=== PATIENT | female | born 1975 | race African-American/Black ===

== ENCOUNTER 2025-04-14 12:37 | Day surgery (SDC) | payer MEDICARE, MEDICAID, SELFPAY ==
[2025-04-14] VITALS (7 sets, daily range): BP systolic 116–138; BP diastolic 64–85; PULSE 80–86; RESP 16–18; TEMP 36.3–36.4; O2SAT 100; BMI 32.3
[2025-04-14 13:30] LABS: Internal QC Validated? YES +Cl - CLEAR BKGD; Pregnancy, Urine Negative Negative
--- NOTE | 2025-04-14 13:30 | PRE.ANES_ITS ---
ASA Classification* ASA Classification ASA Classification: 2 Assessment & Plan Anesthesia* Anesthesia Assessment Anesthesia Assessment: Discussed sedation and/or anesthesia options, risks, benefits, and alternatives with patient/parents/legal guardian/POA. Questions invited. The patient/parents/legal guardian/POA seems to understand and agrees to proceed with anesthesia plan. Reviewed the physical assessment, medical history, allergy history and patient home medications list prior to surgery/procedure/anesthetic and documented any changes. Performed airway and anesthesia risk assessments. Anesthesia Type Anesthesia Type: MAC Anesthesia Focused Assessment* Temperature: 97.3 F Pulse Rate: 80 Blood Pressure: 138/85 Respiratory Rate: 18 Pulse Ox: 100 Airway Assessment Mouth opens: >3 cm Mallampati Score: II Labs Anesthesia Preop lab: CBC CHEMISTRY COAG Urine Test Negative Negative 04/14/25 12:54 04/14/25 Pre-Assessment Diagnosis/Proposed Procedure Planned Operative Procedure(s): Colonoscopy,EGD Anesthesia History Anesthesia History - sports medicine trainer: Anesthesia History - sports medicine trainer Hx Hospitalization No 04/13/25 08:49 Any Problems With Anesthesia No 04/13/25 08:49 Cholinesterase deficiency No 04/13/25 08:49 You/Your Family Experience No 04/13/25 08:49 fever (hyperthermia) with Relationship Recent Exposure to Contagious No 04/14/25 13:14 Disease Does patient have nerve No 04/13/25 08:49 stimulator Patient instructed to have device shut off --Does patient have Pacemaker or ICD? When Was Last Pacemaker Check QUESTION #4 FULL TEXT: You/Your Family Experience fever (hyperthermia) with Anesthesia Last Oral Intake Last Oral intake: Last Oral Intake NPO since Meds taken in AM with sips of water? Meds patient instructed to take am of surgery PONV PONV - sports medicine trainer: PONV - sports medicine trainer Female Yes 04/13/25 08:49 HX of Motion Sickness No 04/13/25 08:49 HX of N/V After Surgery No 04/13/25 08:49 Non-Smoker Yes 04/13/25 08:49 Duration of Surgery greater No 04/13/25 08:49 than 60 minutes Number of Risk Factors 2 04/13/25 08:49 PONV Score Moderate Risk 04/13/25 08:49 Height & Weight Height & Weight: Anesthesia: Height & Weight Height 5 ft 9 in 04/14/25 13:17 Weight: 99.337 kg 04/14/25 13:17 Body Mass Index (BMI) 32.3 04/14/25 13:17 Respiratory Assessment Respiratory Assessment - sports medicine trainer: Respiratory Tract Infection Hx - sports medicine trainer Hx Respiratory Tract Infection No 04/13/25 08:49 STOP Sleep Apnea STOP Sleep Apnea - sports medicine trainer: STOP Sleep Apnea - sports medicine trainer Hx Hypertension Yes: ON MEDICATION 04/13/25 08:49 Hx Sleep Apnea No 04/13/25 08:49 CPAP BIPAP Do you snore loudly (louder Yes 04/13/25 08:49 than talking or can be heard Do you often feel tired/ Yes 04/13/25 08:49 fatigued/ sleepy during daytime? Has anyone observed you stop No 04/13/25 08:49 breathing during sleep? STOP Results Positive 04/13/25 08:49 QUESTION #5 FULL TEXT : Do you snore loudly (louder than talking or can be heard through closed doors)? Tobacco Use History Tobacco Use History - sports medicine trainer: Tobacco Use History - sports medicine trainer Tobacco Use Smoking Status Former smoker 04/13/25 08:49 Hx Tobacco Use No 04/13/25 08:49 Years Smoking 10 04/13/25 08:49 Packs Smoked per Day 1 04/13/25 08:49 Smoking Cessation Date was No - quit smoking greater 04/13/25 08:49 within the last 15 years than 15 years ago Hx Smoking Cessation Date Hx Smoking Cessation No 04/13/25 08:49 Counseling Hematologic Medial History Hematologic Hx - sports medicine trainer: Hematologic Medical Hx - zinc etcher Hx of Blood Transfusion No 04/13/25 08:49 Hx of Transfusion in last 3 No 04/13/25 08:49 Months Date of Last Transfusion (if within last 3 months) Ever experience any problems No 04/13/25 08:49 with transfusion(s)? Specify any problems Hx of Preganancy in last 3 No 04/13/25 08:49 Months Nurse Filling Out Transfusion ROBERTA 04/13/25 08:49 & Questions: Date: 04/13/25 04/13/25 08:49 Time: 08:53 04/13/25 08:49 Patient unable to answer at this time (ie. confused, unrespo /Reproduction History /Reproductive History - sports medicine trainer: /Reproductive Hx- sports medicine trainer Hx Now No 04/13/25 08:49 Gestational Age (in weeks): EDC: Hx Hx Para Hx Section SAB No 04/13/25 08:49 Active Medications Active Medications: Current Medications Generic Name Dose Route Start Last Admin Trade Name Freq PRN Reason Stop Dose Admin Sodium Chloride 1,000 mls @ 15 mls/hr 04/14/25 12:55 IV .Q48H ANTOINE PFSH Medical History Wears glasses Marijuana use Arthritis History of renal disease Anemia Restless legs Dietary restriction Heartburn Former smoker Home Medications ?Medication ?Instructions ?Recorded ?Last Taken ?Type amlodipine 5 mg tablet 5 mg PO QHS 01/29/25 5 History calcitriol 0.5 mcg capsule 0.5 mcg PO QDAY 01/29/25 History cinacalcet 90 mg tablet 90 mg PO QDAY 01/29/2504/13 History labetalol 100 mg tablet 100 mg PO BID 01/29/2504/14 10:00 History losartan 50 mg tablet 50 mg PO BID 01/29/25 10:00 History medroxyprogesterone 10 mg tablet 10 mg PO QDAY 5 Unknown History multivitamin 1 tab PO QDAY 01/29/2504/10 History omeprazole 20 mg capsule,delayed 20 mg PO QDAY 5 04/13/25 History release ropinirole 0.5 mg tablet 1.5 mg PO BID 01/29/2504/13 History sevelamer HCl 800 mg tablet 800 mg PO TID 01/29/2505/29 History peg 3350-electrolytes 236 240 ml PO Q10M #4,000 mL 12/3004/13/25 Rx gram-22.74 gram-6.74 gram-5.86 gram solution (Golytely) Allergy/AdvReac Type Severity Reaction Status Date / Time No Known Allergies Allergy Verified 04/14/25 13:11 Social History Smoking Status: Former smoker alcohol intake: current alcohol intake frequency: holidays/special occasions only substance use type: marijuana caffeine: Yes Type: coffee Review of Systems (Anesthesia) ROS Narrative System reviewed and no additional complaints, except as documented.
[2025-04-14] MEDS: 0.9% Normal Saline (1000mL) 1,000 ML 15 ML IV (13:53)
--- NOTE | 2025-04-14 14:15 | EGD_PTH ---
PATIENT: JESSICA MACDONALD LOC: EN U#:[id number] AGE/SX: 49/F ROOM: RE04/14/[address]: Dr. Alberto Strickland DO : 1975 BED: DIS: 04/14/2025 SPEC #: [id number] RECD: 04/14/25 18:24 STATUS: FRED REFélix #: [id number] FIDEL: 04/14/25 14:[address]: Alberto Strickland DEPT: SURGICAL PATHOLOGY RECD BY: Constantino Echavarria ENTERED: 04/15/25 08:51 SP TYPE: EGD BIOPSY MEHDI DR: Christine To, CERTIFIED MASTER SAFECRACKER-C Tissues: A - Esophagus, NOS B - Duodenum, NOS C - COLON BIOPSY D - Cecum, NOS Procedures: Surgery Specimen Level IV HEADER OPERATION: Colonoscopy with polypectomy, EGD with biopsy PRE-OP DIAGNOSIS: Screening for colon cancer, chronic GERD TISSUE SUBMITTED: A- Distal esophagus biopsy, B- Duodenum biopsy, C- Hepatic flexure polyp x2, D- Cecal cap biopsy MICROSCOPIC DIAGNOSIS A. Esophagus, distal, biopsies: * Benign squamous epithelium * Oxynto-cardiac mucosa with slight chronic inflammation * No goblet cell metaplasia is identified B. Small intestine, duodenum: * Benign without active inflammation C. Large intestine, hepatic flexure polyp x 2: * Tubular adenoma D. Large intestine, cecal polyp: * Tubular adenoma MICROSCOPIC DESCRIPTION Slides are reviewed. GROSS DESCRIPTION Received in 4 formalin containers labeled the patient's name and date of . Designated as: A. Distal esophagus BX are approximately 5 tim tissue fragments, <0.1 cm to 0.3 cm. Entirely submitted in 1 cassette. Smaller fragments may not survive processing. B. Duodenum BX are approximately 6 tim tissue fragments, <0.1 cm to 0.4 cm. Entirely submitted 1 cassette. Smaller fragments may not survive processing. C. Hepatic flexure polyp x 2 are 3 tim tissue fragments, <0.1 cm to 0.5 cm and 2 tim-red polyps, 0.7 x 0.5 x 0.4 cm and 1.1 x 0.9 x 0.7 cm. The polyps are sectioned, and the specimen is entirely submitted in 3 cassettes as follows: C1: 3 soft tissue fragments, smallest fragment may not survive processing. C2: Smaller polyp, trisected C3: Larger polyp, serially section D. Cecal CAP polyp is a 0.3 cm tim tissue fragment and a 1.4 x 1.3 x 1.1 cm tim-red polyp. Entirely submitted in 3 cassettes as follows: D1: 1 soft tissue fragment D2-D3: Serially section polyp SLC 04/15/2025 CPT:49207a8
--- NOTE | 2025-04-14 15:18 | PCM.HP.STD ---
HPI - General General Date of Admission: 04/14/25 Date of Service: 04/14/25 Chief Complaint: GERD screening colonoscopy HPI Narrative JESSICA MACDONALD, is a 49 F who presents for a screening colonoscopy. Pt has never had a colonoscopy before. She has chronic constipation due to being ESRD on dialysis. She will take stool softener when she needs it. SHe typically has a bm every few days. SHe denies family hx of colon cancer. Pt also has a hx of heartburn and has been on famotidine. Her PCP recently switched her to omeprazole. SHe has been on this for a few weeks and has not had any heartburn. [facility] Medical History Wears glasses Marijuana use Arthritis History of renal disease Anemia Restless legs Dietary restriction Heartburn Former smoker Home Medications ?Medication ?Instructions ?Recorded ?Last Taken ?Type amlodipine 5 mg tablet 5 mg PO QHS 01/29/25 04/13/25 History calcitriol 0.5 mcg capsule 0.5 mcg PO QDAY 01/29/25 04/10/25 History cinacalcet 90 mg tablet 90 mg PO QDAY 01/29/25 04/13/25 History labetalol 100 mg tablet 100 mg PO BID 01/29/25 04/14/25 10:00 History losartan 50 mg tablet 50 mg PO BID 01/29/25 04/14/25 10:00 History medroxyprogesterone 10 mg tablet 10 mg PO QDAY 01/29/25 Unknown History multivitamin 1 tab PO QDAY 01/29/25 04/10/25 History omeprazole 20 mg capsule,delayed 20 mg PO QDAY 01/29/25 04/13/25 History release ropinirole 0.5 mg tablet 1.5 mg PO BID 01/29/25 04/13/25 History sevelamer HCl 800 mg tablet 800 mg PO TID 01/29/25 04/11/25 History peg 3350-electrolytes 236 240 ml PO Q10M #4,000 mL 02/04/25 04/13/25 Rx gram-22.74 gram-6.74 gram-5.86 gram solution (Golytely) Allergy/AdvReac Type Severity Reaction Status Date / Time No Known Allergies Allergy Verified 04/14/25 13:11 Social History Smoking Status: Former smoker alcohol intake: current alcohol intake frequency: holidays/special occasions only substance use type: marijuana caffeine: Yes Type: coffee ROS Constitutional Constitutional: Denies fatigue, fever(s), poor appetite, weight gain or weight loss Gastrointestinal Gastrointestinal: Denies belching, bloating, change in bowel habits, change in stool character, chewing difficulty, coffee ground emesis, constipation, cramping, diarrhea, dyspepsia, dysphagia, early satiety, excessive flatus, fecal incontinence, heartburn, hematemesis, hematochezia, hemorrhoids, loose stools, melena, nausea, odynophagia, rectal bleeding, tenesmus, vomiting or weight changes Vital Signs Vital Signs Vital Signs: 04/14/25 13:14 04/14/25 13:17 04/14/25 13:31 Temperature 97.3 F L 97.3 F L Temperature Source Temporal Pulse Rate 80 80 Respiratory Rate 18 18 Respiratory Pattern Normal Blood Pressure 138/85 H 138/85 H Blood Pressure Mean 102 Blood Pressure Source Monitor Blood Pressure Position Semi-Fowlers Blood Pressure Location Right Arm Pulse Ox 100 100 Oxygen Delivery Method Room Air Weight Weight: 219 lb Body Mass Index (BMI) 32.3 Physical Exam Const alert, oriented x3, no apparent distress and healthy appearing General Appearance: cooperative GI normal to inspection, nondistended, normoactive bowel sounds, soft to palpation, non-tender and non-distended Percussion: normal to percussion Rectal Exam: deferred Results Lab / Micro Data Labs: Laboratory Results - last 24 hr 04/14/25 12:54: Urine Test Negative Assessment & Plan Assessment/Plan (1) Screening for colon cancer: (2) Chronic GERD: PLAN: Assessment and Plan Assessment and Plan (1) Chronic GERD: Status: Chronic Plan: THis is a 49 yo female pt here today for evaluation and to be scheduled for screening colonoscopy. Pt has a hx of GERD previously on H2 elle but recently changed to PPI. She feels it is well controlled at this time. However due to long hx she will undergo EGD. She will also have a colonoscopy as the same time for colon cancer screening. She is agreeable to plan -EGD -Colonoscopy -f/u after procedure (2) Screening for colon cancer: Status: Acute
--- NOTE | 2025-04-14 16:50 | PCM.POST.ANE ---
Anesthesia: Postop Eval I Current Vital Signs Temperature: 97.6 F Pulse Rate: 86 Blood Pressure: 127/73 Respiratory Rate: 16 Pulse Ox: 100 Oxygen Delivery Method: Room Air Assessment Airway patent: Yes Spontaneous unlabored respirations: Yes Mental status: Awake and Calm nausea: No Vomiting: No Anesthesia Complication: No Fluid Hydration Crystalloid volume administer (ml): 1,000 Total IV fluid infused: 1,000 Progress Note Anesthesia document: Postop Eval 1 completed: Yes
--- NOTE | 2025-04-14 16:51 | OP.EGD_ITS ---
Patient Name: Nisha Tovar Procedure Date: 04/14/2025 3:59 PM Date of : 1975 Age: 49 Procedure: Upper GI endoscopy Indications: Epigastric abdominal pain, Functional Dyspepsia, Suspected esophageal reflux Providers: Alberto Strickland DO Referring MD: Alberto Strickland DO Medicines: Monitored Anesthesia Care Patient Profile: This is a 49 year old female. Refer to note in patient chart for documentation of history and physical. Patient has symptoms of acute epigastric abdominal pain, chronic heartburn and chronic nausea. Complications: No immediate complications. Procedure: Pre-Anesthesia Assessment: - Prior to the procedure, a History and Physical was performed, and patient medications and allergies were reviewed. The patient is competent. The risks and benefits of the procedure and the sedation options and risks were discussed with the patient. All questions were answered and informed consent was obtained. Patient identification and proposed procedure were verified by the physician in the pre-procedure area. Mental Status Examination: alert and oriented. Airway Examination: normal oropharyngeal airway and neck mobility. Respiratory Examination: clear to auscultation. CV Examination: normal. Prophylactic Antibiotics: The patient does not require prophylactic antibiotics. Prior Anticoagulants: The patient has taken no anticoagulant or antiplatelet agents except for NSAID medication. ASA Grade Assessment: I - A normal, healthy patient. After reviewing the risks and benefits, the patient was deemed in satisfactory condition to undergo the procedure. The anesthesia plan was to use monitored anesthesia care (MAC). Immediately prior to administration of medications, the patient was re-assessed for adequacy to receive sedatives. The heart rate, respiratory rate, oxygen saturations, blood pressure, adequacy of pulmonary ventilation, and response to care were monitored throughout the procedure. The physical status of the patient was re-assessed after the procedure. After obtaining informed consent, the endoscope was passed under direct vision. Throughout the procedure, the patient's blood pressure, pulse, and oxygen saturations were monitored continuously. The Colonoscope was introduced through the mouth, and advanced to the third part of the duodenum. Small bowel enteroscopy was deemed necessary. The upper GI endoscopy was accomplished without difficulty. The patient tolerated the procedure well. Scope In: 4:08:40 PM Scope Out: 4:12:27 PM Total Procedure Duration Time 0 hours 3 minutes 47 seconds Findings: LA Grade A (one or more mucosal breaks less than 5 mm, not extending between tops of 2 mucosal folds) esophagitis with no bleeding was found 38 to 40 cm from the incisors. Biopsies were taken with a cold forceps for histology. Verification of patient identification for the specimen was done. Estimated blood loss was minimal. No gross lesions were noted in the entire examined stomach. Localized mild inflammation characterized by erosions and erythema was found in the duodenal bulb. Biopsies were taken with a cold forceps for histology. Verification of patient identification for the specimen was done. Estimated blood loss was minimal. Impression: - LA Grade A reflux esophagitis with no bleeding. Biopsied. - No gross lesions in the entire stomach. - Chronic duodenitis. Biopsied. Recommendation: - Discharge patient to home. - Resume previous diet. - Continue present medications. - Await pathology results. Procedure Code(s): --- Professional --- 59849, Small intestinal endoscopy, enteroscopy beyond second portion of duodenum, not including ileum; with biopsy, single or multiple CPT copyright 2021 [employer]. All rights reserved. The codes documented in this report are preliminary and upon rewinder operator helper review may be revised to meet current compliance requirements. Alberto Strickland DO 04/14/2025 4:50:55 PM This report has been signed electronically. Number of Addenda: 0 Note Initiated On: 04/14/2025 3:59 PM
--- NOTE | 2025-04-14 16:51 | OP.CCLET_ITS ---
04/14/2025 Christine To Re : Upper GI endoscopy procedure for Nisha Tovar Dear [place]ule[place] This procedure was performed on Monday, April 14, 2025. My impressions and recommendations are as follows: Impressions : - LA Grade A reflux esophagitis with no bleeding. Biopsied. - No gross lesions in the entire stomach. - Chronic duodenitis. Biopsied. Recommendations : - Discharge patient to home. - Resume previous diet. - Continue present medications. - Await pathology results. My findings are described in the full procedure note, which is enclosed. If I can be of further assistance, please feel free to contact me at . Sincerely, Alberto Strickland DO 04/14/2025 4:50:55 PM This report has been signed electronically.
--- NOTE | 2025-04-14 16:57 | OP.COLON_ITS ---
Patient Name: Nisha Tovar Procedure Date: 04/14/2025 4:12 PM Date of : 1975 Age: 49 Procedure: Colonoscopy Indications: Screening for colorectal malignant neoplasm Providers: Alberto Strickland DO Referring MD: Alberto Strickland DO Medicines: Monitored Anesthesia Care Patient Profile: This is a 49 year old female. Refer to note in patient chart for documentation of history and physical. Patient has symptoms of acute epigastric abdominal pain, chronic heartburn and chronic nausea. Last Colonoscopy: none. The patient's first colonoscopy is today. Complications: No immediate complications. Procedure: Pre-Anesthesia Assessment: - Prior to the procedure, a History and Physical was performed, and patient medications and allergies were reviewed. The patient is competent. The risks and benefits of the procedure and the sedation options and risks were discussed with the patient. All questions were answered and informed consent was obtained. Patient identification and proposed procedure were verified by the physician in the pre-procedure area. Mental Status Examination: alert and oriented. Airway Examination: normal oropharyngeal airway and neck mobility. Respiratory Examination: clear to auscultation. CV Examination: normal. Prophylactic Antibiotics: The patient does not require prophylactic antibiotics. Prior Anticoagulants: The patient has taken no anticoagulant or antiplatelet agents except for NSAID medication. ASA Grade Assessment: I - A normal, healthy patient. After reviewing the risks and benefits, the patient was deemed in satisfactory condition to undergo the procedure. The anesthesia plan was to use monitored anesthesia care (MAC). Immediately prior to administration of medications, the patient was re-assessed for adequacy to receive sedatives. The heart rate, respiratory rate, oxygen saturations, blood pressure, adequacy of pulmonary ventilation, and response to care were monitored throughout the procedure. The physical status of the patient was re-assessed after the procedure. After I obtained informed consent, the scope was passed under direct vision. Throughout the procedure, the patient's blood pressure, pulse, and oxygen saturations were monitored continuously. The Colonoscope was introduced through the anus and advanced to the cecum, identified by appendiceal orifice and ileocecal valve. The colonoscopy was performed without difficulty. The patient tolerated the procedure well. The quality of the bowel preparation was good. The terminal ileum, ileocecal valve, appendiceal orifice, and rectum were photographed. Scope In: 4:14:35 PM Scope Withdrawal Time 0 hours 13 minutes 26 seconds Scope Out: 4:40:37 PM Total Procedure Duration Time 0 hours 26 minutes 2 seconds Findings: The perianal and digital rectal examinations were normal. Three sessile polyps were found in the hepatic flexure and cecum. The polyps were 1 to 2 mm in size. These polyps were removed with a hot snare. Resection and retrieval were complete. Verification of patient identification for the specimen was done. Estimated blood loss was minimal. Multiple small-mouthed diverticula were found in the recto-sigmoid colon and sigmoid colon. Impression: - Three 1 to 2 mm polyps at the hepatic flexure and in the cecum, removed with a hot snare. Resected and retrieved. - Diverticulosis in the recto-sigmoid colon and in the sigmoid colon. Recommendation: - Discharge patient to home. - Resume previous diet. - Continue present medications. - Repeat colonoscopy in 5 years for surveillance. Procedure Code(s): --- Professional --- 78879, Colonoscopy, flexible; with removal of tumor(s), polyp(s), or other lesion(s) by snare technique CPT copyright 2021 [employer]. All rights reserved. The codes documented in this report are preliminary and upon town planner review may be revised to meet current compliance requirements. Alberto Strickland DO 04/14/2025 4:57:08 PM This report has been signed electronically. Number of Addenda: 0 Note Initiated On: 04/14/2025 4:12 PM
--- NOTE | 2025-04-14 16:58 | OP.CCLET_ITS ---
04/14/2025 Christine To Re : Colonoscopy procedure for Nisha Tovar Dear Zuleika This procedure was performed on Monday, April 14, 2025. My impressions and recommendations are as follows: Impressions : - Three 1 to 2 mm polyps at the hepatic flexure and in the cecum, removed with a hot snare. Resected and retrieved. - Diverticulosis in the recto-sigmoid colon and in the sigmoid colon. Recommendations : - Discharge patient to home. - Resume previous diet. - Continue present medications. - Repeat colonoscopy in 5 years for surveillance. My findings are described in the full procedure note, which is enclosed. If I can be of further assistance, please feel free to contact me at . Sincerely, Alberto Strickland, 04/14/2025 4:57:08 PM This report has been signed electronically.
--- NOTE | 2025-04-14 19:27 | POSTOPAN2_ITS ---
Anesthesia Postop Eval I Sum Postop Eval Completion status Anesthesia document: Postop Eval 1 completed: Yes Anesthesia Postop Eval I Summary Anesthesia Postop Eval I Summary: Anesthesia Postop Eval I: Assessment Summary Airway patent Yes 04/14/25 16:50 [email or web address] Spontaneous unlabored Yes 04/14/25 16:50 [email or web address] respirations Mental status Awake,Calm 04/14/25 16:50 [email or web address] nausea No 04/14/25 16:50 [email or web address] Vomiting No 04/14/25 16:50 [email or web address] Anesthesia Postop Eval I: Fluid Summary Crystalloid volume administer 1,000 04/14/25 16:50 [email or web address] (ml) Colloids volume administered ( ml) Blood Product volume administered (ml) Total IV fluid infused 1,000 04/14/25 16:50 [email or web address] Anesthesia Postop Eval I: Summary Notes Anesthesia Complication No 04/14/25 16:50 [email or web address] Anesthesia Complication Comment: Post-operative progress note Anesthesia: Postop Eval II Evaluation Mental status: Awake Pain Level: 0 nausea: No Vomiting: No
--- NOTE | 2025-04-14 19:27 | PCM.POSTANE2 ---
Anesthesia Postop Eval I Sum Postop Eval Completion status Anesthesia document: Postop Eval 1 completed: Yes Anesthesia Postop Eval I Summary Anesthesia Postop Eval I Summary: Anesthesia Postop Eval I: Assessment Summary Airway patent Yes 04/14/25 16:50 [email or web address] Spontaneous unlabored Yes 04/14/25 16:50 [email or web address] [email or web address] respirations Mental status Awake,Calm 04/14/25 16:50 [email or web address] [email or web address] nausea No 04/14/25 16:50 [email or web address] [email or web address] Vomiting No 04/14/25 16:50 [email or web address] Anesthesia Postop Eval I: Fluid Summary Crystalloid volume administer 1,000 04/14/25 16:50 [email or web address] (ml) Colloids volume administered ( ml) Blood Product volume administered (ml) Total IV fluid infused 1,000 04/14/25 16:50 [email or web address] Anesthesia Postop Eval I: Summary Notes Anesthesia Complication No 04/14/25 16:50 [email or web address] Anesthesia Complication Comment: Post-operative progress note Anesthesia: Postop Eval II Evaluation Mental status: Awake Pain Level: 0 nausea: No Vomiting: No
== END 2025-04-14 17:24 | disposition home or self-care (01) ==
LOC: EN 12:37 → AC 12:38
PROVIDERS: Anesthesiology; PCP Nurse Practitioner Family; Referring Provider Nurse Practitioner Family; Visit Provider Internal Medicine Gastroenterology
PROC: 0DJD8ZZ Inspection of Lower Intestinal Tract, Via Natural or Artificial Opening Endoscopic (ICD-10-PCS; CPT 45378; principal; 2025-04-14 14:10)
DX: Z12.11 Encounter for screening for malignant neoplasm of colon (principal); N18.6 End stage renal disease; K21.00 Gastro-esophageal reflux disease with esophagitis, without bleeding; K57.30 Diverticulosis of large intestine without perforation or abscess without bleeding; K29.80 Duodenitis without bleeding; Z87.891 Personal history of nicotine dependence; Z99.2 Dependence on renal dialysis; Z79.899 Other long term (current) drug therapy; D12.3 Benign neoplasm of transverse colon; D12.0 Benign neoplasm of cecum
CPT/HCPCS: 45385; 43239; 81025; 88305

== ENCOUNTER 2025-04-17 05:01 | Inpatient (IN) | payer MEDICARE, MEDICAID, SELFPAY ==
[2025-04-17] VITALS (32 sets, daily range): BP systolic 86–204; BP diastolic 45–90; PULSE 71–104; RESP 13–22; TEMP 36.1–37.1; O2SAT 97–100; BMI 33.3; BMI 32.8
--- NOTE | 2025-04-17 05:11 | PCA ---
NO OLD EKG
[2025-04-17 05:23] LABS: Absolute Lymphocyte Count 1.51 X10^3/uL (0.83-4.51); Absolute Neutrophil Count 6.3 X10^3/uL (2.0-7.7); Basophil# 0.01 X10^3/uL; Basophil% 0.1 % (0-1); Eosinophil# 0.09 X10^3/uL; Hematocrit 22.1 % (37-47); Hemoglobin 7.3 g/dL (12.0-15.0); Lymphocyte # 1.51 X10^3/ul (0.83-4.51); Lymphocyte % 17.6 % (19-41); Mean Corpuscular Hgb 32.7 pg (27.0-32.0); Mean Corpuscular Volume 99.1 fL (81-99); Mean Platelet Vol. 10.8 fl (6.2-12.0); Monocyte# 0.61 X10^3/uL; Monocyte% 7.1 % (0-10); NRBC Flagged by Analyzer 0 % (0-5); Neutrophil # 6.32 X10^3/uL (2.7-7.7); Neutrophil % 73.7 % (47-70); Platelet Count 143 K/mm3 (150-450); RBC Distribution Width CV 16.7 % (11.6-14.6); RBC Distribution Width SD 60.2 fl (35.1-43.9); Red Blood Count 2.23 M/mm3 (4.2-5.4); White Blood Count 8.6 K/mm3 (4.4-11.0)
[2025-04-17 05:48] LABS: Lactic Acid 1.3 mmol/L (0.0-2.0)
--- NOTE | 2025-04-17 05:54 | ED.VIS.GI ---
HPI HPI - GI History of Present Illness Chief Complaint: GI Bleed Detail of Chief Complaint: BRB per rectum status post colonoscopy s/p polypectomy x 3 Informant: patient Abdominal Pain/Flank Pain Onset: Today Context: Sudden Onset Timing: Continuous and - (For bright red bowel movements prior to arrival. She had 1 bowel movement that was bloody here.) Quality: - (No pain) Location: - (Not applicable) Current Severity: Severe Maximum Severity: Severe Worsened by: Nothing Relieved by: Nothing Nausea/Vomiting/Emesis GI Symptom: Negative for Nausea or Vomiting Diarrhea/Melena/Hematochezia GI Symptom: Positive for Hematochezia Onset: Today Severity: Severe Associated Symptoms Associated Symptoms: Negative for Dysuria, Frequency, Hematuria or Urgency Narrative Narrative: Patient is a 49-year-old woman. She underwent EGD and colonoscopy by Dr. Strickland. The colonoscopy and EGD were both performed on April 14. There were 3 sessile polyps found at the hepatic flexure and cecum. The polyps were 1 to 2 mm in size. These polyps were removed with hot snare. Resection and retrieval were completed. Estimated blood loss was minimal. Patient presents because of bright red blood per rectum x 4 prior to arrival once in the Emergency Department. Orthostatics were markedly positive and patient almost fainted per nurse. She had a 40 mm drop in her systolic pressure. Dr. Strickland was made aware of patient. He was told that she had orthostatic symptoms and orthostatic vital signs had not been performed. Patient denies abdominal pain. She denies nausea or vomiting. She denies cardiac respiratory symptoms. Patient does appear pale. Prior similar symptoms: No Recent Illness/Hospitalization: Yes PFSH PFSH Medical History Wears glasses Marijuana use Arthritis History of renal disease Anemia Restless legs Dietary restriction Heartburn Former smoker Home Medications ?Medication ?Instructions ?Recorded ?Last Taken ?Type amlodipine 5 mg tablet 5 mg PO QHS 01/29/25 04/13/25 History calcitriol 0.5 mcg capsule 0.5 mcg PO QDAY 01/29/25 04/10/25 History cinacalcet 90 mg tablet 90 mg PO QDAY 01/29/25 04/13/25 History labetalol 100 mg tablet 100 mg PO BID 01/29/25 04/14/25 10:00 History losartan 50 mg tablet 50 mg PO BID 01/29/25 04/14/25 10:00 History medroxyprogesterone 10 mg tablet 10 mg PO QDAY 01/29/25 Unknown History multivitamin 1 tab PO QDAY 01/29/25 04/10/25 History omeprazole 20 mg capsule,delayed 20 mg PO QDAY 01/29/25 04/13/25 History release ropinirole 0.5 mg tablet 1.5 mg PO BID 01/29/25 04/13/25 History sevelamer HCl 800 mg tablet 800 mg PO TID 01/29/25 04/11/25 History Allergy/AdvReac Type Severity Reaction Status Date / Time No Known Allergies Allergy Verified 04/17/25 05:02 Social History Smoking Status: Former smoker alcohol intake: current alcohol intake frequency: holidays/special occasions only substance use type: marijuana caffeine: Yes Type: coffee ROS ROS ED Constitutional Constitutional ED: Denies chills, fever(s), subjective or sweats ENT ENT ED: Denies rhinorrhea or sore throat Cardiovascular Cardiovascular: Reports other Details: Orthostatic lightheadedness ; Denies chest pain, palpitations or racing heartbeat Respiratory/Chest Respiratory/Chest: Denies cough, dyspnea or dyspnea on exertion Gastrointestinal Gastrointestinal: Reports other Details: Hematochezia status post polypectomy ; Denies abdominal pain, constipation, diarrhea, melena, nausea or vomiting Genitourinary Genitourinary ED: Denies dysuria or hematuria Musculoskeletal Musculoskeletal: Denies arthralgias, back pain or myalgias Integumentary Denies rash Neurologic Neurologic: Reports weakness and other Psychiatric Psychiatric: Reports anxiety; Denies depression Hematologic/Lymphatic Hematologic/Lymphatic: Denies easy bleeding or easy bruising EXAM Physical Exam Const Vital Signs: 04/17/25 05:04 04/17/25 05:23 Temperature 98.2 F Temperature Source Oral Pulse Rate 84 Pulse Rate [Lying] 87 Pulse Rate [Standing (for 1 minute prior to obtaining)] 90 Respiratory Rate 16 Blood Pressure 127/76 H Blood Pressure [Lying] 115/67 Blood Pressure [Sitting (for 1 minute prior to obtaining)] 115/74 Blood Pressure [Standing (for 1 minute prior to obtaining)] 86/45 L Blood Pressure Mean 93 Blood Pressure Mean [Lying] 83 Blood Pressure Mean [Sitting (for 1 minute prior to obtaining)] 87 Blood Pressure Mean [Standing (for 1 minute prior to obtaining)] 58 Pulse Ox 100 Oxygen Delivery Method Room Air Positive well nourished and well developed Constitutional Narrative: Blood pressure noted. Orthostatics were positive. She appears pale. General Appearance ED: well developed and pallor; Negative for NAD HEENT Reports TM's clear, moist mucous membranes and dry mucous membranes HEENT Narrative: Gums appear slightly pale. normocephalic and atraumatic Tympanic Membrane ED: Yes TM's clear Mouth ED: Yes dry mucous membranes Mouth: dry mucous membranes Eyes PERRL and EOMs intact bilaterally General Eye ED: Yes pale conjunctiva; Negative for scleral icterus Neck no lymphadenopathy, supple and no JVD Resp normal respiratory effort and clear to auscultation bilaterally Cardio regular rate, regular rhythm, S1 normal heart sound, S2 normal heart sound and no murmurs GI non-tender, non-distended and no masses GI Narrative: Rectal was not performed since patient took pictures of blood in the commode and she had a bloody episode here Back/Spine no CVA tenderness Extremity full ROM Neuro CN's II-XII intact bilaterally and moves all extremities Sensorium / Orientation: alert Psych mental status grossly normal and thought process normal Skin General Skin Exam: pallor MDM MDM MDM Narrative Medical decision making narrative: Patient is lower GI bleed status post polypectomy. Suspect she is anemic. She was typed and screened appropriate blood work was obtained. Orthostatics were positive. She received 2 L of normal saline. Type and screen has been changed to type and cross. EKG was obtained to evaluate for possible cardiac ischemia. CBC to assess H&H and compare to prior. Basic metabolic panel to assess electrolytes CO2 and BUN to creatinine ratio. Patient is on hemodialysis. She is dialyzed on Sunday. She received heparin prior to dialysis. Dr. Almeida colonoscopy report was reviewed and documented/summarized in the HPI narrative. Lab Data Attestation: I reviewed the patient's lab results. Lab results narrative: H&H is 7.3 and 22.1. MCV is slightly elevated. Lactate is normal at 1.3. BUN and creatinine are elevated 47 and 8.12. This is consistent with patient with end-stage renal disease on hemodialysis. Labs: Laboratory Results - last 24 hr 04/17/25 05:18 WBC 8.6 RBC 2.23 L Hgb 7.3 L Hct 22.1 L MCV 99.1 H MCH 32.7 H MCHC 33.0 RDW Std Deviation 60.2 H RDW Coeff of Dayanna 16.7 H Plt Count 143 L MPV 10.8 Immature Gran % (Auto) 0.500 Neut % (Auto) 73.7 H Lymph % (Auto) 17.6 L [place] % (Auto) 7.1 Eos % (Auto) 1.0 Baso % (Auto) 0.1 Absolute Neuts (auto) 6.3 Absolute Lymphs (auto) 1.51 Nucleated RBC % 0 Sodium 139 Potassium 4.2 Chloride 102 Carbon Dioxide 25.0 Anion Gap 12 BUN 47 H Creatinine 8.12 H* Estim Creat Clear Calc 10.90 L Est GFR (MDRD) Non-Af 6 L BUN/Creatinine Ratio 5.8 L Glucose 103 H Lactic Acid 1.3 Calcium 8.9 Blood Type O POSITIVE Antibody Screen NEGATIVE EKG Initial EKG: Attestation: I personally reviewed and interpreted this EKG as follows: Interpretation: Sinus Rhythm (Sinus rhythm rate 81. LA interval is under 36 ms cures duration 74 ms. QT duration 386 ms. [place] is normal. There is decreased anterior force. Also evidence of low voltage.) Management Discussion w/another healthcare provider: Hospitalist and Artificial Stone Applicator (Dr. Strickland who performed colonoscopy.) Critical Care Time Critical Care Time: Yes Critical care time (excluding procedures): 30-74 minutes (32), Including time spent: (History, physical, documentation, interpretation laboratory results, resuscitation for orthostatic vitals due to acute blood loss with acute anemia), Discussing w/Patient &/or Family/Welfare Administrator, Discussing w/Consultants (Dr. Strickland) and Arranging Admission or Transfer (Hospitalist for admission and chart nurse/garbage collection supervisor to make her aware that patient will need a critical care bed. Patient was discussed with Dr. Daley. Admission to PCU.) Discharge Plan Dx/Rx/DC Orders Clinical Impression: Hematochezia, Chronic GERD, Enlarged thyroid, Acute lower GI bleeding, Status post colon polypectomy, Orthostatic hypotension, Symptomatic anemia, Signs and symptoms of anemia Disposition Disposition: [facility]
[2025-04-17 06:02] LABS: Anion Gap 12 (5-15); BUN 47 mg/dL (4-19); BUN/Creat Ratio 5.8 RATIO (10-20); Calcium,Total 8.9 mg/dL (7.6-11.0); Chloride 102 mmol/L (98-108); Creatinine, Serum 8.12 mg/dL (0.70-1.20); EST Glomerular Filtration Rate 6 (>60); Glucose 103 mg/dL (70-99); Potassium 4.2 mmol/L (3.3-5.1); Sodium Level 139 mmol/L (133-145)
--- OUTSIDE RECORDS SUMMARY | 2025-04-17 06:03 | XMS RPT_ITS | CCD ---
Author Organization [facility] Care Team Providers Care Elevator Adjuster Name Role Phone None, No PCP Unavailable Unavailable HIEU MILES, SALIMA Primary Care Physician ZULEIKA MANAGER FUND-HIRAM, CHRISTINE Primary Care Physician Dr. Hayden Villalba Attending Unavaila MD CANDELARIA Turner Attending Unavailable MD CANDELARIA GU Attending Unavailable Trevon, Dr. Hayden Lopez Attending Kelli Norris, Dr. Hayden Lopez Attending Kelli Norris, Dr. Hayden Lopez Attending Kelli Norris, Dr. Hayden Lopez Attending Kelli Norris, Dr. Hayden Lopez Attending Kelli Norris, Dr. Hayden Lopez Attending MD CANDELARIA Robertson Attending Unavailable Arash Ramirez MD Unavailable TEMO CERVANTES MD Attending Unavailab le ZULEIKA MANAGER FUNDMIQUEL, CHRISTINE Primary Care Unavail able ZULEIKA LAWRENCENCHRISTINE HUNTLEY Attending Unavail able LORSON MANAGER FUND-HIRAM, [place] Primary Care Unavail able TEMO CERVANTES MD Attending Unavailab le LORSON MANAGER FUND-HIRAM, [place] Primary Care Unavail able TEMO CERVANTES MD Attending Unavailab le LORSON MANAGER FUND-ROUNDHOUSE FIRER/FIREMAN, [place] Primary Care Unavail able LORSON MANAGER FUND-ROUNDHOUSE FIRER/FIREMAN, [place] Primary Care Unavail able LORSON MANAGER FUND-ROUNDHOUSE FIRER/FIREMAN, CHRISTINE Attending Unavail able CHRISTINA MORENO MD Attending Unavailable LORSON MANAGER FUND-ROUNDHOUSE FIRER/FIREMAN, [place] Primary Care Unavail able LORSON MANAGER FUND-ROUNDHOUSE FIRER/FIREMAN, [place] Primary Care Unavail able ALON BLANCA MD Attending Unavailable LORSON MANAGER FUND-ROUNDHOUSE FIRER/FIREMAN, [place] Primary Care Unavail able NANNAPANENI MD, TEMO Attending Unavailab nishant CERVANTES MD, TEMO Attending Unavailab le LORSON MANAGER FUND-ROUNDHOUSE FIRER/FIREMAN, [facility] Unavail able EDDI BLOUNT Admitting Unavailable EDDI BLOUNT Attending Unavailable LOREVELYN, [facility] Care Unavailable EDDI BLOUNT Admitting Unavailable EDDI BLOUNT Attending Unavailable LORSON, [facility] Care Unavailable BILLY MILES, TEMO Attending Unavailab le LORSON MANAGER FUND-ROUNDHOUSE FIRER/FIREMAN, [place] Primary Care Unavail able LORSON MANAGER FUND-ROUNDHOUSE FIRER/FIREMAN, [place] Primary Care Unavail able LORSON MANAGER FUND-ROUNDHOUSE FIRER/FIREMAN, CHRISTINE Attending Unavail able BILLY MILES, TEMO Attending Unavailab le LORSON MANAGER FUND-ROUNDHOUSE FIRER/FIREMAN, [facility] Care Unavail able JOSH MILES, CHRISTINA Attending Unavailable LORSON MANAGER FUND-ROUNDHOUSE FIRER/FIREMAN, [place] Primary Care Unavail able LORSON MANAGER FUND-ROUNDHOUSE FIRER/FIREMAN, [place] Primary Care Unavail able LORSON MANAGER FUND-ROUNDHOUSE FIRER/FIREMAN, CHRISTINE Attending Unavail able LORSON MANAGER FUND-ROUNDHOUSE FIRER/FIREMAN, [place] Primary Care Unavail able LORSON MANAGER FUND-ROUNDHOUSE FIRER/FIREMAN, CHRISTINE Attending Unavail able LORSON MANAGER FUND-ROUNDHOUSE FIRER/FIREMAN, [facility] Care Unavail able LORSON MANAGER FUND-ROUNDHOUSE FIRER/FIREMAN, [place] Attending Unavail able Christine Ibrahim Attending Provider [phone] Dr. Alberto Strickland DO Attending Provider Zuleika SENIOR MARKETING SPECIALIST-C, [facility] Provider [phone] Zuleika SENIOR MARKETING SPECIALIST-C, Christine Referring Provider [phone] Alberto Strickland DO Other Provider [phone] Christine Dickey Attending Unavailable Alberto Strickland Attending Unavailable Alberto Strickland Consulting Unavailable Zuleika SENIOR MARKETING SPECIALIST, Christine Referring Unavailable Genason SENIOR MARKETING SPECIALIST, [facility] Unavailable Alberto Strickland Attending Unavailable Genason SENIOR MARKETING SPECIALIST, Christine Referring Unavailable Genason SENIOR MARKETING SPECIALIST, [facility] Unavailable Medications Current Medications Medication Drug Class(es) Dates Sig (Normalized) Sig (Original) acetaminophen 325 mg oral capsule (13 sources) Start: 06-02-2021 Tylenol 325 mg oral capsule Dose : 650 mg = 2 cap(s), Oral, q4h, PRN as needed for pain, # 20 cap(s), 0 Refill(s) Start Date: 06/02/21 Status: Ordered Quantity: 20.0 Unit: cap(s) Repeat number: 1 amLODIPine 5 mg oral tablet (20 sources) Dihydropyridine Calcium Channel Elle Start: 06-23-2019 take 1 tablet by mouth at bedtime Amlodipine 5 mg tablet Active 5 mg PO AT BEDTIME January 29, 2025 12:00am Start: 06-23-2019 amLODIPine Bes ylate 5 MG Oral Tablet Quantity: 30 Refills: 0 Ordered: 23-Jun-2019 DO Start : 23-Jun-2019 Active calcitriol 0.0005 mg oral capsule (6 sources) Vitamin D3 Analog Start: 01-29-2025 take 1 capsule by mouth once daily Calcitriol 0.5 mcg capsule Active 0.5 ug PO daily January 29, 2025 12:00am Start: 01-30-2024 take 1 capsule by [facility] three times weekly calcitriol 0.5 mcg oral capsule See Instructions, 3 times a week at dialysis, 0 Refill(s) Start Date: 01/30/24 Status: Ordered Repeat number: 1 cinacalcet 90 mg oral tablet (20 sources) Calcium-sensing Receptor Agonist Start: 08-09-2022 take 1 tablet by mouth once daily Cinacalcet 90 mg tablet Active 90 mg PO daily January 29, 2025 12:00am Start: 06-26-2019 take 2 tablets by [facility] once daily Cinacalcet HCl - 30 MG Oral Tablet taking two tablets daily Quantity: 0 Refills: 0 Ordered: 26-Jun-2019 DO Start : 26-Jun-2019 Active Start: 06-26-2019 Cinacalcet HCl - 30 MG Oral Tablet Quantity: 30 Refills: 0 Ordered: 26-Jun-2019 DO Start : 26-Jun-2019 Active take 1 tablet by [facility] once daily Cinacalcet HCl (SENSIPAR) 60 mg tablet Take 60 mg by mouth once daily. 0 Active Comment on above: Take 60 mg by mouth once daily. famotidine 20 mg oral tablet (20 sources) Histamine-2 Receptor Antagonist Start: 01-30-2024 Pepcid 20 mg oral tablet Dose : 20 mg = 1 tab(s), Oral, qDay, # 30 tab(s), 11 Refill(s), Pharmacy: [facility]/pharmacy #[id number], 172.5, cm, 01/30/24 13:08:00 EDT, Height, kg, 01/30/24 13:08:00 EDT, Dosing Weight Start Date: 01/30/24 Status: Ordered Start: 06-23-2019 Pepcid 20 mg o ral tablet Dose : 20 mg = 1 tab(s), Oral, qDay, # 30 tab(s), 0 Refill(s) Start Date: 06/02/21 Status: Ordered Start: 06-23-2019 Famotidine 20 MG Oral Tablet Quantity: 30 Refills: 0 Ordered: 23-Jun-2019 DO Start : 23-Jun-2019 Active famotidine (PEPC ID ORAL) Take by mouth. 0 Active Comment on above: Take by mouth. heparin (5 sources) Unfractionated Heparin, Anti-coagulant Start: 01-30-2024 heparin 5000 units/0.5 mL injectable solution at dialysis, 0 Refill(s) Start Date: 01/30/24 Status: Ordered Repeat number: 1 Start: 01-30-2024 heparin 5000 u nits/0.5 mL injectable solution at dialysis, 0 Refill(s) Start Date: 01/30/24 Status: Ordered labetalol hydrochloride 100 mg oral tablet (20 sources) beta-Adrenergic Elle Start: 01-29-2025 take 1 tablet by mouth twice daily Labetalol 100 mg tablet Active 100 mg PO TWICE A DAY January 29, 2025 12:00am Start: 06-20-2019 labetalol 100 mg oral tablet Dose : 100 mg = 1 tab(s), Oral, BID, # 60 tab(s), 0 Refill(s) Start Date: 06/02/21 Status: Ordered Quantity: 60.0 Unit: tab(s) Repeat number: 1 Start: 06-20-2019 Labetalol HCl - 100 MG Oral Tablet Quantity: 60 Refills: 0 Ordered: 20-Jun-2019 DO Start : 20-Jun-2019 Active labetalol HCl (L ABETALOL, BULK, MISC) lidocaine 25 mg/ml / prilocaine 25 mg/ml topical cream (5 sources) Antiarrhythmic, Amide Local Anesthetic Start: 01-30-2024 lidocaine-prilocaine 2.5%-2.5% topical cream Topical, Once, 0 Refill(s), 105 Start Date: 01/30/24 Status: Ordered Repeat number: 1 losartan potassium 50 mg oral tablet (20 sources) Angiotensin 2 Receptor Elle Start: 01-29-2025 take 1 tablet by mouth twice daily Losartan 50 mg tablet Active 50 mg PO TWICE A DAY January 29, 2025 12:00am Start: 07-08-2019 losartan 50 mg oral tablet Dose : 50 mg = 1 tab(s), Oral, BID, 0 Refill(s) Start Date: 06/02/21 Status: Ordered Repeat number: 1 Start: 07-08-2019 Losartan Potas sium 50 MG Oral Tablet Quantity: 60 Refills: 0 Ordered: 08-Jul-2019 DO Start : 08-Jul-2019 Active Comment on above: Take 50 mg by mouth once daily. medroxyPROGESTERone acetate 10 mg oral tablet (4 sources) Progestin Start: 2023 take 1 tablet by mouth once daily Medroxyprogesterone 10 mg tablet Active 10 mg PO daily January 29, 2025 12:00am melatonin 5 mg oral tablet (8 sources) Start: 2020 melatonin 5 mg oral tablet Dose : 5 mg = 1 tab(s), Oral, qHS, PRN as needed for insomnia, # 60 tab(s), 0 Refill(s) Start Date: 06/02/21 Status: Ordered Multivitamin tablet (1 source) Start: 2024 Multivitamin tablet Active 1 {tbl} PO daily January 29, 2025 12:00am Nephro-Aurea oral tablet (13 sources) Start: 2020 take 1 tablet by mouth once daily Nephro-Aurea oral tablet Dose = 1 tab(s), Oral, qDay, # 100 tab(s), 0 Refill(s) Start Date: 06/02/21 Status: Ordered Quantity: 100.0 Unit: tab(s) Repeat number: 1 Start: 06-02-2021 take 1 tablet by maryjo th once daily Nephro-Aurea oral tablet Dose = 1 tab(s), Oral, qDay, # 100 tab(s), 0 Refill(s) Start Date: 06/02/21 Status: Ordered omeprazole 20 mg delayed release oral capsule (2 sources) Proton Pump Inhibitor Start: 01-20-2025 take 1 capsule by mouth once daily Omeprazole 20 mg capsule,delayed release(DR/EC) Active 20 mg PO daily January 29, 2025 12:00am polyethylene glycol 3350 275645 mg / potassium chloride 2970 mg / sodium bicarbonate 6740 mg / sodium chloride 5860 mg / sodium sulfate 77143 mg powder for oral solution (1 source) Osmotic Laxative Start: 02-04-2025 Peg 3350-Electrolytes (Golytely) 236-22.74-6.74 -5.86 gram recon soln Active 240 mL PO Q10M 4000 February 04, 2025 12:00am until fecal effluent is clear rOPINIRole 0.5 mg oral tablet (7 sources) Nonergot Dopamine Agonist Start: 01-29-2025 take 3 tablets by mouth twice daily Ropinirole 0.5 mg tablet Active 1.5 mg PO TWICE A DAY January 29, 2025 12:00am Start: 01-23-2024 rOPINIRole 0.5 mg oral tablet Dose : 0.5 mg = 1 tab(s), Oral, BID Start Date: 01/23/24 Status: Ordered Repeat number: 1 sevelamer hydrochloride 800 mg oral tablet (20 sources) Phosphate Binder Start: 01-29-2025 take 1 tablet by mouth three times daily at mealtime Sevelamer Hcl 800 mg tablet Active 800 mg PO THREE TIMES A DAY January 29, 2025 12:00am must administer with a meal/food Start: 06-02-2021 sevelamer carb baltazar 800 mg oral tablet Dose : 800 mg = 1 tab(s), Oral, TID, # 90 tab(s), 0 Refill(s) Start Date: 06/02/21 Status: Ordered Quantity: 90.0 Unit: tab(s) Repeat number: 1 take 1 tablet by maryjo three times daily at mealtime Sevelamer HCl - 800 MG Oral Tablet TAKE 1 TABLET 3 TIMES DAILY WITH MEALS. Quantity: 0 Refills: 0 Ordered: 19-May-2022 DO Active Completed/Discontinued Medications Medication Drug Class(es) Dates Sig (Normalized) Sig (Original) ascorbic acid 100 mg / biotin 0.15 mg / calcium pantothenate 5 mg / folic acid 1 mg / niacin 20 mg / pyridoxine 10 mg / riboflavin 1.7 mg / thiamine mononitrate 1.5 mg / vitamin b12 0.006 mg oral capsule (7 sources) Nicotinic Acid, Vitamin B12, Vitamin C Start: 06-23-2019 take 1 tablet by mouth once daily Sujey Caps 1 MG Oral Capsule Taking one tablet daily Quantity: 0 Refills: 0 Ordered: 23-Jun-2019 DO Start : 23-Jun-2019 Active Problems Active Problems Problem Classification Problem Date Documented Da te Episodic/Chronic Allergic reactions (1 source) Contact dermatitis 01-20-2025 Episodic Chronic kidney disease (20 sources) End stage renal failure on dialysis; Translations: [Kidney transplant status] Onset: 2 08-09-2022 Chronic Esophageal disorders (10 sources) Gastroesophageal reflux disease; Translations: [Gastro-esophageal reflux disease without esophagitis] Onset: 5 01-30-2024 Chronic Essential hypertension (20 sources) Diastolic hypertension; Translations: [Unspecified essential hypertension] Onset: 2 08-09-2022 Chronic Fracture of lower limb (5 sources) Fracture of distal end of fibula 01-30-2024 Episodic Genitourinary symptoms and ill-defined conditions (14 sources) History of chronic renal impairment; Translations: [Personal history of other specified urinary system disorders] Episodic Immunizations and screening for infectious disease (4 sources) Encounter for screening for infections with a predominantly sexual mode of transmission; Translations: [Encounter for screening for infections with a predominantly sexual mode of transmission] Onset: 4 Episodic Inflammatory diseases of female pelvic organs (2 sources) Vaginitis, vulvitis and vulvovaginitis in diseases classified elsewhere; Translations: [Vaginitis, vulvitis and vulvovaginitis in diseases classified elsewhere] Onset: 5 Episodic Joint disorders and dislocations; trauma-related (5 sources) Tear of meniscus of knee 01-30-2024 Episodic Menstrual disorders (2 sources) Other specified irregular menstruation; Translations: [Other specified irregular menstruation] Onset: 4 Chronic Osteoarthritis (5 sources) Osteoarthritis of right knee joint 01-30-2024 Chronic Other circulatory disease (7 sources) H/O: hypertension; Translations: [Personal history of other diseases of circulatory system] Episodic Other diseases of kidney and ureters (1 source) Other specified disorders of kidney and ureter; Translations: [Other specified disorders of kidney and ureter] Onset: 2 Chronic Other diseases of kidney and ureters (4 sources) Kidney disease; Translations: [Disorder of kidney and ureter, unspecified] 09-19-2019 Episodic Other eye disorders (1 source) Conjunctival hemorrhage; Translations: [Conjunctival hemorrhage, unspecified eye] Onset: 4 Episodic Other female genital disorders (2 sources) Endometrial hyperplasia, unspecified; Translations: [Endometrial hyperplasia, unspecified] Onset: 4 Chronic Other gastrointestinal disorders (7 sources) History of gastroesophageal reflux disease; Translations: [Personal history of other diseases of digestive system] Episodic Other hematologic conditions (7 sources) H/O: anemia - iron deficient; Translations: [Personal history of diseases of blood and blood-forming organs] Episodic Other hereditary and degenerative nervous system conditions (5 sources) Restless legs 01-30-2024 Chronic Other infections; including parasitic (7 sources) History of herpes zoster; Translations: [Personal history of other infectious and parasitic diseases] Episodic Other injuries and conditions due to external causes (5 sources) Injury of face 01-30-2024 Episodic Other non-traumatic joint disorders (13 sources) Knee pain 08-09-2022 Episodic Other nutritional; endocrine; and metabolic disorders (7 sources) H/O: raised blood lipids; Translations: [Personal history of other endocrine, metabolic, and immunity disorders] Episodic Other nutritional; endocrine; and metabolic disorders (7 sources) H/O: endocrine disorder; Translations: [Personal history of other endocrine, metabolic, and immunity disorders] Episodic Other screening for suspected conditions (not mental disorders or infectious disease) (9 sources) Encounter for screening for malignant neoplasm of cervix; Translations: [Patient encounter status] Onset: 4 Episodic Other skin disorders (1 source) Loss of hair 01-20-2025 Episodic Peripheral and visceral atherosclerosis (1 source) Atherosclerosis of aorta; Translations: [Atherosclerosis of aorta] Onset: 2 Chronic Residual codes; unclassified (6 sources) H/O: tissue/organ recipient; Translations: [Unspecified organ or tissue replaced by transplant] Chronic Residual codes; unclassified (1 source) Awaiting organ transplant status; Translations: [Awaiting organ transplant status] Onset: 2 Chronic Residual codes; unclassified (12 sources) Immunization due 10-23-2022 Episodic Superficial injury; contusion (1 source) Contusion of scalp; Translations: [Contusion of scalp, initial encounter] Onset: 4 Episodic Thyroid disorders (2 sources) Goiter; Translations: [Nontoxic goiter, unspecified] 01-20-2025 Chronic Unclassified (16 sources) Patient encounter status 10-23-2022 Past or Other Problems Problem Classification Problem Date Documented Da te Episodic/Chronic Calculus of urinary tract (1 source) Calculus of kidney; Translations: [Calculus of kidney] Onset: 09-15-2022 Episodic Other bone disease and musculoskeletal deformities (1 source) Other specified disorders of bone density and structure, other site; Translations: [Oth disrd of bone density and structure, other site] Onset: 09-15-2022 Episodic Results Test Name Value Interpretation Reference Range Facility Colonoscopy Reporton 025 Colonoscopy Report [facility] Medical Records Department [address] [place] [id number] Colonoscopy Report MR#: [id number] Acct: [id number] Name: JESSICA TOVAR Rep #: [id number] : 1975 49 From: Alberto Strickland DO PCP: DARREN Beltran Status:[facility] Patient Name: Jessica Tovar Procedure Date: 04/14/2025 4:12 PM Date of : 1975 Age: 49 Procedure: Colonoscopy Indications: Screening for colorectal malignant neoplasm Providers: Alberto Strickland DO Referring MD: Alberto Strickland DO Medicines: Monitored Anesthesia Care Patient Profile: This is a 49 year old female. Refer to note in patient chart for documentation of history and physical. Patient has symptoms of acute epigastric abdominal pain, chronic heartburn and chronic nausea. Last Colonoscopy: none. The patient's first colonoscopy is today. Complications: No immediate complications. Procedure: Pre-Anesthesia Assessment: - Prior to the procedure, a History and Physical was performed, and patient medications and allergies were reviewed. The patient is competent. The risks and benefits of the procedure and the sedation options and risks were discussed with the patient. All questions were answered and informed consent was obtained. Patient identification and proposed procedure were verified by the physician in the pre-procedure area. Mental Status Examination: alert and oriented. Airway Examination: normal oropharyngeal airway and neck mobility. Respiratory Examination: clear to auscultation. CV Examination: normal. Prophylactic Antibiotics: The patient does not require prophylactic antibiotics. Prior Anticoagulants: The patient has taken no anticoagulant or antiplatelet agents except for NSAID medication. ASA Grade Assessment: I - A normal, healthy patient. After reviewing the risks and benefits, the patient was deemed in satisfactory condition to undergo the procedure. The anesthesia plan was to use monitored anesthesia care (MAC). Immediately prior to administration of medications, the patient was re-assessed for adequacy to receive sedatives. The heart rate, respiratory rate, oxygen saturations, blood pressure, adequacy of pulmonary ventilation, and response to care were monitored throughout the procedure. The physical status of the patient was re-assessed after the procedure. After I obtained informed consent, the scope was passed under direct vision. Throughout the procedure, the patient's blood pressure, pulse, and oxygen saturations were monitored continuously. The Colonoscope was introduced through the anus and advanced to the cecum, identified by appendiceal orifice and ileocecal valve. The colonoscopy was performed without difficulty. The patient tolerated the procedure well. The quality of the bowel preparation was good. The terminal ileum, ileocecal valve, appendiceal orifice, and rectum were photographed. Scope In: 4:14:35 PM Scope Withdrawal Time 0 hours 13 minutes 26 seconds Scope Out: 4:40:37 PM Total Procedure Duration Time 0 hours 26 minutes 2 seconds Findings: The perianal and digital rectal examinations were normal. Three sessile polyps were found in the hepatic flexure and cecum. The polyps were 1 to 2 mm in size. These polyps were removed with a hot snare. Resection and retrieval were complete. Verification of patient identification for the specimen was done. Estimated blood loss was minimal. Multiple small-mouthed diverticula were found in the recto-sigmoid colon and sigmoid colon. Impression: - Three 1 to 2 mm polyps at the hepatic flexure and in the cecum, removed with a hot snare. Resected and retrieved. - Diverticulosis in the recto-sigmoid colon and in the sigmoid colon. Recommendation: - Discharge patient to home. - Resume previous diet. - Continue present medications. - Repeat colonoscopy in 5 years for surveillance. Procedure Code(s): --- Professional --- 54362, Colonoscopy, flexible; with removal of tumor(s), polyp(s), or other lesion(s) by snare technique CPT copyright 2021 [employer]. All rights reserved. The codes documented in this report are preliminary and upon kitchen aide review may be revised to meet current compliance requirements. Alberto Strickland DO 04/14/2025 4:57:08 PM This report has been signed electronically. Number of Addenda: 0 Note Initiated On: 04/14/2025 4:12 PM 04/14/25 1657 Date Alberto Strickland DO Cosigner Signature: Date (if indicated) CC: SENIOR MARKETING SPECIALISTRenea To; Alberto Strickland DO Date Dictated: 04/14/25 1612 Date Transcribed: E Commerce Architect: RF Signed Normal [facility] EGD Reporton 04-14-2025 EGD Report [facility] Medical Records Department [address] [place] [id number] EGD Report MR#: [id number] Acct: [id number] Name: JESSICA TOVAR Rep #: [id number] : 1975 49 From: Alberto Strickland DO PCP: DARREN Beltran Status:[facility] Patient Name: Jessica Tovar Procedure Date: 04/14/2025 3:59 PM Date of : 1975 Age: 49 Procedure: Upper GI endoscopy Indications: Epigastric abdominal pain, Functional Dyspepsia, Suspected esophageal reflux Providers: Alberto Strickland DO Referring MD: Alberto Strickland DO Medicines: Monitored Anesthesia Care Patient Profile: This is a 49 year old female. Refer to note in patient chart for documentation of history and physical. Patient has symptoms of acute epigastric abdominal pain, chronic heartburn and chronic nausea. Complications: No immediate complications. Procedure: Pre-Anesthesia Assessment: - Prior to the procedure, a History and Physical was performed, and patient medications and allergies were reviewed. The patient is competent. The risks and benefits of the procedure and the sedation options and risks were discussed with the patient. All questions were answered and informed consent was obtained. Patient identification and proposed procedure were verified by the physician in the pre-procedure area. Mental Status Examination: alert and oriented. Airway Examination: normal oropharyngeal airway and neck mobility. Respiratory Examination: clear to auscultation. CV Examination: normal. Prophylactic Antibiotics: The patient does not require prophylactic antibiotics. Prior Anticoagulants: The patient has taken no anticoagulant or antiplatelet agents except for NSAID medication. ASA Grade Assessment: I - A normal, healthy patient. After reviewing the risks and benefits, the patient was deemed in satisfactory condition to undergo the procedure. The anesthesia plan was to use monitored anesthesia care (MAC). Immediately prior to administration of medications, the patient was re-assessed for adequacy to receive sedatives. The heart rate, respiratory rate, oxygen saturations, blood pressure, adequacy of pulmonary ventilation, and response to care were monitored throughout the procedure. The physical status of the patient was re-assessed after the procedure. After obtaining informed consent, the endoscope was passed under direct vision. Throughout the procedure, the patient's blood pressure, pulse, and oxygen saturations were monitored continuously. The Colonoscope was introduced through the mouth, and advanced to the third part of the duodenum. Small bowel enteroscopy was deemed necessary. The upper GI endoscopy was accomplished without difficulty. The patient tolerated the procedure well. Scope In: 4:08:40 PM Scope Out: 4:12:27 PM Total Procedure Duration Time 0 hours 3 minutes 47 seconds Findings: LA Grade A (one or more mucosal breaks less than 5 mm, not extending between tops of 2 mucosal folds) esophagitis with no bleeding was found 38 to 40 cm from the incisors. Biopsies were taken with a cold forceps for histology. Verification of patient identification for the specimen was done. Estimated blood loss was minimal. No gross lesions were noted in the entire examined stomach. Localized mild inflammation characterized by erosions and erythema was found in the duodenal bulb. Biopsies were taken with a cold forceps for histology. Verification of patient identification for the specimen was done. Estimated blood loss was minimal. Impression: - LA Grade A reflux esophagitis with no bleeding. Biopsied. - No gross lesions in the entire stomach. - Chronic duodenitis. Biopsied. Recommendation: - Discharge patient to home. - Resume previous diet. - Continue present medications. - Await pathology results. Procedure Code(s): --- Professional --- 06690, Small intestinal endoscopy, enteroscopy beyond second portion of duodenum, not including ileum; with biopsy, single or multiple CPT copyright 2021 [employer]. All rights reserved. The codes documented in this report are preliminary and upon kitchen aide review may be revised to meet current compliance requirements. Alberto Strickland DO 04/14/2025 4:50:55 PM This report has been signed electronically. Number of Addenda: 0 Note Initiated On: 04/14/2025 3:59 PM 04/14/251649 Date Alberto Strickland DO Cosigner Signature: Date (if indicated) CC: SENIOR MARKETING SPECIALISTMariselaC Christine To; Alberto Strickland DO Date Dictated: 04/14/25 1559 Date Transcribed: E Commerce Architect: EDNA Signed [facility] MR/POSTOP.[facility] [place] 04-14-2025 MR/POSTOP.[place] Medical Records Department [address] [place] [address] Anesthesia Postop Eval I 04/14/251649 MR#: [id number] Acct: [id number] Name: JESSICA TOVAR Rep #: [id number] : 1975 49 From: Andrew Espino CRNA PCP: DARREN Beltran Status:[facility] Y Race: AA Location: [place] [address] Anesthesia: Postop Eval I Current Vital Signs Temperature: 97.6 F Pulse Rate: 86 Blood Pressure: 127/73 Respiratory Rate: 16 Pulse Ox: 100 Oxygen Delivery Method: Room Air Assessment Airway patent: Yes Spontaneous unlabored respirations: Yes Mental status: Awake and Calm nausea: No Vomiting: No Anesthesia Complication: No Fluid Hydration Crystalloid volume administer (ml): 1,000 Total IV fluid infused: 1,000 Progress Note Anesthesia document: Postop Eval 1 completed: Yes 04/14/251649 Date Andrew Espino MANAGER FILE Cosigner Signature: Date CC: Signed Normal [facility] MR/[id number] 04-14-2025 MR/POSTOPAN2 [facility] Medical Records Department [address] [place] [address] Anesthesia Postop Eval II 04/14/251926 MR#: [id number] Acct: [id number] Name: JESSICA TOVAR Rep #: [id number] : 1975 49 From: Valentino Mallory MD PCP: DARREN Beltran Status:[facility] Y Race: AA Location: [place] Anesthesia Postop Eval I Sum Postop Eval Completion status Anesthesia document: Postop Eval 1 completed: Yes Anesthesia Postop Eval I Summary Anesthesia Postop Eval I Summary: Anesthesia Postop Eval I: Assessment Summary Airway patent Yes 04/14/25 16:50 MANAGER FILE.ACAR Spontaneous unlabored Yes 04/14/25 16:50 MANAGER FILE.ACAR respirations Mental status Awake,Calm 04/14/25 16:50 MANAGER FILE.ACAR nausea No 04/14/25 16:50 MANAGER FILE.ACAR Vomiting No 04/14/25 16:50 MANAGER FILE.ACAR Anesthesia Postop Eval I: Fluid Summary Crystalloid volume administer 1,000 04/14/25 16:50 MANAGER FILE.ACAR (ml) Colloids volume administered ( ml) Blood Product volume administered (ml) Total IV fluid infused 1,000 04/14/25 16:50 MANAGER FILE.ACAR Anesthesia Postop Eval I: Summary Notes Anesthesia Complication No 04/14/25 16:50 MANAGER FILE.ACAR Anesthesia Complication Comment: Post-operative progress note Anesthesia: Postop Eval II Evaluation Mental status: Awake Pain Level: 0 nausea: No Vomiting: No 04/14/251926 Valentino Goss Signature: Date CC: Signed Normal [facility] ,Urineon 04-14-2025 Beta HCG ( test) Ql (U) Negative Normal [facility] Comment on above: Result Comment: Very dilute urine specimens, as indicated by a low specific gravity, may not contain safety representative levels of hCG. If is still suspected, a first morning urine specimen should be collected 48 hours later and tested. Performed By: #### L 400.7600 #### [facility] [address] [place], [address] Urine testOrdered By: Valentino Mallory on 04-14-2025 HCG ( test) Ql (U) Negative [facility] Comment on above: Very dilute urine sp ecimens, as indicated by a low specificgravity, may not contain safety representative levels of hCG. If is still suspected, a first morning urinespecimen should be collected 48 hours later and tested. CTPCRon 04-02-[address] See CT Interp N Normal See CT Interp N [facility] Comment on above: Result Comment: Clinical Interpretation: C. trachomatis DNA not detected. Specimen is presumptive negative for C. trachomatis. A negative result does not preclude C. trachomatis infection because results depend on adequate specimen collection, absence of inhibitors, and sufficient DNA to be detected. Performed By: #### N GPCR1, CTPCR #### [address] [address] C.trachomatis PCR Negative Normal Negative [facility] Comment on above: Result Comment: Kirit wahl (PCR) assay performed on the Nino Emir 4800 system. Performed By: #### N GPCR1, CTPCR #### [facility] [address] [place] [address] Chlam Source Cervix Normal [facility] Comment on above: Performed By: #### N GPCR1, CTPCR #### [address] [address] [id number] 04-02-2025 GC PCR Source Cervix Normal [facility] Comment on above: Performed By: #### N GPCR1, CTPCR #### [address] [address] N. gonorrhoeae (PCR) Negative Normal Negative [facility] Comment on above: Result Comment: Mole staciear (PCR) assay performed on the Nino Emir 4800 System. Performed By: #### N GPCR1, CTPCR #### [address] [address] N. gonorrhoeae Interp See NG Interp N Normal See NG Interp N [facility] Comment on above: Result Comment: Clinical Interpretation: N. gonorrhoeae DNA not detected. Specimen is presumptive negative for N. gonorrhoeae. A negative result does not preclude Neisseria gonorrhoeae infection because results depend on adequate specimen collection, absence of inhibitors, and sufficient DNA to be detected. Performed By: #### N GPCR1, CTPCR #### [address] [address] BVPCRon 04-01-2025 Bacterial Vaginosis Positive Abnormal Negative [facility] Comment on above: Result Comment: Kirit quinonesar methodology performed on the Refr[employer]tv System. Performed By: #### B VPCR, CVTV #### [place] [id number] CVTVon 04-01-2025 Candelaria glabrata Negative Normal Negative [facility] Comment on above: Performed By: #### B VPCR, CVTV #### [address] [address] Candelaria Species Negative Normal Negative [facility] Comment on above: Result Comment: Mole cular methodology performed on the [employer] Media Technologiesher System. Performed By: #### B VPCR, CVTV #### [address] [address] Trichomonas vaginalis Negative Normal Negative [facility] Comment on above: Performed By: #### B VPCR, CVTV #### [place] [address] Supplemental Reporton 2024 Supplemental Report . Pathology Reports Accession: Collected Date/Time: Received Date/Time: Pathologist: [id number] 03/02/2025 13:35 EDT 03/03/2025 11:18 EDT JOSE SALDAÑA MD Supplemental Report SUPPLEMENTAL: AFIRMA-Genomic Sequencing [employer] Power Electronics Engineer Results: Nodule: A, Thyroid, Upper Right, 1.3 cm Genomic Sequencing [employer] Power Electronics Engineer: Benign Risk of Malignancy: 4% MTC: Negative Parathyroid: Negative BRAF p. V600E c. 1799T>A: Negative RET/PTC1, RET/PTC3: Not Detected AFIRMA XPression [place]: N/A Nodule Result Summary: The result of this 1.3 cm [place] III nodule A is Afirma GSC Benign, which suggests a low risk of cancer at approximately 4%. Treatment like a cytologically benign nodule may be appropriate, including clinical correlation. Afirma XA is not performed on GSC Benign nodules. TERT promoter region analysis is not performed on GSC Benign nodules. Complete report scanned into chart. Verified by Diagnostic interpretation performed at [facility] JOSE SALDAÑA Sign out Date: 03/25/2025 11:46 Performing Lab: [facility], [address] [place] [address] Pathology Dept Non-Compliance Spec Cytology Report CLINICAL INFORMATION: nodule DIAGNOSTIC CATEGORY: ATYPIA OF UNDETERMINED SIGNIFICANCE A few follicular cells with variation in nuclear size, membrane irregularity and nuclear crowding, along with oncocytic cells and colloid present. Per [place] Cytology protocol, this specimen has been sent for Afirma Genomic Sequencing Automotive Power Electronics Engineer test. Results to follow in about 2 weeks. SPECIMEN: Thyroid FNA, RUL GROSS DESCRIPTION: # of Monolayers: 1 # of spray fixed Smears: 2 # of air dried smears :2 Volume (ml) 30 Color: fixed clear pink needle rinse in cytolyt afirma sample collected for reflex testing SUGGESTION/EDUCATIONAL NOTES: This specimen was evaluated using criteria described in The [place] System for Reporting Thyroid Cytopathology, Second Edition (2018). The following risk of malignancy rates are estimates based on published studies and includes data extrapolation. Individual institutions Pathology Reports Accession: Collected Date/Time: Received Date/Time: Pathologist: [id number] 03/02/2025 13:35 EDT 03/03/2025 11:18 EDT JOSE SALDAÑA MD SUGGESTION/EDUCATIONAL NOTES: may have different rates. Actual management may depend on other factors (e.g., clinical. Sonographic) besides the FNA interpretation. Diagnostic Category Risk of Usual management malignancy (%) Non diagnostic or Unsatisfactory 5-10 Repeat FNA with US guidance Benign 0-3 Clinical and US follow up Atypia of Undetermined 10-30 Repeat FNA, molecular Significance testing or lobectomy Follicular neoplasm or Suspicious 25-40 Molecular testing, for follicular neoplasm lobectomy Suspicious for Malignancy 50-75 Near-total thyroidectomy or lobectomy Malignant 97-99 Near-total thyroidectomy or lobectomy Verified by Pathology Report verified by [facility] Screened by: CHAO REED Electronically signed by JOSE SALDAÑA Sign-Out Date: 03/04/2025 10:20 Performing Lab: [facility], [address] [place] [address] Pathology Dept Disclaimer If ancillary studies were utilized, the following Laboratory Developed Test (LDT) disclaimer will apply: Under CLIA requirements, [facility] is qualified to perform high complexity testing. For all ancillary stains, positive and negative controls stain appropriately. Performance characteristics of immunohistochemical and chromogenic in-situ hybridization tests have been determined by [facility]. These tests are used for clinical purposes, They should not be regarded as investigational or for research. Normal [facility] Basic metabolic 2000 panelon 03-17-2025 Anion gap [Moles/Vol] 7 mmol/L Normal 5-16 [facility] Comment on above: Order Comment: Hannah yeung Type: BLOOD SPECIMENOrdering Facility: [facility] Address: [address] [place] [address] Performed By: #### 2 4321-2 ####[facility] LABORATORYCLIA [id number] [place] [address] [place] Calcium [Mass/Vol] 11.4 mg/dL High 8.5-10.5 [facility] Comment on above: Order Comment: Hannah yeung Type: BLOOD SPECIMENOrdering Facility: [facility] Address: [address] [place] [id number] Performed By: #### 2 4321-2 ####[facility] LABORATORYCLIA [id number] [place] [id number] [place] Chloride [Moles/Vol] 94 mmol/L Low 98-107 [facility] Comment on above: Order Comment: Speci men Type: BLOOD SPECIMENOrdering Facility: [facility] Address: [address] [place] [address] Performed By: #### 2 4321-2 ####[facility] LABORATORYCLIA [id number] [place] [address] [place] CO2 [Moles/Vol] 33 mmol/L High 21-32 [facility] Comment on above: Order Comment: Speci men Type: BLOOD SPECIMENOrdering Facility: [facility] Address: [address] [place] [address] Performed By: #### 2 4321-2 ####[facility] LABORATORYCLIA [id number] [place] [address] [place] Creatinine [Mass/Vol] 7.07 mg/dL High 0.51-0.95 [facility] Comment on above: Order Comment: Speci men Type: BLOOD SPECIMENOrdering Facility: [facility] Address: [address] [place] [address] Result Comment: Maryse ents receiving either N-Acetylcysteine (NAC) or Metamizole prior to venipuncture, may have falsely depressed results. Performed By: #### 2 4321-2 ####[facility] LABORATORYCLIA [id number] [place] [address] [place] Creatinine and Glomerular filtration rate.predicted panel (S/P/Bld) 7 mL/min/1.73m??? Low >=60 [facility] Comment on above: Order Comment: Speci men Type: BLOOD SPECIMENOrdering Facility: [facility] Address: [address] [place] [address] Result Comment: Irene mated Glomerular Filtration Rate (eGFR) is calculated using the 2020 CKD-EPI creatinine equation. This equation utilizes serum creatinine, sex, and age as parameters. The creatinine assay has traceable calibration to isotope dilution-mass spectrometry. Refer to KDIGO guidelines for clinical interpretation. In patients with unstable renal function, e.g. those with acute kidney injury, the eGFR may not accurately reflect actual GFR. Performed By: #### 2 4321-2 ####[facility] LABORATORYCLIA [id number] [place] [id number] [place] Glucose [Mass/Vol] 81 mg/dL Normal 70-100 [facility] Comment on above: Order Comment: Hannah yeung Type: BLOOD SPECIMENOrdering Facility: [facility] Address: [address] [place] [id number] Result Comment: The [place] [employer] (ADA) provides guidance for cutoff values for fasting glucose and random glucose. The ADA defines fasting as no caloric intake for at least 8 hours. Fasting plasma glucose results between 100 to 125 mg/dL indicate increased risk for diabetes (prediabetes). Fasting plasma glucose results greater than or equal to 126 mg/dL meet the criteria for diagnosis of diabetes. In the absence of unequivocal hyperglycemia, results should be confirmed by repeat testing. In a patient with classic symptoms of hyperglycemia or hyperglycemic crisis, random plasma glucose results greater than or equal to 200 mg/dL meet the criteria for diagnosis of diabetes. Reference: Standards of Medical Care in Diabetes 2016, [place] [employer]. Diabetes Care. 2016.39(Suppl 1). Results may be falsely elevated after the administration of Sulfapyridine. Results may be falsely depressed after the administration of Sulfasalazine. Performed By: #### 2 4321-2 ####[facility] LABORATORYCLIA [id number] [place] [address] [place] Potassium [Moles/Vol] 4.3 mmol/L Normal 3.5-5.1 [facility] Comment on above: Order Comment: Hannah yeung Type: BLOOD SPECIMENOrdering Facility: [facility] Address: [address] [place] [address] Performed By: #### 2 4321-2 ####[facility] LABORATORYCLIA [id number] [place] [id number] [place] Sodium [Moles/Vol] 134 mmol/L Low 136-145 [facility] Comment on above: Order Comment: Speci men Type: BLOOD SPECIMENOrdering Facility: [facility] Address: [address] [place] [address] Performed By: #### 2 4321-2 ####[facility] LABORATORYCLIA [id number] [place] [address] [place] Urea nitrogen [Mass/Vol] 35 mg/dL High 7- [facility] Comment on above: Order Comment: Speci men Type: BLOOD SPECIMENOrdering Facility: [facility] Address: [address] [place] [address] Performed By: #### 2 4321-2 ####[facility] LABORATORYCLIA [id number] [place] [address] [place] CBC W Auto Differential pane l (Bld)on 03-17-2025 Basophils (Bld) [#/Vol] 0.03 10*3/uL Normal <0.11 [facility] Comment on above: Order Comment: Speci men Type: BLOOD SPECIMENOrdering Facility: [facility] Address: [address] [place] [address] Performed By: #### 5 7021-8 ####[facility] LABORATORYCLIA [id number] [address] [place] Basophils/100 WBC (Bld) 0.6 % Normal [facility] Comment on above: Order Comment: Speci men Type: BLOOD SPECIMENOrdering Facility: [facility] Address: [address] [place] [address] Performed By: #### 5 7021-8 ####[facility] LABORATORYCLIA [id number] [address] [place] Differential cell count method Nom (Bld) Auto Normal [facility] Comment on above: Order Comment: Speci men Type: BLOOD SPECIMENOrdering Facility: [facility] Address: [address] [place] [address] Performed By: #### 5 7021-8 ####[facility] LABORATORYCLIA [id number] [place] [address] [place] Eosinophils (Bld) [#/Vol] 0.11 10*3/uL Normal <0.46 [facility] Comment on above: Order Comment: Speci men Type: BLOOD SPECIMENOrdering Facility: [facility] Address: [address] [place] [address] Performed By: #### 5 7021-8 ####[facility] LABORATORYCLIA [id number] [place] [address] [place] Eosinophils/100 WBC (Bld) 2.0 % Normal [facility] Comment on above: Order Comment: Speci men Type: BLOOD SPECIMENOrdering Facility: [facility] Address: [address] [place] [address] Performed By: #### 5 7021-8 ####[facility] LABORATORYCLIA [id number] [address] [place] Erythrocyte distribution width (RBC) [Ratio] 14.6 % Normal 11.5-15.0 [facility] Comment on above: Order Comment: Speci men Type: BLOOD SPECIMENOrdering Facility: [facility] Address: [address] [place] [address] Performed By: #### 5 7021-8 ####[facility] LABORATORYCLIA [id number] [place] [address] [place] Hematocrit (Bld) [Volume fraction] 27.8 % Low 36.0-46.0 [facility] Comment on above: Order Comment: Speci men Type: BLOOD SPECIMENOrdering Facility: [facility] Address: [address] [place] [address] Performed By: #### 5 7021-8 ####[facility] LABORATORYCLIA [id number] [place] [address] [place] Hemoglobin (Bld) [Mass/Vol] 9.2 g/dL Low 11.5-15.5 [facility] Comment on above: Order Comment: Speci men Type: BLOOD SPECIMENOrdering Facility: [facility] Address: [address] [place] [address] Performed By: #### 5 7021-8 ####[facility] LABORATORYCLIA [id number] [place] [id number] [place] Immature granulocytes (Bld) [#/Vol] 10*3/uL Normal <0.10 [facility] Comment on above: Order Comment: Speci men Type: BLOOD SPECIMENOrdering Facility: [facility] Address: [address] [place] [address] Performed By: #### 5 7021-8 ####[facility] LABORATORYCLIA [id number] [address] [place] Immature granulocytes/100 WBC (Bld) 0.4 % Normal [facility] Comment on above: Order Comment: Speci men Type: BLOOD SPECIMENOrdering Facility: [facility] Address: [address] [place] [address] Performed By: #### 5 7021-8 ####[facility] LABORATORYCLIA [id number] [place] [address] [place] Lymphocytes (Bld) [#/Vol] 1.68 10*3/uL Normal 1.00-4.00 [facility] Comment on above: Order Comment: Speci men Type: BLOOD SPECIMENOrdering Facility: [facility] Address: [address] [place] [address] Performed By: #### 5 7021-8 ####[facility] LABORATORYCLIA [id number] [place] [address] [place] Lymphocytes/100 WBC (Bld) 31.2 % Normal [facility] Comment on above: Order Comment: Speci men Type: BLOOD SPECIMENOrdering Facility: [facility] Address: [address] [place] [address] Performed By: #### 5 7021-8 ####[facility] LABORATORYCLIA [id number] [place] [address] [place] MCH (RBC) [Entitic mass] 32.2 pg Normal 26.0-34.0 [facility] Comment on above: Order Comment: Speci men Type: BLOOD SPECIMENOrdering Facility: [facility] Address: [address] [place] [address] Performed By: #### 5 7021-8 ####[facility] LABORATORYCLIA [id number] [address] [place] [facility] MCHC (RBC) [Mass/Vol] 33.1 g/dL Normal 30.5-36.0 [facility] Comment on above: Order Comment: Speci men Type: BLOOD SPECIMENOrdering Facility: [facility] Address: [address] [place] [address] Performed By: #### 5 7021-8 ####[facility] LABORATORYCLIA [id number] [address] [place] MCV (RBC) [Entitic vol] 97.2 fL Normal 80.0-100.0 [facility] Comment on above: Order Comment: Speci men Type: BLOOD SPECIMENOrdering Facility: [facility] Address: [address] [place] [address] Performed By: #### 5 7021-8 ####[facility] LABORATORYCLIA [id number] [place] [address] [place] Monocytes (Bld) [#/Vol] 0.40 10*3/uL Normal <0.87 [facility] Comment on above: Order Comment: Speci men Type: BLOOD SPECIMENOrdering Facility: [facility] Address: [address] [place] [address] Performed By: #### 5 7021-8 ####[facility] LABORATORYCLIA [id number] [address] [place] Monocytes/100 WBC (Bld) 7.4 % Normal [facility] Comment on above: Order Comment: Speci men Type: BLOOD SPECIMENOrdering Facility: [facility] Address: [address] [place] [address] Performed By: #### 5 7021-8 ####[facility] LABORATORYCLIA [id number] [place] [address] [facility] [place] Neutrophils (Bld) [#/Vol] 3.14 10*3/uL Normal 1.45-7.50 [facility] Comment on above: Order Comment: Speci men Type: BLOOD SPECIMENOrdering Facility: [facility] Address: [address] [place] [address] Performed By: #### 5 7021-8 ####[facility] LABORATORYCLIA [id number] [place] [id number] [place] Neutrophils/100 WBC (Bld) 58.4 % Normal [facility] Comment on above: Order Comment: Speci men Type: BLOOD SPECIMENOrdering Facility: [facility] Address: [address] [place] [address] Performed By: #### 5 7021-8 ####[facility] LABORATORYCLIA [id number] [place] [address] [place] Nucleated RBC (Bld) [#/Vol] 10*3/uL Normal <0.01 [facility] Comment on above: Order Comment: Speci men Type: BLOOD SPECIMENOrdering Facility: [facility] Address: [address] [place] [address] Performed By: #### 5 7021-8 ####[facility] LABORATORYCLIA [id number] [place] [address] [place] Nucleated RBC/100 WBC (Bld) [Ratio] 0.0 /100 WBC Normal [facility] Comment on above: Order Comment: Speci men Type: BLOOD SPECIMENOrdering Facility: [facility] Address: [address] [place] [address] Performed By: #### 5 7021-8 ####[facility] LABORATORYCLIA [id number] [place] [id number] [place] Platelet mean volume (Bld) [Entitic vol] 10.2 fL Normal 9.0-12.7 [facility] Comment on above: Order Comment: Speci men Type: BLOOD SPECIMENOrdering Facility: [facility] Address: [address] [place] [address] Performed By: #### 5 7021-8 ####[facility] LABORATORYCLIA [id number] [place] [address] [facility] [place] Platelets (Bld) [#/Vol] 182 10*3/uL Normal 150-400 [facility] Comment on above: Order Comment: Speci men Type: BLOOD SPECIMENOrdering Facility: [facility] Address: [address] [place] [address] Performed By: #### 5 7021-8 ####[facility] LABORATORYCLIA [id number] [place] [address] [place] RBC (Bld) [#/Vol] 2.86 10*6/uL Low 3.90-5.20 [facility] Comment on above: Order Comment: Speci men Type: BLOOD SPECIMENOrdering Facility: [facility] Address: [address] [place] [address] Performed By: #### 5 7021-8 ####[facility] LABORATORYCLIA [id number] [address] [place] WBC (Bld) [#/Vol] 5.38 10*3/uL Normal 3.70-11.00 [facility] Comment on above: Order Comment: Speci men Type: BLOOD SPECIMENOrdering Facility: [facility] Address: [address] [place] [address] Performed By: #### 5 7021-8 ####[facility] LABORATORYCLIA [id number] [address] [place] HCG Preg Ur Qlon 03-17-2025 HCG ( test) Ql (U) Negative Normal Negative [facility] Comment on above: Order Comment: Speci men Type: URINE SPECIMENOrdering Facility: [facility] Address: [address] [place] [address] Result Comment: This test is intended to aid in the early detection of . Very dilute urine samples, as indicated by a low specific gravity, may not contain safety representative levels of hCG. This test detects intact hCG only. This test does not reliably detect hCG degradation products, including free-beta subunit and beta-core fragment. Therefore, this test may show reduced reactivity in urine after 8 weeks gestation. A number of conditions other than , including trophoblastic disease and certain non-trophoblastic neoplasms cause elevated levels of hCG. As with any assay employing mouse antibodies, the possibility exists for interference by human anti-mouse antibodies (HAMA) in the specimen. The test provides a presumptive diagnosis for . Performed By: #### 2 106-3 ####[facility] LABORATORYCLIA [id number] [place] [address] [place] HISTORY PHYSICALon HISTORY PHYSICAL HNO ID: [id number] Author: EDDI BLOUNT MD Service: ? Author Type: Physician Type: H&P Filed: 03/17/2025 08:05 Note Text: See HANDP, no change Plan left arm fistulogram Eddi Blount MD [facility] NURSING PROGon 03-17-2025 NURSING PROG HNO ID: [id number] Author: NURYS WILSON, JOHN Service: Nursing Author Type: Registered Nurse Type: Nursing Progress Note Filed: 03/17/2025 14:28 Note Text: Aletha Davis RN called an updated. She recommended removing dressing again now that 45min has past. Done at this time and no bleeding noted. Stitched pulled without issue and sterile dressing applied. Pt tolerated well. [facility] NURSING PROG HNO ID: [id number] Author: NURYS WILSON, JOHN Service: Nursing Author Type: Registered Nurse Type: Nursing Progress Note Filed: 03/17/2025 13:44 Note Text: Dressing removed to pull stitch; site began to ooze blood just with dressing removal. New sterile dressing re-applied and vascular nurse antelmo called. She will update dr blount and call us back. [facility] OPERATIVE NOon 03-17-2025 OPERATIVE NO HNO ID: [id number] Author: EDDI BLOUNT MD Service: Vascular Surgery Author Type: Physician Type: Operative Report Filed: 03/17/2025 12:31 Note Text: OPERATIVE/PROCEDURE REPORT LOG ID: [id number] SURGERY/PROCEDURE DATE: 03/17/2025 INCISION/PROCEDURE START TIME: INCISION CLOSE/PROCEDURE END TIME: SURGEON(S)/PROCEDURALIST (S) AND SOLE ROUGHER(S): Surgeons and Role: * Eddi Blount MD - Primary No Additional Staff SURGERY/PROCEDURE(S): 1. Ultrasound-guided access retrograde left AV fistula. 2. Fistula from the brachial artery. 3. Balloon venoplasty of the AV fistula through the AV graft and then the outflow anastomosis with a 7 x 120 Earling with 2 different inflations. ANESTHESIA: Procedural Sedation SURGERY/PROCEDURE DETAILS: Patient brought to the operating room. Underwent appropriate to my consent. Underwent sedation. Was prepped and draped in a sterile fashion. We did ultrasound access retrograde left AV fistula. Put a Glidewire and then a 6 Nepali sheath. Give 3000 units of heparin. After got Glidewire and catheter down the fistula and retrograde up the brachial artery. Did a fistulogram from the brachial artery. This showed stenosis. This was at the proximal part of the anastomosis from the fistula into the graft, the mid graft and then the outflow anastomosis the graft back to the fistula in the mid to upper arm. We put a 7 x 120 Earling through this inflated for over 3 minutes. Completion was improved in the upper part but did not look like it completely got in the lower part on the lower anastomosis. We replaced the balloon across this and inflated it for over 2 and half minutes and completion was much improved with better flow. We then put a U-stitch. Removed out the sheath. Held pressure with good hemostasis. Brought to recovery stable condition. Sedation: This 49-year-old female underwent moderate sedation given by Dr. Eddi Blount. She is monitored by the IV sedation nurse. She is given fentanyl, Versed and heparin. She was monitored EKG blood pressure and pulse ox for over the 30 minutes of the procedure. See the EMR for the complete record. Fluoroscopy: Fluoroscopy: 3.1 minutes Dose: 5.2 mGy Contrast dye: 15 cc PRE-OP/PRE-PROCEDURE DIAGNOSIS: Malfunction AV fistula POST-OP/POST-PROCEDURE DIAGNOSIS: Same ESTIMATED BLOOD LOSS: Minimal SPECIMENS: None IMPLANTABLE DEVICES: None DRAINS: None COMPLICATIONS: None SIGNATURE: Eddi Blount MD PATIENT NAME: Jessica Tovar DATE: March 17, 2025 TIME: 11:51 AM Normal [facility] XR FLUOROSCOPYon 03-17-2025 XR FLUOROSCOPY * * *Final Report* * * DATE OF EXAM: Mar 17 2025 3:08PM [facility] 5513 - XR FLUOROSCOPY / PROCEDURE REASON: end stage renal failure * * * * Physician Interpretation * * * * INTRAOPERATIVE FLUOROSCOPY CLINICAL DATA: End-stage renal disease. COMPARISON: None. FINDINGS: Intraoperative fluoroscopy was provided to the referring physician to perform dialysis access intervention. Selective spot images were obtained during the procedure. Cumulative dose: 5.2 mGy. Fluoroscopy time: 0:03 minutes. IMPRESSION: 1. Intraoperative fluoroscopy as described above. 2. Please see the surgical report for complete information. E Commerce Architect: PSCB Transcribe Date/Time: Mar 17 2025 8:04P Dictated by : EDILSON PATEL MD This examination was interpreted and the report reviewed and electronically signed by: EDILSON PATEL MD on Mar 18 2025 1:26AM EST [id number] [facility] NURSING PROGon 03-16-2025 NURSING PROG HNO ID: [id number] Author: SHAUN ZARATE RN Service: Nursing Author Type: Registered Nurse Type: Nursing Progress Note Filed: 03/16/2025 14:38 Note Text: PRE-PROCEDURE INSTRUCTIONS TO PREPARE FOR YOUR PROCEDURE: Your arrival time for your procedure is 0815. Do NOT eat any solid foods after MIDNIGHT the night prior to your procedure - this includes gum or mints. You can drink clear liquids* up until npo, which is 2 hours before your arrival time. *Clear liquids = water, carbohydrate drink (sports drink that is clear or yellow in color), Ensure Pre-Surgery (given by PATSY or evi Bethea), fruit juice without pulp (apple/cranberry), clear tea, black coffee (no cream). NO CARBONATED BEVERAGES AND NO ALCOHOL. Shower the morning of the procedure, put on clean clothes, and have clean sheets for your bed to help prevent infection after your procedure. Leave all valuables such as jewelry including rings, piercings, wallets, and purses at home. Wear comfortable, loose-fitting clothing. If you wear glasses or contacts, please bring a case. SPECIAL INSTRUCTIONS: If instructed, bring your first voided urine specimen with you. If you were provided skin preparation to use prior to your procedure, complete this as directed. If you were provided Ensure Pre-Surgery drink, you need to drink this at npo. This should be consumed quickly (in less than 5 minutes, rather than sipped over time) If a bowel preparation has been ordered by your physician, it is very important to follow the bowel prep instructions or your procedure may need to be rescheduled. If you use crutches or a walker, bring them with you. If you have a home CPAP/BIPAP machine, bring it with you. If you were instructed to complete a fleets enema or bowel prep, complete as directed. Bring copy of Living Will/Power of [employer] Sales Representative. Do not smoke or chew. If you use tobacco, quit or at least cut down before surgery. Do not smoke or chew after midnight the day before your surgery. This effects bleeding, infection, healing, and so much more. Do not take any Diet or Herbal Supplements 2 weeks prior to your surgery date. Please notify your physician if there is any change in your physical condition such as a cold, cough, fever, sore throat, or skin irritation near the surgical site. Visitors under the age of 14 are restricted in the Surgery Center. UPON ARRIVAL: Access to [facility] (the [facility]) is located on [address] Domestic Freight Forwarder parking is available for your convenience from 5am-5pm- there is a $5.00 charge for this service. Take the elevators directly inside the entrance to the 1st Floor Surgery Lobby. Sign in at the podium located to the left when you get off the elevators. A payment may be expected at the time of service. One visitor may come back to the preoperative area with you. The preoperative staff will be reviewing your medical history, please let them know if you prefer not to have a visitor with you during this time. Once you are ready for your procedure, two visitors at a time are permitted in your preprocedure room. Normal [facility] Non-Compliance Spec Cytology Reporton Non-Compliance Spec Cytology Report . Pathology Reports Accession: Collected Date/Time: Received Date/Time: Pathologist: [id number] 03/02/2025 13:35 EDT 03/03/2025 11:18 EDT JOSE SALDAÑA MD Non-Compliance Spec Cytology Report CLINICAL INFORMATION: nodule DIAGNOSTIC CATEGORY: ATYPIA OF UNDETERMINED SIGNIFICANCE A few follicular cells with variation in nuclear size, membrane irregularity and nuclear crowding, along with oncocytic cells and colloid present. Per [place] Cytology protocol, this specimen has been [facility] [employer] Power Electronics Engineer test. Results to follow in about 2 weeks. SPECIMEN: Thyroid FNA, RUL GROSS DESCRIPTION: # of Monolayers: 1 # of spray fixed Smears: 2 # of air dried smears :2 Volume (ml) 30 Color: fixed clear pink needle rinse in cytolyt afirma sample collected for reflex testing SUGGESTION/EDUCATIONAL NOTES: This specimen was evaluated using criteria described in The [place] System for Reporting Thyroid Cytopathology, Second Edition (2018). The following risk of malignancy rates are estimates based on published studies and includes data extrapolation. Individual institutions may have different rates. Actual management may depend on other factors (e.g., clinical. Sonographic) besides the FNA interpretation. Diagnostic Category Risk of Usual management malignancy (%) Non diagnostic or Unsatisfactory 5-10 Repeat FNA with US guidance Benign 0-3 Clinical and US follow up Atypia of Undetermined 10-30 Repeat FNA, molecular Significance testing or lobectomy Follicular neoplasm or Suspicious 25-40 Molecular testing, for follicular neoplasm lobectomy Suspicious for Malignancy 50-75 Near-total thyroidectomy or lobectomy Malignant 97-99 Near-total thyroidectomy or lobectomy Verified by Pathology Report verified by [facility] Screened by: CHAO REED Electronically signed by JOSE SALDAÑA Sign-Out Date: 03/04/2025 10:20 Performing Lab: [facility], [address] [place] [address] Pathology Dept Pathology Reports Accession: Collected Date/Time: Received Date/Time: Pathologist: [id number] 03/02/2025 13:35 EDT 03/03/2025 11:18 EDT JOSE SALDAÑA MD Disclaimer If ancillary studies were utilized, the following Laboratory Developed Test (LDT) disclaimer will apply: Under CLIA requirements, [facility] is qualified to perform high complexity testing. For all ancillary stains, positive and negative controls stain appropriately. Performance characteristics of immunohistochemical and chromogenic in-situ hybridization tests have been determined by [facility]. These tests are used for clinical purposes, They should not be regarded as investigational or for research. Normal [facility] IR THYROID BIOPSYon 03-02-20 25 IR THYROID BIOPSY ORIGINAL HISTORY: ORDERING SYSTEM PROVIDED HISTORY: Reason for Exam: thyroid nodule, ultrasound 02/03/2025 PROCEDURE: 1. Fine needle aspiration of thyroid nodule with ultrasound guidance TECHNIQUE: Fine needle aspiration under direct ultrasound guidance. The procedure and potential complications, mainly the risk of bleeding and hematoma formation was discussed with the patient. Informed consent obtained. Biopsy #: 1 Prior US ref #: 1 Max size (cm): 1.7 Location: Right Mid TI-RADS Category: 4 Prior biopsy: No Biopsy reason: Meets TI-RADS criteria Complications: None Needle: 25 gauge Passes: 4 (1 pass for Afirma Genomic Sequencing) Cytology review: No ACR TI-RADS recommends that no more than two nodules with the highest ACR TI-RADS total point should be biopsied and no more than four nodules should be followed. IMPRESSION: 1. Successful image guided thyroid FNA. Interpreted by: Priyanka Puri MD Preliminary Report By: Priyanka Puri MD Electronically signed By Priyanka Puri MD Dictated Date: 03/02/2025 2:21:37 PM Prelim Date: 03/02/2025 2:22:23 PM Sign Date: 03/02/2025 2:22:23 PM Ordering Provider: CHRISTINE TO [facility] US THYROIDon 02-05-2025 US THYROID ORIGINAL EXAMINATION: Ultrasound Thyroid COMPARISON: None HISTORY: ORDERING SYSTEM PROVIDED HISTORY: Reason for Exam: enlarged thyroid, FINDINGS: Size right thyroid lobe: 4.4 x 1.4 x 1.3 cm Size left thyroid lobe: 5.7 x 2.5 x 3.1 cm Size isthmus: 0.2 cm Texture: Heterogeneous Increased thyroid vascularity. Estimated total number of nodules greater than or equal to 1 cm: 5 For TIrads nodule tracking purposes the 4 most suspicious nodules are detailed below. Multiple additional predominantly cystic nodules are also visualized and of low suspicion. Nodule#: # 1: Maximum size: 1.3 cm . All dimensions: 1.3 x 1 x 1.1 cm Location: Right Upper Composition: solid or almost completely solid: 2 points Echogenicity: very hypoechoic: 3 points Shape: wider than tall: 0 points Margins: smooth: 0 points Echogenic foci: macrocalicfications: 1 point ACR Total Points: 6; ACR TI-RADS risk category: TR4 - moderately suspicious nodule. Nodule #: # 2: Maximum size: 1.7 cm . Size: 1.7 x 1 x 1.1 cm Location: Right Mid Composition: mixed cystic and solid: 1 point Echogenicity: isoechoic: 1 point Shape: wider than tall: 0 points Margins: smooth: 0 points Echogenic foci: none: 0 points ACR Total Points: 2; ACR TI-RADS risk category: TR2 - nonsuspicious nodule. Nodule #: # 3: Maximum size: 3.1 cm . Size: 3.1 x 2.1 x 2.8 cm Location: Left Lower Composition: mixed cystic and solid: 1 point Echogenicity: isoechoic: 1 point Shape: wider than tall: 0 points Margins: smooth: 0 points Echogenic foci: none: 0 points ACR Total Points: 2; ACR TI-RADS risk category: TR2 - nonsuspicious nodule. Nodule #: # 4: Maximum size: 0.5 cm . Size: 0.5 x 0.4 x 0.4 cm Location: Right Upper Composition: solid or almost completely solid: 2 points Echogenicity: hyperechoic: 1 point Shape: wider than tall: 0 points Margins: smooth: 0 points Echogenic foci: macrocalicfications: 1 point ACR Total Points: 4; ACR TI-RADS risk category: TR4 - moderately suspicious nodule. In addition inferior to the right thyroid lobe there are 2 lymph nodes which are rounded and hypoechoic with loss of the normal central fatty michelle increased vascularity. Lymph nodes measure 1.2 x 0.8 x 0.8 and 1.5 x 0.6 x 1.2 cm. IMPRESSION: Heterogeneous enlarged thyroid gland with increased thyroid vascularity. Multiple bilateral thyroid nodules, some of which are moderately suspicious. For TIrads nodule tracking purposes the 4 most suspicious nodules are detailed above. 1. Nodule 1: ACR TI-RADS 2017 Category 4. Recommend: Ultrasound-guided fine needle aspiration 2. Nodule 2: ACR TI-RADS 2017 Category 2. Recommend: No further follow-up. 3. Nodule 3: ACR TI-RADS 2017 Category 2. Recommend: No further follow-up. 4. Nodule 4: ACR TI-RADS 2017 Category 4. Recommend: Follow-up ultrasound in 1 year. In addition there are suspicious rounded hypoechoic vascular lymph nodes with loss of the normal reniform shape and fatty michelle measuring up to 1.5 cm inferior to the right thyroid lobe. Short interval follow-up ultrasound in 3 months is recommended. ACR TI-RADS 2017 Recommendations: TR1(0 points) : No FNA or follow up TR2 (2 points) : No FNA or follow up TR3 (3 points) : FNA if >/= 2.5 cm, follow up if 1.5 - 2.4 cm in 1, 3, and 5 years TR4 (4-6 points) : FNA if >/= 1.5 cm, follow up if 1.0 - 1.4 cm in 1, 2, 3, and 5 years TR5 (>/= 7 points) : FNA if >/= 1.0 cm, follow up if 0.5 - 0.9 cm every year for 5 years *ACR TI-RADS recommends that no more than two nodules with the highest ACR TI-RADS total point should be biopsied and no more than four nodules should be followed. Interpreted by: Bing Madera Preliminary Report By: Bing Madera Electronically signed By Bing Madera Dictated Date: 02/05/2025 1:26:58 PM Prelim Date: 02/05/2025 4:12:27 PM Sign Date: 02/05/2025 4:12:27 PM Ordering Provider: CHRISTINE TO [facility] Gastroenterology Visit Repor ton 02-04-2025 Gastroenterology Visit Report [facility]enter[facility] [address] [place] [address] OFFICE VISIT Date of Service: 02/04/25 MR#: [id number] Acct: [id number] Name: JESSICA TOVAR Rep #: [id number] : 1975 Provider: DONNA Castillo Age/Sex: 49/F Location: [facility] Status: Signed Intake Intake Visit Reasons: CHRONIC GERD Chief Complaint: colonoscopy Medications ???Medication ???Instructions ???Recorded ???Confirmed ???Type amlodipine 5 mg tablet 5 mg PO QDAY 01/29/25 01/29/25 His tory calcitriol 0.5 mcg capsule 0.5 mcg PO QDAY 01/29/25 01/29/25 History cinacalcet 90 mg tablet 90 mg PO QDAY 01/29/25 01/29/25 Hi story labetalol 100 mg tablet 100 mg PO BID 01/29/25 01/29/25 Hi story losartan 50 mg tablet 50 mg PO BID 01/29/25 01/29/25 His tory medroxyprogesterone 10 mg tablet 10 mg PO QDAY 01/29/25 01/29/25 Hi story multivitamin 1 tab PO QDAY 01/29/25 01/29/25 Hi story omeprazole 20 mg capsule,delayed 20 mg PO QDAY 01/29/25 01/29/25 Hi story release ropinirole 0.5 mg tablet 0.5 mg PO BID 01/29/25 01/29/25 Hi story sevelamer HCl 800 mg tablet 800 mg PO TID 01/29/25 01/29/25 Hi story peg 3350-electrolytes 236 240 ml PO Q10M #4,000 mL 02/04/25 02/04/25 Rx gram-22.74 gram-6.74 gram-5.86 gram solution (Golytely) Patient : No Have you fallen in the past year?: No Nurse's Note: OV 02.04.25 Pt here to establish care with [facility]. Pt states she is feeling well. Pt has no hx of EGD and colonoscopy. ---- [facility] Social History (Updated 01/29/25 @ 13:41 by Jazmyn Euceda LPN) alcohol intake: current alcohol intake frequency: holidays/special occasions only substance use type: marijuana caffeine: Yes Type: coffee HPI HPI Chief Complaint: colonoscopy Details: JESSICA TOVAR, is a 49 F who presents to the office today for establishment with [facility]. Pt referred from her primary care provider for screening colonoscopy. Pt has never had a colonoscopy before. She has chronic constipation due to being ESRD on dialysis. She will take stool softener when she needs it. SHe typically has a bm every few days. SHe denies family hx of colon cancer. Pt also has a hx of heartburn and has been on famotidine. Her PCP recently switched her to omeprazole. SHe has been on this for a few weeks and has not had any heartburn. ROS Const Constitutional: Positive for fatigue; No fever(s) or weight change ENT ENT: No difficulty swallowing Gastro GI: Positive for constipation, nausea/dyspepsia and vomiting; No abdominal pain, belching, bloating, change in bowel habits, change in stool character, coffee ground emesis, cramping, diarrhea, heartburn, difficulty swallowing, feeling full early, excessive flatus, incontinent of stools, Vomiting blood/hematemesis, Blood in stool, loose stools, Black,tarry stools, pain with swallowing or other Musc Musculoskeletal: Positive for joint pain, joint swelling, muscle cramps, numbness, tingling and restless legs Skin Skin: Positive for dry skin and itchy eyes; No yellowing of the eye Neuro Neurology: Positive for numbness, tingling and restless legs Psych Psychiatric: No anxiety and No depression Endo Endocrine: Positive for fatigue; No weight change Aller/Imm Allergy/Immunologic: Positive for itchy eyes [place]ymp Hematologic/Lymphatic: No easy bleeding or easy bruising Exam Const General: cooperative and comfortable Nutritional Appearance: average body habitus and well nourished [facility] Head: normal to inspection Ears: hearing grossly normal bilaterally Nose: external nose normal Face and sinus: normal facial exam Mouth: oral mucosae normal Eyes General: appearance normal, both eyes and all related structures Neck Neck: normal visual inspection Chest Chest palpation inspection: normal inspection of the chest and normal palpation of entire chest wall Resp Effort Inspection: normal respiratory effort Auscultation: Bilateral: Clear to Auscultation Cardio Palpation: normal PMI Rate: regular rate Rhythm: regular rhythm GI Inspection: normal to inspection Auscultation: normal bowel sounds Percussion: normal to percussion Palpation: no hepatosplenomegaly Skin General: no rashes or lesions noted Neuro General: patient alert Extrem General: normal to inspection Psych Affect: normal affect Assessment and Plan Assessment and Plan (1) Chronic GERD: Status: Chronic Plan: THis is a 49 yo female pt here today for evaluation and to be scheduled for screening colonoscopy. Pt has a hx of GERD previously on H2 elle but recently changed to PPI. She feels it is well controlled at this time. However due to long hx she will undergo EGD. She will also have a colonoscop (more content not included)... Normal [facility] .GFRon 01-24-2025 Estimated Glomerular Filtration Rate 6 ml/min/1.73sqm Normal [facility] Comment on above: Result Comment: Stages of Chronic Kidney Disease (CKD) Stage Description eGFR(ml/min/1.73 sq.m.) CKD 1 Normal kidney function or >=90 normal kindney function with possible kidney damage (ex. Proteinuria) CKD 2 Kidney damage with mild loss 60-89 of kidney function CKD 3a Mild to moderate loss of kidney 45-59 function CKD 3b Moderate to severe loss of 30-44 of kindey function CKD 4 Severe loss of kidney function 15-29 CKD 5 Kidney failure <15 Note: (go live 2024) the eGFR calculation was updated to the 2020 CKD-EPI creatinine equation without a race factor to calculate the eGFR results. Performed By: #### T SH, GFR, CMP, LIPID #### [place] [address] #### FT4 #### [place] [address] CMPon 01-24-2025 Albumin Level 3.4 G/dL Low 3.5-5.0 [facility] Comment on above: Performed By: #### T SH, GFR, CMP, LIPID #### [place] [address] #### FT4 #### [place] [id number] Albumin/Globulin [Mass ratio] 0.9 {ratio} Low 1.1-2.5 [facility] Comment on above: Performed By: #### T SH, GFR, CMP, LIPID #### [place] [address] #### FT4 #### [address] [address] ALP [Catalytic activity/Vol] 122 U/L Normal 40-135 [facility] Comment on above: Performed By: #### T SH, GFR, CMP, LIPID #### [place] [address] #### FT4 #### [address] [address] ALT [Catalytic activity/Vol] 20 U/L Normal 14-59 [facility] Comment on above: Performed By: #### T SH, GFR, CMP, LIPID #### [place] [address] #### FT4 #### [address] [address] AST [Catalytic activity/Vol] 15 U/L Normal 10-40 [facility] Comment on above: Performed By: #### T SH, GFR, CMP, LIPID #### [place] [address] #### FT4 #### [place] [address] Bili Total 0.5 mg/dL Normal 0.2-1.0 [facility] Comment on above: Result Comment: Use of this assay is not recommended for patients undergoing treatment with eltrombopag due to the potential for falsely elevated results. Performed By: #### T SH, GFR, CMP, LIPID #### [place] [address] #### FT4 #### [place] [address] BUN/Creatinine Ratio 6 ratio Low 7-27 [facility] Comment on above: Performed By: #### T SH, GFR, CMP, LIPID #### [place] [address] #### FT4 #### [place] [id number] Calcium [Mass/Vol] 9.7 mg/dL Normal 8.4-10.2 [facility] Comment on above: Performed By: #### T SH, GFR, CMP, LIPID #### [place] [address] #### FT4 #### [address] [address] Chloride [Moles/Vol] 101 mmol/L Normal 98-107 [facility] Comment on above: Performed By: #### T SH, GFR, CMP, LIPID #### [address] [address] #### FT4 #### [address] [address] CO2 [Moles/Vol] 33 mmol/L High 22-29 [facility] Comment on above: Performed By: #### T SH, GFR, CMP, LIPID #### [place] [address] #### FT4 #### [place] [address] Creatinine [Mass/Vol] 7.25 mg/dL High 0.55-1.02 [facility] Comment on above: Result Comment: Test ing performed on Siemens Dimension EXL analyzer using a modified kinetic Dylon technique. Performed By: #### T SH, GFR, CMP, LIPID #### [place] [address] #### FT4 #### [place] [address] Electrolyte Balance 5.0 mEq/L Normal 4.0-15.0 [facility] Comment on above: Performed By: #### T SH, GFR, CMP, LIPID #### [place] [address] #### FT4 #### [place] [address] Globulin 3.9 G/dL High 1.5-3.8 [facility] Comment on above: Performed By: #### T SH, GFR, CMP, LIPID #### [place] [address] #### FT4 #### [place] [id number] Glucose [Mass/Vol] 90 mg/dL Normal 70-105 [facility] Comment on above: Performed By: #### T SH, GFR, CMP, LIPID #### [address] [address] #### FT4 #### [address] [address] Potassium [Moles/Vol] 4.1 mmol/L Normal 3.5-5.1 [facility] Comment on above: Performed By: #### T SH, GFR, CMP, LIPID #### [place] [address] #### FT4 #### [address] [address] Sodium [Moles/Vol] 139 mmol/L Normal 136-145 [facility] Comment on above: Performed By: #### T SH, GFR, CMP, LIPID #### [place] [address] #### FT4 #### [address] [address] Total Protein 7.3 G/dL Normal 6.4-8.2 [facility] Comment on above: Performed By: #### T SH, GFR, CMP, LIPID #### [place] [address] #### FT4 #### [address] [address] Urea nitrogen [Mass/Vol] 41 mg/dL High 7-18 [facility] Comment on above: Performed By: #### T SH, GFR, CMP, LIPID #### [place] [address] #### FT4 #### [address] [address] FT4on 01-24-2025 Free T4 [Mass/Vol] 1.27 ng/dL Normal 0.89-1.76 [facility] Comment on above: Result Comment: No te - New Reference Range in effect 20 Performed By: #### T SH, GFR, CMP, LIPID #### [place] [address] #### FT4 #### [address] [address] LIPIDon 01-24-2025 Cholesterol [Mass/Vol] 174 mg/dL Normal 0-200 [facility] Comment on above: Result Comment: Chol esterol Reference Interval: Less than 200 Desirable 200-239 Borderline high risk 240 and above High risk Performed By: #### T SH, GFR, CMP, LIPID #### [place] [address] #### FT4 #### [address] [address] Cholesterol in HDL [Mass/Vol] 71 mg/dL High 40-60 [facility] Comment on above: Performed By: #### T SH, GFR, CMP, LIPID #### [place] [address] #### FT4 #### [place] [address] Cholesterol in LDL [Mass/Vol] 82 mg/dL Normal 0-130 [facility] Comment on above: Performed By: #### T SH, GFR, CMP, LIPID #### [place] [address] #### FT4 #### [address] [address] Triglyceride [Mass/Vol] 104 mg/dL Normal 0-150 [facility] Comment on above: Result Comment: Trig lyceride Reference Interval: Less than 150 Normal 150-199 Borderline high risk 200-499 High risk 500 or higher Very high risk Performed By: #### T SH, GFR, CMP, LIPID #### [place] [address] #### FT4 #### [place] [address] TSHon 01-24-2025 TSH Qn 3.32 m[IU]/L Normal 0.36-3.74 [facility] Comment on above: Performed By: #### T SH, GFR, CMP, LIPID #### [place] [address] #### FT4 #### [facility] [address] [place] [address] 01-06-2025 [facility] HNO ID: [id number] Author: LI HARPER Chaplain Service: Spiritual Care Author Type: Food Service Substitute Type: Allied Health Filed: 01/06/2025 08:06 Note Text: SPIRITUAL CARE Spiritual Care Visit Record Name: Jessica Tovar Date: January 06, 2025 Type of Visit: Preoperative Prayer/Visit Visit was with patient Ministry Provided During Visit: Prayer / Spiritual Presence / Support Notes: Met with patient while rounding on Same Day surgery. Patient expressed feeling well with no distress. Encouraged patient to maintain her optimistic attitude and prayed for patient per her wish. Patient expressed gratitude for nutrition instructor's visit. Will See: As Needed Only Follow-up Notes: Informed patient of Food Service Substitute availability Food Service Substitute Signature: Chaplain Osiris To contact the Pastoral Care Department: Please call [phone] or Page the Cyl[employer] Dyer Food Service Substitute at pager [phone]. Thank you for the opportunity to be of service. This is an electronically created document. IF PRINTED, PLEASE DO NOT REMOVE FROM THE CHART OR MODIFY PRINTED COPY. 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 Post Anesthesia Patient Status Patient Evaluation: PACU. PACU/ICU Patient Condition: stable. Anticipated Disposition: phase 2 then home. Neurological Status: aware and responsive. Pulmonary Status: breathing comfortably on room air Airway Control: returned to baseline unsupported. Cardiovascular Status: stable. Pain Management: clinically adequate Postoperative Hydration: acceptable. Intraoperative Events: no significant anesthesia events Post Operative Nausea/Vomiting Status: no significant post operative nausea or vomiting Recommendation: continue current plan of care. Anesthesia Observations No Documentation SIGNATURE: Naseem Martinez DO PATIENT NAME: Jessica Tovar DATE: January 06, 2025 TIME: 11:56 AM CSN: [id number] 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 as calculated from the following: Height as of this encounter: 172.7 cm (5' 8). Weight as of this encounter: 101.3 kg (223 lb 5.2 oz). Most recent hematocrit and potassium results: Hematocrit 35.3 01/06/2025 Potassium 3.9 01/06/2025 Relevant Problems -RENAL (+) Renal disease HTN GERD ESRD - dialysis last 01/05/25 I - PHYSICAL EVALUATION AIRWAY Patient intubated: No. Tracheostomy tube not present Mallampati: II. TM distance: >3 FB. Neck ROM: full ROM without neurological symptoms. Mouth opening: adequate. Short neck: no. Thick neck: no DENTAL Dental findings: teeth intact. Additional exam findings: yes. CARDIOVASCULAR Normal cardiovascular observations. PULMONARY Normal pulmonary observations. II - ANESTHESIA PLAN ASA Score: 3 Anesthetic Plan: MAC NPO Status: adequate Beta Elle Monitoring Plan Monitoring plan: standard ASA. Post Procedure Analgesic Plan Postoperative analgesic plan: parenteral or oral opioids and per surgical service. Informed Consent Anesthetic risks, benefits, alternatives, personnel and consent discussed: yes. Patient / Responsible Libertarian agrees to proceed: yes Patient / Surrogate agrees to blood products: Yes Significant changes in the patient condition since the History and Physical, not otherwise documented in primary service progress note: no. Potential Anesthesia issues that may suggest increased risk of complications or contraindication to planned procedure: none. Vitals Value Taken Time BP 125/77 01/06/25 0707 Pulse 82 01/06/25 0712 Resp 18 01/06/25 0707 Temp 36.9 ?C (98.4 ?F) 01/06/25 0707 SpO2 100 % 01/06/25 0712 Vitals shown include unfiled device data. Facility-Administered Medications as of 01/06/2025 Medication Dose Route Frequency - lidocaine (PF) 10 mg/mL (1 %) 2 mg injection (XYLOCAINE) 0.2 mL INTRADERMAL PRN - lactated ringers iv infusion 30 mL/hr INTRAVENOUS CONTINUOUS - NaCl 0.9% iv flush bag 20 mL INTRAVENOUS PRN - NaCl 0.9% iv infusion 5-30 mL/hr INTRAVENOUS CONTINUOUS Outpatient Medications as of 01/06/2025 Medication Sig - cholecalciferol (VITAMIN D) 1,000 unit tab tablet Take 1,000 Units by mouth once daily. - rOPINIRole (REQUIP) 1 mg tablet Take 1.5 mg by mouth two times a day. - folic acid/vit B complex and C (RENAL-AUREA ORAL) Take by mouth once daily. - amLODIPine (NORVASC) 10 mg tablet Take 10 mg by mouth once daily. - Cinacalcet HCl (SENSIPAR) 60 mg tablet Take 90 mg by mouth once daily. - labetalol HCl (LABETALOL, BULK, MISC) Take 100 mg by mouth two times a day. 1 in AM and 2 in PM - losartan (COZAAR) 50 mg tablet Take 50 mg by mouth two times a day. - famotidine (PEPCID ORAL) Take 20 mg by mouth daily at bedtime. I have interviewed and examined the patient. I have reviewed the medical record and/or the pre-anesthesia evaluation, pertinent labs, and test results. This contains updated information obtained within 48 hours of Surgery/Procedure. SIGNATURE: Naseem Martinez DO PATIENT NAME: Jessica Tovar DATE: January 06, 2025 TIME: 9:40 AM CSN: [id number] Normal [facility] Basic metabolic 2000 panelon 01-06-2025 Anion gap [Moles/Vol] 9 mmol/L Normal 5-16 [facility] Comment on above: Order Comment: Speci men Type: BLOOD SPECIMEN Ordering Facility: [facility] Address: [address] [place] [address] Performed By: #### 2 4321-2 #### [facility] CLIA [id number] [address] [place] [address] [place] Calcium [Mass/Vol] 9.4 mg/dL Normal 8.5-10.5 [facility] Comment on above: Order Comment: Speci men Type: BLOOD SPECIMEN Ordering Facility: [facility] Address: [address] [place] [address] Performed By: #### 2 4321-2 #### [facility] CLIA [id number] [address] [place] [address] [place] Chloride [Moles/Vol] 101 mmol/L Normal 98-107 [facility] Comment on above: Order Comment: Speci men Type: BLOOD SPECIMEN Ordering Facility: [facility] Address: [address] [place] [address] Performed By: #### 2 4321-2 #### [facility] CLIA [id number] [address] [place] [address] [place] CO2 [Moles/Vol] 30 mmol/L Normal 21-32 [facility] Comment on above: Order Comment: Speci men Type: BLOOD SPECIMEN Ordering Facility: [facility] Address: [address] [place] [address] Performed By: #### 2 4321-2 #### [facility] CLIA [id number] [address] [place] [address] [place] Creatinine [Mass/Vol] 7.92 mg/dL High 0.51-0.95 [facility] Comment on above: Order Comment: Hannah yeung Type: BLOOD SPECIMEN Ordering Facility: [facility] Address: [address] [place] [address] Result Comment: Maryse ents receiving either N-Acetylcysteine (NAC) or Metamizole prior to venipuncture, may have falsely depressed results. Performed By: #### 2 4321-2 #### [facility] CLIA [id number] [address] [place] [address] [place] Creatinine and Glomerular filtration rate.predicted panel (S/P/Bld) 6 mL/min/1.73m??? Low >=60 [facility] Comment on above: Order Comment: Hannah yeung Type: BLOOD SPECIMEN Ordering Facility: [facility] Address: [address] [place] [address] Result Comment: Irene mated Glomerular Filtration Rate (eGFR) is calculated using the 2020 CKD-EPI creatinine equation. This equation utilizes serum creatinine, sex, and age as parameters. The creatinine assay has traceable calibration to isotope dilution-mass spectrometry. Refer to KDIGO guidelines for clinical interpretation. In patients with unstable renal function, e.g. those with acute kidney injury, the eGFR may not accurately reflect actual GFR. Performed By: #### 2 4321-2 #### [facility] CLIA [id number] [address] [place] [address] [place] Glucose [Mass/Vol] 83 mg/dL Normal 70-100 [facility] Comment on above: Order Comment: Hannah gamal Type: BLOOD SPECIMEN Ordering Facility: [facility] Address: [address] [place] [address] Result Comment: The [place] [employer] Association (ADA) provides guidance for cutoff values for fasting glucose and random glucose. The ADA defines fasting as no caloric intake for at least 8 hours. Fasting plasma glucose results between 100 to 125 mg/dL indicate increased risk for diabetes (prediabetes). Fasting plasma glucose results greater than or equal to 126 mg/dL meet the criteria for diagnosis of diabetes. In the absence of unequivocal hyperglycemia, results should be confirmed by repeat testing. In a patient with classic symptoms of hyperglycemia or hyperglycemic crisis, random plasma glucose results greater than or equal to 200 mg/dL meet the criteria for diagnosis of diabetes. Reference: Standards of Medical Care in Diabetes 2016, [place] [employer]. Diabetes Care. 2016.39(Suppl 1). Results may be falsely elevated after the administration of Sulfapyridine. Results may be falsely depressed after the administration of Sulfasalazine. Performed By: #### 2 4321-2 #### [facility] CLIA [id number] [address] [place] [address] [place] Potassium [Moles/Vol] 3.9 mmol/L Normal 3.5-5.1 [facility] Comment on above: Order Comment: Hannah yeung Type: BLOOD SPECIMEN Ordering Facility: [facility] Address: [address] [place] [address] Performed By: #### 2 4321-2 #### [facility] CLIA [id number] [address] [place] [address] [place] Sodium [Moles/Vol] 140 mmol/L Normal 136-145 [facility] Comment on above: Order Comment: Hannah yeung Type: BLOOD SPECIMEN Ordering Facility: [facility] Address: [address] [place] [address] Performed By: #### 2 4321-2 #### [facility] CLIA [id number] [address] [place] [address] [place] Urea nitrogen [Mass/Vol] 50 mg/dL High 7-26 [facility] Comment on above: Order Comment: Hannah yeung Type: BLOOD SPECIMEN Ordering Facility: [facility] Address: [address] [place] [address] Performed By: #### 2 4321-2 #### [facility] CLIA [id number] [address] [place] [address] [place] CBC W Auto Differential pane l (Bld)on 01-06-2025 Basophils (Bld) [#/Vol] 10*3/uL Normal <0.11 [facility] Comment on above: Order Comment: Speci men Type: BLOOD SPECIMEN Ordering Facility: [facility] Address: [address] [place] [address] Performed By: #### 5 7021-8 #### [facility] CLIA [id number] [address] [place] [address] [place] Basophils/100 WBC (Bld) 0.4 % Normal [facility] Comment on above: Order Comment: Speci men Type: BLOOD SPECIMEN Ordering Facility: [facility] Address: [address] [place] [address] Performed By: #### 5 7021-8 #### [facility] CLIA [id number] [address] [place] [address] Differential cell count method Nom (Bld) Auto Normal [facility] Comment on above: Order Comment: Speci men Type: BLOOD SPECIMEN Ordering Facility: [facility] Address: [address] [place] [address] Performed By: #### 5 7021-8 #### [facility] CLIA [id number] [address] [place] [address] [place] Eosinophils (Bld) [#/Vol] 0.12 10*3/uL Normal <0.46 [facility] Comment on above: Order Comment: Speci men Type: BLOOD SPECIMEN Ordering Facility: [facility] Address: [address] [place] [address] Performed By: #### 5 7021-8 #### [facility] CLIA [id number] [address] [place] [address] [place] Eosinophils/100 WBC (Bld) 2.4 % Normal [facility] Comment on above: Order Comment: Speci men Type: BLOOD SPECIMEN Ordering Facility: [facility] Address: [address] [place] [address] Performed By: #### 5 7021-8 #### [facility] CLIA [id number] [address] [place] [address] [place] Erythrocyte distribution width (RBC) [Ratio] 15.9 % High 11.5-15.0 [facility] Comment on above: Order Comment: Speci men Type: BLOOD SPECIMEN Ordering Facility: [facility] Address: [address] [place] [address] Performed By: #### 5 7021-8 #### [facility] CLIA [id number] [address] [place] [address] [place] Hematocrit (Bld) [Volume fraction] 35.3 % Low 36.0-46.0 [facility] Comment on above: Order Comment: Speci men Type: BLOOD SPECIMEN Ordering Facility: [facility] Address: [address] [place] [address] Performed By: #### 5 7021-8 #### [facility] CLIA [id number] [address] [place] [address] [place] Hemoglobin (Bld) [Mass/Vol] 11.4 g/dL Low 11.5-15.5 [facility] Comment on above: Order Comment: Speci men Type: BLOOD SPECIMEN Ordering Facility: [facility] Address: [address] [place] [address] Performed By: #### 5 7021-8 #### [facility] CLIA [id number] [address] [place] [address] [place] Immature granulocytes (Bld) [#/Vol] 10*3/uL Normal <0.10 [facility] Comment on above: Order Comment: Speci men Type: BLOOD SPECIMEN Ordering Facility: [facility] Address: [address] [place] [address] Performed By: #### 5 7021-8 #### [facility] CLIA [id number] [address] [place] [address] [place] Immature granulocytes/100 WBC (Bld) 0.2 % Normal [facility] Comment on above: Order Comment: Speci men Type: BLOOD SPECIMEN Ordering Facility: [facility] Address: [address] [place] [address] Performed By: #### 5 7021-8 #### [facility] CLIA [id number] [address] [place] [address] [place] Lymphocytes (Bld) [#/Vol] 1.51 10*3/uL Normal 1.00-4.00 [facility] Comment on above: Order Comment: Speci men Type: BLOOD SPECIMEN Ordering Facility: [facility] Address: [address] [place] [address] Performed By: #### 5 7021-8 #### [facility] CLIA [id number] [address] [place] [address] [place] Lymphocytes/100 WBC (Bld) 30.3 % Normal [facility] Comment on above: Order Comment: Speci men Type: BLOOD SPECIMEN Ordering Facility: [facility] Address: [address] [place] [address] Performed By: #### 5 7021-8 #### [facility] CLIA [id number] [address] [place] [address] [place] MCH (RBC) [Entitic mass] 31.8 pg Normal 26.0-34.0 [facility] Comment on above: Order Comment: Speci men Type: BLOOD SPECIMEN Ordering Facility: [facility] Address: [address] [place] [address] Performed By: #### 5 7021-8 #### [facility] CLIA [id number] [address] [place] [address] [place] MCHC (RBC) [Mass/Vol] 32.3 g/dL Normal 30.5-36.0 [facility] Comment on above: Order Comment: Speci men Type: BLOOD SPECIMEN [facility] [facility] Address: [address] [place] [address] Performed By: #### 5 7021-8 #### [facility] CLIA [id number] [address] [place] [address] [place] MCV (RBC) [Entitic vol] 98.3 fL Normal 80.0-100.0 [facility] Comment on above: Order Comment: Speci men Type: BLOOD SPECIMEN Ordering Facility: [facility] Address: [address] [place] [address] Performed By: #### 5 7021-8 #### [facility] CLIA [id number] [address] [place], [place] [address] [place] Monocytes (Bld) [#/Vol] 0.36 10*3/uL Normal <0.87 [facility] Comment on above: Order Comment: Speci men Type: BLOOD SPECIMEN Ordering Facility: [facility] Address: [address] [place] [address] Performed By: #### 5 7021-8 #### [facility] CLIA [id number] [address] [place] [address] [place] Monocytes/100 WBC (Bld) 7.2 % Normal [facility] Comment on above: Order Comment: Speci men Type: BLOOD SPECIMEN Ordering Facility: [facility] Address: [address] [place] [address] Performed By: #### 5 7021-8 #### [facility] CLIA [id number] [address] [place] [address] [place] Neutrophils (Bld) [#/Vol] 2.97 10*3/uL Normal 1.45-7.50 [facility] Comment on above: Order Comment: Speci men Type: BLOOD SPECIMEN Ordering Facility: [facility] Address: [address] [place] [address] Performed By: #### 5 7021-8 #### [facility] CLIA [id number] [address] [place] [address] [place] Neutrophils/100 WBC (Bld) 59.5 % Normal [facility] Comment on above: Order Comment: Speci men Type: BLOOD SPECIMEN Ordering Facility: [facility] Address: [address] [place] [address] Performed By: #### 5 7021-8 #### [facility] CLIA [id number] [address] [place] [address] [place] Nucleated RBC (Bld) [#/Vol] 10*3/uL Normal <0.01 [facility] Comment on above: Order Comment: Speci men Type: BLOOD SPECIMEN Ordering Facility: [facility] Address: [address] [place] [address] Performed By: #### 5 7021-8 #### [facility] CLIA [id number] [address] [place] [address] [place] Nucleated RBC/100 WBC (Bld) [Ratio] 0.0 /100 WBC Normal [facility] Comment on above: Order Comment: Speci men Type: BLOOD SPECIMEN Ordering Facility: [facility] Address: [address] [place] [address] Performed By: #### 5 7021-8 #### [facility] CLIA [id number] [address] [place] [address] [place] Platelet mean volume (Bld) [Entitic vol] 9.6 fL Normal 9.0-12.7 [facility] Comment on above: Order Comment: Speci men Type: BLOOD SPECIMEN Ordering Facility: [facility] Address: [address] [place] [address] Performed By: #### 5 7021-8 #### [facility] CLIA [id number] [address] [place] [address] [place] Platelets (Bld) [#/Vol] 154 10*3/uL Normal 150-400 [facility] Comment on above: Order Comment: Speci men Type: BLOOD SPECIMEN Ordering Facility: [facility] Address: [address] [place] [address] Performed By: #### 5 7021-8 #### [facility] CLIA [id number] [address] [place] [address] [place] RBC (Bld) [#/Vol] 3.59 10*6/uL Low 3.90-5.20 [facility] Comment on above: Order Comment: Speci men Type: BLOOD SPECIMEN Ordering Facility: [facility] Address: [address] [place] [address] Performed By: #### 5 7021-8 #### [facility] CLIA [id number] [address] [place], [place] [address] [facility] WBC (Bld) [#/Vol] 4.99 10*3/uL Normal 3.70-11.00 [facility] Comment on above: Order Comment: Speci men Type: BLOOD SPECIMEN Ordering Facility: [facility] Address: [address] [place] [address] Performed By: #### 5 7021-8 #### [facility] CLIA [id number] [address] [place], [place] [address] [facility] ECG COMPLETEon 01-06-2025 ECG COMPLETE Ventricular Rate : 7 6 BPM Atrial Rate : 76 BPM P-R Interval : 148 ms QRS Duration : 90 ms Q-T Interval : 388 ms QTC Calculation(Bazett) : 436 ms Calculated P [place] : 20 degrees Calculated R [place] : 2 degrees Calculated T [place] : 29 degrees Normal sinus rhythm Normal ECG When compared with ECG of 12-Feb-2019 13:37, QRS voltage has decreased Criteria for Septal infarct are no longer Present Confirmed by ANTONIO PARRY MD ([id number]) on 01/07/2025 1:06:27 PM NAME : JESSICA TOVAR PID : [id number] : 1975 Gender : Female Race : ORD : [id number] Procedure Date : Jan 06 2025 07:19:43 Edit Date : Jan 07 2025 13:06:28 Diagnosis: Normal sinus rhythm Normal ECG When compared with ECG of 12-Feb-2019 13:37, QRS voltage has decreased Criteria for Septal infarct are no longer Present Confirmed by ANTONIO PARRY MD ([id number]) on 01/07/2025 1:06:27 PM Test Reason : STAT Location : 23 : SURG ORPL Overread By : ANTONIO PARRY MD Edited By : ANTONIO PARRY MD Referred By : , Acquired by : LAQUITA JIMENEZ Normal [facility] HCG Preg Ur Qlon 01-06-2025 HCG ( test) Ql (U) Negative Normal Negative [facility] Comment on above: Order Comment: Speci men Type: URINE SPECIMENOrdering Facility: [facility] Address: [address], [place] [address] Result Comment: This test is intended to aid in the early detection of . Very dilute urine samples, as indicated by a low specific gravity, may not contain safety representative levels of hCG. This test detects intact hCG only. This test does not reliably detect hCG degradation products, including free-beta subunit and beta-core fragment. Therefore, this test may show reduced reactivity in urine after 8 weeks gestation. A number of conditions other than , including trophoblastic disease and certain non-trophoblastic neoplasms cause elevated levels of hCG. As with any assay employing mouse antibodies, the possibility exists for interference by human anti-mouse antibodies (HAMA) in the specimen. The test provides a presumptive diagnosis for . Performed By: #### 2 106-3 ####[facility] [id number] [place] [address] [place] HISTORY PHYSICALon HISTORY PHYSICAL HNO ID: [id number] Author: EDDI BLOUNT MD Service: Vascular Surgery Author Type: Physician Type: H&P Filed: 01/06/2025 08:11 Note Text: See HANDP, no change Plan left arm fistulogram and intervention Eddi Blount MD [facility] OPERATIVE NOon 01-06-2025 OPERATIVE NO HNO ID: [id number] Author: EDDI BLOUNT MD Service: Vascular Surgery Author Type: Physician Type: Operative Report Filed: 01/06/2025 10:58 Note Text: OPERATIVE/PROCEDURE REPORT LOG ID: [id number] SURGERY/PROCEDURE DATE: 01/06/2025 INCISION/PROCEDURE START TIME: INCISION CLOSE/PROCEDURE END TIME: SURGEON(S)/PROCEDURALIST (S) AND SOLE ROUGHER(S): Surgeons and Role: * Eddi Blount MD - Primary No Additional Staff SURGERY/PROCEDURE(S): 1. Ultrasound-guided access retrograde left AV fistula. 2. Fistulogram from the brachial artery. 3. Balloon venoplasty AV fistula through to the brachial artery with a 7 mm Earling. ANESTHESIA: Monitored Anesthesia Care SURGERY/PROCEDURE DETAILS: Patient brought to the operating room. Underwent appropriate MAC consent. Underwent MAC. Was prepped and draped in a sterile fashion. We did ultrasound-guided excess retrograde left AV fistula. Put a Glidewire and then a 6 Nepali sheath. Gave 3000 units of heparin. Did a 50 g in the brachial artery. Showed a severe stenosis just past the area of the anastomosis. We then replaced the wire. We ballooned through this with 7 mm Earling from the brachial artery through the entire AV fistula. Completion was markedly improved with great flow. We then put a U-stitch removed the sheath held pressure with good hemostasis. Brought to recovery stable condition. Fluoroscopy: Fluoroscopy: 3.5 minutes Dose: 3.8 mGy Contrast dye: 13 cc PRE-OP/PRE-PROCEDURE DIAGNOSIS: Malfunction AV fistula with end-stage renal disease POST-OP/POST-PROCEDURE DIAGNOSIS: Same ESTIMATED BLOOD LOSS: Minimal SPECIMENS: None IMPLANTABLE DEVICES: None DRAINS: None COMPLICATIONS: None SIGNATURE: Eddi Blount MD PATIENT NAME: Jessica Tovar DATE: January 06, 2025 TIME: 10:[address] [facility] XR FLUOROSCOPYon 01-06-2025 XR FLUOROSCOPY * * *Final Report* * * DATE OF EXAM: Jan 06 2025 11:07AM RHX [id number] - XR FLUOROSCOPY / PROCEDURE REASON: end stage renal disease * * * * Physician Interpretation * * * * INTRAOPERATIVE FLUOROSCOPY CLINICAL DATA: End-stage renal disease. COMPARISON: None. FINDINGS: Intraoperative fluoroscopy was provided to the referring physician to perform dialysis access intervention. Selective spot images were obtained during the procedure. Cumulative dose: 5.5 mGy. Fluoroscopy time: 3:08 minutes. IMPRESSION: 1. Intraoperative fluoroscopy as described above. 2. Please see the surgical report for complete information. E Commerce Architect: PSCB Transcribe Date/Time: Jan 08 2025 12:18A Dictated by : EDILSON PATEL MD This examination was interpreted and the report reviewed and electronically signed by: EDILSON PATEL MD on Jan 08 2025 12:19AM EST [id number] [facility] Compliance Spec Cytology Reporton 2024 Compliance Spec Cytology Report . Pathology Reports Accession: Collected Date/Time: Received Date/Time: Pathologist: [id number] 12/16/2024 10:21 EST 12/16/2024 18:00 EST Compliance Spec Cytology Report SPECIMEN: Specimen Description: Liquid Prep Reflex ASCUS Specimen: Cervical/Endocervical Screening or Diagnostic: Screening RELEVANT HISTORY: LMP: 11/27/24 Other clinical information: HST. OF STD SPECIMEN ADEQUACY: SATISFACTORY FOR EVALUATION Endocervical/Transformat ional zone component present INTERPRETATION/RESULTS: NEGATIVE FOR INTRAEPITHELIAL LESION OR MALIGNANCY ORGANISMS: Shift in katty consistent with bacterial vaginosis COMMENT: This Pap Test was successfully processed and evaluated with the assistance of the KavaliaPrep Test Imaging System. Verified by Pathology report verified by [facility] Screened by: FORTINO Electronically signed by Corine Jones Sign-Out Date: 12/19/2024 13:04 Performing Lab: [facility], [address] [place] [address] Pathology Dept Disclaimer The Pap test is a screening test for cervical cancer. As evidenced by published data, it is subject to both inherent false negative and false positive results. Your patient's results should be interpreted in context with pertinent clinical history including gynecological examination. [facility] MAIN NURSING PROGon 11-18-2024 NURSING PROG HNO ID: [id number] Author: RAJAN SAINZ RN Service: Nursing Author Type: Registered Nurse Type: Nursing Progress Note Filed: 11/18/2024 07:10 Note Text: I spoke to Aletha Corona (OR) who handles the vascular cases regarding this patient cancelling her surgery but we could not get a hold of the office. She stated she would take care of it. [facility] ANES PREOPon 11-17-2024 ANES PREOP HNO ID: [id number] Author: DENICE SAINZ PA-C Service: ? Author Type: Physician Car Worker Helper Type: Anesthesia PreOp Filed: 11/17/2024 09:47 Note Text: 49 yo obese female ex-smoker PMH: HTN, ESRD on dialysis, RLS [facility] NURSING PROGon 11-17-2024 NURSING PROG HNO ID: [id number] Author: RAJAN SAINZ RN Service: Nursing Author Type: Registered Nurse Type: Nursing Progress Note Filed: 11/18/2024 07:08 Note Text: Earlier when I called this patients arrival time, she stated she was cancelling due to transportation issues. I instructed her to call Dr. Blount's office and she agreed. At this time, she remains on the schedule. I reached out to Dr. Blount's office to make sure they were aware and I could not reach anyone. I left a voicemail. I also made surgery scheduling aware that she was not planning to come. This info was also put on the communication sheet for same day surgery and discussed during the hand off. Normal [facility] MRI BRAIN W/O CONTRASTon MRI BRAIN W/O CONTRAST ORIGINAL HISTORY: Optic atrophy COMPARISON: No TECHNIQUE: 1. Axial and sagittal T1-weighted images. 2. Axial T2-weighted images. 3. Axial FLAIR images. 4. Axial diffusion-weighted images with ADC map. 5. Axial T2-weighted images with thin cuts through the orbits. 6. Coronal T2-weighted images of the orbits with fat saturation. 7. Coronal T1-weighted images of the orbits. FINDINGS: The study is mildly degraded by motion. The ventricles and sulci are normal in size and configuration. There are no abnormal intra or extra-axial fluid collections. There are a few scattered punctate T2 hyperintensities in the cerebral white matter. Urban-white matter differentiation is maintained. There is no abnormal restriction of diffusion. The globes are normal in appearance and symmetric. Right optic nerve is mildly thickened at under 2 cm in diameter approximately 1 cm posterior to the globes; left nerve is within normal size limits. The extraocular muscles are normal in course and caliber. The intra and extraconal fat is unremarkable in appearance. 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 Interpreted by: Guido Stevens MD Preliminary Report By: Guido Stevens MD Electronically signed By Guido Stevens MD Dictated Date: 07/31/2024 3:31:24 PM Prelim Date: 07/31/2024 3:40:43 PM Sign Date: 07/31/2024 3:40:43 PM Ordering Provider: CHRISTINA Whyte [facility] [id number] 07-08-2024 Vitamin B1 Whl Bld 189.5 nmol/L Normal 66.5-200.0 [facility] ([place]) Comment on above: Result Comment: This test was developed and its performance characteristics determined by [employer]. It has not been cleared or approved by the Food and Drug Administration. Performed At: [address] [id number] Gatito Macedo MD Ph:[phone] Performed By: #### C BC, CMP, 266062, GFR, ANEU, 602824, ADIFF ####[address] [place] [address]#### B12, FOL, RPR ####[place] [address] CUSon 07-05-2024 Copper Lvl 79 UG/DL Low 80-158 [facility] ([place]) Comment on above: Result Comment: This test was developed and its performance characteristics determined by [facility]. It has not been cleared or approved by the Food and Drug Administration. Detection Limit = 5 Performed At: [address] [id number] Gatito Macedo MD Ph:[phone] Performed By: #### C JOLLY, CMP, 444716, GFR, ANEU, 474677, ADIFF ####[address] [place] [address]#### B12, FOL, RPR ####[place] [address] RPRon 07-04-2024 Reagin Ab RPR Ql (S) Non-Reactive Normal Non-Reactive [facility] ([place]) Comment on above: Result Comment: The RPR test is a non-treponemal assay useful as an aid in the diagnosis of primary and secondary syphilis. It converts to positive generally within 2 weeks after the appearance of a lesion. This test is also useful for monitoring response to antibiotic therapy. A positive RPR screening test will be followed by the FTA ABS test. False positive RPR tests may occur in 1) patients with underlying autoimmune disorders, 2) elderly patients, 3) , and 4) other conditions with abnormal serum globulins. Performed By: #### C BC, CMP, 563978, GFR, ANEU, 303698, ADIFF ####[address] [place] [address]#### B12, FOL, RPR ####[place] [id number] .Auto Diffon 07-03-2024 Basophil, Absolute 0.0 10 3/mcL Normal 0.0-0.2 [facility] ([place]) Comment on above: Performed By: #### C BC, CMP, 749374, GFR, ANEU, 018199, ADIFF #### [address] [address] #### B12, FOL, RPR #### [address] [address] Basophils/100 WBC (Bld) 0.7 % Normal 0.0-2.5 [facility] ([place]) Comment on above: Performed By: #### C BC, CMP, 042055, GFR, ANEU, 126038, ADIFF #### [place] [address] #### B12, FOL, RPR #### [place] [address] Eosinophil, Absolute 0.1 10 3/mcL Normal 0.0-0.4 [facility] ([place]) Comment on above: Performed By: #### C BC, CMP, 696976, GFR, ANEU, 366039, ADIFF #### [place] [address] #### B12, FOL, RPR #### [address] [address] Eosinophils/100 WBC (Bld) 2.2 % Normal 0.0-7.0 [facility] ([place]) Comment on above: Performed By: #### C BC, CMP, 444757, GFR, ANEU, 281427, ADIFF #### [place] [address] #### B12, FOL, RPR #### [address] [address] Lymphocyte, Absolute 1.7 10 3/mcL Normal 0.8-3.9 [facility] ([place]) Comment on above: Performed By: #### C BC, CMP, 981265, GFR, ANEU, 041996, ADIFF #### [place] [address] #### B12, FOL, RPR #### [address] [address] Lymphocytes/100 WBC (Bld) 28.6 % Normal 10.0-50.0 [facility] ([place]) Comment on above: Performed By: #### C BC, CMP, 505796, GFR, ANEU, 845635, ADIFF #### [place] [address] #### B12, FOL, RPR #### [address] [address] Monocyte, Absolute 0.5 10 3/mcL Normal 0.2-1.0 [facility] ([place]) Comment on above: Performed By: #### C BC, CMP, 682365, GFR, ANEU, 744923, ADIFF #### [place] [address] #### B12, FOL, RPR #### [address] [address] Monocytes/100 WBC (Bld) 9.0 % Normal 1.7-13.0 [facility] ([place]) Comment on above: Performed By: #### C BC, CMP, 173734, GFR, ANEU, 436499, ADIFF #### [place] [address] #### B12, FOL, RPR #### [address] [address] Neutrophils/100 WBC (Bld) 59.5 % Normal 37.0-80.0 [facility] ([place]) Comment on above: Performed By: #### C BC, CMP, 090975, GFR, ANEU, 611819, ADIFF #### [place] [address] #### B12, FOL, RPR #### [address] [address] .GFRon 07-03-2024 GFR 6 ml/min/1.73sqm Normal [facility] ([place]) Comment on above: Result Comment: GFR Population mean for , Non- Americans Ages 20-29 = 116 mL/min/1.73 sq.m. Ages 30-39 = 107 mL/min/1.73 sq.m. Ages 40-49 = 99 mL/min/1.73 sq.m. Ages 50-59 = 93 mL/min/1.73 sq.m. Ages 60-69 = 85 mL/min/1.73 sq.m. Ages 70+ = 75 mL/min/1.73 sq.m. Chronic Kidney Disease: Less than 60 mL/min/1.73 square meters End Stage Renal Disease: Less than 15 mL/min/1.73 square meters Performed By: #### C BC, CMP, 086347, GFR, ANEU, 286141, ADIFF ####[address] [place] [address]#### B12, FOL, RPR ####[place] [address] GFR Non- 5 ml/min/1.73sqm Normal [facility] ([place]) Comment on above: Result Comment: GFR Population mean for , Non- Americans Ages 20-29 = 116 mL/min/1.73 sq.m. Ages 30-39 = 107 mL/min/1.73 sq.m. Ages 40-49 = 99 mL/min/1.73 sq.m. Ages 50-59 = 93 mL/min/1.73 sq.m. Ages 60-69 = 85 mL/min/1.73 sq.m. Ages 70+ = 75 mL/min/1.73 sq.m. Chronic Kidney Disease: Less than 60 mL/min/1.73 square meters End Stage Renal Disease: Less than 15 mL/min/1.73 square meters Performed By: #### C BC, CMP, 365816, GFR, ANEU, 217008, ADIFF ####[address] [place] [address]#### B12, FOL, RPR ####[address] [address] .NEUABSon 07-03-2024 Neutrophil, Absolute 3.6 10 3/mcL Normal 2.9-6.2 [facility] ([place]) Comment on above: Performed By: #### C BC, CMP, 558181, GFR, ANEU, 693467, ADIFF #### [place] [address] #### B12, FOL, RPR #### [address] [address] B12on 07-03-2024 Cobalamin (Vitamin B12) [Mass/Vol] 1600 pg/mL High 211-911 [facility] ([place]) Comment on above: Performed By: #### C BC, CMP, 200729, GFR, ANEU, 826602, ADIFF ####[place] [address]#### B12, FOL, RPR ####[place] [address] CBCon 07-03-2024 Erythrocyte distribution width (RBC) [Ratio] 17.9 % High 11.5-14.5 [facility] ([place]) Comment on above: Performed By: #### C BC, CMP, 662792, GFR, ANEU, 429975, ADIFF #### [place] [address] #### B12, FOL, RPR #### [place] [address] Hematocrit (Bld) [Volume fraction] 34.3 % Low 37.0-47.0 [facility] ([place]) Comment on above: Performed By: #### C BC, CMP, 180433, GFR, ANEU, 473627, ADIFF #### [place] [address] #### B12, FOL, RPR #### [place] [address] Hgb 11.1 G/dL Low 12.0-16.0 [facility] ([place]) Comment on above: Performed By: #### C BC, CMP, 684889, GFR, ANEU, 134491, ADIFF #### [address] [place] [address] #### B12, FOL, RPR #### [place] [address] MCH (RBC) [Entitic mass] 32.4 pg High 27.0-31.2 [facility] ([place]) Comment on above: Performed By: #### C BC, CMP, 286714, GFR, ANEU, 955568, ADIFF #### [place] [address] #### B12, FOL, RPR #### [place] [address] MCHC 32.3 G/dL Low 33.0-37.0 [facility] ([place]) Comment on above: Performed By: #### C BC, CMP, 058449, GFR, ANEU, 128197, ADIFF #### [place] [address] #### B12, FOL, RPR #### [place] [address] MCV (RBC) [Entitic vol] 100.3 fL High 80.0-94.0 [facility] ([place]) Comment on above: Performed By: #### C BC, CMP, 593235, GFR, ANEU, 734234, ADIFF #### [place] [address] #### B12, FOL, RPR #### [place] [address] Platelet 173 10 3/mcL Normal 130-400 [facility] ([place]) Comment on above: Performed By: #### C BC, CMP, 306978, GFR, ANEU, 637756, ADIFF #### [place] [address] #### B12, FOL, RPR #### [place] [address] Platelet mean volume (Bld) [Entitic vol] 8.8 fL Normal 7.4-10.4 [facility] ([place]) Comment on above: Performed By: #### C BC, CMP, 835439, GFR, ANEU, 201429, ADIFF #### [place] [address] #### B12, FOL, RPR #### [address] [address] RBC 3.42 10 6/mcL Low 4.20-5.40 [facility] ([place]) Comment on above: Performed By: #### C BC, CMP, 796029, GFR, ANEU, 362891, ADIFF #### [place] [address] #### B12, FOL, RPR #### [place] [address] WBC 6.0 10 3/mcL Normal 4.6-10.8 [facility] ([place]) Comment on above: Performed By: #### C BC, CMP, 535930, GFR, ANEU, 412711, ADIFF #### [place] [address] #### B12, FOL, RPR #### [place] [address] CMPon 07-03-2024 Albumin Level 3.1 G/dL Low 3.5-5.0 [facility] ([place]) Comment on above: Performed By: #### C BC, CMP, 074829, GFR, ANEU, 320600, ADIFF ####[place] [address]#### B12, FOL, RPR ####[place] [address] Albumin/Globulin [Mass ratio] 0.8 {ratio} Low 1.1-2.5 [facility] ([place]) Comment on above: Performed By: #### C BC, CMP, 642890, GFR, ANEU, 382325, ADIFF ####[place] [address]#### B12, FOL, RPR ####[place] [address] ALP [Catalytic activity/Vol] 57 U/L Normal 40-135 [facility] ([place]) Comment on above: Performed By: #### C BC, CMP, 431263, GFR, ANEU, 760306, ADIFF ####[address] [place] [address]#### B12, FOL, RPR ####[address] [address] ALT [Catalytic activity/Vol] 22 U/L Normal 14-59 [facility] ([place]) Comment on above: Performed By: #### C BC, CMP, 727338, GFR, ANEU, 511513, ADIFF ####[place] [address] [place] [address]#### B12, FOL, RPR ####[place] [address] AST [Catalytic activity/Vol] 12 U/L Normal 10-40 [facility] ([place]) Comment on above: Performed By: #### C BC, CMP, 351964, GFR, ANEU, 374809, ADIFF ####[place] [address] [place] [address]#### B12, FOL, RPR ####[place] [address] Bili Total 0.4 mg/dL Normal 0.2-1.0 [facility] ([place]) Comment on above: Result Comment: Use of this assay is not recommended for patients undergoing treatment with eltrombopag due to the potential for falsely elevated results. Performed By: #### C BC, CMP, 218937, GFR, ANEU, 170862, ADIFF ####[address] [place] [address]#### B12, FOL, RPR ####[place] [address] BUN/Creatinine Ratio 6 ratio Low 7-27 [facility] ([place]) Comment on above: Performed By: #### C BC, CMP, 265005, GFR, ANEU, 055753, ADIFF ####[address] [place] [address]#### B12, FOL, RPR ####[address] [address] Calcium [Mass/Vol] 9.1 mg/dL Normal 8.4-10.2 Replaced by [facility] ([place]) Comment on above: Performed By: #### C BC, CMP, [id number], GFR, ANEU, 907985, ADIFF ####[place] [address] [place] [address]#### B12, FOL, RPR ####[address] [address] Chloride [Moles/Vol] 107 mmol/L Normal 98-107 [facility] ([place]) Comment on above: Performed By: #### C BC, CMP, 455809, GFR, ANEU, 545156, ADIFF ####[place] [address]#### B12, FOL, RPR ####[place] [address] CO2 [Moles/Vol] 31 mmol/L High 22-29 [facility] ([place]) Comment on above: Performed By: #### C BC, CMP, 435590, GFR, ANEU, 267081, ADIFF ####[place] [address]#### B12, FOL, RPR ####[address] [address] Creatinine [Mass/Vol] 8.26 mg/dL High 0.55-1.02 [facility] ([place]) Comment on above: Performed By: #### C BC, CMP, 719420, GFR, ANEU, 498801, ADIFF ####[place] [address] [place] [address]#### B12, FOL, RPR ####[address] [address] Electrolyte Balance 7.0 mEq/L Normal 4.0-15.0 [facility] ([place]) Comment on above: Performed By: #### C BC, CMP, 930817, GFR, ANEU, 436080, ADIFF ####[facility] [place] [address]#### B12, FOL, RPR ####[address] [address] Globulin 3.9 G/dL Normal [facility] ([place]) Comment on above: Performed By: #### C BC, CMP, 320408, GFR, ANEU, 420277, ADIFF ####[place] [address] [place] [address]#### B12, FOL, RPR ####[address] [address] Glucose [Mass/Vol] 81 mg/dL Normal 70-105 Replaced by [facility] ([place]) Comment on above: Performed By: #### C BC, CMP, 618746, GFR, ANEU, 789401, ADIFF ####[place] [address] [place] [address]#### B12, FOL, RPR ####[place] [address] Potassium [Moles/Vol] 4.9 mmol/L Normal 3.5-5.1 [facility] ([place]) Comment on above: Performed By: #### C BC, CMP, 087630, GFR, ANEU, 129301, ADIFF ####[place] [address]#### B12, FOL, RPR ####[address] [address] Sodium [Moles/Vol] 145 mmol/L Normal 136-145 Replaced by [facility] ([place]) Comment on above: Performed By: #### C BC, CMP, 884166, GFR, ANEU, 508635, ADIFF ####[place] [address] [place] [address]#### B12, FOL, RPR ####[address] [address] Total Protein 7.0 G/dL Normal 6.4-8.2 [facility] ([place]) Comment on above: Performed By: #### C BC, CMP, 672814, GFR, ANEU, 637836, ADIFF ####[facility] [address] [place] [address]#### B12, FOL, RPR ####[facility] [place] [address] Urea nitrogen [Mass/Vol] 49 mg/dL High 7-18 [facility] ([place]) Comment on above: Performed By: #### C BC, CMP, 867321, GFR, ANEU, 332600, ADIFF ####[facility] [place] [place] [address]#### B12, FOL, RPR ####[place] [address] [place] [address] FOLon 07-03-2024 Folate 23.49 ng/mL Normal 5.38-24.00 [facility] ([place]) Comment on above: Performed By: #### C BC, CMP, 279058, GFR, ANEU, 199078, ADIFF ####[facility] [place] [place] [address]#### B12, FOL, RPR ####[facility] [place] [address] LABORATORYOrdered By: SYSTEM SYSTEM on 07-03-2024 Albumin BCP dye [Mass/Vol] 3.1 G/dL Low 3.5 - 5.0 G/dL AO ADM SS Albumin/Globulin [Mass ratio] 0.8 {ratio} Low 1.1 - 2.5 ratio AO ADM SS ALP [Catalytic activity/Vol] 57 U/L Normal 40 - 135 U/L AO ADM SS ALT With P-5'-P [Catalytic activity/Vol] 22 U/L Normal 14 - 59 U/L AO ADM SS AST With P-5'-P [Catalytic activity/Vol] 12 U/L Normal 10 - 40 U/L AO ADM SS Basophil, Absolute 0.0 103/mcL Normal 0.0 - 0.2 10^3/mcL AO Workflow SS Basophils/100 WBC (Bld) 0.7 % Normal 0.0 - 2.5 % AO Workflow SS Bilirubin [Mass/Vol] 0.4 mg/dL Normal 0.2 - 1.0 mg/dL AO ADM SS Comment on above: Interpretive Data: U se of this assay is not recommended for patients undergoing treatment with eltrombopag due to the potential for falsely elevated results. Calcium [Mass/Vol] 9.1 mg/dL Normal 8.4 - 10. 2 mg/dL AO ADM SS Chloride [Moles/Vol] 107 mmol/L Normal 98 - 107 mmol/L AO ADM SS CO2 [Moles/Vol] 31 mmol/L High 22 - 29 mmol/L AO ADM SS Cobalamin (Vitamin B12) [Mass/Vol] 1600 pg/mL High 211 - 911 pg/mL AH ADM SS Creatinine [Mass/Vol] 8.26 mg/dL High 0.55 - 1.02 mg/dL AO ADM SS Electrolyte Balance 7.0 mEq/L Normal 4.0 - 15 .0 mEq/L AO ADM SS Eosinophil, Absolute 0.1 103/mcL Normal 0.0 - 0.4 10^3/mcL AO Workflow SS Eosinophils/100 WBC (Bld) 2.2 % Normal 0.0 - 7.0 % AO Workflow SS Erythrocyte distribution width (RBC) [Ratio] 17.9 % High 11.5 - 14.5 % AO Workflow SS Folate [Mass/Vol] 23.49 ng/mL Normal 5.38 - 24. 00 ng/mL AH ADM SS GFR/1.73 sq M.predicted among blacks MDRD (S/P/Bld) [Vol rate/Area] 6 ml/min/1.73sqm Invalid Interpretation Code AO Chemistry S Comment on above: Interpretive Data: GFR Population mean for , Non- Americans Ages 20-29 = 116 mL/min/1.73 sq.m. Ages 30-39 = 107 mL/min/1.73 sq.m. Ages 40-49 = 99 mL/min/1.73 sq.m. Ages 50-59 = 93 mL/min/1.73 sq.m. Ages 60-69 = 85 mL/min/1.73 sq.m. Ages 70+ = 75 mL/min/1.73 sq.m. Chronic Kidney Disease: Less than 60 mL/min/1.73 square meters End Stage Renal Disease: Less than 15 mL/min/1.73 square meters GFR/1.73 sq M.predicted among non-blacks MDRD (S/P/Bld) [Vol rate/Area] 5 ml/min/1.73sqm Invalid Interpretation Code AO Chemistry S Comment on above: Interpretive Data: GFR Population mean for , Non- Americans Ages 20-29 = 116 mL/min/1.73 sq.m. Ages 30-39 = 107 mL/min/1.73 sq.m. Ages 40-49 = 99 mL/min/1.73 sq.m. Ages 50-59 = 93 mL/min/1.73 sq.m. Ages 60-69 = 85 mL/min/1.73 sq.m. Ages 70+ = 75 mL/min/1.73 sq.m. Chronic Kidney Disease: Less than 60 mL/min/1.73 square meters End Stage Renal Disease: Less than 15 mL/min/1.73 square meters Globulin 3.9 G/dL Invalid Interpretation Code AO ADM SS Glucose [Mass/Vol] 81 mg/dL Normal 70 - 105 mg/dL AO ADM SS Hematocrit (Bld) [Volume fraction] 34.3 % Low 37.0 - 47.0 % AO Workflow SS Hemoglobin (Bld) [Mass/Vol] 11.1 G/dL Low 12.0 - 16.0 G/dL AO Workflow SS Lymphocyte, Absolute 1.7 103/mcL Normal 0.8 - 3.9 10^3/mcL AO Workflow SS Lymphocytes/100 WBC (Bld) 28.6 % Normal 10.0 - 50.0 % AO Workflow SS MCH (RBC) [Entitic mass] 32.4 pg High 27.0 - 31.2 pg AO Workflow SS MCHC 32.3 G/dL Low 33.0 - 37.0 G/dL AO Workflow SS MCV (RBC) [Entitic vol] 100.3 fL High 80.0 - 94.0 fL AO Workflow SS Monocyte, Absolute 0.5 103/mcL Normal 0.2 - 1.0 10^3/mcL AO Workflow SS Monocytes/100 WBC (Bld) 9.0 % Normal 1.7 - 13.0 % AO Workflow SS Neutrophil, Absolute 3.6 103/mcL Normal 2.9 - 6.2 10^3/mcL AO Workflow SS Neutrophils/100 WBC (Bld) 59.5 % Normal 37.0 - 80.0 % AO Workflow SS Platelet mean volume (Bld) [Entitic vol] 8.8 fL Normal 7.4 - 10.4 fL AO Workflow SS Platelets (Bld) [#/Vol] 173 103/mcL Normal 130 - 400 10^3/mcL AO Workflow SS Potassium [Moles/Vol] 4.9 mmol/L Normal 3.5 - 5.1 mmol/L AO ADM SS Protein [Mass/Vol] 7.0 G/dL Normal 6.4 - 8.2 G/dL AO ADM SS RBC (Bld) [#/Vol] 3.42 106/mcL Low 4.20 - 5.4 0 10^6/mcL AO Workflow SS Sodium [Moles/Vol] 145 mmol/L Normal 136 - 145 mmol/L AO ADM SS Urea nitrogen [Mass/Vol] 49 mg/dL High 7 - 18 mg/dL AO ADM SS Urea nitrogen/Creatinine [Mass ratio] 6 ratio Low 7 - 27 ratio AO ADM SS WBC (Bld) [#/Vol] 6.0 103/mcL Normal 4.6 - 10.8 10^3/mcL AO Workflow SS MA MAMMOGRAM SCREENING BILAT ERAL W/TOMOon 05-14-2024 MA MAMMOGRAM SCREENING BILATERAL W/NOEL ORIGINAL FROM: [facility] [address] [address] PROCEDURE FOR: JESSICA TOVAR [address] [place] [address] Home: PID#: [id number] Exam#: [id number] : 1975 Age: 48 TO: CHRISTINE TO [facility] [address] [place], [place] [address] Fax: NO FAX EXAMINATION: SCREENING DIGITAL BILATERAL MAMMOGRAM WITH TOMOSYNTHESIS, 05/13/2024 2:05 pm TECHNIQUE: Screening mammography of the bilateral breasts was performed with tomosynthesis. 2D standard and 3D tomosynthesis combination imaging performed through both breasts in the MLO and CC projection. Computer aided detection was utilized in the interpretation of this exam. COMPARISON: Mammogram 09/05/2023, 02/08/2023, and 01/31/2023. HISTORY: Breast cancer screening FINDINGS: BREAST DENSITY: Scattered fibroglandular tissue There are no significant masses or calcifications. IMPRESSION: No mammographic evidence of malignancy. Continued screening with annual mammograms is recommended. Laurakayla Rodarte risk calculations, generated with the history provided, report this patient's 10 year risk and lifetime risk for developing breast cancer at 2.5% and 13.1%, respectively. Based on this assessment tool, if the patient's calculated lifetime risk is below 20%, then the patient is considered at average risk for developing breast cancer. If the patient's calculated lifetime risk is at or above 20%, then the patient is considered high risk for developing breast cancer and may be a candidate for supplemental breast MRI screening in addition to annual mammographic screening per the [employer]. I have personally reviewed the images of this examination and agree with the resident's findings and interpretation. BIRADS: MAMMOGRAM BI-RADS: 1: Negative RECALL: 1 year screening RECALL TYPE: mammo LETTER SENT: Normal BI-RADS 1 and 2 Interpreted by: Valdemar Worrell MD Preliminary Report By: Nolvia Chun Electronically signed By Valdemar Worrell MD Dictated Date: 05/13/2024 3:56:26 PM Prelim Date: 05/14/2024 2:50:45 PM Sign Date: 05/14/2024 2:50:45 PM Ordering Provider: CHRISTINE TO Bond Clerk: JASWINDER BORRERO RT(R)(M)(CT) letter sent: Normal BI-RADS 1 and 2 Mammogram BI-RADS: 1 Negative Normal [facility] ([place]) Final Surgical Pathology Rep the medical center 04-04-2024 Final Surgical Pathology Report . Pathology Reports Accession: Collected Date/Time: Received Date/Time: Pathologist: [id number] 04/02/2024 08:45 EDT 04/03/2024 08:46 EDT MD SIMI MEEKS Final Surgical Pathology Report DIAGNOSIS: ENDOMETRIUM: - FRAGMENTS OF PROLIFERATIVE ENDOMETRIUM WITH NO SPECIFIC PATHOLOGIC CHANGES - NEGATIVE FOR HYPERPLASIA OR MALIGNANCY CLINICAL INFORMATION: OTHER SPECIFIED IRREGULAR MENSTRUATION; ENDOMETRIAL HYPERPLASIA, UNSPECIFIED Procedure: ENDOMETRIAL BX SPECIMEN: A ENDOMETRIUM GROSS DESCRIPTION: All parts labelled with patient name and [id number] Received in formalin and consists of multiple pale-tim fragments of tissue measuring 1.5 x 0.8 x 0.2 cm. TS-1 Simi Meeks MD Dictated by SIMI MEEKS MD MICROSCOPIC DESCRIPTION: The microscopic examination is performed, except in the case of Gross Only. Electronically Signed by Pathology Report verified by [facility] SIMI MEEKS MD Sign out Date: 04/04/2024 13:24 Performing Lab: [facility], [facility] [place] [address] Pathology Dept Disclaimer If ancillary studies were utilized, the following Laboratory Developed Test (LDT) disclaimer will apply: Under CLIA requirements, [facility] is qualified to perform high complexity testing. For all ancillary stains, positive and negative controls stain appropriately. Performance characteristics of immunohistochemical and chromogenic in-situ hybridization tests have been determined by [facility]. These tests are used for clinical purposes, They should not be regarded as investigational or for research. Normal [facility] ([place]) US PELVIS NON-OB COMPLETEon 02-16-2024 US PELVIS NON-OB COMPLETE ORIGINAL EXAMINATION: PELVIC ULTRASOUND 02/15/2024 TECHNIQUE: Transabdominal and transvaginal ultrasound the pelvis with grayscale and Doppler imaging. COMPARISON: None HISTORY: ORDERING SYSTEM PROVIDED HISTORY: Reason for Exam: UNSPECIFIED OVARIAN CYST LEFT SIDE, LEIOMYOMA OF UTERUS,UNSPECIFIED FINDINGS: Measurements: Uterus: 6.7 x 4.8 x 3.9 cm Endometrial stripe: 10 mm Right Ovary:2.2 x 3.6 x 2.2 cm. Volume: 8.98 mL Left Ovary: 2.4 x 2.3 x 3.1 cm. Volume: 7.86 mL Ultrasound Findings: Uterus: There is a exophytic subserosal fibroid the right side of the uterine body that measures 1.7 x 1.4 x 1.7 cm. Endometrial stripe: Endometrial stripe is within normal limits. Right Ovary: There is a hemorrhagic cyst of the right ovary that measures 2.0 x 1.6 x 1.5 cm that is new since 12/24/2023. There is normal blood flow in the right ovary. Left Ovary: 1.3 cm left ovarian cyst shows decrease in size since prior exam and has benign appearance. There is normal blood flow in the left ovary. Free Fluid: No evidence of free fluid. IMPRESSION: 1.7 cm exophytic subserosal fibroid of the right side of the uterine body. 2 cm hemorrhagic cyst of the right ovary, requiring no imaging follow-up. 1.3 cm left ovarian cyst shows decrease in size since prior exam and has benign appearance, and requires no imaging follow-up. No free fluid in the pelvis. Interpreted by: Sanjeev Aviles MD Preliminary Report By: Sanjeev Aviles MD Electronically signed By Sanjeev Aviles MD Dictated Date: 02/16/2024 12:49:07 AM Prelim Date: 02/16/2024 12:56:42 AM Sign Date: 02/16/2024 12:56:42 AM Ordering Provider: TEMO CERVANTES [facility] ([place]) CT HEAD OR BRAIN W/O CONTRAS Ton 01-23-2024 CT HEAD OR BRAIN W/O CONTRAST ORIGINAL HISTORY: Injury COMPARISON: No TECHNIQUE: Routine non-contrast head CT with sagittal and coronal reconstructions This exam was performed according to our departmental dose optimization program, and includes the following measures where applicable: automated exposure control, adjustment of the mAs and/or kVp according to patient size and/or exam, and an iterative reconstruction algorithm. FINDINGS: The ventricles and sulci are normal in size and configuration. There are no abnormal intra or extra-axial fluid collections. Urban-white matter differentiation is maintained. The calvaria and the bones of the base of the skull are intact. There is soft tissue swelling over the left frontal and parietal region. IMPRESSION: Superficial injury. Interpreted by: Guido Stevens MD Preliminary Report By: Guido Stevens MD Electronically signed By Guido Stevens MD Dictated Date: 01/23/2024 11:25:10 AM Prelim Date: 01/23/2024 11:26:24 AM Sign Date: 01/23/2024 11:26:24 AM Ordering Provider: ALON BLANCA [facility] ([place]) XR ANKLE MINIMUM 3 VIEWS RIG HTon 01-23-2024 XR ANKLE MINIMUM 3 VIEWS RIGHT ORIGINAL HISTORY: Fall 4 days previously COMPARISON: No FINDINGS: There is a mildly displaced fracture of the distal fibula. Alignment is within normal limits. There is calcaneal spurring. There is mild soft tissue swelling. IMPRESSION: Acute distal fibula fracture. Interpreted by: Guido Stevens MD Preliminary Report By: Guido Stevens MD Electronically signed By Guido Stevens MD Dictated Date: 01/23/2024 11:21:25 AM Prelim Date: 01/23/2024 11:22:15 AM Sign Date: 01/23/2024 11:22:15 AM Ordering Provider: ALON BLANCA [facility]) US PELVIS NON-OB W/TRANSVAGI NALon 12-24-2023 US PELVIS NON-OB W/TRANSVAGINAL ORIGINAL HISTORY: Dysmenorrhea COMPARISON: No FINDINGS: The uterus measures 7.3 cm in length. There is a 14 mm endometrial stripe. There is fluid in the lower endometrial canal. There is a likely 2 cm fibroid. The right ovary measures 2.9 cm in length. There are a few prominent follicles; there is normal blood flow. The left ovary measures 4.7 cm in maximum diameter. There is normal blood flow. There is a cyst occupying the bulk of the ovary. There is no free fluid. IMPRESSION: Complex and thickened endometrial stripe, with fluid in the endometrial canal. Further evaluation is recommended; hysterosonography may be considered. Left ovarian cyst. Follow-up ultrasound in 6-12 weeks is recommended to ensure resolution. Interpreted by: Guido Stevens MD Preliminary Report By: Guido Stevens MD Electronically signed By Guido Stevens MD Dictated Date: 12/24/2023 3:15:19 PM Prelim Date: 12/24/2023 3:22:46 PM Sign Date: 12/24/2023 3:22:46 PM Ordering Provider: TEMO CERVANTES [facility]) Compliance Spec Cytology Reporton 2023 Compliance Spec Cytology Report . Pathology Reports Accession: Collected Date/Time: Received Date/Time: Pathologist: [id number] 12/11/2023 09:34 EST 12/11/2023 18:00 EST DENICE COPPOLA MD Compliance Spec Cytology Report SPECIMEN: Specimen Description: Liquid Prep Reflex ASCUS Specimen: Cervical/Endocervical Screening or Diagnostic: Screening RELEVANT HISTORY: LMP: 10/23/23 SPECIMEN ADEQUACY: SATISFACTORY FOR EVALUATION Endocervical/Transformat ional zone component present INTERPRETATION/RESULTS: NEGATIVE FOR INTRAEPITHELIAL LESION OR MALIGNANCY OTHER NON-NEOPLASTIC FINDINGS: Reactive cellular changes present consistent with inflammation ORGANISMS: Trichomonas vaginalis COMMENT: This Pap Test was successfully processed and evaluated with the assistance of the [employer] ThinPrep Test Imaging System. Electronically Signed by Pathology report verified by [facility] Screened by: FORTINO DW Electronically signed by DENICE COPPOLA Sign-Out Date: 12/14/2023 17:26 Performing Lab: [facility], [address] [place] [id number] [place] [address] Pathology Dept Disclaimer The Pap test is a screening test for cervical cancer. As evidenced by published data, it is subject to both inherent false negative and false positive results. Your patient's results should be interpreted in context with pertinent clinical history including gynecological examination. Normal [facility] ([place]) MA MAMMOGRAM DIAGNOSTIC LEFT W/TOMOon 09-07-2023 MA MAMMOGRAM DIAGNOSTIC LEFT W/NOEL ORIGINAL FROM: [facility] [address] [place], [place] [address] PROCEDURE FOR: JESSICA CantuGomez RENAE [address] [place] [address] Home: PID#: [id number] Exam#: [id number] : 1975 Age: 47 TO: CHRISTINE TO [facility] [address] [place] [address] Fax: NO FAX EXAMINATION: DIAGNOSTIC DIGITAL LEFT BREAST MAMMOGRAM WITH TOMOSYNTHESIS, 09/05/2023 1:01 pm TECHNIQUE: Diagnostic mammography of the left breast was performed with tomosynthesis. 2D standard and 3D tomosynthesis combination imaging performed through the left breast. Computer aided detection was utilized in the interpretation of this exam. Current study was also evaluated with a Computer Aided Detection (CAD) system. COMPARISON: 02/08/2023, 01/31/2023, 01/04/2022, 10/20/2020 HISTORY: ORDERING SYSTEM PROVIDED HISTORY: Reason for Exam: left breast asymmetry Left breast asymmetry lateral portion of the left breast FINDINGS: BREAST DENSITY: Scattered fibroglandular tissue The asymmetry in the lateral aspect of the left breast seen only on the CC view described on the previous mammogram has become less prominent/resolved and is considered benign. No significant masses, calcifications, or other findings. No significant interval change. IMPRESSION: No mammographic evidence of malignancy. The patient may return to annual mammographic screening. Víctor Rodarte risk calculations, generated with the history provided, report this patient's 10 year risk and lifetime risk for developing breast cancer at 2.4% and 13.3%, respectively. Based on this assessment tool, if the patient's calculated lifetime risk is below 20%, then the patient is considered at average risk for developing breast cancer. If the patient's calculated lifetime risk is at or above 20%, then the patient is considered high risk for developing breast cancer and may be a candidate for supplemental breast MRI screening in addition to annual mammographic screening per the [employer]. BIRADS: MAMMOGRAM BI-RADS: 2: Benign finding RECALL: return to screening RECALL TYPE: mammo LETTER SENT: Normal BI-RADS 1 and 2 Interpreted by: John Arauz MD Preliminary Report By: John Arauz MD Electronically signed By John Arauz MD Dictated Date: 09/07/2023 4:34:59 PM Prelim Date: 09/07/2023 4:39:17 PM Sign Date: 09/07/2023 4:39:17 PM Ordering Provider: CHRISTINE TO CLINICAL: 6 MONTHS FOLLOW-UP MAMMOGRAPHIC DENSITY LEFT BREAST. Bond Clerk: JEFFREY CASTILLO RT (R) (M) (CT) letter sent: Normal BI-RADS 1 and 2 Mammogram BI-RADS: 2 Benign Normal [facility] ([place]) CHEST 2 VIEW PA AND LATon CHEST 2 VIEW PA AND LAT Patient Name: JESSICA TOVAR STUDY: TH CHEST 2 VIEW PA AND LAT; 09/15/2022 4:47 pm INDICATION: pre renal transplant recipient evaluation Z01.818: Pre-transplant evaluation for kidney transplant. COMPARISON: 09/26/2019 ACCESSION NUMBER(S): [id number] ORDERING CLINICIAN: HAYDEN NORRIS FINDINGS: CARDIOMEDIASTINAL SILHOUETTE: Cardiomediastinal silhouette is normal in size and configuration. LUNGS: There are no focal areas of consolidation or pleural effusions noted. ABDOMEN: No remarkable upper abdominal findings. BONES: No acute osseous changes. IMPRESSION: 1. No evidence of acute cardiopulmonary process. Electronically signed by: LAURA CARUSO MD Normal [facility] CT ABDOMEN AND PELVIS WO CON TRASTon 09-15-2022 CT ABDOMEN AND PELVIS WO CONTRAST Patient Name: JESSICA TOVAR STUDY: CT ABDOMEN AND PELVIS WO CONTRAST; 09/15/2022 4:41 pm INDICATION: pre renal transplant recipient evaluation . COMPARISON: None ACCESSION NUMBER(S): [id number] ORDERING CLINICIAN: HAYDEN NORRIS TECHNIQUE: CT of the abdomen and pelvis was performed. Contiguous axial images were obtained at 3 mm slice thickness through the abdomen and pelvis. Coronal and sagittal reconstructions at 3 mm slice thickness were performed. No intravenous contrast was administered; positive oral contrast was given. FINDINGS: Please note that the evaluation of vessels, lymph nodes and organs is limited without intravenous contrast. CHEST: Lower chest: There is nonspecific mosaic perfusion of the right middle and right lower lobe. 4 mm subpleural solid nodule along the periphery of the lingula (series 204, image 37), likely benign in nature. 6 mm subpleural solid nodule along the posterior aspect of the right lower lobe (series 204, image 4), likely represents atelectasis.. No pleural effusion or lung consolidation. The heart is normal in size. No pericardial effusion. ABDOMEN: LIVER: The liver is normal in size. 1.0 cm simple fluid attenuating cyst within liver segment 4 a (series 201, image 30). BILE DUCTS: The intrahepatic and extrahepatic ducts are not dilated. GALLBLADDER: The gallbladder is nondistended and without evidence of radiopaque stones. PANCREAS: The pancreas appears unremarkable without evidence of ductal dilatation or masses. SPLEEN: The spleen is normal in size. ADRENAL GLANDS: Bilateral adrenal glands appear normal. KIDNEYS AND URETERS: Bilateral kidneys are atrophic. The right kidney measures 5.9 cm and the left measures 7.5 cm in craniocaudal dimension. There is a 9 mm incompletely characterized hypodense lesion within the left renal inter pole. There is an 8 mm simple fluid attenuating cyst within the right renal lower pole. 3 mm nonobstructive calculi within the left renal inter pole. No hydroureteronephrosis. PELVIS: BLADDER: The bladder is decompressed and limited for evaluation, however no evidence of wall thickening. REPRODUCTIVE ORGANS: The uterus is present. 3.0 cm BOWEL: The stomach is decompressed and limited for evaluation, however grossly unremarkable. The small and large bowel are normal in caliber and demonstrate no wall thickening. Mild colonic stool burden. The appendix appears normal. VESSELS: Atherosclerotic changes to the aorta and pelvic vessels are as follows: - distal aorta minimal calcifications; RIGHT pelvic arteries: common iliac mild to moderate, external iliac mild to moderate, internal iliac [id number]; LEFT pelvic arteries: common iliac mild to moderate, external iliac [id number], internal iliac [id number]. PERITONEUM/RETROPERITONE UM/LYMPH NODES: No ascites or free air, no fluid collection. No abdominopelvic lymphadenopathy is present. BONE AND SOFT TISSUE: There is diffuse increased bony sclerosis throughout the axial and appendicular skeleton, compatible with renal osteodystrophy. No suspicious osseous lesions are identified. Partially visualized lytic lesion with well-defined sclerotic margins along the anterior left 4 rib measuring 1.2 cm (series 201, image 2), likely benign in nature. Degenerative discogenic disease is noted in the lower thoracic and lumbar spine. Flowing anterior osteophytes through multiple contiguous lower thoracic and lumbar vertebral body compatible with DISH. The abdominal wall soft tissues appear normal. IMPRESSION: 1. Mild to moderate scattered atherosclerosis calcification of the aorta and its branching vessels as described above. 2. Incompletely characterize 9 mm hypodense lesion within the left renal inter pole. Recommend further evaluation with nonemergent renal ultrasound. 3. There is a 3 mm nonobstructive calculi within the left renal inter pole. No hydronephrosis. 4. Diffuse increased bone sclerosis throughout the axial and appendicular skeleton compatible with renal osteodystrophy. 5. Benign-appearing 1.2 cm lytic lesion with well-defined sclerotic margins in the anterior left 4th rib. I personally reviewed the images/study and I agree with the findings as stated. This study was interpreted at [facility], [place], [place]. Electronically signed by: ADITI WYMAN MD Normal [facility] Echocardiogramon 09-15-2022 Echocardiography [facility], [address] [place] [address] and TRANSTHORACIC ECHOCARDIOGRAM REPORT [facility] Fede Physician: [id number] Americo TOVAR Study Date: 09/15/2022 Referring HAYDEN NORRIS Physician: MRN/PID: [id number] PCP: Accession/Order#: [id number] [facility] Echo Location: Lab Date of : 1975 Fellow: Gender: F Nurse: Donna Mendoza RN Admit Date: Chief Design Drafter: Kelley Salvadorzoran [facility] Admission Status: Outpatient Additional Staff: Height: 172.72 cm CC Report to: Weight: 108.86 kg Study Type: Echocardiogram BSA: 2.21 m2 Blood Pressure: 179 /111 mmHg Diagnosis/ICD: Z01.818-Encounter for other preprocedural examination Indication: Pre-transplant evaluation for kidney transplant Procedure/CPT: Echo Complete w Full Doppler-[id number] Patient History: Pertinent History: HTN. ESRD of HTN etiology. Study Detail: The following Echo studies were performed: 2D, M-Mode, Doppler and color flow. Technically challenging study due to body habitus, poor acoustic windows and prominent lung artifact. Definity used as a contrast agent for endocardial border definition. Total contrast used for this procedure was 3 mL via IV push. PHYSICIAN INTERPRETATION: Left Ventricle: The left ventricular systolic function is normal, with an estimated ejection fraction of 65-70%. There are no regional wall motion abnormalities. The left ventricular cavity size is normal. Left ventricular diastolic filling was indeterminate. Left Atrium: The left atrium is upper limits of normal in size. Right Ventricle: The right ventricle is normal in size. There is normal right ventricular global systolic function. Right Atrium: The right atrium is normal in size. Aortic Valve: The aortic valve appears structurally normal. There is no evidence of aortic valve regurgitation. The peak instantaneous gradient of the aortic valve is 10.9 mmHg. The mean gradient of the aortic valve is 6.0 mmHg. Mitral Valve: The mitral valve is mildly thickened. There is trace mitral valve regurgitation. Tricuspid Valve: The tricuspid valve was not well visualized. Tricuspid regurgitation was not assessed. The right ventricular systolic pressure is unable to be estimated. Pulmonic Valve: The pulmonic valve is structurally normal. There is no indication of pulmonic valve regurgitation. Pericardium: There is no pericardial effusion noted. Aorta: The aortic root is normal. Systemic Veins: The inferior vena cava appears to be of normal size. There is IVC inspiratory collapse greater than 50%. In comparison to the previous echocardiogram(s): There are no prior studies on this patient for comparison purposes. CONCLUSIONS: 1. Left ventricular systolic function is normal with a 65-70% estimated ejection fraction. 2. Poorly visualized anatomical structures due to suboptimal image quality. QUANTITATIVE DATA SUMMARY: 2D MEASUREMENTS: Normal Ranges: IVSd: 1.17 cm (0.6-1.1cm) LVPWd: 1.03 cm (0.6-1.1cm) LVIDd: 4.66 cm (3.9-5.9cm) LVIDs: 2.91 cm LV Mass Index: 84.1 g/m2 LV % FS 37.6 % LA VOLUME: Normal Ranges: LA Vol A4C: 85.9 ml (22+/-6mL/m2) LA Vol A2C: 54.5 ml LA Vol BP: 70.3 ml LA Vol Index A4C: 38.9 ml/m2 LA Vol Index A2C: 24.7 ml/m2 LA Vol Index BP: 31.8 ml/m2 LA Area A4C: 24.0 cm2 LA Area A2C: 18.6 cm2 LA Major [place] A4C: 5.7 cm LA Major [place] A2C: 5.4 cm LA Vol A4C: 83.9 ml AORTA MEASUREMENTS: Normal Ranges: Asc Ao, d: 2.50 cm (2.1-3.4cm) LV SYSTOLIC FUNCTION BY 2D PLANIMETRY (MOD): Normal Ranges: EF-A4C View: 70.7 % (>=55%) EF-A2C View: 55.8 % EF-Biplane: 64.5 % LV DIASTOLIC FUNCTION: Normal Ranges: MV Peak E: 0.91 m/s (0.7-1.2 m/s) MV Peak A: 1.14 m/s (0.42-0.7 m/s) E/A Ratio: 0.80 (1.0-2.2) MV e' 0.08 m/s (>8.0) MV lateral e' 0.08 m/s MV medial e' 0.07 m/s MV A Dur: 81.83 msec E/e' Ratio: 12.20 (<8.0) PulmV Sys Hu: 49.57 cm/s PulmV Brewer Hu: 48.75 cm/s PulmV S/D Hu: 1.02 PulmV A Revs Dur: 97.05 msec MITRAL VALVE: Normal Ranges: MV DT: 190 msec (150-240msec) AORTIC VALVE: Normal Ranges: AoV Vmax: 1.65 m/s (<=1.7m/s) AoV Peak P.9 mmHg (<20mmHg) AoV Mean P.0 mmHg (1.7-11.5mmHg) LVOT Max Hu: 1.13 m/s (<=1.1m/s) AoV VTI: 35.50 cm (18-25cm) LVOT VTI: 29.15 cm LVOT Diameter: 2.00 cm (1.8-2.4cm) AoV Area, VTI: 2.58 cm2 (2.5-5.5cm2) AoV Area,Vmax: 2.15 cm2 (2.5-4.5cm2) AoV Dimensionless Index: 0.82 RIGHT VENTRICLE: TAPSE: 22.3 mm RV s' 0.15 m/s TRICUSPID VALVE/RVSP: Normal Ranges: IVC Diam: 1.90 cm PULMONIC VALVE: Normal Ranges: PV Accel Time: 157 msec (>120ms) PV Max Hu: 1.1 m/s (0.6-0.9m/s) PV Max P.2 mmHg Pulmonary Veins: PulmV A Revs Dur: 97.05 msec PulmV Brewer Hu: 48.75 cm/s PulmV S/D Hu: 1.02 PulmV Sys Hu: 49.57 cm/s [id number] Americo Webber MD Electronically signed on 09/19/2022 at 9:22:18 AM Final Normal [facility] CARDIAC STRESS/REST INJECTIO Non 09-11-2022 CARDIAC STRESS/REST INJECTION Patient Name: JESSICA TOVAR STUDY: CARDIAC STRESS/REST INJECTION; 09/11/2022 9:15 am INDICATION: pre renal transplant recipient evaluation Z01.818: Pre-transplant evaluation for kidney transplant. 46-year-old female with ordered cardiac stress test to evaluate before renal transplant surgery. COMPARISON: None. ACCESSION NUMBER(S): [id number] ORDERING CLINICIAN: HAYDEN NORRIS TECHNIQUE: DIVISION OF NUCLEAR MEDICINE PHARMACOLOGIC STRESS MYOCARDIAL PERFUSION SCAN, ONE DAY PROTOCOL The patient received an intravenous dose of 12 mCi of Tc-99m Myoview and resting emission tomographic (SPECT) images of the myocardium were acquired. The patient then received an intravenous infusion of 0.4mg regadenoson (Lexiscan) followed by an additional dose of 34.9 mCi of Tc-99m Myoview. Stress phase SPECT images of the myocardium were then acquired. These included ECG-gated images to assess and quantify ventricular function. FINDINGS: Both stress and rest studies demonstrate grossly normal perfusion throughout the left ventricle. The left ventricle is normal in size. Gated images demonstrate normal LV wall motion with a stress LV EF estimated greater than 65%. IMPRESSION: 1. Negative myocardial perfusion study without evidence of inducible myocardial ischemia or prior infarction. 2. The left ventricle is normal in size. 3. Normal LV wall motion with a stress LV EF estimated greater than 65%. I personally reviewed the images/study and I agree with the findings as stated. This study was interpreted at [place], [place]. Electronically signed by: SOHAM KEMP MD [facility] Sy[employer] Nuclear Orderon 2021 Sy[employer] Nuclear Order [facility] [place] [address] and Nuclear Pharmacologic Stress Test Patient Name: Jessica Tovar Ordering Physician: Study Date: 09/11/2022 Reading Physician: Sina Bloom MD MRN/PID: [id number] Supervising Physician: Sina Bloom MD Accession/Order#: [id number] Referring Physician: HAYDEN NORRIS Date of : 1975 PCP: Gender: F Fellow: Admit Date: 09/11/2022 Fellow: Admission Status: Outpatient Pulverizer Tender: Lorraine Corral CVT Height: 172.72 cm Nurse: Mami Landin RN Weight: 108.86 kg Chief Design Drafter: N/A BSA: 2.21 m2 Technologist: BMI: 36.49 kg/m2 Additional Staff: Age: 46 years cc report to: Study Type: Nuclear Stress Test Pharmacological Diagnosis/ICD: Z01.818-Encounter for other preprocedural examination Indication: Pre-Op Evaluation Procedure/CPT: Stress Test Interpretation-08240; Stress Test Supervision-40377 Falls Risk: Low: Patient has a low risk for sustaining a fall; enviromental safety interventions in place. Study Details: Correct procedure and correct patient verified verbally and with ID Band checked. Patient History: Family history of coronary artery disease, renal failure, hypertension and hyperlipidemia. Allergies: None. Smoker: Former. Medications: The patient's prescribed medication is amlodipine, cinacalcet, famotidine, labetolol, losartan, sujey caps, sevelamer. The patient took medications as prescribed. Patient Performance: Patient received a total of 0.4 mg of Regadenoson at 10:09:41 AM. Patient received a total of 34.0 mCi of Myoview at 10:10:04 AM. The patient did not exercise during infusion. The peak heart rate achieved was 107 bpm, which was 61 % of the age predicted target heart rate of 175 bpm. The resting blood pressure was 158/97 mmHg with a heart rate of 78 bpm. The patient developed no symptoms during the stress exam. The blood pressure response was normal. The test was terminated due to: completed lab protocol. Patient has met the discharge criteria and is discharged to nuclear lab. Baseline ECG: Resting ECG showed normal sinus rhythm. Stress ECG: Stress ECG showed sinus tachycardia. No ST changes. Stress Stage Data: +---+------+-------+---- + HR Sys BP Brewer BP Comments +---+------+-------+---- + 78 158 97 +---+------+-------+---- + 100 161 91 Lexiscan 0.4 mg given IVP per protocol +---+------+-------+---- + 107 163 94 No Symptoms +---+------+-------+---- + Recovery ECG: Recovery ECG showed normal sinus rhythm. + +---+------ +-------+ ------+ HR Sys BP Brewer BP Comments + +---+------ +-------+ ------+ Recovery I 108 162 92 1 minute:No Symptoms + +---+------ +-------+ ------+ Recovery II 101 160 80 2 minutes:No Symptoms + +---+------ +-------+ ------+ Recovery III 96 164 91 4 minutes:No Symptoms + +---+------ +-------+ ------+ Recovery IV 96 165 95 6 minutes:No Symptoms + +---+------ +-------+ ------+ Summary: 1. No clinical or electrocardiographic evidence for ischemia at a maximal infusion. 2. No ECG changes from baseline. 3. Nuclear image results are reported separately. 4. The adequate level of stress was achieved. [id number] Brian Bloom MD Electronically signed on 09/11/2022 at 5:18:03 PM Final Normal [facility] AUTOCROSSMATCH, FLOWon 06-02 AUTOCROSSMATCH, FLOW SEE SEPARATE REPORT Normal [facility] Comment on above: Result Comment: Test performed at [facility] [address] [place] [address] Performed By: #### F LAUC #### [facility] [address] [place] [address] HLA CLASS I SP AB ID, HDon 0 06-02-2022 HLA CLASS I SP AB ID,HD SEE COMMENT Normal [facility] Comment on above: Result Comment: HLA- CLASS I SP ANTIBODY IDENTIFICATION, HIGH DEFINITION SEE SEPARATE REPORT. Test performed at [facility] [address] [id number] [place] [address] Performed By: #### H LHD1 #### [facility] [address] [place] [address] HLA CLASS II SP AB ID, HDon 06-02-2022 HLA CLASS II SP AB ID,HD SEE COMMENT Normal [facility] Comment on above: Result Comment: HLA- CLASS II SP ANTIBODY IDENTIFICATION, HIGH DEFINITION SEE SEPARATE REPORT. Test performed at [facility] [address] [place] [address] Performed By: #### H LHD2 #### [facility] [address] [place] [id number] CANNABINOID CONF,BLOODon CANNABINOID,BLOOD 32 ng/mL Normal [facility] Comment on above: Result Comment: 11-N GO-0-[id number]-THC INTERPRETIVE INFORMATION: THC Metabolite, Serum or Plasma, Quantitative Methodology: Quantitative Liquid Chromatography-Tandem Mass Spectrometry. Positive cutoff: 5 ng/mL For medical purposes only; not valid for forensic use. The drug analyte detected in this assay, 9-carboxy THC, is a metabolite of asemv-3-upwrohipxjiywvvqvmjp (THC). Detection of 9-carboxy THC suggests use of, or exposure to, a product containing THC. This test cannot distinguish between prescribed or non-prescribed forms of THC, nor can it distinguish between active or passive use. The plasma half-life for 9-carboxy THC metabolite is estimated to range from 4-12 hours. This test was developed and its performance characteristics determined by [facility]. It has not been cleared or approved by the US Food and Drug Administration. This test was performed in a CLIA certified laboratory and is intended for clinical purposes. Performed By: [facility] [address] [place] [address] Director Park: Jose Juan Carpenter MD, PhD Performed By: #### C ANCB #### [facility] [address] [place] [address] DRUG-PROFILE 9,BLOOD WITH RE FLEX TO CONFIRMATIONon 05-23-2022 AMPHETAMINES SCREEN Negative Normal Cutoff 20 [facility] Comment on above: Performed By: #### D QBHT #### [facility] [address] [place] [address] BARBITURATES SCREEN Negative Normal Cutoff 50 [facility] Comment on above: Performed By: #### D QBHT #### [facility] [address] [place] [id number] BENZODIAZEPINES SCREEN Negative Normal Cutoff 50 [facility] Comment on above: Performed By: #### D QBHT #### [facility] [address] [place] [id number] BUPRENORPHINE SCREEN Negative Normal Cutoff 1 [facility] Comment on above: Performed By: #### D QBHT #### [facility] [address] [place] [id number] CANNABINOID SCREEN Positive Normal Cutoff 20 [facility] [place] Comment on above: Result Comment: If t he screen is positive, then confirmation by mass spectrometry will be added. Additional charges will apply. Unconfirmed positive may be useful for medical purposes, but does not meet forensic standards. Performed By: #### D QBHT #### [facility] [address] [place] [id number] COCAINE SCREEN Negative Normal Cutoff 20 [facility] Comment on above: Performed By: #### D QBHT #### [facility] [address] [place] [id number] DRUG SCREEN COMMENT See Note Normal [facility] Comment on above: Result Comment: INTE RPRETIVE INFORMATION: Drug Screen 9 Panel, Serum or Plasma - Immunoassay Screen with Reflex to Mass Spectrometry Confirmation/Quantitation 1. Methodology: Qualitative Immunoassay Screen 2. Drugs/Drug classes reported as Positive are automatically reflexed to mass spectrometry confirmation/quantitation testing. An immunoassay unconfirmed positive screen result may be useful for medical purposes but does not meet forensic standards. 3. The absence of expected drug(s) and/or drug metabolite(s) may indicate noncompliance, inappropriate timing of specimen collection relative to drug administration, poor drug absorption, or limitations of testing. The concentration at which the screening test can detect a drug or metabolite varies within a drug class. Specimens for which drugs or drug classes are detected by the screen are automatically reflexed to a second, more specific technology (mass spectrometry). The concentration value must be greater than or equal to the cutoff to be reported as positive. Interpretive questions should be directed to the laboratory. 4. For medical purposes only; not valid for forensic use. This test was developed and its performance characteristics determined by [facility]. It has not been cleared or approved by the US Food and Drug Administration. This test was performed in a CLIA certified laboratory and is intended for clinical purposes. Performed By: [facility] [address] [place] [address] Director Park: Jose Juan Carpenter MD, PhD Performed By: #### D QBHT #### [facility] [address] [place] [address] METHADONE SCREEN Negative Normal Cutoff 25 [facility] [place] Comment on above: Performed By: #### D QBHT #### [facility] [address] [place] [address] METHAMPHETAMINES SCREEN Negative Normal Cutoff 20 [facility] Comment on above: Performed By: #### D QBHT #### [facility] [address] [place] [address] OPIATE SCREEN Negative Normal Cutoff 20 [facility] Comment on above: Performed By: #### D QBHT #### [facility] [address] [place] [address] OXYCODONE SCREEN Negative Normal Cutoff 20 [facility] [place] Comment on above: Performed By: #### D QBHT #### [facility] [address] [place] [id number] PCP SCREEN Negative Normal Cutoff 10 [facility] Comment on above: Performed By: #### D QBHT #### [facility] [address] [place], [place] NICOTINE+METABOLITES,Son 1-PT-NADKRJLA <2 Normal [facility] Comment on above: Performed By: #### N I+ME ####[facility] [place] [address] COTININE <2 Normal [facility] Comment on above: Performed By: #### N I+ME ####[facility] [facility] [place] [address] NICOTINE <2 Normal [facility] Comment on above: Result Comment: Cons istent with abstinence from nicotine-containing products for at least 1 week. INTERPRETIVE INFORMATION: Nicotine and Metabolites, Serum or Plasma, Quantitative Methodology: Quantitative Liquid Chromatography-Tandem Mass Spectrometry Positive cutoff: 2 ng/mL For medical purposes only; not valid for forensic use. This test is designed to evaluate recent use of nicotine-containing products. Passive and active exposure cannot be discriminated definitively, although a cutoff of 10 ng/mL cotinine is frequently used for surgery qualification purposes. For smoking cessation programs or compliance testing, the absence of expected drug(s) and/or drug metabolite(s) may indicate non-compliance, inappropriate timing of specimen collection relative to drug administration, poor drug absorption, or limitations of testing. This test cannot distinguish between use of tobacco and purified nicotine products. The concentration value must be greater than or equal to the cutoff to be reported as positive. This test was developed and its performance characteristics determined by [facility]. It has not been cleared or approved by the US Food and Drug Administration. This test was performed in a CLIA certified laboratory and is intended for clinical purposes. Performed By: [facility] [address] [place] [address] Director Park: Jose Juan Carpenter MD, PhD Performed By: #### N I+ME ####[facility] [facility] [place] [address] T-SPOT TBon 05-21-2022 NIL[NEG]CONTROL SPOT COUNT Passed Normal [facility] Comment on above: Performed By: #### D QBHT #### [facility] [address] [place] PANEL A SPOT COUNT 0 Normal [facility] [place] Comment on above: Performed By: #### D QBHT #### [facility] [address] [place] [address] PANEL B SPOT COUNT 0 Normal [facility] [place] Comment on above: Performed By: #### D QBHT #### [facility] [address] [place] [address] POS CONTROL SPOT COUNT Passed Normal [facility] Comment on above: Performed By: #### D QBHT #### [facility] [address] [place] T-SPOT.TB INTERP Negative Normal Normal Valu e: Negative [facility] Comment on above: Result Comment: A ne gative test result does not exclude the possibility of exposure to or infection with Mycobacterium tuberculosis (M. tuberculosis). Patients with recent exposure to TB infected individuals exhibiting a negative T-SPOT.TB result should be considered for retesting within 6 weeks or if other relevant clinical symptoms indicate. Results from T-SPOT.TB testing must be used in conjunction with each individual's epidemiological history, current medical status, and results of other diagnostic evaluations. The T-SPOT.TB test is qualitative and results are reported as positive, borderline or negative, given that the test controls perform as expected. In line with the Centers for Disease Control and Prevention's 2010 recommendation to report quantitative measurements alongside the qualitative result, the laboratory provides spot counts for informational purposes only. The T-SPOT.TB test should not be interpreted as a quantitative test. Performed By: #### Kulwinder QBHT #### [facility] [address] [place] [address] ABO/RH GROUP TESTon 05-19-20 ABO TYPE O Normal [facility] Comment on above: Performed By: #### Darya WOODG ####[id number] [place] [address] RH TYPE Positive Normal [facility] Comment on above: Performed By: #### A JAMES ####[id number], [place] AUTOCROSSMATCH, FLOWon 05-19 AUTOCROSSMATCH, FLOW Canceled Normal [facility] Comment on above: Order Comment: TEST AUTOCROSSMATCH, FLOW WAS CANCELLED, 05/19/2022 14:57 Tests ordered underwrong visit. Lab will reorder under correct visit, please do not redraw.. Result Comment: Test performed at [facility] [address] [place] [address] Performed By: #### F LAUC ####[id number] [place] [address] Blood Typing (ABO + Rho D)on 05-19-2022 ABO group Nom (Bld) O [facility] Work Phone: Rh immune globulin screen (Bld) [Interp] Positive [facility] Work Phone: C PEPTIDEon 05-19-2022 C PEPTIDE 6.6 ng/mL High 0.7 - 3.9 [facility] Comment on above: Performed By: #### D QBHT #### [facility] [address] [place] [address] C Peptide, Serumon C peptide [Mass/Vol] 6.6 ng/mL above high threshold 0.7 - 3.9 [facility] Work Phone: CBCon 05-19-2022 Erythrocyte distribution width (RBC) [Ratio] 14.0 % Normal 11.5 - 14.5 [facility] Comment on above: Performed By: #### C BC ####[id number] [place] [address] Hematocrit (Bld) [Volume fraction] 36.8 % Normal 36.0 - 46.0 [facility] Comment on above: Performed By: #### C BC ####[id number] [place] [address] Hemoglobin (Bld) [Mass/Vol] 11.7 g/dL Low 12.0 - 16.0 [facility] Comment on above: Performed By: #### C BC ####[id number] [place] [address] MCHC (RBC) [Mass/Vol] 31.8 g/dL Low 32.0 - 36.0 [facility] Comment on above: Performed By: #### C BC ####[id number] [place] [address] MCV (RBC) [Entitic vol] 103 fL High 80 - 100 [facility] Comment on above: Performed By: #### C BC ####[id number] [place] [address] NUCLEATED RBC 0.0 /100 WBC Normal 0.0-0.0 [facility] Comment on above: Performed By: #### C BC ####[id number] [place] [address] Platelets (Bld) [#/Vol] 181 10*3/uL Normal 150 - 450 [facility] Comment on above: Performed By: #### C BC ####[id number] [place] [address] RBC 3.57 x10E12/L Low 4.00 - 5.20 [facility] Comment on above: Performed By: #### C BC ####[id number] [place] [address] WBC (Bld) [#/Vol] 7.2 10*3/uL Normal 4.4 - 11.3 [facility], [place] Comment on above: Performed By: #### C BC ####[id number] [place] [address] CMV IGGon 05-19-2022 CMV IGG AB Non-Reactive Normal NONREACTIVE [facility] Comment on above: Performed By: #### C MVG2 ####[id number] [place] [address] CMV IgGon 05-19-2022 CMV IgG Non-Reactive See Below [facility] Work Phone: Comment on above: SOURCE: Reference Ra nge: NONREACTIVE SOURCE: Reference Ra nge: NONREACTIVE Results from patients taking biotin supplements or receiving high-dose biotin therapy should be interpreted with caution due to possible interference with this test. Providers may contact their local laboratory for further information. SOURCE: Reference Ra nge: NONREACTIVE Biotin interference may cause falsely decreased results. Patients taking a Biotin dose of up to 5 mg/day should refrain from taking Biotin for 24 hours before sample collection. Providers may contact their local laboratory for further information. CREATININEon 05-19-2022 Creatinine [Mass/Vol] 6.19 mg/dL High 0.50 - 1.05 [facility] Comment on above: Performed By: #### H LAS1 #### [facility] [address] [place] [address] GFR/1.73 sq M.predicted among non-blacks MDRD (S/P/Bld) [Vol rate/Area] 8 mL/min/{1.73_m2} Abnormal >90 [facility] Comment on above: Result Comment: CALC ULATIONS OF ESTIMATED GFR ARE PERFORMED USING THE 2020 CKD-EPI STUDY REFIT EQUATION WITHOUT THE RACE VARIABLE FOR THE IDMS-TRACEABLE CREATININE METHODS. https://jasn.asnjournals.org/content/early/ASN.40757305 88 Performed By: #### H LAS1 #### [facility] [address] [place] [address] Cannabinoid Confirmation, Bl oodon 05-19-2022 Cannabinoids [Mass/Vol] 32 ng/mL [facility] Work Phone: Comment on above: 55-OHX-4-CARBOXY-THC INTERPRETIVE INFORMATION: THC Metabolite, Serum or Plasma, QuantitativeMethodology: Quantitative Liquid Chromatography-Tandem Mass Spectrometry.Positive cutoff: 5 ng/mLFor medical purposes only; not valid for forensic use.The drug analyte detected in this assay, 9-carboxy THC, is a metabolite of cajbh-6-qucyggdljhlcnfjdcayw (THC). Detection of 9-carboxy THC suggests use of, or exposure to, a product containing THC. This test cannot distinguish between prescribed or non-prescribed forms of THC, nor can it distinguish between active or passive use. The plasma half-life for 9-carboxy THC metabolite is estimated to range from 4-12 hours. This test was developed and its performance characteristics determined by [facility]. It has not been cleared or approved by the US Food and Drug Administration. This test was performed in a CLIA certified laboratory and is intended for clinical purposes.Performed By: [facility] [place] [address] [id number] Director: Jose Juan Carpenter MD, PhD Creatinine, Serumon 05-19-20 Creatinine [Mass/Vol] 6.19 mg/dL above high threshold See Below [facility] Work Phone: Comment on above: SOURCE: Reference Ra nge: 0.50 - 1.05 Creatinine, Serum 8 {mL/min/1.73m2} Abnormal >90 [facility] Work Phone: Comment on above: CALCULATIONS OF IRENE MATED GFR ARE PERFORMED USING THE 2020 CKD-EPI STUDY REFIT EQUATION WITHOUT THE RACE VARIABLE FOR THE IDMS-TRACEABLE CREATININE METHODS.https://jasn.asnjournals.org/content/early//ASN. 9411561855 EBV PANELon 05-19-2022 VCA IGM ANTIBODY Negative Normal NEGATIVE [facility], [place] Comment on above: Performed By: #### E BVP1 #### [facility] [address] [place] [id number] EBV EA-D IGG ANTIBODY Negative Normal NEGATIVE [facility] Comment on above: Performed By: #### E BVP1 #### [facility] [address] [place] [address] EBV INTERPRETATION SEE BELOW Normal [facility], [place] Comment on above: Result Comment: . EB V INTERPRETATION CHART . VCA-IGG VCA-IGM NA-IGG EA-IGG . PRIMARY ACUTE +/- +/- - +/- LATE ACUTE + +/- +/- +/- RECOVERING + - - + PREVIOUS INFECTION + - +/- - Performed By: #### E BVP1 #### [facility] [address] [place] [address] EBV NA-1 IGG ANTIBODY Positive Abnormal NEGATIVE [facility] Comment on above: Performed By: #### E BVP1 #### [facility] [address] [place] [address] VCA IGG ANTIBODY Positive Abnormal NEGATIVE [facility], [place] Comment on above: Performed By: #### E BVP1 #### [facility] [address] [place] Lab Specimen Source Normal [facility] Comment on above: Performed By: #### E BVP1 #### [facility] [address] [place] Performed By: #### H EPFP ####[id number] Performed By: #### P HOS ####[id number] Performed By: #### C MVG2 ####[id number] Performed By: #### H BAB3 ####[id number] Performed By: #### D QBHT #### [facility] [address] [place] Performed By: #### H LAS1 #### [facility] [address] [place] Generalized Anxiety Disorder -7on 05-19-2022 Generalized Anxiety Disorder-7 2 1 [facility] Work Phone: Generalized Anxiety Disorder-7 0-Not at all [facility] Work Phone: Generalized Anxiety Disorder-7 1-Several days [facility] Work Phone: HEMOGLOBIN A1Con 05-19-2022 Glucose [Mass/Vol] 97 mg/dL Normal [facility], [place] Comment on above: Performed By: #### H BA1E #### [facility] [address] [place] HbA1c (Bld) [Mass fraction] 5.0 % Normal [facility] Comment on above: Result Comment: Diag nosis of Diabetes-Adults Non-Diabetic: < or = 5.6% Increased risk for developing diabetes: 5.7-6.4% Diagnostic of diabetes: > or = 6.5% . Monitoring of Diabetes Age (y) Therapeutic Goal (%) Adults: >18 <7.0 Pediatrics: 13-18 <7.5 7-12 <8.0 0- 6 7.5-8.5 [employer]. Diabetes Care 33(S1), Nov 2009. Performed By: #### H BA1E #### [facility] [address] [place] [address] HEPATIC FUNCTION PANELon Albumin [Mass/Vol] 4.3 g/dL Normal 3.4 - 5.0 [facility] [place] Comment on above: Performed By: #### H EPFP ####[id number] [place] [address] ALP [Catalytic activity/Vol] 60 U/L Normal 33 - 110 [facility] Comment on above: Performed By: #### H EPFP ####[id number] [place] [address] ALT [Catalytic activity/Vol] 13 U/L Normal 7 - 45 [facility] Comment on above: Result Comment: Maryse ents treated with Sulfasalazine may generate falsely decreased results for ALT. Performed By: #### H EPFP ####[id number] [place] [address] AST [Catalytic activity/Vol] 15 U/L Normal 9 - 39 [facility] Comment on above: Performed By: #### H EPFP ####[id number] [place] [address] Bilirubin [Mass/Vol] 0.4 mg/dL Normal 0.0 - 1.2 [facility] Comment on above: Performed By: #### H EPFP ####[id number] [place] [address] Bilirubin.indirect [Mass/Vol] 0.1 mg/dL Normal 0.0 - 0.3 [facility] Comment on above: Performed By: #### H EPFP ####[id number] [place] [address] Protein [Mass/Vol] 7.6 g/dL Normal 6.4 - 8.2 [facility] [place] Comment on above: Performed By: #### H EPFP ####[id number] [place] [address] HEPATITIS B CORE AB-TOTALon 05-19-2022 HEP. B CORE AB-TOTAL Non-Reactive Normal NONREACTIVE [facility] Comment on above: Result Comment: Resu lts from patients taking biotin supplements or receiving high-dose biotin therapy should be interpreted with caution due to possible interference with this test. Providers may contact their local laboratory for further information. Performed By: #### D QBHT #### [facility] [address] [place] [address] HEPATITIS B SURF ABon 2021 HEP B SURF AB 26.1 mIU/mL Normal <10 [facility] Comment on above: Result Comment: INTE RPRETIVE CRITERIA: <10 mIU/mL....NONREACTIVE >=10 mIU/mL...REACTIVE . Biotin interference may cause falsely decreased results. Patients taking a Biotin dose of up to 5 mg/day should refrain from taking Biotin for 24 hours before sample collection. Providers may contact their local laboratory for further information. Performed By: #### H BAB3 ####[id number] [place] [address] HEPATITIS B SURFACE AGon HEP.B SURFACE AG Non-Reactive Normal NONREACTIVE [facility] Comment on above: Result Comment: Biot in interference may cause falsely decreased results. Patients taking a Biotin dose of up to 5 mg/day should refrain from taking Biotin for 24 hours before sample collection. Providers may contact their local laboratory for further information. Performed By: #### H LAS1 #### [facility] [address] [place] [address] HEPATITIS C ABon 05-19-2022 HEPATITIS C AB Non-Reactive Normal NONREACTIVE [facility] Comment on above: Result Comment: Resu lts from patients taking biotin supplements or receiving high-dose biotin therapy should be interpreted with caution due to possible interference with this test. Providers may contact their local laboratory for further information. Performed By: #### D QBHT #### [facility] [address] [place] [address] HIV 1/2 ANTIGEN/ANTIBODY SCR EEN WITH REFLEX TO CONFIRMATIONon 05-19-2022 HIV 1/2 AG/AB SCREEN Non-Reactive Normal NONREACTIVE [facility] Comment on above: Result Comment: HIV Ag/Ab screen is performed using the Siemens [employer] HIV Ag/Ab Combo assay which detects the presence of HIV p24 antigen as well as antibodies to HIV-1 (Group M and O) and HIV-2. . No laboratory evidence of HIV infection. If acute HIV infection is suspected, consider testing for HIV RNA by PCR (viral load). Performed By: #### H LAS1 #### [facility] [address] [place] [address] HIV 1+2 Ab Qn (S) Non-Reactive See Below [facility] Work Phone: Comment on above: SOURCE: Reference Ra nge: NONREACTIVE HIV Ag/Ab screen is performed using the Siem[employer] HIV Ag/Ab Combo assay which detects the presence of HIV p24 antigen as well as antibodies to HIV-1 (Group M and O) and HIV-2..No laboratory evidence of HIV infection. If acute HIV infection is suspected, consider testing for HIV RNA by PCR (viral load). HLA CLASS I AB SCREEN,FCon 0 05-19-2022 HLA CLASS I AB SCREEN,FC Canceled Normal [facility] Comment on above: Order Comment: TEST HLA CLASS I AB SCREEN,FC WAS CANCELLED, 05/19/2022 14:57 Tests ordered under wrong visit. Lab will reorder under correct visit, please do not redraw.. Performed By: #### H LAS1 #### [facility] [address] [place] [address] HLA CLASS II AB SCREEN,FCon 05-19-2022 HLA CLASS II AB SCREEN,FC Canceled Normal [facility] Comment on above: Order Comment: TEST HLA-DQB1 HR TYPING WAS CANCELLED, 05/19/2022 14:57 Tests ordered under wrong visit. Lab will reorder under correct visit, please do not redraw.. Performed By: #### D QBHT #### [facility] [address] [place] [address] HLA-A,B,C LRon 05-19-2022 HLA-A LOCUS LR TYPE Canceled Normal [facility] Comment on above: Order Comment: TEST HLA-DQB1 HR TYPING WAS CANCELLED, 05/19/2022 14:57 Tests ordered under wrong visit. Lab will reorder under correct visit, please do not redraw.. Performed By: #### D QBHT #### [facility] [address] [place] [id number] HLA-B LOCUS LR TYPE Canceled Normal [facility] Comment on above: Order Comment: TEST HLA-DQB1 HR TYPING WAS CANCELLED, 05/19/2022 14:57 Tests ordered under wrong visit. Lab will reorder under correct visit, please do not redraw.. Performed By: #### D QBHT #### [facility] [address] [place] [id number] HLA-C LOCUS LR TYPE Canceled Normal [facility] Comment on above: Order Comment: TEST HLA-DQB1 HR TYPING WAS CANCELLED, 05/19/2022 14:57 Tests ordered under wrong visit. Lab will reorder under correct visit, please do not redraw.. Performed By: #### D QBHT #### [facility] [address] [place] [address] HLA-DPB1 HR TYPINGon 022 HLA-DPB1 HR TYPING Canceled Normal [facility] [place] Comment on above: Order Comment: TEST HLA CLASS I AB SCREEN,FC WAS CANCELLED, 05/19/2022 14:57 Tests ordered under wrong visit. Lab will reorder under correct visit, please do not redraw.. Performed By: #### H LAS1 #### [facility] [address] [place] [address] HLA-DQB1 HR TYPINGon 022 HLA-DQB1 HR TYPING Canceled Normal [facility] [place] Comment on above: Order Comment: TEST HLA-DQB1 HR TYPING WAS CANCELLED, 05/19/2022 14:57 Tests ordered under wrong visit. Lab will reorder under correct visit, please do not redraw.. Performed By: #### D QBHT #### [facility] [address] [place] [address] HLA-DRB1/3/4/5 AND DQB1 LR T YPINGon 05-19-2022 HLA-DRB1/3/4/5 & DQB1 LR TYPING Canceled Normal [facility] Comment on above: Order Comment: TEST HLA CLASS I AB SCREEN,FC WAS CANCELLED, 05/19/2022 14:57 Tests ordered under wrong visit. Lab will reorder under correct visit, please do not redraw.. Performed By: #### H LAS1 #### [facility] [address] [place] [address] Hemoglobin A1Con 05-19-2022 Glucose [Mass/Vol] 97 mg/dL [facility] Work Phone: HbA1c (Bld) [Mass fraction] 5.0 % [facility] Work Phone: Comment on above: Diagnosis of Diabete s-Adults Non-Diabetic: < or = 5.6% Increased risk for developing diabetes: 5.7-6.4% Diagnostic of diabetes: > or = 6.5%. Monitoring of Diabetes Age (y) Therapeutic Goal (%) Adults: >18 <7.0 Pediatrics: 13-18 <7.5 7-12 <8.0 0- 6 7.5-8.5 [employer]. Diabetes Care 33(S1), Nov 2009. Hepatic Function Panelon Albumin BCP dye [Mass/Vol] 4.3 g/dL 3.4 - 5.0 [facility] Work Phone: Comment on above: SOURCE: ALP [Catalytic activity/Vol] 60 U/L 33 - 110 [facility] Work Phone: ALT With P-5'-P [Catalytic activity/Vol] 13 U/L 7 - 45 [facility] Work Phone: Comment on above: Patients treated wit h Sulfasalazine may generate falsely decreased results for ALT. AST With P-5'-P [Catalytic activity/Vol] 15 U/L 9 - 39 [facility] Work Phone: Bilirubin [Mass/Vol] 0.4 mg/dL 0.0 - 1.2 [facility] Work Phone: Bilirubin.direct [Mass/Vol] 0.1 mg/dL 0.0 - 0.3 [facility] Work Phone: Protein [Mass/Vol] 7.6 g/dL 6.4 - 8.2 [facility] Work Phone: Hepatitis B Surface Antibody on 05-19-2022 HBV surface Ag IA Ql 26.1 {mIU/mL} <10 [facility] Work Phone: Comment on above: SOURCE: INTERPRETIVE CRITERIA:<10 mIU/mL....NONREACTIVE >=10 mIU/mL...REACTIVE . Biotin interference may cause falsely decreased results. Patients taking a Biotin dose of up to 5 mg/day should refrain from taking Biotin for 24 hours before sample collection. Providers may contact their local laboratory for further information. Laboratory - Drug toxicology on 05-19-2022 Amphetamines Screen Ql Negative Cutoff 20 [facility] Work Phone: Barbiturates Screen Ql Negative Cutoff 50 [facility] Work Phone: Benzodiazepines Screen Ql Negative Cutoff 50 [facility] Work Phone: Cannabinoids Screen Ql Positive Cutoff 20 [facility] Work Phone: Comment on above: If the screen is pos itive, then confirmation by mass spectrometry will be added. Additional charges will apply. Unconfirmed positive may be useful for medical purposes, but does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 Canceled Normal [facility] Comment on above: Order Comment: TEST HLA-DQB1 HR TYPING WAS CANCELLED, 05/19/2022 14:57 Tests ordered under wrong visit. Lab will reorder under correct visit, please do not redraw.. Performed By: #### D QBHT #### [facility] [address] [place] [address] UROBILINOGEN Canceled Normal [facility] Comment on above: Order Comment: TEST HLA-DQB1 HR TYPING WAS CANCELLED, 05/19/2022 14:57 Tests ordered under wrong visit. Lab will reorder under correct visit, please do not redraw.. Performed By: #### D QBHT #### [facility] [address] [place] [id number] VARICELLA ZOSTER IGG ABon VARICELLA ZOSTER IGG AB Positive Normal NEGATIVE [facility] Comment on above: Result Comment: INTE RPRETATIVE COMMENT NEGATIVE: No IgG antibodies specific to VZV detected. It is likely that the patient has not had a previous exposure to VZV through infection or vaccination. Alternatively, the patient may have been exposed to VZV but a failure to respond may indicate immunodeficiency. EQUIVOCAL:Equivocal results; obtain additional sample for retesting. POSITIVE: IgG antibody to VZV detected. This may indicate that the patient was exposed to VZV through infection or vaccination. The interpretation of serological tests should take into account the immunological status of the patient. Test results for patients, including immunocompromised patients, neonates, and pediatric patients, reflect their capacity to respond immunologically to the virus as well as their exposure to the pathogen. Patients treated with IVIG may demonstrate altered results in serological assays. Performed By: #### D QBHT #### [facility] [address] [place] [address] Varicella Zoster IgG Antibod n 05-19-2022 VZV IgG IA Ql (S) Positive NEGATIVE [facility] Work Phone: Comment on above: SOURCE: INTERPRETATI VE COMMENT NEGATIVE: No IgG antibodies specific to VZV detected. It is likely that the patient has not had a previous exposure to VZV through infection or vaccination. Alternatively, the patient may have been exposed to VZV but a failure to respond may indicate immunodeficiency. EQUIVOCAL:Equivocal results; obtain additional sample for retesting. POSITIVE: IgG antibody to VZV detected. This may indicate that the patient was exposed to VZV through infection or vaccination.The interpretation of serological tests should take into accountthe immunological status of the patient. Test results forpatients, including immunocompromised patients, neonates, andpediatric patients, reflect their capacity to respondimmunologically to the virus as well as their exposure to thepathogen. Patients treated with IVIG may demonstrate alteredresults in serological assays. DIGITAL MAMMO SCREENINGon DIGITAL MAMMO SCREENING BILATERAL DIGITAL SCREENING MAMMOGRAM WITH CAD: 01/04/2022 Ordering Physician: Cassandra Snow CNP CLINICAL: Screening. Comparison is made to exam dated: 10/20/2020 mammogram - [facility]. There are scattered fibroglandular elements in both breasts that could obscure a lesion on mammography. Current study was also evaluated with a Computer Aided Detection (CAD) system. There are benign intramammary nodes left breast. No significant masses, calcifications, or other findings are seen in either breast. There has been no significant interval change. IMPRESSION: BENIGN There is no mammographic evidence of malignancy. A 1 year screening mammogram is recommended. The false-negative rate of mammography is approximately 10%. Management of a palpable abnormality must be based upon clinical grounds. Rosanne Lakhani M.D. ear/penrad:01/04/2022 14:48:27 Bond Clerk: Li DIAMOND)(M), [facility] letter sent: Mammography Normal BI-RADS: 2 Benign Reported By: ROSANNE LAKHANI M.D. Signed By: ROSANNE LAKHANI M.D. Normal [facility] [place] URINE CULTUREon 09-15-2021 Bacteria identified Cx Nom (U) URINE RESULT 60-70,000 COL/ML MIXED KATTY-PLEASE REPEAT-POSSIBLE CONTAMIN Normal [facility] Comment on above: Performed By: #### M [id number] #### [facility] [address] [place] [address] UA COMPLETEon 09-13-2021 UA LK ESTERASE 75 Normal NEGATIVE [facility] Comment on above: Performed By: #### L 600.89894 #### [facility] [address] [place] [address] UA WBC 24 WBC/HPF High 0-5 [facility] Comment on above: Performed By: #### L 600.26354 #### [facility] [address] [place] [address] Color (U) Yellow Normal [facility] Comment on above: Performed By: #### L 600.23515 #### [facility] [address] [place] [address] Glucose (U) [Mass/Vol] Negative Normal NORMAL [facility] Comment on above: Performed By: #### L 600.37803 #### [facility] [address] [place] [address] HYALINE CAST 1 /LPF Normal 0-1 [facility] Comment on above: Performed By: #### L 600.33429 #### [facility] [address] [place] [address] Mucus Ql (Urine sed) TRACE Normal NEGATIVE [facility] Comment on above: Performed By: #### L 600.18989 #### [facility] [address] [place] [address] SQUAMOUS EPIS 3 EPI/HPF Normal 0-5 [facility] Comment on above: Performed By: #### L 600.27015 #### [facility] [address] [place], [place] [id number] UA APPEARANCE Clear Normal CLEAR [facility] Comment on above: Performed By: #### L 600.12925 #### [facility] [address] [place] [address] UA BACTERIA NONE Normal NONE [facility] Comment on above: Performed By: #### L 600.82411 #### [facility] [address] [place] [id number] UA BILIRUBIN Negative Normal NEGATIVE [facility] Comment on above: Performed By: #### L 600.86753 #### [facility] [address] [place] [address] UA BLOOD MOD Normal NEGATIVE [facility] Comment on above: Performed By: #### L 600.22168 #### [facility] [address] [place], [place] [id number] UA KETONE Negative Normal NEGATIVE [facility] Comment on above: Performed By: #### L 600.98807 #### [facility] [address] [place], [place] [id number] UA NITRITE Negative Normal NEGATIVE [facility] Comment on above: Performed By: #### L 600.48594 #### [facility] [address] [place] [address] UA PH 9.0 Normal 5-6 [facility] Comment on above: Performed By: #### L 600.29457 #### [facility] [address] [place] [address] UA PROTEIN [address] [facility] Comment on above: Performed By: #### L 600.40141 #### [facility] [address] [place] [address] UA RBC 40 RBC/HPF High 0-3 [facility] Comment on above: Performed By: #### L 600.55361 #### [facility] [address] [place], [place] [id number] UA SPEC GRAV 1.012 Normal 1.005-1.030 [facility] Comment on above: Performed By: #### L 600.56367 #### [facility] [address] [place] [address] UA UROBILINOGEN Negative Normal NORMAL [facility] Comment on above: Performed By: #### L 600.42180 #### [facility] [address] [place] [address] FLUORO GUIDANCE PLACEMENTon 04-27-2021 FLUORO GUIDANCE PLACEMENT NONTUNNEL CENTRAL CATH, US GUIDE VASCULAR ACCESS, FLUORO GUIDANCE PLACEMENT Ordering Physician: Eddi Blount MD 04/27/2021 1:39 PM 1. RIGHT INTERNAL JUGULAR ULTRASOUND VENOGRAM. 2. ULTRASOUND-GUIDED RIGHT INTERNAL JUGULAR PUNCTURE. 3. COMBINED ULTRASOUND AND FLUOROSCOPIC-GUIDED PLACEMENT OF A TEMPORARY RIGHT INTERNAL JUGULAR DIALYSIS CATHETER. Clinical Statement: End-stage renal disease with malfunctioning left arm fistula Radiation Dose: 2.0 mGy Fluoroscopic Time: 0.1 minutes Contrast Dose: None Sedation Time: None Procedure: After informed consent was obtained, the patient was placed supine on the angiography table. Initial ultrasound evaluation of the right internal jugular vein demonstrates it to be widely patent. The area of the right neck was prepped and draped in the usual sterile fashion. After local infiltrative anesthesia with 2% plain lidocaine, the right internal jugular vein was accessed under direct ultrasound visualization. Using guidewire and catheter exchange technique the subcutaneous tissues were dilated and a temporary dialysis catheter advanced over a guidewire until its tip lie at the junction of the superior vena cava and the right atrium. This was performed under fluoroscopic control. The catheter functions appropriately. The catheter was primed with the appropriate volume of heparinized solution. The catheter was secured in position with 3-0 Prolene and sterile dressing applied. The patient was then discharged from the angiography area in unchanged condition. IMPRESSION: 1. Widely patent right internal jugular vein. 2. Successful combined ultrasound and fluoroscopic-guided placement of a temporary right internal jugular dialysis catheter. ---- Electronic Signature on File ---- Signed By: Andrea Muñoz MD [email or web address] Dictated: 04/27/2021 3:14 PM Signed: 04/27/2021 3:15 PM Reported By: ANDREA MUÑOZ M.D. Signed By: ANDREA MUÑOZ M.D. [facility] NONTUNNEL CENTRAL CATHon NONTUNNEL CENTRAL CATH NONTUNNEL CENTRAL CATH, US GUIDE VASCULAR ACCESS, FLUORO GUIDANCE PLACEMENT Ordering Physician: Eddi Blount MD 04/27/2021 1:39 PM 1. RIGHT INTERNAL JUGULAR ULTRASOUND VENOGRAM. 2. ULTRASOUND-GUIDED RIGHT INTERNAL JUGULAR PUNCTURE. 3. COMBINED ULTRASOUND AND FLUOROSCOPIC-GUIDED PLACEMENT OF A TEMPORARY RIGHT INTERNAL JUGULAR DIALYSIS CATHETER. Clinical Statement: End-stage renal disease with malfunctioning left arm fistula Radiation Dose: 2.0 mGy Fluoroscopic Time: 0.1 minutes Contrast Dose: None Sedation Time: None Procedure: After informed consent was obtained, the patient was placed supine on the angiography table. Initial ultrasound evaluation of the right internal jugular vein demonstrates it to be widely patent. The area of the right neck was prepped and draped in the usual sterile fashion. After local infiltrative anesthesia with 2% plain lidocaine, the right internal jugular vein was accessed under direct ultrasound visualization. Using guidewire and catheter exchange technique the subcutaneous tissues were dilated and a temporary dialysis catheter advanced over a guidewire until its tip lie at the junction of the superior vena cava and the right atrium. This was performed under fluoroscopic control. The catheter functions appropriately. The catheter was primed with the appropriate volume of heparinized solution. The catheter was secured in position with 3-0 Prolene and sterile dressing applied. The patient was then discharged from the angiography area in unchanged condition. IMPRESSION: 1. Widely patent right internal jugular vein. 2. Successful combined ultrasound and fluoroscopic-guided placement of a temporary right internal jugular dialysis catheter. ---- Electronic Signature on File ---- Signed By: Andrea Muñoz MD [email or web address] Dictated: 04/27/2021 3:14 PM Signed: 04/27/2021 3:15 PM Reported By: ANDREA MUÑOZ M.D. Signed By: ANDREA MUÑOZ M.D. [facility] US GUIDE VASCULAR ACCESSon 0 04-27-2021 US GUIDE VASCULAR ACCESS NONTUNNEL CENTRAL CATH, US GUIDE VASCULAR ACCESS, FLUORO GUIDANCE PLACEMENT Ordering Physician: Eddi Blount MD 04/27/2021 1:39 PM 1. RIGHT INTERNAL JUGULAR ULTRASOUND VENOGRAM. 2. ULTRASOUND-GUIDED RIGHT INTERNAL JUGULAR PUNCTURE. 3. COMBINED ULTRASOUND AND FLUOROSCOPIC-GUIDED PLACEMENT OF A TEMPORARY RIGHT INTERNAL JUGULAR DIALYSIS CATHETER. Clinical Statement: End-stage renal disease with malfunctioning left arm fistula Radiation Dose: 2.0 mGy Fluoroscopic Time: 0.1 minutes Contrast Dose: None Sedation Time: None Procedure: After informed consent was obtained, the patient was placed supine on the angiography table. Initial ultrasound evaluation of the right internal jugular vein demonstrates it to be widely patent. The area of the right neck was prepped and draped in the usual sterile fashion. After local infiltrative anesthesia with 2% plain lidocaine, the right internal jugular vein was accessed under direct ultrasound visualization. Using guidewire and catheter exchange technique the subcutaneous tissues were dilated and a temporary dialysis catheter advanced over a guidewire until its tip lie at the junction of the superior vena cava and the right atrium. This was performed under fluoroscopic control. The catheter functions appropriately. The catheter was primed with the appropriate volume of heparinized solution. The catheter was secured in position with 3-0 Prolene and sterile dressing applied. The patient was then discharged from the angiography area in unchanged condition. IMPRESSION: 1. Widely patent right internal jugular vein. 2. Successful combined ultrasound and fluoroscopic-guided placement of a temporary right internal jugular dialysis catheter. ---- Electronic Signature on File ---- Signed By: Andrea Muñoz MD [email or web address] Dictated: 04/27/2021 3:14 PM Signed: 04/27/2021 3:15 PM Reported By: ANDREA MUÑOZ M.D. Signed By: ANDREA UMÑOZ M.D. [facility] CBC (INCLUDES DIFF/PLT)on Basophils (Bld) [#/Vol] 0.027 10*3/uL Normal 0-200 [facility] Comment on above: Performed By: #### 1 0231, 7444, 6399, 71793, 7600 #### [facility], [address] [place] [address] Dental Aide: Junior Butcher MD Basophils/100 WBC (Bld) 0.4 % Normal [facility] Comment on above: Performed By: #### 1 0231, 7444, 6399, 23913, 7600 #### [facility] [address] [address] [place] , [address] [place] [address] Dental Aide: Junior Butcher MD Eosinophils (Bld) [#/Vol] 0.211 10*3/uL Normal 15-500 [facility] Comment on above: Performed By: #### 1 0231, 7444, 6399, 00906, 7600 #### [facility] , [address] [place] [address] Dental Aide: Junior Butcher MD Eosinophils/100 WBC (Bld) 3.1 % Normal [facility] Comment on above: Performed By: #### 1 0231, 7444, 6399, 20789, 7600 #### [facility], [address] [place] [address] Dental Aide: Junior Butcher MD Erythrocyte distribution width (RBC) [Ratio] 14.1 % Normal 11.0-15.0 [facility] Comment on above: Performed By: #### 1 0231, 7444, 6399, 05415, 7600 #### [facility] [address] , [address] [place] [address] Dental Aide: Junior Butcher MD Hematocrit (Bld) [Volume fraction] 31.8 % Low 35.0-45.0 [facility] Comment on above: Performed By: #### 1 0231, 7444, 6399, 52293, 7600 #### [facility] [address] , [address] [place] [address] Dental Aide: Junior Butcher MD Hemoglobin (Bld) [Mass/Vol] 10.6 g/dL Low 11.7-15.5 [facility] Comment on above: Performed By: #### 1 0231, 7444, 6399, 77794, 7600 #### [facility], [address] [place] [address] Dental Aide: Junior Butcher MD Lymphocytes (Bld) [#/Vol] 2.298 10*3/uL Normal 850-3900 [facility] Comment on above: Performed By: #### 1 0231, 7444, 6399, 46637, 7600 #### [facility] [address], [address] [place] [address] Dental Aide: Junior Butcher MD Lymphocytes/100 WBC (Bld) 33.8 % Normal [facility] Comment on above: Performed By: #### 1 0231, 7444, 6399, 06948, 7600 #### [facility], [address] [place] [address] Dental Aide: Junior Butcher MD MCH (RBC) [Entitic mass] 32.4 pg Normal 27.0-33.0 [facility] Comment on above: Performed By: #### 1 0231, 7444, 6399, 59211, 7600 #### [facility] [address] Dental Aide: Junior Butcher MD MCHC (RBC) [Mass/Vol] 33.3 g/dL Normal 32.0-36.0 [facility] Comment on above: Performed By: #### 1 0231, 74, 6399, 74243, 7600 #### [facility] [address] , [address] [place] [address] Dental Aide: Junior Butcher MD MCV (RBC) [Entitic vol] 97.2 fL Normal 80.0-100.0 [facility] Comment on above: Performed By: #### 1 0231, 7444, 6399, 12232, 7600 #### [facility] [address] , [address] [place] [address] Dental Aide: Junior Butcher MD Monocytes (Bld) [#/Vol] 0.408 10*3/uL Normal 200-950 [facility] Comment on above: Performed By: #### 1 0231, 7444, 6399, 05167, 7600 #### [facility] [address] , [address] [place] [address] Dental Aide: Junior Butcher MD Monocytes/100 WBC (Bld) 6.0 % Normal [facility] Comment on above: Performed By: #### 1 0231, 7444, 6399, 58359, 7600 #### [facility] [address], [address] [place] [address] Dental Aide: Junior Butcher MD Neutrophils (Bld) [#/Vol] 3.856 10*3/uL Normal 7694-2966 [facility] Comment on above: Performed By: #### 1 0231, 7444, 6399, 58093, 7600 #### [facility] [address] , [address] [place] [address] Dental Aide: Junior Butcher MD Neutrophils/100 WBC (Bld) 56.7 % Normal [facility] Comment on above: Performed By: #### 1 0231, 7444, 6399, 84017, 7600 #### [facility] [address] , [address] [place] [address] Dental Aide: Junior Butcher MD Platelet mean volume (Bld) [Entitic vol] 11.0 fL Normal 7.5-12.5 [facility] Comment on above: Performed By: #### 1 0231, 7444, 6399, 46671, 7600 #### [facility] [address] , [address] [place] [address] Dental Aide: Junior Butcher MD Platelets (Bld) [#/Vol] 170 10*3/uL Normal 140-400 [facility] Comment on above: Performed By: #### 1 0231, 7444, 6399, 63647, 7600 #### [facility] [address], [address] [place] [address] Dental Aide: Junior Butcher MD RBC (Bld) [#/Vol] 3.27 10*6/uL Low 3.80-5.10 [facility] Comment on above: Performed By: #### 1 0231, 7444, 6399, 92533, 7600 #### [facility], [address] [place] [address] Dental Aide: Junior Butcher MD WBC (Bld) [#/Vol] 6.8 10*3/uL Normal 3.8-10.8 [facility] Comment on above: Performed By: #### 1 0231, 7444, 6399, 86987, 7600 #### [facility] , [address] [place] [address] Dental Aide: Junior Butcher MD [facility] 08-11-2020 Albumin [Mass/Vol] 3.9 g/dL Normal 3.6-5.1 [facility] Comment on above: Performed By: #### 1 0231, 7444, 6399, 16457, 7600 #### [facility] [address] , [address] [place] [address] Dental Aide: Junior Butcher MD Albumin/Globulin [Mass ratio] 1.3 (calc) Normal 1.0-2.5 [facility] Comment on above: Performed By: #### 1 0231, 7444, 6399, 09840, 7600 #### [facility] , [address] [place] [address] Dental Aide: Junior Butcher MD ALP [Catalytic activity/Vol] 65 U/L Normal 31-125 [facility] Comment on above: Performed By: #### 1 0231, 7444, 6399, 93657, 7600 #### [facility] [address] , [address] [place] [address] Dental Aide: Junior Butcher MD ALT [Catalytic activity/Vol] 11 U/L Normal 6-29 [facility] Comment on above: Performed By: #### 1 0231, 7444, 6399, 41821, 7600 #### [facility]-[address], [address] [place] [address] Dental Aide: Junior Butcher MD AST [Catalytic activity/Vol] 11 U/L Normal 10-30 [facility] Comment on above: Performed By: #### 1 0231, 7444, 6399, 01007, 7600 #### [facility] [address] Dental Aide: Junior Butcher MD Bilirubin [Mass/Vol] 0.4 mg/dL Normal 0.2-1.2 [facility] Comment on above: Performed By: #### 1 0231, 7444, 6399, 98396, 7600 #### [facility], [address] [place] [address] Dental Aide: Junior Butcher MD Calcium [Mass/Vol] 8.9 mg/dL Normal 8.6-10.2 [facility] Comment on above: Performed By: #### 1 0231, 7444, 6399, 80071, 7600 #### [facility], [address] [place] [address] Dental Aide: Junior Butcher MD Chloride [Moles/Vol] 102 mmol/L Normal 98-110 [facility] Comment on above: Performed By: #### 1 0231, 7444, 6399, 16714, 7600 #### [facility] [address] Dental Aide: Junior Butcher MD CO2 [Moles/Vol] 26 mmol/L Normal 20-32 [facility] Comment on above: Performed By: #### 1 0231, 7444, 6399, 87723, 7600 #### [facility] [address] [place] [address] Dental Aide: Junior Butcher MD Creatinine [Mass/Vol] 7.03 mg/dL High 0.50-1.10 [facility] Comment on above: Performed By: #### 1 0231, 7444, 6399, 47806, 7600 #### [facility]-[address], [address] [place] [address] Dental Aide: Junior Butcher MD eGFR NON-AFR. IRAQI 7 mL/min/1.73m2 Low > OR = 60 [facility] Comment on above: Performed By: #### 1 0231, 7444, 6399, 60943, 7600 #### [facility]-[address], [address] [place] [address] Dental Aide: Junior Butcher MD GFR/1.73 sq M predicted among blacks MDRD (S/P/Bld) [Vol rate/Area] 8 mL/min/{1.73_m2} Low > OR = 60 [facility] Comment on above: Performed By: #### 1 0231, 7444, 6399, 45135, 7600 #### [facility], [address] [place] [address] Dental Aide: Junior Butcher MD Globulin (S) [Mass/Vol] 3.0 g/dL (calc) Normal 1.9-3.7 [facility] Comment on above: Performed By: #### 1 0231, 7444, 6399, 69070, 7600 #### [facility], [address] [place] [address] Dental Aide: Junior Butcher MD Glucose [Mass/Vol] 81 mg/dL Normal 65-139 [facility] Comment on above: Result Comment: Non-fasting reference interval Performed By: #### 1 0231, 7444, 6399, 41351, 7600 #### [facility], [address] [place] [address] Dental Aide: Junior Butcher MD Potassium [Moles/Vol] 4.9 mmol/L Normal 3.5-5.3 [facility] Comment on above: Performed By: #### 1 0231, 7444, 6399, 77226, 7600 #### [facility] [address] Dental Aide: Junior Butcher MD Protein [Mass/Vol] 6.9 g/dL Normal 6.1-8.1 [facility] Comment on above: Performed By: #### 1 0231, 7444, 6399, 46349, 7600 #### [facility], [address] [place] [address] Dental Aide: Junior Butcher MD Sodium [Moles/Vol] 136 mmol/L Normal 135-146 [facility] Comment on above: Performed By: #### 1 0231, 7444, 6399, 94468, 7600 #### [facility], [address] [place] [address] Dental Aide: Junior Butcher MD Urea nitrogen [Mass/Vol] 43 mg/dL High 7-25 [facility] Comment on above: Performed By: #### 1 0231, 7444, 6399, 67574, 7600 #### [facility], [address] [place] [address] Dental Aide: Junior Butcher MD Urea nitrogen/Creatinine [Mass ratio] 6 mg/mg Normal 6-22 [facility] Comment on above: Performed By: #### 1 0231, 7444, 6399, 60378, 7600 #### [facility], [address] [place] [address] Dental Aide: Junior Butcher MD LIPID PANEL, STANDARD 10-0 Cholesterol [Mass/Vol] 206 mg/dL High <200 [facility] Comment on above: Order Comment: FASTI NG:NO COLLECTION KIT GIVEN TO PATIENT. PATIENT ADVISED TO RETURN. FASTING: NO Performed By: #### 1 0231, 7444, 6399, 02719, 7600 #### [facility], [address] [place] [address] Dental Aide: Junior Butcher MD Cholesterol in HDL [Mass/Vol] 51 mg/dL Normal > OR = 50 [facility] Comment on above: Order Comment: FASTI NG:NO COLLECTION KIT GIVEN TO PATIENT. PATIENT ADVISED TO RETURN. FASTING: NO Performed By: #### 1 0231, 7444, 6399, 11850, 7600 #### [facility], [address] [place] [address] Dental Aide: Junior Butcher MD Cholesterol in LDL [Mass/Vol] 130 mg/dL (calc) High [facility] Comment on above: Order Comment: FASTI NG:NO COLLECTION KIT GIVEN TO PATIENT. PATIENT ADVISED TO RETURN. FASTING: NO Result Comment: Refe rence range: <100 Desirable range <100 mg/dL for primary prevention; <70 mg/dL for patients with CHD or diabetic patients with > or = 2 CHD risk factors. LDL-C is now calculated using the Araceli calculation, which is a validated novel method providing better accuracy than the Friedewald equation in the estimation of LDL-C. Teo SS et al. TRESSA. 2013;310(19): 4197-4355 (http://education.Trilibis.Druva/faq/CYQ556) Performed By: #### 1 0231, 7444, 6399, 81384, 7600 #### [facility]-[address], [address] [place] [address] Dental Aide: Junior Butcher MD Cholesterol.total/C holesterol in HDL [Mass ratio] 4.0 (calc) Normal <5.0 [facility] Comment on above: Order Comment: FASTI NG:NO COLLECTION KIT GIVEN TO PATIENT. PATIENT ADVISED TO RETURN. FASTING: NO Performed By: #### 1 0231, 1599, 6399, 54720, 7600 #### [facility]-[address], [address] [place], [place] [address] Dental Aide: Junior Butcher MD NON HDL CHOLESTEROL 155 mg/dL (calc) High <130 [facility] Comment on above: Order Comment: FASTI NG:NO COLLECTION KIT GIVEN TO PATIENT. PATIENT ADVISED TO RETURN. FASTING: NO Result Comment: For patients with diabetes plus 1 major ASCVD risk factor, treating to a non-HDL-C goal of <100 mg/dL (LDL-C of <70 mg/dL) is considered a therapeutic option. Performed By: #### 1 0231, 0811, 6399, 94949, 7600 #### [facility]-[address], [address] [place] [address] Dental Aide: Junior Butcher MD Triglyceride [Mass/Vol] 139 mg/dL Normal <150 [facility] Comment on above: Order Comment: FASTI NG:NO COLLECTION KIT GIVEN TO PATIENT. PATIENT ADVISED TO RETURN. FASTING: NO Performed By: #### 1 0231, 7444, 6399, 05290, 7600 #### [facility], [address] [place] [address] Dental Aide: Junior Butcher MD THYROID PANEL WITH TSHon FREE T4 INDEX (T7) 2.3 Normal 1.4-3.8 [facility] Comment on above: Performed By: #### 1 0231, 7444, 6399, 05135, 7600 #### [facility], [address] [place] [address] Dental Aide: Junior Butcher MD T3 UPTAKE 32 % Normal 22-35 [facility] Comment on above: Performed By: #### 1 0231, 7444, 6399, 76088, 7600 #### [facility], [address] [place] [address] Dental Aide: Junior Butcher MD T4 [Mass/Vol] 7.2 ug/dL Normal 5.1-11.9 [facility] Comment on above: Performed By: #### 1 0231, 7444, 6399, 77199, 7600 #### [facility], [address] [place] [address] Dental Aide: Junior Butcher MD TSH Qn 2.46 m[IU]/L Normal [facility] Comment on above: Result Comment: Refe rence Range > or = 20 Years 0.40-4.50 Ranges First trimester 0.26-2.66 Second trimester 0.55-2.73 Third trimester 0.43-2.91 Performed By: #### 1 0231, 7444, 6399, 06203, 7600 #### [facility], [address] [place] [address] Dental Aide: Junior Butcher MD VITAMIN D,25-OH,TOTAL,IAon 1 VITAMIN D,25-OH,TOTAL,IA 48 ng/mL Normal 30-100 [facility] Comment on above: Result Comment: Elizabeth min D Status 25-OH Vitamin D: Deficiency: <20 ng/mL Insufficiency: 20 - 29 ng/mL Optimal: > or = 30 ng/mL For 25-OH Vitamin D testing on patients on D2-supplementation and patients for whom quantitation of D2 and D3 fractions is required, the [facility]ure[facility](TM) 25-OH VIT D, (D2,D3), LC/MS/MS is recommended: order code 21423 (patients >2yrs). See Note 1 Note 1 For additional information, please refer to http://education.Trilibis.Druva/faq/XBF531 (This link is being provided for informational/ educational purposes only.) Performed By: #### 1 0231, 7444, 6399, 79743, 7600 #### [facility] [address] [facility], [address] [place] [id number] Dental Aide: Junior Butcher MD Vital Signs Date Time Vital Sign Value Performing Clinician Facility 04-14-2025 17:00-0400 Body temperature 97.6 [degF] Christine To SENIOR MARKETING SPECIALIST-C Work Phone: [facility] 04-14-2025 17:00-0400 Diastolic blood pressure 68 mm[Hg] Christine To SENIOR MARKETING SPECIALIST-C Work Phone: [facility] 04-14-2025 17:00-0400 Heart rate 83 /min Christine To SENIOR MARKETING SPECIALIST-C Work Phone: [facility] 04-14-2025 17:00-0400 Respiratory rate 16 /min Christine To SENIOR MARKETING SPECIALIST-C Work Phone: [facility] 04-14-2025 17:00-0400 SaO2% (BldA) [Mass fraction] 100 % Christine To SENIOR MARKETING SPECIALIST-C Work Phone: [facility] 04-14-2025 17:00-0400 Systolic blood pressure 126 mm[Hg] Christine To SENIOR MARKETING SPECIALIST-C Work Phone: [facility] 04-14-2025 13:17-0400 Body height 175.26 cm Christine To SENIOR MARKETING SPECIALIST-C Work Phone: [facility] 04-14-2025 13:17-0400 Body mass index (BMI) [Ratio] 32.3 kg/m2 Christine To SENIOR MARKETING SPECIALIST-C Work Phone: [facility] 04-14-2025 13:17-0400 Body weight 99.33 kg Christine Zuleika SENIOR MARKETING SPECIALIST-C Work Phone: [facility] 03-02-2025 11:53-0400 Blood Pressure Cuff Size CHRISTINE ZULEIKA MANAGER FUND-ROUNDHOUSE FIRER/FIREMAN [facility] 03-02-2025 11:53-0400 Blood Pressure Location CHRISTINE CHOIEVELYN MANAGER FUND-ROUNDHOUSE FIRER/FIREMAN [facility] 03-02-2025 11:53-0400 Blood Pressure Method CHRISTINE ZULEIKA MANAGER FUND-ROUNDHOUSE FIRER/FIREMAN [facility] 03-02-2025 11:53-0400 Body height 171.5 cm CHRISTINE ZULEIKA MANAGER FUND-ROUNDHOUSE FIRER/FIREMAN [facility] 03-02-2025 11:53-0400 Body temperature 98.96 [degF] CHRISTINE TO MANAGER FUND-ROUNDHOUSE FIRER/FIREMAN [facility] 03-02-2025 11:53-0400 Body weight 99.5 kg CHRISTINE ZULEIKA MANAGER FUND-ROUNDHOUSE FIRER/FIREMAN [facility] 03-02-2025 11:53-0400 Body weight 33.83 kg/m2 CHRISTINE ZULEIKA MANAGER FUND-ROUNDHOUSE FIRER/FIREMAN [facility] 03-02-2025 11:53-0400 Diastolic Blood Pressure Non-Invasive 78 mm[Hg] CHRISTINE TO MANAGER FUND-ROUNDHOUSE FIRER/FIREMAN [facility] 03-02-2025 11:53-0400 Heart rate 90 /min CHRISTINE TO MANAGER FUND-ROUNDHOUSE FIRER/FIREMAN [facility] 03-02-2025 11:53-0400 Respiratory rate 18 /min CHRISTINE TO MANAGER FUND-ROUNDHOUSE FIRER/FIREMAN [facility] 03-02-2025 11:53-0400 Systolic Blood Pressure Non-Invasive 121 mm[Hg] CHRISTINE TO MANAGER FUND-ROUNDHOUSE FIRER/FIREMAN [facility] 01-23-2024 13:07-0400 Diastolic blood pressure 88 mm[Hg] ALON BLANCA MD [facility] 01-23-2024 13:07-0400 Heart rate 88 /min ALON BLANCA MD [facility] 01-23-2024 13:07-0400 Respiratory rate 18 /min ALON BLANCA MD [facility] 01-23-2024 13:07-0400 Systolic blood pressure 142 mm[Hg] ALON BLANCA MD [facility] 01-23-2024 09:50-0400 Body height 172.7 cm ALON BLANCA MD [facility] 01-23-2024 09:50-0400 Body temperature 97.88 [degF] ALON BLANAC MD [facility] 01-23-2024 09:50-0400 Body weight 105 kg ALON BLANCA MD [facility] 01-23-2024 09:50-0400 Diastolic Blood Pressure Non-Invasive 94 mm[Hg] ALON BLANCA MD [facility] 01-23-2024 09:50-0400 Heart rate 104 /min ALON BLANCA MD [facility] 01-23-2024 09:50-0400 Respiratory rate 18 /min ALON BLANCA MD [facility] 01-23-2024 09:50-0400 Systolic Blood Pressure Non-Invasive 147 mm[Hg] ALON BLANCA MD [facility] 05-19-2022 15:57-0400 3 1 No PCP [facility] Work Phone: Comment on above: PHQ-9 TS 05-19-2022 13:31-0400 Body height 170.18 cm No PCP [facility] Work Phone: 05-19-2022 13:31-0400 Body mass index (BMI) [Ratio] 39.05 kg/m2 No PCP [facility] Work Phone: 05-19-2022 13:31-0400 Body surface area Derived from formula 2.22 m2 No PCP [facility] Work Phone: 05-19-2022 13:31-0400 Body temperature 97.1 [degF] No PCP [facility] Work Phone: 05-19-2022 13:31-0400 Body weight 113.08 kg No PCP [facility] Work Phone: 05-19-2022 13:31-0400 Diastolic blood pressure 111 mm[Hg] No PCP [facility] Work Phone: 05-19-2022 13:31-0400 Heart rate 90 /min No PCP [facility] Work Phone: 05-19-2022 13:31-0400 SaO2% (BldA) [Mass fraction] 100 % No PCP [facility] Work Phone: 05-19-2022 13:31-0400 Systolic blood pressure 179 mm[Hg] No PCP [facility] Work Phone: 05-19-2022 13:31-0400 0 1 No PCP [facility] Work Phone: Comment on above: [employer] Encounters Encounter Date Encounter Type Care Provider Facility Start: 04-14-2025 Encounter for other preprocedural examination Alberto Strickland [facility] Start: 04-14-2025 ambulatory Alberto Strickland Facility :[facility] Start: 04-14-2025 Non-patient / Non-visit Alberto Hathaway nd DO -[facility] Start: 04-14-2025 End: 04-14-2025 Admission to same day surgery center Alberto Strickland DO -Endoscopy Work Phone: Start: 04-14-2025 End: 04-14-2025 ambulatory Christine To SENIOR MARKETING SPECIALIST-C Work Phone: [facility] Work Phone: Start: 04-13-2025 ambulatory CHRISTINE TO MANAGER FUND-ROUNDHOUSE FIRER/FIREMAN Facility:[facility] Start: 03-31-2025 End: 04-04-2025 ambulatory TEMO CERVANTES MD Facility:A Start: 03-17-2025 End: 03-17-2025 ambulatory EDDI BLOUNT Facility:[id number] Start: 03-02-2025 End: 03-02-2025 ambulatory CHRISTINE TO MANAGER FUND-ROUNDHOUSE FIRER/FIREMAN Facility:A Start: 03-02-2025 End: 03-02-2025 Patient encounter procedure CHRISTINE TO MANAGER FUND-ROUNDHOUSE FIRER/FIREMAN [facility] Start: 02-04-2025 End: 02-04-2025 Patient encounter procedure Christine Dickey [facility] Work Phone: Start: 02-04-2025 End: 02-04-2025 ambulatory Christine Dickey Facility:[facility] Start: 02-03-2025 End: 02-03-2025 ambulatory CHRISTINE TO MANAGER FUND-ROUNDHOUSE FIRER/FIREMAN Facility:[facility] Start: 01-24-2025 End: 01-24-2025 ambulatory CHRISTINE TO MANAGER FUND-ROUNDHOUSE FIRER/FIREMAN Facility[facility] Start: 01-06-2025 End: 01-06-2025 ambulatory EDDI BLOUNT Facility:[id number] Start: 12-16-2024 End: 12-20-2024 ambulatory TEMO CERVANTES MD Facility:A Start: 07-31-2024 End: 07-31-2024 ambulatory CHRISTINA MORENO MD Facility:[place] Start: 07-31-2024 End: 07-31-2024 Patient encounter procedure CHRISTINA MORENO MD [facility] Start: 07-03-2024 End: 07-03-2024 ambulatory CHRISTINA MORENO MD Facility:B Start: 07-03-2024 End: 07-03-2024 Patient encounter procedure CHRISTINA MORENO MD [facility] Start: 05-13-2024 End: 05-13-2024 ambulatory CHRISTINE TO MANAGER FUND-ROUNDHOUSE FIRER/FIREMAN Facility:B Start: 05-13-2024 End: 05-13-2024 Patient encounter procedure CHRISTINE TO MANAGER FUND-ROUNDHOUSE FIRER/FIREMAN [facility] Start: 04-02-2024 End: 04-06-2024 ambulatory CHRISTINE TO MANAGER FUND-ROUNDHOUSE FIRER/FIREMAN Facility:A Start: 02-15-2024 End: 02-15-2024 ambulatory TEMO CERVANTES MD Facility:B Start: 02-15-2024 End: 02-15-2024 Patient encounter procedure TEMO CERVANTES MD [facility] Start: 01-23-2024 End: 01-23-2024 Emergency department patient visit ALON BLANCA MD [facility] Start: 01-15-2024 End: 01-19-2024 ambulatory TEMO CERVANTES MD Facility:A Start: 12-24-2023 End: 12-24-2023 ambulatory TEMO CERVANTES MD Facility:[facility] Start: 12-24-2023 End: 12-24-2023 Patient encounter procedure TEMO CERVANTES MD [facility] Start: 12-11-2023 End: 12-15-2023 ambulatory TEMO CERVANTES MD Facility:A Start: 12-11-2023 End: 12-15-2023 Encounter for gynecological examination (general) (routine) without abnormal findings TEMO CERVANTES MD Facility:A Start: 09-05-2023 End: 09-05-2023 ambulatory CHRISTINE TO MANAGER FUND-ROUNDHOUSE FIRER/FIREMAN Facility:B Start: 09-05-2023 End: 09-05-2023 Patient encounter procedure CHRISTINE TO MANAGER FUND-ROUNDHOUSE FIRER/FIREMAN [facility] Start: 04-25-2023 Chart abstracting [facility] Comment on above: Pre-transplant evalu ation for kidney transplant (Primary Dx) Start: 04-25-2023 Patient encounter status Ronna Quiñones MD Work Phone: [facility]plant Center Start: 04-25-2023 Telephone encounter Alexus Sweeney RN [facility] Comment on above: Referral - Kidney Tx p (New MyChart code sent) Start: 03-12-2023 Patient encounter status Caterina [facility] Start: 03-12-2023 Telephone encounter [facility] Comment on above: Referral - Kidney Tx p Start: 02-08-2023 End: 02-08-2023 Patient encounter procedure CHRISTINE TO MANAGER FUND-ROUNDHOUSE FIRER/FIREMAN [facility] Start: 01-31-2023 End: 01-31-2023 Patient encounter procedure CHRISTINE TO MANAGER FUND-ROUNDHOUSE FIRER/FIREMAN [facility] Start: 01-08-[address] Hayden Cuevas Facility:[id number] Start: 01-08-2023 Encounter for other preprocedural examination Dr. Hayden Norris Facility:[id number] Start: 12-19-2022 AUDIT No PCP None -Surgery [facility] Work Phone: Start: 12-06-2022 End: 12-06-2022 Patient encounter procedure CHRISTINE TO MANAGER FUND-ROUNDHOUSE FIRER/FIREMAN [facility] Start: 11-17-2022 End: 11-17-2022 Patient encounter procedure CHRISTINE TO MANAGER FUND-ROUNDHOUSE FIRER/FIREMAN [facility] Start: 09-22-2022 AUDIT No PCP None [facility] Work Phone: Start: 09-15-[address] Hayden Cuevas Facility:[id number] Start: 09-15-[address] Hayden Cuevas Facility:[id number] Start: 09-15-2022 Encounter for other preprocedural examination Dr. Hayden Norris [facility] Start: 09-11-2022 Encounter for preprocedural cardiovascular examination Dr. Hayden Norris [facility] Start: 09-11-[address] Hayden Cuevas Facility:[id number] Start: 08-15-2022 End: 08-15-2022 Patient encounter procedure CHRISTINE TO MANAGER FUND-ROUNDHOUSE FIRER/FIREMAN [facility] Start: 07-12-[address] Hayden Cuevas Facility:[id number] Start: 06-05-2022 ambulatory MD CANDELARIA GU Fac ility:[facility] Start: 06-02-2022 Chart Update No PCP None [facility] Work Phone: Start: 05-26-2022 Chart Update No PCP None [facility] Work Phone: Start: 05-19-2022 AUDIT No PCP None [facility] Work Phone: Start: 05-19-2022 ambulatory MD CANDELARIA GU Fac ility:[facility] Start: 05-19-2022 Patient encounter procedure No PCP None [facility]-Utjdju[facility]Sbmgt[facility] Work Phone: Start: 05-19-[address] Hayden Villalba Facility:[facility] Start: 04-15-2021 STEVE, Provider: Ronak Trent, Status: Pen, Time: 2:00 PM No PCP None [facility]-Tqjhaay-Iklws[facility] 2100 Work Phone: Start: 04-15-2021 PATRICIA, Provider: Magnolia Manzano, Status: Reyes, Time: 12:30 PM No PCP None SZ-Bgihpyl-Clfdvym 2100 Work Phone: Start: 04-14-2021 AUDIT No PCP None [facility] Work Phone: Patient encounter status No PCP None LH-Smapddw-Nolljtq 2100 Work Phone: Procedures Date Procedure Procedure Detail Performing Clinician Start: 04-14-2025 Colonoscopy Christine calvert SENIOR MARKETING SPECIALIST-C Work Phone: Start: 01-04-2022 Mammography Caterina Na lepka Arteriovenous anastomosis No PCP None Arteriovenous fistul a (morphologic abnormality) CHRISTINE TO MANAGER FUND-ROUNDHOUSE FIRER/FIREMAN Comment on above: left arm Plan of Treatment Date Care Activity Detail Author Start: 04-14-2025 Patient discharge [facility] Start: 07-06-2023 Influenza vaccination [facility] Start: 01-04-2023 Mammography MAMMOGRAM [facility] Start: 11-05-2022 DEPRESSION ASSESSMENT DEPRESSION ASSESSMENT [facility] Start: 2022 COLOGUARD (FIT-DNA) COLOGUARD (FIT-DNA) [facility] Start: 2022 Colonoscopy COLONOSCOPY [facility] Start: 2022 COLORECTAL CANCER SCREENING COLORECTAL CANCER SCREENING [facility] Start: [address] COLONOGRAPHY [facility] Start: 2022 DIABETES SCREEN DIABETES SCREEN [facility] Start: 2022 FECAL OCCULT BLOOD FECAL OCCULT BLOOD [facility] Start: 2022 LIPID SCREEN LIPID SCREEN [facility] Start: 2022 SIGMOIDOSCOPY SIGMOIDOSCOPY [facility] Start: 07-12-2022 JADE, Provider: Melonie Gates, Status: Reyes, Time: 11:00 AM JADE, Provider: Melonie Gates, Status: Reyes, Time: 11:00 AM EM-Awwkokz-Grrvqkz 2100 Work Phone: Start: 06-05-2022 ESCOBAR, Provider: ASSOCIATE PROFESSOR OF BIOSTATISTICS,[id number], Status: Pen, Time: 11:30 AM ESCOBAR, Provider: ASSOCIATE PROFESSOR OF BIOSTATISTICS,[id number], Status: Pen, Time: 11:30 AM UL-Fmtgthuzgw-[facility] Work Phone: Start: 01-04-2022 COVID-19 VACCINE (4 - Booster for Moderna series) COVID-19 VACCINE (4 - Booster for Moderna series) [facility] Start: 2007 HPV TESTING HPV TESTING [facility] Start: 1998 PAP TESTING PAP TESTING [facility] Start: 1996 Urine microalbumin profile DTAP,TDAP,TD (1 - Tdap) [facility] Start: 1995 HEPATITIS C SCREENING HEPATITIS C SCREENING [facility] Start: 1995 HIV SCREENING HIV SCREENING [facility] Start: 04-29-1978 COVID-19 VACCINE (#1) COVID-19 VACCINE (#1) [facility] Start: 1977 HEPATITIS B (1 of 3 - 3-dose series) HEPATITIS B (1 of 3 - 3-dose series) [facility] Patient referral [facility] Work Phone: [facility] Immunizations Immunization Date Immunization Notes Care Provider [facility] 10-23-2022 tetanus toxoid, reduced diphtheria toxoid, and acellular pertussis vaccine, adsorbed; Translations: [Boostrix (Tdap)] CHRISTINE BUTTS [facility] 08-30-2022 influenza virus vaccine, unspecified formulation TEMO CERVANTES MD [facility] 08-30-2022 influenza, injectabl e, quadrivalent, preservative free No PCP None XR-Ckkvsxkhvt-QYT [place] [facility] Work Phone: 08-30-2022 Moderna COVID-19 Biv al Booster 50 MCG/0.5ML Intramuscular Suspension No PCP None UJ-Mfwmlwlhjb-GAO [place] [facility] Work Phone: 08-30-2022 SARS-CoV-2 (CV19)mRNA-0523 bivalent vac TEMO CERVANTES MD [facility] 11-09-2021 Moderna COVID-19 Vaccine 100 MCG/0.5ML Intramuscular Suspension No PCP None [facility] 02-10-2021 Moderna COVID-19 Vaccine 100 MCG/0.5ML Intramuscular Suspension No PCP None [facility] 01-13-2021 Moderna COVID-19 Vaccine 100 MCG/0.5ML Intramuscular Suspension No PCP None [facility] Payers Date Payer Category Payer Unknown 2025 Self-pay 2025 Unknown [id number] 2021 Medicaid [employer] [id number] 2021-Present [phone] [address] [place] [address] Medicaid [id number] 2021 Medicare [employer] [facility] [place] [place] [facility] [id number] 2021-Present [phone] [address] [place] [address] Medicare [id number] 2021 Unknown [id number] 1977 Unknown [id number] 1977 Unknown [id number] 1977 Unknown [id number] 12.21.830.1.441386.3.579.2.356 1977 Unknown [id number] 12.21.830.1.570229.3.579.2.356 1977 Unknown [id number] 1977 Unknown [id number] 2.16.840.1.681883.3.579.2.356 1977 Unknown [id number] 2.16.840.1.928666.3.579.2.356 1977 Unknown [id number] 2.16.840.1.910418.3.579.2.356 1977 Unknown [id number] 2.16.840.1.489978.3.579.2.356 1977 Unknown [id number] 2.16.840.1.272053.3.579.2.356 1977 Unknown [id number] 2.16840.1.989881.3.579.2 1977 Unknown [id number] 2.16.840.1.568601.3.579.2 1977 Unknown [id number] 2.840.1.929242.3.579.262 1977 Unknown [id number] 2.16840.1.345243.3.579.2 1977 Unknown [id number] 2.16840.1.303127.3.579.262 1977 Unknown [id number] 2.16.840.1.408420.3.579.262 1977 Unknown [id number] 2.16.840.1.085979.3.579.262 1977 Unknown [id number] 2.16.840.1.070935.3.579.262 1977 Unknown [id number] 2.16.840.1.370286.3.579.2 1977 Unknown [id number] 2.16.840.1.133435.3.579.262 1977 Unknown [id number] 2.16.840.1.223866.3.579.262 1977 Unknown [id number] 2.16.840.1.080565.3.579.2.627 1977 Unknown [id number] 2.16.840.1.952105.3.579.2.627 1977 Unknown [id number] 2.16.840.1.191218.3.579.2.627 1977 Unknown [id number] 2.16.840.1.940403.3.579.2.627 1977 Unknown [id number] 2.16.840.1.667930.3.579.2.627 Medicare MEDICARE PART A B [id number] Unknown [id number] Unknown [id number] Unknown [id number] 2.16.840.1.712358.3.579.2.462 Unknown [id number] 2.16.840.1.154732.3.579.2.462 Unknown [id number] 2.16.840.1.558222.3.579.2.462 Social History Date Type Detail Facility Former smoker Former smoker [facility] [facility] Work Phone: Start: 08-09-2022 End: 04-13-2025 Tobacco smoking status [facility]oker (finding[facility] Start: 1975 Sex Assigned At Female A [facility] History of tobacco use Current smoker [facility] Start: 09-19-2019 Tobacco use and exposure Smokeless tobacco non-user [facility] Start: 09-19-2019 Alcohol intake Ex-drinker (finding) [facility] Start: 1975 Sex Assigned At Not on file [facility] Sexual Orientation [facility] Start: 05-18-2021 Sex Female (finding) [facility] NEGATED: Highlighted row Not [facility] Goals Date Patient Goal Desired Activity /State Functional Status Date Assessment Result Facility 03-02-2025 Functional Status ID band on, Safety level maintained [facility] 01-23-2024 Functional Status Up ad rc [place] [facility] 01-23-2024 Functional Status Standard Safet y ID band on, Call device within reach, Bed in low position, Wheels locked, Visitor at bedside [facility] 05-19-2022 PHQ-9 [id number] In Re mission (0-4) [facility] Work Phone: Mental Status Date Assessment Result Facility 04-14-2025 Cognitive function Voice/Name;Touch/Shaki ng [facility] Work Phone: 03-02-2025 Mental Status Orientation Orie nted x 4, Follows simple commands [facility] 01-23-2024 Mental Status Orientation Oriented x 4 [facility] 01-23-2024 Mental Status [facility] Clinical Notes 06-27-2021 to 04-14-2025 Note Date & Type Note Facility 04-14-2025 History and physi vicky note Note Date/Time April 14, 2025 3:20pm [facility] Medical Records Department [address] [place] [address] History & Physical Exam 04/14/25 1518 MR#: [id number] Acct: [id number] Name: JESSICA TOVAR Rep #:[id number] : 1975 49 From: Alberto Friend DO PCP: DARREN Beltran Status:REG S DC Location: [place] [address] HPI - General General Date of Admission: 04/14/25 Date of Service: 04/14/25 Chief Complaint: GERD screening colonoscopy HPI Narrative JESSICA TOVAR, is a 49 F who presents for a screening colonoscopy. Pt has never had a colonoscopy before. She has chronic constipation due to being ESRD on dialysis. She will take stool softener when she needs it. SHe typically has abm every few days. SHe denies family hx of colon cancer. Pt also has a hx of heartburn and has been on famotidine. Her PCP recently switched her to omeprazole. SHe has been on this for a few weeks and has not had any heartburn. PFSH Medical History Wears glasses Marijuana use Arthritis History of renal disease Anemia Restless legs Dietary restriction Heartburn Former smoker Home Medications ?Medication ?Instructions ?Recorded ?Last Taken ?Type amlodipine 5 mg tablet 5 mg PO QHS 01/29/25 5 History calcitriol 0.5 mcg capsule 0.5 mcg PO QDAY 01/29/25 History cinacalcet 90 mg tablet 90 mg PO QDAY 01/29/2504/13 History labetalol 100 mg tablet 100 mg PO BID 01/29/2504/14 10:00 History losartan 50 mg tablet 50 mg PO BID 01/29/25 10:00 History medroxyprogesterone 10 mg tablet 10 mg PO QDAY 5 Unknown History multivitamin 1 tab PO QDAY 01/29/2504/10 History omeprazole 20 mg capsule,delayed 20 mg PO QDAY 5 04/13/25 History release ropinirole 0.5 mg tablet 1.5 mg PO BID 01/29/2504/13 History sevelamer HCl 800 mg tablet 800 mg PO TID 01/29/2505/29 History peg 3350-electrolytes 236 240 ml PO Q10M #4,000 mL 12/3004/13/25 Rx gram-22.74 gram-6.74 gram-5.86 gram solution (Golytely) Allergy/AdvReac Type Severity Reaction Status Date / Time No Known Allergies Allergy Verified 04/14/25 13:11 Social History Smoking Status: Former smoker alcohol intake: current alcohol intake frequency: holidays/special occasions only substance use type: marijuana caffeine: Yes Type: coffee ROS Constitutional Constitutional: Denies fatigue, fever(s), poor appetite, weight gain or weight loss Gastrointestinal Gastrointestinal: Denies belching, bloating, change in bowel habits, change in stool character, chewing difficulty, coffee ground emesis, constipation, cramping, diarrhea, dyspepsia, dysphagia, early satiety, excessive flatus, fecalincontinence, heartburn, hematemesis, hematochezia, hemorrhoids, loose stools, melena, nausea, odynophagia, rectal bleeding, tenesmus, vomiting or weight changes Vital Signs Vital Signs Vital Signs: 04/14/25 13:14 04/14/25 13:17 04/14/25 13:31 Temperature 97.3 F L 97.3 F L Temperature Source Temporal Pulse Rate 80 80 Respiratory Rate 18 18 Respiratory Pattern Normal Blood Pressure 138/85 H 138/85 H Blood Pressure Mean 102 Blood Pressure Source Monitor Blood Pressure Position Semi-Fowlers Blood Pressure Location Right Arm Pulse Ox 100 100 Oxygen Delivery Method Room Air Weight Weight: 219 lb Body Mass Index (BMI) 32.3 Physical Exam Const alert, oriented x3, no apparent distress and healthy appearing General Appearance: cooperative GI normal to inspection, nondistended, normoactive bowel sounds, soft to palpation,non-tender and non-distended Percussion: normal to percussion Rectal Exam: deferred Results Lab / Micro Data Labs: Laboratory Results - last 24 hr 04/14/25 12:54: Urine Test Negative Assessment & Plan Assessment/Plan (1) Screening for colon cancer: (2) Chronic GERD: PLAN: Assessment and Plan Assessment and Plan (1) Chronic GERD: Status: Chronic Plan: THis is a 49 yo female pt here today for evaluation and to be scheduled for screening colonoscopy. Pt has a hx of GERD previously on H2 elle but recentlychanged to PPI. She feels it is well controlled at this time. However due to long hx she will undergo EGD. She will also have a colonoscopy as the same time for colon cancer screening. She is agreeable to plan -EGD -Colonoscopy -f/u after procedure (2) Screening for colon cancer: Status: Acute 04/14/25 1520 <Electronically signed by Alberto Strickland DO> Cosigner Signature (if applicable): CC: DARREN To; Alberto Strickland DO~ Signed [facility] Work Phone: [phone]) 736-803406-10-2025 Procedure note [facility] Medical Records Department [address] [place] [address] Operative Report - CC Letter MR#: [id number] Acct: [id number] Name: JESSICA TOVAR Rep #:[id number] : 1975 49 From: Alberto Strickland DO PCP: DARREN Beltran Status:REG S DC 04/14/2025 Christine To Re : Colonoscopy procedure for Jessica Tovar Dear Zuleika This procedure was performed on Monday, April 14, 2025. My impressions and recommendations are as follows: Impressions : - Three 1 to 2 mm polyps at the hepatic flexure and in the cecum, removed with a hot snare. Resected and retrieved. - Diverticulosis in the recto-sigmoid colon and in the sigmoid colon. Recommendations : - Discharge patient to home. - Resume previous diet. - Continue present medications. - Repeat colonoscopy in 5 years for surveillance. My findings are described in the full procedure note, which is enclosed. If I can be of further assistance, please feel free to contact me at . Sincerely, Alberto Strickland DO 04/14/2025 4:57:08 PM This report has been signed electronically. 04/14/251656 Date _ Alberto Strickland DO Cosigner Signature: Date (if indicated) CC: SENIOR MARKETING SPECIALIST-C Christine To; Alberto Strickland DO ~ Date Dictated: 04/14/25 1612 Date Transcribed: E Commerce Architect: RF Signed [facility]06-10-2025 Procedure note [facility] Medical Records Department [address] [place] [address] Colonoscopy Report MR#: [id number] Acct: [id number] Name: JESSICA TOVAR Rep #:[id number] : 1975 49 From: Alberto Strickland DO PCP: DARREN Beltran Status:REG S DC Patient Name: Jessica Tovar Procedure Date: 04/14/2025 4:12 PM Date of : 1975 Age: 49 Procedure: Colonoscopy Indications: Screening for colorectal malignant neoplasm Providers: Alberto Strickland DO Referring MD: Alberto Strickland DO Medicines: Monitored Anesthesia Care Patient Profile: This is a 49 year old female. Refer to note in patient chart for documentation of history and physical. Patient has symptoms of acute epigastric abdominal pain, chronic heartburn and chronic nausea. Last Colonoscopy: none. The patient's first colonoscopy is today. Complications: No immediate complications. Procedure: Pre-Anesthesia Assessment: - Prior to the procedure, a History and Physical was performed, and patient medications and allergies were reviewed. The patient is competent. The risks and benefits of the procedure and the sedation options and risks were discussed with the patient. All questions were answered and informed consent was obtained. Patient identification and proposed procedure were verified by the physician in the pre-procedure area. Mental Status Examination: alert and oriented. Airway Examination: normal oropharyngeal airway and neck mobility. Respiratory Examination: clear to auscultation. CV Examination: normal. Prophylactic Antibiotics: The patient does not require prophylactic antibiotics. Prior Anticoagulants: The patient has taken no anticoagulant or antiplatelet agents except for NSAID medication. ASA Grade Assessment: I - A normal, healthy patient. After reviewing the risks and benefits, the patient was deemed in satisfactory condition to undergo the procedure. The anesthesia plan was to use monitored anesthesia care (MAC). Immediately prior to administration of medications, the patient was re-assessed for adequacy to receive sedatives. The heart rate, respiratory rate, oxygen saturations, blood pressure, adequacy of pulmonary ventilation, and response to care were monitored throughout the procedure. The physical status of the patient was re-assessed after the procedure. After I obtained informed consent, the scope was passed under direct vision. Throughout the procedure, the patient's blood pressure, pulse, and oxygen saturations were monitored continuously. The Colonoscope was introduced through the anus and advanced to the cecum, identified by appendiceal orifice and ileocecal valve. The colonoscopy was performed without difficulty. The patient tolerated the procedure well. The quality of the bowel preparation was good. The terminal ileum, ileocecal valve, appendiceal orifice, and rectum were photographed. Scope In: 4:14:35 PM Scope Withdrawal Time 0 hours 13 minutes 26 seconds Scope Out: 4:40:37 PM Total Procedure Duration Time 0 hours 26 minutes 2 seconds Findings: The perianal and digital rectal examinations were normal. Three sessile polyps were found in the hepatic flexure and cecum. The polyps were 1 to 2 mm in size. These polyps were removed with a hot snare. Resection and retrieval were complete. Verification of patient identification for the specimen was done. Estimated blood loss was minimal. Multiple small-mouthed diverticula were found in the recto-sigmoid colon and sigmoid colon. Impression: - Three 1 to 2 mm polyps at the hepatic flexure and in the cecum, removed with a hot snare. Resected and retrieved. - Diverticulosis in the recto-sigmoid colon and in the sigmoid colon. Recommendation: - Discharge patient to home. - Resume previous diet. - Continue present medications. - Repeat colonoscopy in 5 years for surveillance. Procedure Code(s): --- Professional --- 87174, Colonoscopy, flexible; with removal of tumor(s), polyp(s), or other lesion(s) by snare technique CPT copyright 2021 [employer]. All rights reserved. The codes documented in this report are preliminary and upon kitchen aide review may be revised to meet current compliance requirements. Alberto Strickland DO 04/14/2025 4:57:08 PM This report has been signed electronically. Number of Addenda: 0 Note Initiated On: 04/14/2025 4:12 PM 04/14/25 1657 Date _ Alberto Strickland DO Cosigner Signature: Date (if indicated) CC: SENIOR MARKETING SPECIALIST-C Christine To; Alberto Strickland DO ~ Date Dictated: 04/14/25 1612 Date Transcribed: E Commerce Architect: RF Signed [facility]06-10-2025 Procedure note [facility] Medical Records Department [address] [facility] [place] [address] EGD Report MR#: [id number] Acct: [id number] Name: JESSICA TOVAR Rep #:[id number] : 1975 49 From: Alberto Strickland DO PCP: DARREN Beltran Status:REG S DC Patient Name: Jessica Tovar Procedure Date: 04/14/2025 3:59 PM Date of : 1975 Age: 49 Procedure: Upper GI endoscopy Indications: Epigastric abdominal pain, Functional Dyspepsia, Suspected esophageal reflux Providers: Alberto Strickland DO Referring MD: Alberto Strickland DO Medicines: Monitored Anesthesia Care Patient Profile: This is a 49 year old female. Refer to note in patient chart for documentation of history and physical. Patient has symptoms of acute epigastric abdominal pain, chronic heartburn and chronic nausea. Complications: No immediate complications. Procedure: Pre-Anesthesia Assessment: - Prior to the procedure, a History and Physical was performed, and patient medications and allergies were reviewed. The patient is competent. The risks and benefits of the procedure and the sedation options and risks were discussed with the patient. All questions were answered and informed consent was obtained. Patient identification and proposed procedure were verified by the physician in the pre-procedure area. Mental Status Examination: alert and oriented. Airway Examination: normal oropharyngeal airway and neck mobility. Respiratory Examination: clear to auscultation. CV Examination: normal. Prophylactic Antibiotics: The patient does not require prophylactic antibiotics. Prior Anticoagulants: The patient has taken no anticoagulant or antiplatelet agents except for NSAID medication. ASA Grade Assessment: I - A normal, healthy patient. After reviewing the risks and benefits, the patient was deemed in satisfactory condition to undergo the procedure. The anesthesia plan was to use monitored anesthesia care (MAC). Immediately prior to administration of medications, the patient was re-assessed for adequacy to receive sedatives. The heart rate, respiratory rate, oxygen saturations, blood pressure, adequacy of pulmonary ventilation, and response to care were monitored throughout the procedure. The physical status of the patient was re-assessed after the procedure. After obtaining informed consent, the endoscope was passed under direct vision. Throughout the procedure, the patient's blood pressure, pulse, and oxygen saturations were monitored continuously. The Colonoscope was introduced through the mouth, and advanced to the third part of the duodenum. Small bowel enteroscopy was deemed necessary. The upper GI endoscopy was accomplished without difficulty. The patient tolerated the procedure well. Scope In: 4:08:40 PM Scope Out: 4:12:27 PM Total Procedure Duration Time 0 hours 3 minutes 47 seconds Findings: LA Grade A (one or more mucosal breaks less than 5 mm, not extending between tops of 2 mucosal folds) esophagitis with no bleeding was found 38 to 40 cm from the incisors. Biopsies were taken with a cold forceps for histology. Verification of patient identification for the specimen was done. Estimated blood loss was minimal. No gross lesions were noted in the entire examined stomach. Localized mild inflammation characterized by erosions and erythema was found in the duodenal bulb. Biopsies were taken with a cold forceps for histology. Verification of patient identification for the specimen was done. Estimated blood loss was minimal. Impression: - LA Grade A reflux esophagitis with no bleeding. Biopsied. - No gross lesions in the entire stomach. - Chronic duodenitis. Biopsied. Recommendation: - Discharge patient to home. - Resume previous diet. - Continue present medications. - Await pathology results. Procedure Code(s): --- Professional --- 24605, Small intestinal endoscopy, enteroscopy beyond second portion of duodenum, not including ileum; with biopsy, single or multiple CPT copyright 2021 [employer]. All rights reserved. The codes documented in this report are preliminary and upon kitchen aide review may be revised to meet current compliance requirements. Alberto Strickland DO 04/14/2025 4:50:55 PM This report has been signed electronically. Number of Addenda: 0 Note Initiated On: 04/14/2025 3:59 PM 04/14/25 1650 Date _ Alberto Strickland DO Cosigner Signature: Date (if indicated) CC: DARREN To; Alberto Strickland DO ~ Date Dictated: 04/14/25 1559 Date Transcribed: E Commerce Architect: RF Signed [facility]06-10-2025 Procedure note [facility] Medical Records Department [address] [place] [address] Operative Report - CC Letter MR#: [id number] Acct: [id number] Name: JESSICA TOVAR Rep #:[id number] : 1975 49 From: Alberto Strickland DO PCP: DRAREN Beltran Status:REG S DC 04/14/2025 Christine To Re : Upper GI endoscopy procedure for Jessica Tovar Dear Zuleika This procedure was performed on Monday, April 14, 2025. My impressions and recommendations are as follows: Impressions : - LA Grade A reflux esophagitis with no bleeding. Biopsied. - No gross lesions in the entire stomach. - Chronic duodenitis. Biopsied. Recommendations : - Discharge patient to home. - Resume previous diet. - Continue present medications. - Await pathology results. My findings are described in the full procedure note, which is enclosed. If I can be of further assistance, please feel free to contact me at . Sincerely, Alberto Strickland DO 04/14/2025 4:50:55 PM This report has been signed electronically. 04/14/251649 Date _ Alberto Strickland DO Cosigner Signature: Date (if indicated) CC: SENIOR MARKETING SPECIALIST-C Christine To; Alberto Strickland DO ~ Date Dictated: 04/14/25 1559 Date Transcribed: E Commerce Architect: RF Signed [facility]06-10-2025 Consult note [facility] Medical Records Department [address] [facility] [place] [address] Anesthesia Postop Eval I 04/14/251649 MR#: [id number] Acct: [id number] Name: JESSICA TOVAR Rep #:[id number] : 1975 49 From: Andrew gonzalez CRNA PCP: DARREN Beltran Status:REG S DC Y Race: AA Location: AC AC12-1 Anesthesia: Postop Eval I Current Vital Signs Temperature: 97.6 F Pulse Rate: 86 Blood Pressure: 127/73 Respiratory Rate: 16 Pulse Ox: 100 Oxygen Delivery Method: Room Air Assessment Airway patent: Yes Spontaneous unlabored respirations: Yes Mental status: Awake and Calm nausea: No Vomiting: No Anesthesia Complication: No Fluid Hydration Crystalloid volume administer (ml): 1,000 Total IV fluid infused: 1,000 Progress Note Anesthesia document: Postop Eval 1 completed: Yes 04/14/25 1650 ero MANAGER FILE> Date _ Andrew Carriero MANAGER FILE Cosigner Signature: Date CC: ~ Signed [facility]06-10-2025 Consult note Author Valentino Mallory [facility] Note Date/Time April 14, 2025 1:31 pm [facility] Medical Records Department [address] [place] [address] Pre-Anesthesia Evaluation 04/14/25 1330 MR#: [id number] Acct: [id number] Name: JESSICA TOVAR Rep #:[id number] : 1975 49 From: Valentino Mallory MD PCP: DARREN Beltran Status:REG S DC Y Race: AA Location: [address] ASA Classification* ASA Classification ASA Classification: 2 Assessment & Plan Anesthesia* Anesthesia Assessment Anesthesia Assessment: Discussed sedation and/or anesthesia options, risks, benefits, and alternatives with patient/parents/legal guardian/POA. Questions invited. The patient/parents/legal guardian/POA seems to understand and agrees to proceedwith anesthesia plan. Reviewed the physical assessment, medical history, allergy history and patient home medications list prior to surgery/procedure/anesthetic and documented any changes. Performed airway and anesthesia risk assessments. Anesthesia Type Anesthesia Type: MAC Anesthesia Focused Assessment* Temperature: 97.3 F Pulse Rate: 80 Blood Pressure: 138/85 Respiratory Rate: 18 Pulse Ox: 100 Airway Assessment Mouth opens: >3 cm Mallampati Score: II Labs Anesthesia Preop lab: CBC CHEMISTRY COAG Urine Test Negative Negative 04/14/25 12:54 04/14/25 Pre-Assessment Diagnosis/Proposed Procedure Planned Operative Procedure(s): Colonoscopy,EGD Anesthesia History Anesthesia History - patent counsel: Anesthesia History - patent counsel Hx Hospitalization No 04/13/25 08:49 Any Problems With Anesthesia No 04/13/25 08:49 Cholinesterase deficiency No 04/13/25 08:49 You/Your Family Experience No 04/13/25 08:49 fever (hyperthermia) with Relationship Recent Exposure to Contagious No 04/14/25 13:14 Disease Does patient have nerve No 04/13/25 08:49 stimulator Patient instructed to have device shut off --Does patient have Pacemaker or ICD? When Was Last Pacemaker Check QUESTION #4 FULL TEXT: You/Your Family Experience fever (hyperthermia) with Anesthesia Last Oral Intake Last Oral intake: Last Oral Intake NPO since Meds taken in AM with sips of water? Meds patient instructed to take am of surgery PONV PONV - patent counsel: PONV - patent counsel Female Yes 04/13/25 08:49 HX of Motion Sickness No 04/13/25 08:49 HX of N/V After Surgery No 04/13/25 08:49 Non-Smoker Yes 04/13/25 08:49 Duration of Surgery greater No 04/13/25 08:49 than 60 minutes Number of Risk Factors 2 04/13/25 08:49 PONV Score Moderate Risk 04/13/25 08:49 Height & Weight Height & Weight: Anesthesia: Height & Weight Height 5 ft 9 in 04/14/25 13:17 Weight: 99.337 kg 04/14/25 13:17 Body Mass Index (BMI) 32.3 04/14/25 13:17 Respiratory Assessment Respiratory Assessment - patent counsel: Respiratory Tract Infection Hx - patent counsel Hx Respiratory Tract Infection No 04/13/25 08:49 STOP Sleep Apnea STOP Sleep Apnea - patent counsel: STOP Sleep Apnea - patent counsel Hx Hypertension Yes: ON MEDICATION 04/13/25 08:49 Hx Sleep Apnea No 04/13/25 08:49 CPAP BIPAP Do you snore loudly (louder Yes 04/13/25 08:49 than talking or can be heard Do you often feel tired/ Yes 04/13/25 08:49 fatigued/ sleepy during daytime? Has anyone observed you stop No 04/13/25 08:49 breathing during sleep? STOP Results Positive 04/13/25 08:49 QUESTION #5 FULL TEXT : Do you snore loudly (louder than talking or can be heard through closed doors)? Tobacco Use History Tobacco Use History - patent counsel: Tobacco Use History - patent counsel Tobacco Use Smoking Status Former smoker 04/13/25 08:49 Hx Tobacco Use No 04/13/25 08:49 Years Smoking 10 04/13/25 08:49 Packs Smoked per Day 1 04/13/25 08:49 Smoking Cessation Date was No - quit smoking greater 04/13/25 08:49 within the last 15 years than 15 years ago Hx Smoking Cessation Date Hx Smoking Cessation No 04/13/25 08:49 Counseling Hematologic Medial History Hematologic Hx - patent counsel: Hematologic Medical Hx - incident response manager Hx of Blood Transfusion No 04/13/25 08:49 Hx of Transfusion in last 3 No 04/13/25 08:49 Months Date of Last Transfusion (if within last 3 months) Ever experience any problems No 04/13/25 08:49 with transfusion(s)? Specify any problems Hx of Preganancy in last 3 No 04/13/25 08:49 Months Nurse Filling Out Transfusion ROBERTA 04/13/25 08:49 & Questions: Date: 04/13/25 04/13/25 08:49 Time: 08:53 04/13/25 08:49 Patient unable to answer at this time (ie. confused, unrespo /Reproduction History /Reproductive History - patent counsel: /Reproductive Hx- patent counsel Hx Now No 04/13/25 08:49 Gestational Age (in weeks): EDC: Hx Hx Para Hx Section SAB No 04/13/25 08:49 Active Medications Active Medications: Current Medications Generic Name Dose Route Start Last Admin Trade Name Freq PRN Reason Stop Dose Admin Sodium Chloride 1,000 mls @ 15 mls/hr 04/14/25 12:55 IV .Q48H ANTOINE PFSH Medical History Wears glasses Marijuana use Arthritis History of renal disease Anemia Restless legs Dietary restriction Heartburn Former smoker Home Medications ?Medication ?Instructions ?Recorded ?Last Taken ?Type amlodipine 5 mg tablet 5 mg PO QHS 01/29/25 5 History calcitriol 0.5 mcg capsule 0.5 mcg PO QDAY 01/29/25 History cinacalcet 90 mg tablet 90 mg PO QDAY 01/29/2504/13 History labetalol 100 mg tablet 100 mg PO BID 01/29/2504/14 10:00 History losartan 50 mg tablet 50 mg PO BID 01/29/25 10:00 History medroxyprogesterone 10 mg tablet 10 mg PO QDAY 5 Unknown History multivitamin 1 tab PO QDAY 01/29/2504/10 History omeprazole 20 mg capsule,delayed 20 mg PO QDAY 5 04/13/25 History release ropinirole 0.5 mg tablet 1.5 mg PO BID 01/29/2504/13 History sevelamer HCl 800 mg tablet 800 mg PO TID 01/29/2505/29 History peg 3350-electrolytes 236 240 ml PO Q10M #4,000 mL 12/3004/13/25 Rx gram-22.74 gram-6.74 gram-5.86 gram solution (Golytely) Allergy/AdvReac Type Severity Reaction Status Date / Time No Known Allergies Allergy Verified 04/14/25 13:11 Social History Smoking Status: Former smoker alcohol intake: current alcohol intake frequency: holidays/special occasions only substance use type: marijuana caffeine: Yes Type: coffee Review of Systems (Anesthesia) ROS Narrative System reviewed and no additional complaints, except as documented. 04/14/25 1331 <Electronically signed by Valentino Mallory MD > Date _ Valentino Mallory MD Cosigner Signature: Date CC: ~ Signed [facility] Work Phone: [phone] 858-811506-10-2025 History and physical note [facility] Medical Records Department [address] [place] [address] History & Physical Exam 04/14/25 1518 MR#: [id number] Acct: [id number] Name: JESSICA TOVAR Rep #:[id number] : 1975 49 From: Alberto Friend DO PCP: DARREN Beltran Status:REG S DC Location: [place] [address] HPI - General General Date of Admission: 04/14/25 Date of Service: 04/14/25 Chief Complaint: GERD screening colonoscopy HPI Narrative JESSICA TOVAR, is a 49 F who presents for a screening colonoscopy. Pt has never had a colonoscopy before. She has chronic constipation due to being ESRD on dialysis. She will take stool softener when she needs it. SHe typically has abm every few days. SHe denies family hx of colon cancer. Pt also has a hx of heartburn and has been on famotidine. Her PCP recently switched her to omeprazole. SHehas been on this for a few weeks and has not had any heartburn. [facility] Medical History Wears glasses Marijuana use Arthritis History of renal disease Anemia Restless legs Dietary restriction Heartburn Former smoker Home Medications ?Medication ?Instructions ?Recorded ?Last Taken ?Type amlodipine 5 mg tablet 5 mg PO QHS 01/29/25 5 History calcitriol 0.5 mcg capsule 0.5 mcg PO QDAY 01/29/25 History cinacalcet 90 mg tablet 90 mg PO QDAY 01/29/2504/13 History labetalol 100 mg tablet 100 mg PO BID 01/29/2504/14 10:00 History losartan 50 mg tablet 50 mg PO BID 01/29/25 10:00 History medroxyprogesterone 10 mg tablet 10 mg PO QDAY 5 Unknown History multivitamin 1 tab PO QDAY 01/29/2504/10 History omeprazole 20 mg capsule,delayed 20 mg PO QDAY 5 04/13/25 History release ropinirole 0.5 mg tablet 1.5 mg PO BID 01/29/2504/13 History sevelamer HCl 800 mg tablet 800 mg PO TID 01/29/2505/29 History peg 3350-electrolytes 236 240 ml PO Q10M #4,000 mL 12/3004/13/25 Rx gram-22.74 gram-6.74 gram-5.86 gram solution (Golytely) Allergy/AdvReac Type Severity Reaction Status Date / Time No Known Allergies Allergy Verified 04/14/25 13:11 Social History Smoking Status: Former smoker alcohol intake: current alcohol intake frequency: holidays/special occasions only substance use type: marijuana caffeine: Yes Type: coffee ROS Constitutional Constitutional: Denies fatigue, fever(s), poor appetite, weight gain or weight loss Gastrointestinal Gastrointestinal: Denies belching, bloating, change in bowel habits, change in stool character, chewing difficulty, coffee ground emesis, constipation, cramping, diarrhea, dyspepsia, dysphagia, earlysatiety, excessive flatus, fecalincontinence, heartburn, hematemesis, hematochezia, hemorrhoids, loose stools, melena, nausea, odynophagia, rectal bleeding, tenesmus, vomiting or weight changes Vital Signs Vital Signs Vital Signs: 04/14/25 13:14 04/14/25 13:17 04/14/25 13:31 Temperature 97.3 F L 97.3 F L Temperature Source Temporal Pulse Rate 80 80 Respiratory Rate 18 18 Respiratory Pattern Normal Blood Pressure 138/85 H 138/85 H Blood Pressure Mean 102 Blood Pressure Source Monitor Blood Pressure Position Semi-Fowlers Blood Pressure Location Right Arm Pulse Ox 100 100 Oxygen Delivery Method Room Air Weight Weight: 219 lb Body Mass Index (BMI) 32.3 Physical Exam Const alert, oriented x3, no apparent distress and healthy appearing General Appearance: cooperative GI normal to inspection, nondistended, normoactive bowel sounds, soft to palpation,non-tender and non-distended Percussion: normal to percussion Rectal Exam: deferred Results Lab / Micro Data Labs: Laboratory Results - last 24 hr 04/14/25 12:54: Urine Test Negative Assessment & Plan Assessment/Plan (1) Screening for colon cancer: (2) Chronic GERD: PLAN: Assessment and Plan Assessment and Plan (1) Chronic GERD: Status: Chronic Plan: THis is a 49 yo female pt here today for evaluation and to be scheduled for screening colonoscopy. Pt has a hx of GERD previously on H2 elle but recentlychanged to PPI. She feels it is well controlled at this time. However due to long hx she will undergo EGD. She will also have a colonoscopy as the same time for colon cancer screening. She is agreeable to plan -EGD -Colonoscopy -f/u after procedure (2) Screening for colon cancer: Status: Acute 04/14/25 1520 Cosigner Signature (if applicable): CC: DARREN To; Alberto Strickland, ~ Signed [facility]06-10-2025 [facility] Medical Records Department [address] [place] [address] History Physical Exam 04/14/25 1518 MR#: [id number] Acct: [id number] Name: JESSICA TOVAR Rep #: [id number] : 1975 49 From: Alberto Strickland DO PCP: DARREN Beltran Status:REG [facility] [place] Location: [place] [address] HPI - General General Date of Admission: 04/14/25 Date of Service: 04/14/25 Chief Complaint: GERD screening colonoscopy HPI Narrative JESSICA TOVAR, is a 49 F who presents for a screening colonoscopy. Pt has never had a colonoscopy before. She has chronic constipation due to being ESRD on dialysis. She will take stool softener when she needs it. SHe typically has a bm every few days. SHe denies family hx of colon cancer. Pt also has a hx of heartburn and has been on famotidine. Her PCP recently switched her to omeprazole. SHe has been on this for a few weeks and has not had any heartburn. [facility] Medical History Wears glasses Marijuana use Arthritis History of renal disease Anemia Restless legs Dietary restriction Heartburn Former smoker Home Medications ???Medication ???Instructions ???Recorded ???Last Taken ???Type amlodipine 5 mg tablet 5 mg PO QHS 01/29/25 04/13/25 Hist ory calcitriol 0.5 mcg capsule 0.5 mcg PO QDAY 01/29/25 04/10/25 History cinacalcet 90 mg tablet 90 mg PO QDAY 01/29/25 04/13/25 Hi story labetalol 100 mg tablet 100 mg PO BID 01/29/25 04/14/25 10 :00 History losartan 50 mg tablet 50 mg PO BID 01/29/25 04/14/25 10: 00 History medroxyprogesterone 10 mg tablet 10 mg PO QDAY 01/29/25 Unknown His tory multivitamin 1 tab PO QDAY 01/29/25 04/10/25 Hi story omeprazole 20 mg capsule,delayed 20 mg PO QDAY 01/29/25 04/13/25 Hi story release ropinirole 0.5 mg tablet 1.5 mg PO BID 01/29/25 04/13/25 Hi story sevelamer HCl 800 mg tablet 800 mg PO TID 01/29/25 04/11/25 Hi story peg 3350-electrolytes 236 240 ml PO Q10M #4,000 mL 02/04/25 04/13/25 Rx gram-22.74 gram-6.74 gram-5.86 gram solution (Golytely) Allergy/AdvReac Type Severity Reaction Status Date / Time No Known Allergies Allergy Verified 04/14/25 13:11 Social History Smoking Status: Former smoker alcohol intake: current alcohol intake frequency: holidays/special occasions only substance use type: marijuana caffeine: Yes Type: coffee ROS Constitutional Constitutional: Denies fatigue, fever(s), poor appetite, weight gain or weight loss Gastrointestinal Gastrointestinal: Denies belching, bloating, change in bowel habits, change in stool character, chewing difficulty, coffee ground emesis, constipation, cramping, diarrhea, dyspepsia, dysphagia, e tamia satiety, excessive flatus, fecal incontinence, heartburn, hematemesis, hematochezia, hemorrhoids, loose stools, melena, nausea, odynophagia, rectal bleeding, tenesmus, vomiting or weight changes Vital Signs Vital Signs Vital Signs: 04/14/25 13:14 04/14/25 13:17 04/14/25 13:31 Temperature 97.3 F L 97.3 F L Temperature Source Temporal Pulse Rate 80 80 Respiratory Rate 18 18 Respiratory Pattern Normal Blood Pressure 138/85 H 138/85 H Blood Pressure Mean 102 Blood Pressure Source Monitor Blood Pressure Position Semi-Fowlers Blood Pressure Location Right Arm Pulse Ox 100 100 Oxygen Delivery Method Room Air Weight Weight: 219 lb Body Mass Index (BMI) 32.3 Physical Exam Const alert, oriented x3, no apparent distress and healthy appearing General Appearance: cooperative GI normal to inspection, nondistended, normoactive bowel sounds, soft to palpation, non-tender and non- distended Percussion: normal to percussion Rectal Exam: deferred Results Lab / Micro Data Labs: Laboratory Results - last 24 hr 04/14/25 12:54: Urine Test Negative Assessment Plan Assessment/Plan (1) Screening for colon cancer: (2) Chronic GERD: PLAN: Assessment and Plan Assessment and Plan (1) Chronic GERD: Status: Chronic Plan: THis is a 49 yo female pt here today for evaluation and to be scheduled for screening colonoscopy. Pt has a hx of GERD previously on H2 elle but recently changed to PPI. She feels it is well controlled at this time. However due to long hx she will undergo EGD. She will also have a colonoscopy as the same time for colon cancer screening. She is agreeable to plan -EGD -Colonoscopy -f/u after procedure (2) Screening for colon cancer: Status: Acute 04/14/25 1520 Cosigner Signature (if applicable): CC: SENIOR MARKETING SPECIALIST-C Christine To; Alberto Strickland, [facility]06-10-2025 Consult note [facility] Medical Records Department [address] [place] [id number] Pre-Anesthesia Evaluation 04/14/25 1330 MR#: [id number] Acct: [id number] Name: JESSICA TOVAR Rep #:[id number] : 1975 49 From: Valentino Mallory MD PCP: DARREN Beltran Status:REG S DC Y Race: AA Location: AC12-1 ASA Classification* ASA Classification ASA Classification: 2 Assessment & Plan Anesthesia* Anesthesia Assessment Anesthesia Assessment: Discussed sedation and/or anesthesia options, risks, benefits, and alternatives with patient/parents/legal guardian/POA. Questions invited. The patient/parents/legal guardian/POA seems to understand and agrees to proceedwith anesthesia plan. Reviewed the physical assessment, medical history, allergy history and patient home medications list prior to surgery/procedure/anesthetic and documented any changes. Performed airway and anesthesia risk assessments. Anesthesia Type Anesthesia Type: MAC Anesthesia Focused Assessment* Temperature: 97.3 F Pulse Rate: 80 Blood Pressure: 138/85 Respiratory Rate: 18 Pulse Ox: 100 Airway Assessment Mouth opens: >3 cm Mallampati Score: II Labs Anesthesia Preop lab: CBC CHEMISTRY COAG Urine Test Negative Negative 04/14/25 12:54 04/14/25 Pre-Assessment Diagnosis/Proposed Procedure Planned Operative Procedure(s): Colonoscopy,EGD Anesthesia History Anesthesia History - patent counsel: Anesthesia History - patent counsel Hx Hospitalization No 04/13/25 08:49 Any Problems With Anesthesia No 04/13/25 08:49 Cholinesterase deficiency No 04/13/25 08:49 You/Your Family Experience No 04/13/25 08:49 fever (hyperthermia) with Relationship Recent Exposure to Contagious No 04/14/25 13:14 Disease Does patient have nerve No 04/13/25 08:49 stimulator Patient instructed to have device shut off --Does patient have Pacemaker or ICD? When Was Last Pacemaker Check QUESTION #4 FULL TEXT: You/Your Family Experience fever (hyperthermia) with Anesthesia Last Oral Intake Last Oral intake: Last Oral Intake NPO since Meds taken in AM with sips of water? Meds patient instructed to take am of surgery PONV PONV - patent counsel: PONV - patent counsel Female Yes 04/13/25 08:49 HX of Motion Sickness No 04/13/25 08:49 HX of N/V After Surgery No 04/13/25 08:49 Non-Smoker Yes 04/13/25 08:49 Duration of Surgery greater No 04/13/25 08:49 than 60 minutes Number of Risk Factors 2 04/13/25 08:49 PONV Score Moderate Risk 04/13/25 08:49 Height & Weight Height & Weight: Anesthesia: Height & Weight Height 5 ft 9 in 04/14/25 13:17 Weight: 99.337 kg 04/14/25 13:17 Body Mass Index (BMI) 32.3 04/14/25 13:17 Respiratory Assessment Respiratory Assessment - patent counsel: Respiratory Tract Infection Hx - patent counsel Hx Respiratory Tract Infection No 04/13/25 08:49 STOP Sleep Apnea STOP Sleep Apnea - patent counsel: STOP Sleep Apnea - patent counsel Hx Hypertension Yes: ON MEDICATION 04/13/25 08:49 Hx Sleep Apnea No 04/13/25 08:49 CPAP BIPAP Do you snore loudly (louder Yes 04/13/25 08:49 than talking or can be heard Do you often feel tired/ Yes 04/13/25 08:49 fatigued/ sleepy during daytime? Has anyone observed you stop No 04/13/25 08:49 breathing during sleep? STOP Results Positive 04/13/25 08:49 QUESTION #5 FULL TEXT : Do you snore loudly (louder than talking or can be heard through closeddoors)? Tobacco Use History Tobacco Use History - patent counsel: Tobacco Use History - patent counsel Tobacco Use Smoking Status Former smoker 04/13/25 08:49 Hx Tobacco Use No 04/13/25 08:49 Years Smoking 10 04/13/25 08:49 Packs Smoked per Day 1 04/13/25 08:49 Smoking Cessation Date was No - quit smoking greater 04/13/25 08:49 within the last 15 years than 15 years ago Hx Smoking Cessation Date Hx Smoking Cessation No 04/13/25 08:49 Counseling Hematologic Medial History Hematologic Hx - patent counsel: Hematologic Medical Hx - incident response manager Hx of Blood Transfusion No 04/13/25 08:49 Hx of Transfusion in last 3 No 04/13/25 08:49 Months Date of Last Transfusion (if within last 3 months) Ever experience any problems No 04/13/25 08:49 with transfusion(s)? Specify any problems Hx of Preganancy in last 3 No 04/13/25 08:49 Months Nurse Filling Out Transfusion JZOLLINGE 04/13/25 08:49 & Questions: Date: 04/13/25 04/13/25 08:49 Time: 08:53 04/13/25 08:49 Patient unable to answer at this time (ie. confused, unrespo /Reproduction History /Reproductive History - patent counsel: /Reproductive Hx- patent counsel Hx Now No 04/13/25 08:49 Gestational Age (in weeks): EDC: Hx Hx Para Hx Section SAB No 04/13/25 08:49 Active Medications Active Medications: Current Medications Generic Name Dose Route Start Last Admin Trade Name Freq PRN Reason Stop Dose Admin Sodium Chloride 1,000 mls @ 15 mls/hr 04/14/25 12:55 IV .Q48H ANTOINE PFSH Medical History Wears glasses Marijuana use Arthritis History of renal disease Anemia Restless legs Dietary restriction Heartburn Former smoker Home Medications ?Medication ?Instructions ?Recorded ?Last Taken ?Type amlodipine 5 mg tablet 5 mg PO QHS 01/29/25 5 History calcitriol 0.5 mcg capsule 0.5 mcg PO QDAY 01/29/25 History cinacalcet 90 mg tablet 90 mg PO QDAY 01/29/2504/13 History labetalol 100 mg tablet 100 mg PO BID 01/29/2504/14 10:00 History losartan 50 mg tablet 50 mg PO BID 01/29/25 10:00 History medroxyprogesterone 10 mg tablet 10 mg PO QDAY 5 Unknown History multivitamin 1 tab PO QDAY 01/29/2504/10 History omeprazole 20 mg capsule,delayed 20 mg PO QDAY 5 04/13/25 History release ropinirole 0.5 mg tablet 1.5 mg PO BID 01/29/2504/13 History sevelamer HCl 800 mg tablet 800 mg PO TID 01/29/2505/29 History peg 3350-electrolytes 236 240 ml PO Q10M #4,000 mL 12/3004/13/25 Rx gram-22.74 gram-6.74 gram-5.86 gram solution (Golytely) Allergy/AdvReac Type Severity Reaction Status Date / Time No Known Allergies Allergy Verified 04/14/25 13:11 Social History Smoking Status: Former smoker alcohol intake: current alcohol intake frequency: holidays/special occasions only substance use type: marijuana caffeine: Yes Type: coffee Review of Systems (Anesthesia) ROS Narrative System reviewed and no additional complaints, except as documented. 04/14/25 1331 > Date _ Valentino Goss Signature: Date CC: ~ Signed [facility]04-28-2025 Note* [place]: SIGN, AUTHOR, PERFORM Event Display: IR Procedure Record Authored Date: [id number] IR Procedure Record Summary Primary Physician: PRIYANKA PURI MD Finalized Date/Time: 03/02/25 14:06:46 Pt. Name: JESSICA TOVAR Pepe /Sex: 1975 Female Med Rec #: [id number] Physician: Financial #: [id number] Pt. Type: O Room/Bed: / Admit/Disch: 03/02/25 11:47:00 - Institution: Allergies identified in patient's electronic medical record at time of printing on 03/02/25 Entry 1 Substance No Known Medication Allergies Reaction Type Allergy Last Modified By: JOHN Rubio 06/02/21 21:57:56 Case Attendance- IR Entry 1 Entry 2 Case Attendee PRIYANKA PURI MD, Lillian Y Role Performed Primary Surgeon Lens Polisher Details Time In 03/02/25 13:25:00 03/02/25 13:15:00 Time Out 03/02/25 13:45:00 03/02/25 14:06:00 Procedure/Preference IR Thyroid Biopsy SN IR Thyroid Biopsy SN Card Last Modified By: [place] Lillian Y 03/02/25 13:44:10 03/02/25 14:06:44 Radiology Procedures- IR Entry 1 Procedure/Preference IR Thyroid Biopsy SN Actual Procedure ir thyroid bisopy Card Primary Procedure Yes Primary Surgeon PRIYANKA PURI MD Anesthesia/Sedation None Type Additional Procedure Times Start 03/02/25 13:30:00 Stop 03/02/25 13:44:00 Specialty Service SN Radiology Procedure EBL 0 mL Last Modified By: [place] 03/02/25 13:44:13 Radiology Procedure Details - IR Entry 1 Radiology Sedation Case Times Sedation Total Time 0 Radiology - Fluid/Drainage Radiology Contrast Contrast Used? No Radiology Flouroscopy Fluoroscopy Used? No Fluoro Time 0 Radiology Local Radiology Procedure Site Site Condition No complications Dressing Type Bandaids Last Modified By: [place] 03/02/25 13:23:24 Cultures and Specimens- IR Entry 1 Kind Specimen Type Nodule Last Modified By: [place] 03/02/25 13:22:38 General Case Data - IR Entry 1 Case Information Room AH IR US Case Level IR Level 2 Wound Class None Specialty SN Radiology Procedure ASA Class None Diagnosis Preop Diagnosis nodule Postop Same As Preop Yes Postop Diagnosis nodule Last Modified By: [place] 03/02/25 13:23:03 Medication Administration- IR Entry 1 Medication 2% Lidocaine Time Administered 03/02/25 13:32:00 Route of Admin Local Volume 6 VORB Administered by Yes Administered by: PRIYANKA PURI MD Physician? Last Modified By: [place] 03/02/25 13:32:44 Procedure Case Times- IR Entry 1 Patient In Procedure Patient In OR 03/02/25 13:15:00 Patient Out of OR 03/02/25 13:45:00 Procedure Start/Stop Procedure Start Time 03/02/25 13:30:00 Procedure Stop Time 03/02/25 13:44:00 Last Modified By: [place] 03/02/25 13:44:06 Immediate Post OP Note - IR Entry 1 Immediate Post Yes Findings 4x25G FNA right nodule Procedure Note displayed for Physician to review Closure Technique Closure Technique Primary Last Modified By: [place] 03/02/25 13:44:02 Immediate Post OP Note - IR Signed By: PRIYANKA PURI MD 03/02/25 13:43 No Complications Allergy Information- IR Entry 1 Allergies Reviewed? Yes Allergies Reviewed Medical Record With Last Modified By: [place] 03/02/25 13:21:20 Radiology Protocols/Time Out- IR Entry 1 Preprocedure Clinician Verifies Correct patient ID When Clinically Confirmation of correct using name & date Indicated side(s) and site(s), or MRN, Accurate Correct diagnostic and procedure, complete radiology tests Informed Consent, H & P available update immediately prior to procedure, if applicable, Sync button on OR/Procedure Room/Bedside Time 03/02/25 13:28:00 Clinician Verifies Correct patient identity including EMR & records using name and date or medical record number, Accurate procedure consent form, Correct patient position, Necessary equipment is available When Applicable Confirmation correct Team Members [place], side and site marked, Present for Time Out PRIYANKA PURI MD Relevant images and results are properly labeled and appropriately displayed, Alcohol based prep dry, Double verification of sterility indicators complete Instrument Sterility Team Members PRIYANKA PURI MD, Verifying Sterility [place] Procedure IR Thyroid Biopsy SN Last Modified By: [place] 03/02/25 13:29:23 Skin Prep- IR Entry 1 Procedure IR Thyroid Biopsy SN Skin Prep Prep Area Neck Side Right By PRIYANKA PURI MD Prep Agents Chloraprep Hair Removal Method N/A Last Modified By: [place] 03/02/25 13:22:30 Patient Positioning- IR Entry 1 Procedure IR Thyroid Biopsy SN Body Position OP Supine Feet Uncrossed? Yes Pressure Points Yes Checked Last Modified By: [place] 03/02/25 13:23:12 Radiology Procedure Plan - IR Entry 1 Radiology - Nursing Care Plan Radiology - Action Plan Action Plan - Patient demonstrates Outcome Statement knowledge of the expected reseponses to the invasive procedure, Patient's value system, lifestyle, ethnicity, and culture are considered, respected, and incorporated in the perioperative plan of care., Patient is free from signs and symptoms of infection., Patient is free from signs and symptoms of injury related to positioning., Patient receives appropriate medication(s), safely administered during the perioperative period., Patient is free from signs and symptoms of injury caused by extraneous objects (equipment, instrumentation, sponges, or sharps). Outcomes Met? Yes Elevator Adjuster PRIYANKA PURI MD, Completing [place] Procedure Plan Last Modified By: [place] 03/02/25 13:22:53 Transfer Post Procedure- IR Entry 1 RAD - Transport to Recovery Via Ambulatory Post-op Destination Home Post Procedure Time Out Double Verification Yes Date/Time Verified 03/02/25 13:50:00 of ID band on patient Completed Verfied ID Band on [place] by Last Modified By: [place] 03/02/25 13:49:10 Case Comments <None> Finalized By: [place]ia [place] Document Signatures Signed By: [place]ia [place] 03/02/25 14:06 [facility] 04-28-2025 Hospital Discharge instructions Patient Education 03/02/2025 13:44:39 Thyroid Needle Biopsy, Care After Thyroid Needle Biopsy, Care After This sheet gives you information about how to care for yourself after your procedure. Your health care provider may also give you more specific instructions. If you have problems or questions, contact your health care provider. What can I expect after the procedure? After the procedure, it is common to have: Soreness and tenderness that lasts for a few days. Bruising where the needle was inserted (puncture site). Follow these instructions at home: Take [id number] and prescription medicines only as told by your health care provider. To help ease discomfort, keep your head raised (elevated) when you are lying down. When you move from lying down to sitting up, use both hands to support the back of your head and neck. Check your puncture site every day for signs of infection. Check for: ?Redness, swelling, or pain. ?Fluid or blood. ?Warmth. ?Pus or a bad smell. Return to your normal activities as told by your health care provider. Ask your health care provider what activities are safe for you. Keep all follow-up visits as told by your health care provider. This is important. Contact a health care provider if: You have redness, swelling, or pain around your puncture site. You have fluid or blood coming from your puncture site. Your puncture site feels warm to the touch. You have pus or a bad smell coming from your puncture site. You have a fever. Get help right away if: You have severe bleeding from the puncture site. You have difficulty swallowing. You have swollen glands (lymph nodes) in your neck. Summary It is common to have some bruising and soreness where the needle was inserted in your lower front neck area (puncture site). Check your puncture site every day for signs of infection, such as redness, swelling, or pain. Get help right away if you have severe bleeding from your puncture site. This information is not intended to replace advice given to you by your health care provider. Make sure you discuss any questions you have with your health care provider. Document Released: 05/19/2015 Document Revised: 10/04/2018 Document Reviewed: 08/05/2018 [employer] Patient Education 2020 [employer]. Follow Up Care 02/11/2025 14:08:40 With:Follow up with primary care provider Address:Unknown When: Unknown [facility] 04-28-2025 Note IR Procedure Record Summary Primary Physician: PRIYANKA PURI MD Finalized Date/Time: 03/02/25 14:06:46 Pt. Name: JESSICA TOVAR Pepe Carmona/Sex: 1975 Female Med Rec #: [id number] Physician: Financial #: [id number] Pt. Type: O Room/Bed: / Admit/Disch: 03/02/25 11:47:00 - Institution: Allergies identified in patient's electronic medical record at time of printing on 03/02/25 Entry 1 Substance No Known Medication Allergies Reaction Type Allergy Last Modified By: JOHN Rubio 06/02/21 21:57:56 Case Attendance- IR Entry 1 Entry 2 Case Attendee PRIYANKA PURI MD, Lillian Y Role Performed Primary Surgeon Lens Polisher Details Time In 03/02/25 13:25:00 03/02/25 13:15:00 Time Out 03/02/25 13:45:00 03/02/25 14:06:00 Procedure/Preference IR Thyroid Biopsy SN IR Thyroid Biopsy SN Card Last Modified By: [place] Lillian Y 03/02/25 13:44:10 03/02/25 14:06:44 Radiology Procedures- IR Entry 1 Procedure/Preference IR Thyroid Biopsy SN Actual Procedure ir thyroid bisopy Card Primary Procedure Yes Primary Surgeon PRIYANKA PURI MD Anesthesia/Sedation None Type Additional Procedure Times Start 03/02/25 13:30:00 Stop 03/02/25 13:44:00 Specialty Service SN Radiology Procedure EBL 0 mL Last Modified By: [place] 03/02/25 13:44:13 Radiology Procedure Details - IR Entry 1 Radiology Sedation Case Times Sedation Total Time 0 Radiology - Fluid/Drainage Radiology Contrast Contrast Used? No Radiology Flouroscopy Fluoroscopy Used? No Fluoro Time 0 Radiology Local Radiology Procedure Site Site Condition No complications Dressing Type Bandaids Last Modified By: [place] 03/02/25 13:23:24 Cultures and Specimens- IR Entry 1 Kind Specimen Type Nodule Last Modified By: [place] 03/02/25 13:22:38 General Case Data - IR Entry 1 Case Information Room AH IR US Case Level IR Level 2 Wound Class None Specialty SN Radiology Procedure ASA Class None Diagnosis Preop Diagnosis nodule Postop Same As Preop Yes Postop Diagnosis nodule Last Modified By: [place] 03/02/25 13:23:03 Medication Administration- IR Entry 1 Medication 2% Lidocaine Time Administered 03/02/25 13:32:00 Route of Admin Local Volume 6 VORB Administered by Yes Administered by: PRIYANKA PURI MD Physician? Last Modified By: [place] 03/02/25 13:32:44 Procedure Case Times- IR Entry 1 Patient In Procedure Patient In OR 03/02/25 13:15:00 Patient Out of OR 03/02/25 13:45:00 Procedure Start/Stop Procedure Start Time 03/02/25 13:30:00 Procedure Stop Time 03/02/25 13:44:00 Last Modified By: [place] 03/02/25 13:44:06 Immediate Post OP Note - IR Entry 1 Immediate Post Yes Findings 4x25G FNA right nodule Procedure Note displayed for Physician to review Closure Technique Closure Technique Primary Last Modified By: [place] 03/02/25 13:44:02 Immediate Post OP Note - IR Signed By: PRIYANKA PURI MD 03/02/25 13:43 No Complications Allergy Information- IR Entry 1 Allergies Reviewed? Yes Allergies Reviewed Medical Record With Last Modified By: [place] 03/02/25 13:21:20 Radiology Protocols/Time Out- IR Entry 1 Preprocedure Clinician Verifies Correct patient ID When Clinically Confirmation of correct using name & date Indicated side(s) and site(s), or MRN, Accurate Correct diagnostic and procedure, complete radiology tests Informed Consent, H & P available update immediately prior to procedure, if applicable, Sync button on OR/Procedure Room/Bedside Time 03/02/25 13:28:00 Clinician Verifies Correct patient identity including EMR & records using name and date or medical record number, Accurate procedure consent form, Correct patient position, Necessary equipment is available When Applicable Confirmation correct Team Members [place], side and site marked, Present for Time Out PRIYANKA PURI MD Relevant images and results are properly labeled and appropriately displayed, Alcohol based prep dry, Double verification of sterility indicators complete Instrument Sterility Team Members PRIYANKA PURI MD, Verifying Sterility [place] Procedure IR Thyroid Biopsy SN Last Modified By: [place] 03/02/25 13:29:23 Skin Prep- IR Entry 1 Procedure IR Thyroid Biopsy SN Skin Prep Prep Area Neck Side Right By PRIYANKA PURI MD Prep Agents Chloraprep Hair Removal Method N/A Last Modified By: [place] 03/02/25 13:22:30 Patient Positioning- IR Entry 1 Procedure IR Thyroid Biopsy SN Body Position OP Supine Feet Uncrossed? Yes Pressure Points Yes Checked Last Modified By: [place] 03/02/25 13:23:12 Radiology Procedure Plan - IR Entry 1 Radiology - Nursing Care Plan Radiology - Action Plan Action Plan - Patient demonstrates Outcome Statement knowledge of the expected reseponses to the invasive procedure, Patient's value system, lifestyle, ethnicity, and culture are considered, respected, and incorporated in the perioperative plan of care., Patient is free from signs and symptoms of infection., Patient is free from signs and symptoms of injury related to positioning., Patient receives appropriate medication(s), safely administered during the perioperative period., Patient is free from signs and symptoms of injury caused by extraneous objects (equipment, instrumentation, sponges, or sharps). Outcomes Met? Yes Elevator Adjuster PRIYANKA PURI MD, Completing [place] Procedure Plan Last Modified By: [place] 03/02/25 13:22:53 Transfer Post Procedure- IR Entry 1 RAD - Transport to Recovery Via Ambulatory Post-op Destination Home Post Procedure Time Out Double Verification Yes Date/Time Verified 03/02/25 13:50:00 of ID band on patient Completed Verfied ID Band on [place] by Last Modified By: [place] 03/02/25 13:49:10 Case Comments Finalized By: [place] Document Signatures Signed By: [place] 03/02/25 14:06 [id number] Exam Date Time Procedure Performing Provider Status 03/02/25 2:06 PM IR Thyroid Biopsy PRIYANKA PURI MD; Aut h (Verified) [id number] ORIGINAL HISTORY: ORDERING SYSTEM PROVIDED HISTORY: Reason for Exam: thyroid nodule, ultrasound 02/03/2025 PROCEDURE: 1. Fine needle aspiration of thyroid nodule with ultrasound guidance TECHNIQUE: Fine needle aspiration under direct ultrasound guidance. The procedure and potential complications, mainly the risk of bleeding and hematoma formation was discussed with the patient. Informed consent obtained. Biopsy #: 1 Prior US ref #: 1 Max size (cm): 1.7 Location: Right Mid TI-RADS Category: 4 Prior biopsy: No Biopsy reason: Meets TI-RADS criteria Complications: None Needle: 25 gauge Passes: 4 (1 pass for [employer] Genomic Sequencing) Cytology review: No ACR TI-RADS recommends that no more than two nodules with the highest ACR TI-RADS total point should be biopsied and no more than four nodules should be followed. IMPRESSION: 1. Successful image guided thyroid FNA. Interpreted by: Priyanka Puri MD Preliminary Report By: Priyanka Puri MD Electronically signed By Priyanka Puri MD Dictated Date: 03/02/2025 2:21:37 PM Prelim Date: 03/02/2025 2:22:23 PM Sign Date: 03/02/2025 2:22:23 PM Ordering Provider[id number] Evaluation + Plan noteExtracted from: Title:IR Pre-procedure H&P Author:MARLEN HEREDIA PA-C Date:03/02/25 Interventional Radiology Focused Preprocedure History/Physical Reason for Visit thyroid nodule History of Presenting Illness/Planned IR Procedure Patient presenting with several thyroid nodules on recent US, here for RIGHT thyroid nodule biopsy. Allergies (1) ActiveSeverityReaction No Known Medication AllergiesNone Documented Home Medications (13) Active amLODIPine 5 mg oral tablet calcitriol 0.5 mcg oral capsule See Instructions cinacalcet 90 mg oral tablet 90 mg = 1 tab(s), Oral, qDay heparin 5000 units/0.5 mL injectable solution labetalol 100 mg oral tablet 100 mg = 1 tab(s), Oral, BID lidocaine-prilocaine 2.5%-2.5% topical cream , Topical, Once losartan 50 mg oral tablet 50 mg = 1 tab(s), Oral, BID medroxyPROGESTERone 10 mg oral tablet Nephro-Aurea oral tablet 1 tab(s), Oral, qDay omeprazole 20 mg oral delayed release capsule 20 mg = 1 cap(s), Oral, qDay rOPINIRole 0.5 mg oral tablet 0.5 mg = 1 tab(s), Oral, BID sevelamer carbonate 800 mg oral tablet 800 mg = 1 tab(s), Oral, TID Tylenol 325 mg oral capsule 650 mg = 2 cap(s), PRN, Oral, q4h Problem List/Past Medical History Breast cancer screening CKD (chronic kidney disease) Chronic GERD Contact dermatitis ESRD on dialysis Enlarged thyroid Facial injury Fracture of distal fibula HTN (hypertension) Hair loss Hypertension Immunization due Osteoarthritis of right knee Restless leg syndrome Right knee pain Screen for colon cancer Screening for diabetes mellitus Screening for ischemic heart disease Tear meniscus knee Well adult exam Surgical History AV - Arteriovenous fistula Family History Mother: Arthritis; Leukemia Social History Alcohol Details: Use: Current. Frequency: 1-2 times per year. Nutrition/Health Details: Caffeine intake amount: 1-2 servings coffee/carbonated beverages. Substance Abuse Details: Use: Current. Type: Marijuana. Tobacco Details: Nicotine Use: Former smoker, quit more than 30 days ago. Exposure to Tobacco Smoke Lives with someone who smokes. Physical Exam Vitals: Wbrdhutgsnx64.2 (11:53) Systolic Blood Vmgtvpqd404 (11:53) Diastolic Blood Yvfahcnk40 (11:53) Pulse90 (11:53) ErQ274 (11:53) Respiratory RateNo result General: Alert, cooperative. The remainder of the physical exam is noncontributory. Labs Anticoagulation Labs No qualifying data available. No qualifying data available. Assessment/Treatment Plan Image guided RIGHT thyroid nodule biopsy Post Procedure Discharge Plan Patient to be discharged home. Marlen Heredia PA-C Interventional Radiology Pager: [phone] dept: [phone] Available on [employer] Scheduled Tests Radiology* MA Mammo Screening Bilateral w/ Noel 01/20/25 [facility] 04-28-2025 Summary of episode note Discharge Instructions Thank you for allowing [place] to assist you with your healthcare needs. The following is importantdischarge information regarding your hospital visit. Your Care Team CHRISTINE TO What to do next Follow Up Appointments Follow Up with Follow up with primary care provider The Following Activity and Diet Have Been Ordered for You No qualifying data available. No qualifying data available. The Following Equipment Has Been Ordered for You No qualifying data available. The Following Treatments Have Been Ordered for You Discharge Labs No qualifying data available. Discharge Radiology No qualifying data available. Other Therapies No qualifying data available. Post Acute Orders No qualifying data available. Someone Will Contact You Regarding These Home Health Referrals No home referrals have been ordered for you. No one will call you. Allergies No Known Medication Allergies Medications Please ask your primary doctor or pharmacist before taking any other medication not listed, including over the counter drugs, herbal medications, vitamins and or supplements as they may interact withyour home medications. What How Much When Instructions Last Dose Unchanged acetaminophen (Tylenol 325 mg oral capsule) 2 cap by mouth Every 4 hours as needed for as needed for pain Unchanged amLODIPine (amLODIPine 5 mg oral tablet) TAKE 1 TABLET BY MOUTH EVERY DAY Unchanged calcitriol (calcitriol 0.5 mcg oral capsule) See instructions 3 times a week at dialysis Unchanged cinacalcet (cinacalcet 90 mg oral tablet) 1 tab(s) by mouth Once a day Unchanged heparin (heparin 5000 units/ 0.5 mL injectable solution) at dialysis Unchanged labetalol (labetalol 100 mg oral tablet) 1 tab(s) by mouth Two (2) times a day Unchanged lidocaine-prilocaine topical (lidocaine-prilocaine 2.5%-2.5% topical cream) Topical Once Unchanged losartan (losartan 50 mg oral tablet) 1 tab(s) by mouth Two (2) times a day Unchanged medroxyPROGESTERone (medroxyPROGESTERone 10 mg oral tablet) Unchanged multivitamin (Nephro-Aurea oral tablet) 1 tab(s) by mouth Once a day Unchanged omeprazole (omeprazole 20 mg oral delayed release capsule) 1 cap by mouth Once a day Unchanged rOPINIRole (rOPINIRole 0.5 mg oral tablet) 1 tab(s) by mouth Two (2) times a day Unchanged sevelamer (sevelamer carbonate 800 mg oral tablet) 1 tab(s) by mouth Three (3) times a day Please take this list to your next doctor s visit. Bring all medications you take, including over the counter medications, herbals and other supplements with you to your doctor s visit. Patients and families are reminded to discard old lists and to update any records with all medication providers or retail pharmacies. Education Materials Thyroid Needle Biopsy, Care After This sheet gives you information about how to care for yourself after your procedure. Your health care provider may also give you more specific instructions. If you have problems or questions, contact your health care provider. What can I expect after the procedure? After the procedure, it is common to have: Soreness and tenderness that lasts for a few days. Bruising where the needle was inserted (puncture site). Follow these instructions at home: Take daac-pyg-jztixed and prescription medicines only as told by your health care provider. To help ease discomfort, keep your head raised (elevated) when you are lying down. When you move from lying down to sitting up, use both hands to support the back of your head and neck. Check your puncture site every day for signs of infection. Check for: ? Redness, swelling, or pain. ? Fluid or blood. ? Warmth. ? Pus or a bad smell. Return to your normal activities as told by your health care provider. Ask your health care provider what activities are safe for you. Keep all follow-up visits as told by your health care provider. This is important. Contact a health care provider if: You have redness, swelling, or pain around your puncture site. You have fluid or blood coming from your puncture site. Your puncture site feels warm to the touch. You have pus or a bad smell coming from your puncture site. You have a fever. Get help right away if: You have severe bleeding from the puncture site. You have difficulty swallowing. You have swollen glands (lymph nodes) in your neck. Summary It is common to have some bruising and soreness where the needle was inserted in your lower front neck area (puncture site). Check your puncture site every day for signs of infection, such as redness, swelling, or pain. Get help right away if you have severe bleeding from your puncture site. This information is not intended to replace advice given to you by your health care provider. Make sure you discuss any questions you have with your health care provider. Document Released: 05/19/2015 Document Revised: 10/04/2018 Document Reviewed: 08/05/2018 [employer] Patient Education 2020 [employer] Additional Information VACCINATE! IT SAVES LIVES! Members of the community who have not yet received the COVID-19 vaccine and would like to receive it can visit one of [facility] vaccine clinics. There are many vaccine clinic locations within the [facility]. For locations and available times, please visit [email or web address].[place].gov/. It is important to note that some COVID mobile vaccine clinics are held outdoors and may be canceled in rainy or stormy conditions. To learn more about pediatric vaccinations (ages 5-11), we invite you to visit the [facility] webpage. https://www.[facility].org/pages/9753-Djsoq-Gpezmkqnvfw-Rsmwiowlfk-Npwas-Xub stions.htmlTo learn more about the COVID-19 vaccine, we invite you to visit the CDC website for a list of frequently asked questions.https://www.cdc.gov/coronavirus/2019-ncov/vaccines/faq.html [facility] Patient Portal Access Instructions: Stay connected with your healthcare team and access your personal medical information anytime with the [facility] Patient Portal. Please follow the directions below to create your [employer] account: 1.Access the email account you provided upon registration to the hospital/physician office.2.Look for an invitation email from [facility].3.Open the email and access the invitation link: AcceptInvitation to [facility].4.Fill in the required smith to create your account. To access your account, visit [email or web address]. Click the blue button labeled Access Patient Portal and then log in with the username and password that you created in the steps above. You will be able to view your test results, lab results, a summary of your visits, upcoming appointments and more. There is also a convenient messaging option where you can send secure messages to your p rovider. In addition, you will have the ability to download any documents or summaries to your computer and/or send the information securely to a physician. Remember that your healthcare information is confidential, so carefully consider who you will allowto register on the [facility] Patient Portal for access to your information. You can also access the [facility] Patient Portal on the [place] U[facility]racewhere edgar. Simply click on Patient Portal and then log into your account. If you would like to receive a full copy of your medical records, please contact the [facility] Medical Records Department by calling [phone], Sunday through Sunday between 8 a.m. and 4:30 p.m. HOW TO SAFELY DISPOSE OF PRESCRIPTION MEDICATIONS Please use one of the following methods to safely dispose of your unused medications. 1.Use a drug disposal kit: the drug disposal pouch allows you to safely discard your old and unuseddrugs. Ask your nurse to give you one when you are discharged.2.Visit a local take-back location: Many local pharmacies and police departments have programs that collect old and unwanted prescriptiondrugs. Call your local pharmacy or go to http://bit.ly/6I9Jg1l to find one close to you.3.Make use of household items: Use cat litter or old coffee grounds to dispose medications if other options arenot available. Mix your drugs with these household products, seal them in an airtight container andthrow it into the garbage. Call [facility]: [phone] to be sure your drugs can be disposed of in this way. Some medicines may require a different approach.4.Never flush your medications down the toilet. IF YOU HAVE BEEN PRESCRIBED AN OPIOID FOR PAIN If you have been prescribed an opioid (such as hydrocodone, oxycodone or morphine), it is critical to understand the possible side effects and risks of opioid pain medications. Even when taken as directed, opioids can have several side effects including: Tolerance, meaning you might need to take more of a medication for the same pain relief. Nausea, vomiting and/or constipation. Sleepiness, dizziness, dry mouth, confusion, depression or itching. Physical dependence, meaning you have withdrawal symptoms when a medication is stopped, can develop within a few days. KNOW YOUR RESPONSIBILITIES It is important to know exactly how much and how often to take the opioid pain medications you are prescribed. Never take opioids in higher amounts or more often than prescribed. Do not combine opioids with alcohol or other drugs that cause drowsiness, such as benzodiazepines, also known as benzos, including diazepam and alprazolam, muscle relaxants or sleep aids. Never sell or share prescription opioids. This is illegal. Store opioids in a secure place and out of reach of others (including children, family, friends and visitors). The last page of this document has been signed and retained as a CHART COPY. Signatures Patient Education Materials Thyroid Needle Biopsy, Care After Medication Leaflets My discharge plan and instructions have been reviewed and explained to me and I,JESSICA TOVARd my current condition and have read and understand these discharge instructions. I have received a written copy of the plan/instructions. If I have questions, I am aware that I should contact my doctor. Patient/Handbell Choir Director Signature: Date/Time: Relationship to Patient: Witness Name/Signature: Date/Time: [facility]-6308 History and physical note Interventional Radiology Focused Preprocedure History/Physical Reason for Visit thyroid nodule History of Presenting Illness/Planned IR Procedure Patient presenting with several thyroid nodules on recent US, here for RIGHT thyroid nodule biopsy. Allergies (1) ActiveSeverityReaction No Known Medication AllergiesNone Documented Home Medications (13) Active amLODIPine 5 mg oral tablet calcitriol 0.5 mcg oral capsule See Instructions cinacalcet 90 mg oral tablet 90 mg = 1 tab(s), Oral, qDay heparin 5000 units/0.5 mL injectable solution labetalol 100 mg oral tablet 100 mg = 1 tab(s), Oral, BID lidocaine-prilocaine 2.5%-2.5% topical cream , Topical, Once losartan 50 mg oral tablet 50 mg = 1 tab(s), Oral, BID medroxyPROGESTERone 10 mg oral tablet Nephro-Aurea oral tablet 1 tab(s), Oral, qDay omeprazole 20 mg oral delayed release capsule 20 mg = 1 cap(s), Oral, qDay rOPINIRole 0.5 mg oral tablet 0.5 mg = 1 tab(s), Oral, BID sevelamer carbonate 800 mg oral tablet 800 mg = 1 tab(s), Oral, TID Tylenol 325 mg oral capsule 650 mg = 2 cap(s), PRN, Oral, q4h Problem List/Past Medical History Breast cancer screening CKD (chronic kidney disease) Chronic GERD Contact dermatitis ESRD on dialysis Enlarged thyroid Facial injury Fracture of distal fibula HTN (hypertension) Hair loss Hypertension Immunization due Osteoarthritis of right knee Restless leg syndrome Right knee pain Screen for colon cancer Screening for diabetes mellitus Screening for ischemic heart disease Tear meniscus knee Well adult exam Surgical History AV - Arteriovenous fistula Family History Mother: Arthritis; Leukemia Social History Alcohol Details: Use: Current. Frequency: 1-2 times per year. Nutrition/Health Details: Caffeine intake amount: 1-2 servings coffee/carbonated beverages. Substance Abuse Details: Use: Current. Type: Marijuana. Tobacco Details: Nicotine Use: Former smoker, quit more than 30 days ago. Exposure to Tobacco Smoke Lives with someone who smokes. Physical Exam Vitals: Oxqlcmsockt61.2 (11:53) Systolic Blood Jiepzcbi355 (11:53) Diastolic Blood Durthbum90 (11:53) Pulse90 (11:53) KkZ149 (11:53) Respiratory RateNo result General: Alert, cooperative. The remainder of the physical exam is noncontributory. Labs Anticoagulation Labs No qualifying data available. No qualifying data available. Assessment/Treatment Plan Image guided RIGHT thyroid nodule biopsy Post Procedure Discharge Plan Patient to be discharged home. Marlen Heredia PA-C Interventional Radiology Pager: [phone] dept: [phone] Available on [employer] Digitally Signed by MARLEN HEREDIA PA-C on 03/02/2025 12:17 PM Digitally Signed by PRIYANKA PURI MD on 03/02/2025 04:27 PM [id number] Evaluation note* Diagnosis Onset Date Resolution Status Admit Date Screening for colon cancer acute February 04, 2025 12:15pm Chronic GERD chronic February 04, 025 12:15pm Screening for colon cancer acute April 14, 2025 12:37pm Chronic GERD chronic April 14 025 12:37pm [facility] Work Phone: [phone]) 900-316103-04-2025 NoteHNO ID: [id number] Author: NURYS YOUNG RN Service: Nursing Author Type: Registered Nurse Type: Nursing Progress Note Filed: 01/06/2025 11:44 Note Text: Stitch to L upper arm fistula removed and no bleeding noted; postive thrill and bruit [facility]03-04-2025 NoteHNO ID: [id number] Author: IGOR MEADE APRN.MANAGER FILE Service: Anesthesiology Author Type: Nurse Limousine Rental Clerk Type: Anesthesia Procedure Notes Filed: 01/06/2025 10:22 Note Text: ANESTHESIOLOGY PROCEDURE NOTE PIV General Information Procedure Start Time/Medication Administration: 01/06/2025 10:09 AM Procedure End Time: 01/06/2025 10:11 AM Patient Location: OR Staffing MANAGER FILE: Igor Meade APRN.MANAGER FILE Performed by: MANAGER FILE Preparation Sterility Preparation: hand hygiene performed prior to procedure, surgical cap used, mask used, skin prep agent completely dried prior to procedure Site Prep: alcohol Procedure Details Indication: need for IV access Needle Size/Type: 22 gauge angiocath Orientation: Right Location: Forearm Imaging Guidance Used: No SIGNATURE: Igor Meade APRN.CRNA PATIENT NAME: Jessica Tovar DATE: January 06, 2025 TIME: 10:20 AM CSN: [id number] NoteHNO ID: [id number] Author: RAJAN SAINZ RN Service: Nursing Author Type: Registered Nurse Type: Progress Notes Filed: 01/05/2025 14:44 Note Text: PRE-PROCEDURE INSTRUCTIONS TO PREPARE FOR YOUR PROCEDURE: Your arrival time for your procedure is 0630. Do NOT eat any solid foods after MIDNIGHT the night prior to your procedure - this includes gum or mints. You can drink clear liquids* up until 0430, which is 2 hours before your arrival time. *Clear liquids = water, carbohydrate drink (sports drink that is clear or yellow in color), Ensure Pre-Surgery (given by PATSY or your DrGomez), fruit juice without pulp (apple/cranberry), clear tea, black coffee (no cream). NO CARBONATED BEVERAGES AND NO ALCOHOL. Shower the morning of the procedure, put on clean clothes, and have clean sheets for your bed to help prevent infection after your procedure. Leave all valuables such as jewelry including rings, piercings, wallets, and purses at home. Wear comfortable, loose-fitting clothing. If you wear glasses or contacts, please bring a case. SPECIAL INSTRUCTIONS: If instructed, bring your first voided urine specimen with you. If you were provided skin preparation to use prior to your procedure, complete this as directed. If you were provided Ensure Pre-Surgery drink, you need to drink this at N/A. This should be consumed quickly (in less than 5 minutes, rather than sipped over time) If a bowel preparation has been ordered by your physician, it is very important to follow the bowel prep instructions or your procedure may need to be rescheduled. If you use crutches or a walker, bring them with you. If you have a home CPAP/BIPAP machine, bring it with you. If you were instructed to complete a fleets enema or bowel prep, complete as directed. Bring copy of Living Will/Power of [employer] Sales Representative. Do not smoke or chew. If you use tobacco, quit or at least cut down before surgery. Do not smoke or chew after midnight the day before your surgery. This effects bleeding, infection, healing, and so much more. Do not take any Diet or Herbal Supplements 2 weeks prior to your surgery date. Please notify your physician if there is any change in your physical condition such as a cold, cough, fever, sore throat, or skin irritation near the surgical site. Visitors under the age of 14 are restricted in the Surgery Center. UPON ARRIVAL: Access to [facility] is located on [address] [place] parking is available for your convenience from 5am-5pm- there is a $5.00 charge for this service. Take the elevators directly inside the entrance to the 1st Floor Surgery Lobby. Sign in at the podium located to the left when you get off the elevators. A payment may be expected at the time of service. One visitor may come back to the preoperative area with you. The preoperative staff will be reviewing your medical history, please let them know if you prefer not to have a visitor with you during this time. Once you are ready for your procedure, two visitors at a time are permitted in your preprocedure room. MEDICATION INSTRUCTIONS PRIOR TO SURGERY Please read below carefully for your personalized instructions. Medications: If you are on blood thinner or anticoagulants including aspirin, please confirm with your surgical team on when to stop these medications. Unless instructed differently by your surgical team, stay on all of your medications until your surgery. Pre-Surgery Med Instructions Medication Instructions cholecalciferol (VITAMIN D) 1,000 unit tab tablet DO NOT TAKE MORNING OF SURGERY rOPINIRole (REQUIP) 1 mg tablet Take morning of surgery with a sip of water, no other fluids folic acid/vit B complex and C (RENAL-AUREA ORAL) DO NOT TAKE MORNING OF SURGERY amLODIPine (NORVASC) 10 mg tablet Take morning of surgery with a sip of water, no other fluids Cinacalcet HCl (SENSIPAR) 60 mg tablet Take morning of surgery with a sip of water, no other fluids labetalol HCl (LABETALOL, BULK, MISC) Take morning of surgery with a sip of water, no other fluids losartan (COZAAR) 50 mg tablet DO NOT TAKE MORNING OF SURGERY famotidine (PEPCID ORAL) Take morning of surgery with a sip of water, no other fluids If you have any medication changes between receiving these instructions and your surgery date, please provide this updated information with the nurse who calls you the week day prior to your surgical procedure so we can update your list and provide you with updated instructions for the morning of your procedure.[facility]03-03-2025 NoteHNO ID: [id number] Author: DENICE SAINZ PA-C Service: ? Author Type: Physician Car Worker Helper Type: Progress Notes Filed: 01/05/2025 07:35 Note Text: 49 yo obese female ex-smoker, +MJ PMH: HTN, GERD, ESRD on dialysis MWF ([facility]), hyperparathyroidism 2/2 renal disease, [facility] 01-05-2025 NoteHNO ID: [id number] Author: DENICE SAINZ PA-C Service: ? Author Type: Physician Car Worker Helper Type: Progress Notes Filed: 01/05/2025 07:31 Note Text: Summary: DOS meds MEDICATION INSTRUCTIONS PRIOR TO SURGERY Please read below carefully for your personalized instructions. Medications: If you are on blood thinner or anticoagulants including aspirin, please confirm with your surgical team on when to stop these medications. Unless instructed differently by your surgical team, stay on all of your medications until your surgery. Pre-Surgery Med Instructions Medication Instructions cholecalciferol (VITAMIN D) 1,000 unit tab tablet DO NOT TAKE MORNING OF SURGERY rOPINIRole (REQUIP) 1 mg tablet Take morning of surgery with a sip of water, no other fluids folic acid/vit B complex and C (RENAL-AUREA ORAL) DO NOT TAKE MORNING OF SURGERY amLODIPine (NORVASC) 10 mg tablet Take morning of surgery with a sip of water, no other fluids Cinacalcet HCl (SENSIPAR) 60 mg tablet Take morning of surgery with a sip of water, no other fluids labetalol HCl (LABETALOL, BULK, MISC) Take morning of surgery with a sip of water, no other fluids losartan (COZAAR) 50 mg tablet DO NOT TAKE MORNING OF SURGERY famotidine (PEPCID ORAL) Take morning of surgery with a sip of water, no other fluids If you have any medication changes between receiving these instructions and your surgery date, please provide this updated information with the nurse who calls you the week day prior to your surgical procedure so we can update your list and provide you with updated instructions for the morning of your procedure.[facility]02-12-2025 Note. MICRO - Microbiology PROCEDURE: Affirm Pathogens DNA Direct Probe [*1] SOURCE: Vaginal Fluid BODY SITE: Vagina COLLECTED DATE/TIME: 12/16/2024 12:00 EST RECEIVED DATE/TIME: 12/16/2024 22:24 EST START DATE/TIME: 12/16/2024 22:24 EST FREE TEXT SOURCE: FINAL REPORTS Final Report [] Verified Date/Time/Personnel: 12/17/2024 14:47 EST Gardnerella vaginalis DNA Probe Positive Candelaria species DNA Probe Negative Trichomonas vaginalis DNA Probe Negative Performing Locations *1: This test was performed at: [address], [facility] , [facility] [id number] NoteHNO ID: [id number] Author: DENICE SAINZ PA-C Service: ? Author Type: Physician Car Worker Helper Type: Progress Notes Filed: 11/17/2024 08:46 Note Text: Summary: DOS meds MEDICATION INSTRUCTIONS PRIOR TO SURGERY Please read below carefully for your personalized instructions. Medications: If you are on blood thinner or anticoagulants including aspirin, please confirm with your surgical team on when to stop these medications. Unless instructed differently by your surgical team, stay on all of your medications until your surgery. Pre-Surgery Med Instructions Medication Instructions rOPINIRole (REQUIP) 1 mg tablet Take morning of surgery with a sip of water, no other fluids folic acid/vit B complex and C (RENAL-AUREA ORAL) DO NOT TAKE MORNING OF SURGERY amLODIPine (NORVASC) 10 mg tablet Take morning of surgery with a sip of water, no other fluids calcium phosphate dibas/vit D3 (VITAMIN D, WITH CALCIUM, ORAL) DO NOT TAKE MORNING OF SURGERY Cinacalcet HCl (SENSIPAR) 60 mg tablet DO NOT TAKE MORNING OF SURGERY labetalol HCl (LABETALOL, BULK, MISC) Take morning of surgery with a sip of water, no other fluids losartan (COZAAR) 50 mg tablet Take morning of surgery with a sip of water, no other fluids famotidine (PEPCID ORAL) If you have any medication changes between receiving these instructions and your surgery date, please provide this updated information with the nurse who calls you the week day prior to your surgical procedure so we can update your list and provide you with updated instructions for the morning of your procedure.[facility]09-26-2024 Note ORIGINAL HISTORY: Optic atrophy COMPARISON: No TECHNIQUE: 1. Axial and sagittal T1-weighted images. 2. Axial T2-weighted images. 3. Axial FLAIR images. 4. Axial diffusion-weighted images with ADC map. 5. Axial T2-weighted images with thin cuts through the orbits. 6. Coronal T2-weighted images of the orbits with fat saturation. 7. Coronal T1-weighted images of the orbits. FINDINGS: The study is mildly degraded by motion. The ventricles and sulci are normal in size and configuration. There are no abnormal intra or extra-axial fluid collections. There are a few scattered punctate T2 hyperintensities in the cerebral white matter. Urban-white matter differentiation is maintained. There is no abnormal restriction of diffusion. The globes are normal in appearance and symmetric. Right optic nerve is mildly thickened at under 2 cm in diameter approximately 1 cm posterior to the globes; left nerve is within normal size limits. The extraocular muscles are normal in course and caliber. The intra and extraconal fat is unremarkable in appearance. 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 Interpreted by: Guido Stevens MD Preliminary Report By: Guido Stevens MD Electronically signed By Guido Stevens MD Dictated Date: 07/31/2024 3:31:24 PM Prelim Date: 07/31/2024 3:40:43 PM Sign Date: 07/31/2024 3:40:43 PM Ordering Provider: [facility]05-30-2024 Note. MICRO - Microbiology PROCEDURE: Affirm Pathogens DNA Direct Probe [*1] SOURCE: Vaginal Fluid BODY SITE: Vagina COLLECTED DATE/TIME: 04/02/2024 12:00 EDT RECEIVED DATE/TIME: 04/02/2024 22:37 EDT START DATE/TIME: 04/02/2024 22:37 EDT FREE TEXT SOURCE: FINAL REPORTS Final Report [] Verified Date/Time/Personnel: 04/03/2024 13:41 EDT Candelaria species DNA Probe Negative Gardnerella vaginalis DNA Probe Positive Trichomonas vaginalis DNA Probe Negative Performing Locations *1: This test was performed at: [facility], [address] [place] [address], [facility] , [facility] ([place])02-15-2024 Note ORIGINAL EXAMINATION: PELVIC ULTRASOUND 02/15/2024 TECHNIQUE: Transabdominal and transvaginal ultrasound the pelvis with grayscale and Doppler imaging. COMPARISON: None HISTORY: ORDERING SYSTEM PROVIDED HISTORY: Reason for Exam: UNSPECIFIED OVARIAN CYST LEFT SIDE, LEIOMYOMA OF UTERUS,UNSPECIFIED FINDINGS: Measurements: Uterus: 6.7 x 4.8 x 3.9 cm Endometrial stripe: 10 mm Right Ovary:2.2 x 3.6 x 2.2 cm. Volume: 8.98 mL Left Ovary: 2.4 x 2.3 x 3.1 cm. Volume: 7.86 mL Ultrasound Findings: Uterus: There is a exophytic subserosal fibroid the right side of the uterine body that measures 1.7 x 1.4 x 1.7 cm. Endometrial stripe: Endometrial stripe is within normal limits. Right Ovary: There is a hemorrhagic cyst of the right ovary that measures 2.0 x 1.6 x 1.5 cm that is new since 12/24/2023. There is normal blood flow in the right ovary. Left Ovary: 1.3 cm left ovarian cyst shows decrease in size since prior exam and has benign appearance. There is normal blood flow in the left ovary. Free Fluid: No evidence of free fluid. IMPRESSION: 1.7 cm exophytic subserosal fibroid of the right side of the uterine body. 2 cm hemorrhagic cyst of the right ovary, requiring no imaging follow-up. 1.3 cm left ovarian cyst shows decrease in size since prior exam and has benign appearance, and requires no imaging follow-up. No free fluid in the pelvis. Interpreted by: Sanjeev Aviles MD Preliminary Report By: Sanjeev Aviles MD Electronically signed By Sanjeev Aviles MD Dictated Date: 02/16/2024 12:49:07 AM Prelim Date: 02/16/2024 12:56:42 AM Sign Date: 02/16/2024 12:56:42 AM Ordering Provider: [facility]03-20-2024 Hospital Discharge instructions Patient Education 01/23/2024 12:16:54 Subconjunctival Hemorrhage Subconjunctival Hemorrhage A subconjunctival hemorrhage is a result of a broken blood vessel in the white part of the eye. It is usually painless and may be caused by coughing, sneezing, or vomiting. An injury to the eye can cause this. It can also be a sign of high blood pressure (hypertension) or a bleeding disorder. This can look frightening. But the presence of the blood is not serious. The blood will be reabsorbed without treatment within 2 to 3 weeks. Home care You may continue your usual activities. Follow-up care Follow up with your healthcare provider, or as advised. When to seek medical advice Contact your healthcare provider right away if any of these occur: Pain in the eye Change in vision The blood does not go away within 3 weeks Increasing redness or swelling of the eye Severe headache or dizziness Signs of bruising or bleeding from other parts of your body [id number] [employer]. [address] [place] [address], [place] [address]. All rights reserved. This information is not intended as a substitute for professional medical care. Always follow [facility] professional's instructions. 01/23/2024 12:16:52 Hypertension, Established Established High Blood Pressure High blood pressure (hypertension) is a chronic disease. Often, healthcare providers don t know what causes it. But it can be caused by certain health conditions and medicines. If you have high blood pressure, you may not have any symptoms. If you do have symptoms, they may include headache, dizziness, changes in your vision, chest pain, and shortness of breath. But even without symptoms, high blood pressure that s not treated raises your risk for heart attack, heart failure, and stroke. High blood pressure is a serious health risk and shouldn t be ignored. Blood pressure measurements are given as 2 numbers. Systolic blood pressure is the upper number. This is the pressure when the heart contracts. Diastolic blood pressure is the lower number. This is the pressure when the heart relaxes between beats. You will see your blood pressure readings written together. For example, a person with a systolic pressure of 118 and a diastolic pressure of 78 will have 118/78 written in the medical record. Blood pressure is categorized as normal, elevated, or stage 1 or stage 2 high blood pressure: Normal blood pressure is systolic of less than 120 and diastolic of less than 80 (120/80) Elevated blood pressure is systolic of 120 to 129 and diastolic less than 80 Stage 1 high blood pressure is systolic is 130 to 139 or diastolic between 80 to 89 Stage 2 high blood pressure is when systolic is 140 or higher or the diastolic is 90 or higher Home care If you have high blood pressure, follow these home care guidelines to help lower your blood pressure. If you are taking medicines for high blood pressure, these methods may reduce or end your need for medicines in the future. Start a weight-loss program if you are overweight. Cut back on how much salt you get in your diet. Here s how to do this: oDon t eat foods that have a lot of salt. These include olives, pickles, smoked meats, and salted potato chips. oDon t add salt to your food at the table. oUse only small amounts of salt when cooking. Start an exercise program. Talk with your healthcare provider about the type of exercise program that would be best for you. It doesn't have to be hard. Even brisk walking for 20 minutes 3 times a week is a good form of exercise. Don t take medicines that stimulate the heart. This includes many lbsj-gda-rngcqde cold and sinus decongestant pills and sprays, as well as diet pills. Check the warnings about high blood pressure onthe label. Before buying any thpo-ptx-gruexkw medicines or supplements, always ask the pharmacist about the product's potential interaction with your high blood pressure and your high blood pressure medicines. Stimulants such as amphetamine or cocaine could be deadly for someone with high blood pressure. Never take these. Limit how much caffeine you get in your diet. Switch to caffeine-free products. Stop smoking. If you are a long-time smoker, this can be hard. Talk to your healthcare provider about medicines and nicotine replacement options to help you. Also, enroll in a stop-smoking program tomake it more likely that you will quit for good. Learn how to handle stress. This is an important part of any program to lower blood pressure. Learnabout relaxation methods like meditation, yoga, or biofeedback. If your provider prescribed medicines, take them exactly as directed. Missing doses may cause your blood pressure get out of control. If you miss a dose or doses, check with your healthcare provider or pharmacist about what to do. Consider buying an automatic blood pressure machine to check your blood pressure at home. Ask your provider for a recommendation. You can get one of these at most pharmacies. The [place] [employer] recommends the following guidelines for home blood pressure monitoring: Don't smoke or drink coffee for 30 minutes before taking your blood pressure. Go to the bathroom before the test. Relax for 5 minutes before taking the measurement. Sit with your back supported (don't sit on a couch or soft chair); keep your feet on the floor uncrossed. Place your arm on a solid flat surface (like a table) with the upper part of the arm at heartlevel. Place the middle of the cuff directly above the bend of the elbow. Check the monitor's instruction manual for an illustration. Take multiple readings. When you measure, take 2 to 3 readings one minute apart and record all of the results. Take your blood pressure at the same time every day, or as your healthcare provider recommends. Record the date, time, and blood pressure reading. Take the record with you to your next medical appointment. If your blood pressure monitor has a built-in memory, simply take the monitor with you to your next appointment. Call your provider if you have several high readings. Don't be frightened by a single high blood pressure reading, but if you get several high readings, check in with your healthcare provider. Note: When blood pressure reaches a systolic (top number) of 180 or higher OR diastolic (bottom number) of 110 or higher, seek emergency medical treatment. Follow-up care You will need to see your healthcare provider regularly. This is to check your blood pressure and to make changes to your medicines. Make a follow-up appointment as directed. Bring the record of yourhome blood pressure readings to the appointment. When to seek medical advice Call your healthcare provider right away if any of these occur: Blood pressure reaches a systolic (upper number) of 180 or higher OR a diastolic (bottom number) of110 or higher Chest pain or shortness of breath Severe headache Throbbing or rushing sound in the ears Nosebleed Sudden severe pain in your belly (abdomen) Extreme drowsiness, confusion, or fainting Dizziness or spinning sensation (vertigo) Weakness of an arm or leg or one side of the face You have problems speaking or seeing [id number] [employer]. [address] [place] [address]. All rights reserved. This information is not intended as a substitute for professional medical care. Always follow yourhealthcare professional's instructions. 01/23/2024 12:16:49 Scalp Contusion Scalp Contusion A contusion is another word for bruise. It develops when small blood vessels break open and leak blood into the nearby area. A scalp contusion can result from a bump, hit, or fall. Symptoms can include changes in skin color (bruising). For instance, the skin may turn blue or black. Swelling and pain may also occur. The swelling from the contusion should go down in a few days. Bruising and pain may take longer to go away. Home care General care You may use acetaminophen to control pain, unless another pain medicine was prescribed. Don t take aspirin or NSAIDs (nonsteroidal anti-inflammatory drugs) or anticoagulants such as warfarin without talking to your provider first. These medicines increase the risk of bleeding. To help reduce swelling and pain, apply a cold source to the injured area for up to 20 minutes at atime. Do this as often as directed. Use a cold pack or bag of ice wrapped in a thin towel. Never put a cold source directly on your skin. If you have cuts or scrapes around the site of the contusion, be sure to care for them as directed. Note about concussion Because the injury was to your head, it is possible that you could have a concussion (mild brain injury). Symptoms of a concussion can show up later. For this reason, be alert for symptoms of concussion once you re home. Seek emergency medical care if you have any of the symptoms below over the next hours to days: Headache Nausea or vomiting Dizziness Sensitivity to light or noise Unusual sleepiness or grogginess Trouble falling asleep Personality changes Vision changes Memory loss Confusion Trouble walking or clumsiness Loss of consciousness (even for a short time) Inability to be awakened During the time period that you re watching for concussion symptoms: Don t drink alcohol or use sedatives or medicines that make you sleepy. Don t drive or operate machinery. Don t do anything strenuous, such as heavy lifting or straining. Limit tasks that require concentration. This includes reading, watching TV, using a smartphone or computer, and playing video games. Don t return to sports, exercise, or other activity that could result in another injury. Ask your healthcare provider when you can safely resume these activities. Follow-up care Follow up with your healthcare provider, or as directed. If imaging tests were done, they will be reviewed by a doctor. You will be told the results and any new findings that may affect your care. When to seek medical advice Call your healthcare provider right away if any of these occur: Pain that worsens or that can t be relieved with medicines New or increased swelling or bruising Fever of 100.4 F (38 C) or higher, or as directed by your healthcare provider Redness, warmth, or drainage from the injured area Any depression or bony abnormality in the injured area Fluid drainage or bleeding from the nose or ears Call 911 Call 911 right away if any of these occur: Stiff neck Weakness or numbness in any part of the body Seizures [id number] [employer] [address] [place] [address], [place] [address]. All rights reserved. This information is not intended as a substitute for professional medical care. Always follow [facility]care professional's instructions. 01/23/2024 12:16:48 Head Injury (Adult) Head Injury (Adult) You have a head injury. It does not appear serious at this time. But symptoms of a more serious problem, such as a mild brain injury (concussion) or bruising or bleeding in the brain, may appear later. For this reason, you or someone caring for you will need to watch for the symptoms listed below. Once you re home, also be sure to follow any care instructions you re given. Home care Watch for the following symptoms Seek emergency medical care if you have any of these symptoms over the next hours to days: Headache Nausea or vomiting Dizziness Sensitivity to light or noise Unusual sleepiness or grogginess Trouble falling asleep Personality changes Vision changes Memory loss Confusion Trouble walking or clumsiness Loss of consciousness (even for a short time) Inability to be awakened Stiff neck Weakness or numbness in any part of the body Seizures General care If you were prescribed medicines for pain, use them as directed. Note: Don t take other medicines for pain without talking to your provider first. To help reduce swelling and pain, apply a cold source to the injured area for up to 20 minutes at atime. Do this as often as directed. Use a cold pack or bag of ice wrapped in a thin towel. Never apply a cold source directly to the skin. If you have cuts or scrapes as a result of your head injury, care for them as directed. For the next 24 hours (or longer, if instructed): oDon t drink alcohol or use sedatives or other medicines that make you sleepy. oDon t drive or operate machinery. oDon t do anything strenuous, such as heavy lifting or straining. oLimit tasks that require concentration. This includes reading, using a smartphone or computer, watching TV, and playing video games. oDon t return to sports or other activities that could result in another head injury. Follow-up care Follow up with your healthcare provider, or as directed. If imaging tests were done, they will be reviewed by a doctor. You will be told the results and any new findings that may affect your care. When to seek medical advice Call your healthcare provider right away if any of these occur: Pain doesn t get better or worsens New or increased swelling or bruising Fever of 100.4 F (38 C) or higher, or as directed by your provider Increased redness, warmth, drainage, or bleeding from the injured area Fluid drainage or bleeding from the nose or ears Any depression or bony abnormality in the injured area Persistent confusion or lethargy Bruising behind the ears or bruising around the eyes [id number] [employer] [address] [place] [address]. All rights reserved. This information is not intended as a substitute for professional medical care. Always follow yourhealthcare professional's instructions. 01/23/2024 12:16:41 Facial Contusion Facial Contusion A contusion is another word for a bruise. It happens when small blood vessels break open and leak blood into the nearby area. A facial contusion can result from a bump, hit, or fall. This may happen during sports or an accident. Symptoms of a contusion often include changes in skin color (bruising), swelling, and pain. The swelling from the contusion should decrease in a few days. Bruising and pain may take several weeks to go away. Home care If you have been prescribed medicines for pain, take them as directed. To help reduce swelling and pain, wrap a cold pack or bag of frozen peas in a thin towel. Put it onthe injured area for up to 20 minutes. Do this a few times a day until the swelling goes down. If you have scrapes or cuts on your face requiring stiches or other closures, care for them as directed. For the next 24 hours (or longer if instructed): oDon t drink alcohol, or use sedatives or medicines that make you sleepy. oDon t drive or operate machinery. oDon't do anything strenuous. Don t lift or strain. oDon't return to sports or other activity that could result in another head injury. Note about concussions Because the injury was to your head, it is possible that a concussion (mild brain injury) could result. Symptoms of a concussion can show up later. Be alert for signs and symptoms of a concussion. Seek emergency medical care if any of these develop over the next hours to days: Headache Nausea or vomiting Dizziness Sensitivity to light or noise Unusual sleepiness or grogginess Trouble falling asleep Personality changes Vision changes Memory loss Confusion Trouble walking or clumsiness Loss of consciousness (even for a short time) Inability to be awakened Feeling off or slow as if in a daze Follow-up care Follow up with your healthcare provider, or as directed. When to seek medical advice Call your healthcare provider right away if any of these occur: Swelling or pain that gets worse, not better New swelling or pain Warmth or drainage from the swollen area or from cuts or scrapes Fluid drainage or bleeding from the nose or ears Fever of 100.4 F (38 C) or higher, or as directed by your healthcare provider Call 911 Call 911 if any of the following occur: Repeated vomiting Unusual drowsiness or trouble awakening Fainting or loss of consciousness Seizure Worsening confusion, memory loss, dizziness, headache, behavior, speech, or vision [phone] [employer] [place] [address]. All rights reserved. This information is not intended as a substitute for professional medical care. Always follow yourhealthcare professional's instructions. 01/23/2024 12:16:34 Head Injury (Adult) Head Injury (Adult) You have a head injury. It does not appear serious at this time. But symptoms of a more serious problem, such as a mild brain injury (concussion) or bruising or bleeding in the brain, may appear later. For this reason, you or someone caring for you will need to watch for the symptoms listed below. Once you re home, also be sure to follow any care instructions you re given. Home care Watch for the following symptoms Seek emergency medical care if you have any of these symptoms over the next hours to days: Headache Nausea or vomiting Dizziness Sensitivity to light or noise Unusual sleepiness or grogginess Trouble falling asleep Personality changes Vision changes Memory loss Confusion Trouble walking or clumsiness Loss of consciousness (even for a short time) Inability to be awakened Stiff neck Weakness or numbness in any part of the body Seizures General care If you were prescribed medicines for pain, use them as directed. Note: Don t take other medicines for pain without talking to your provider first. To help reduce swelling and pain, apply a cold source to the injured area for up to 20 minutes at atime. Do this as often as directed. Use a cold pack or bag of ice wrapped in a thin towel. Never apply a cold source directly to the skin. If you have cuts or scrapes as a result of your head injury, care for them as directed. For the next 24 hours (or longer, if instructed): oDon t drink alcohol or use sedatives or other medicines that make you sleepy. oDon t drive or operate machinery. oDon t do anything strenuous, such as heavy lifting or straining. oLimit tasks that require concentration. This includes reading, using a smartphone or computer, watching TV, and playing video games. oDon t return to sports or other activities that could result in another head injury. Follow-up care Follow up with your healthcare provider, or as directed. If imaging tests were done, they will be reviewed by a doctor. You will be told the results and any new findings that may affect your care. When to seek medical advice Call your healthcare provider right away if any of these occur: Pain doesn t get better or worsens New or increased swelling or bruising Fever of 100.4 F (38 C) or higher, or as directed by your provider Increased redness, warmth, drainage, or bleeding from the injured area Fluid drainage or bleeding from the nose or ears Any depression or bony abnormality in the injured area Persistent confusion or lethargy Bruising behind the ears or bruising around the eyes [id number] [employer]. [address] [place] [address]. All rights reserved. This information is not intended as a substitute for professional medical care. Always follow yourhealthcare professional's instructions. 01/23/2024 12:16:25 Fall, Mechanical Mechanical Fall You have had a fall today. It appears that the cause is what is called mechanical. That means that you slipped, tripped, or lost your balance. If your fall had been because of fainting or a seizure, you might need other tests. It is normal to feel sore and tight in your muscles and back the next day, and not just the musclesyou injured at first. Remember, all the parts of your body are connected, so while initially one area hurts, the next day another may hurt. Also, when you injure yourself, it causes inflammation, which then causes the muscles to tighten up and hurt more. After the initial worsening, it should gradually improve over the next few days. Do report more severe pain. Even without a definite head injury, you can still get a concussion from your head suddenly jerkingforward, backward, or sideways when falling. Concussions and even bleeding can still happen, especially if you have had a recent injury or take blood thinner medicine. It is not unusual to have a mild headache and feel tired and even nauseous or dizzy. Home care Rest today and go back to your normal activities when you are feeling back to normal. If you were injured during the fall, follow the advice from your healthcare provider regarding careof your injury. At first, do not try to stretch out the sore spots. If there is a strain, stretching may make it worse. Massage may help relax the muscles without stretching them. You can use an ice pack or cold compress on and off to the sore spots 10 to 20 minutes at a time, as often as you feel comfortable. This may help reduce the inflammation, swelling and pain. If you have any scrapes or abrasions, they usually heal within 10 days. It is important to keep theabrasions clean while they initially start to heal. However, an infection may happen even with proper care, so watch for early signs of infection (such as warmth, redness, or swelling). Medicines Talk to your healthcare provider before taking new medicines, especially if you have other medical problems or are taking other medicines. If you need anything for pain, you can take acetaminophen or ibuprofen, unless you were given a different pain medicine to use. Talk with your healthcare provider before using these medicines if you have chronic liver or kidney disease, or ever had a stomach ulcer or gastrointestinal bleeding, or are taking blood thinner medicines. Be careful if you are given prescription pain medicines, narcotics, or medicine for muscle spasm. They can make you sleepy and dizzy, and can affect your coordination, reflexes, and judgment. Do not drive or do work where you can injure yourself when taking them. Fall prevention Fix, remove, or replace anything that caused your fall. Make your home safe by keeping walkways clear of objects you may trip over. Use nonslip pads under rugs. Don't use small area rugs or throw rugs. Don't walk in poorly lit areas. Don't stand on chairs or wobbly ladders. Use caution when reaching overhead or looking upward. This position can cause a loss of balance. Be sure your shoes fit properly, have nonslip bottoms and are in good condition. Be cautious when going up and down curbs, and walking on uneven sidewalks. If your balance is poor, consider using a cane or walker. Stay as active as you can. Balance, flexibility, strength, and endurance all come from exercise. They all play a role in preventing falls. If you have pets, know where they are before you stand up or walk so you don't trip over them. Limit alcohol intake. Alcohol can cause balance problems and increase the risk of falls. Use night lights. Have your eyes tested to be sure you are seeing well, even if you already wear glasses. Follow-up Follow up with your healthcare provider, or as advised. If X-rays or CT scans were done, you will be notified if there is a change in the reading, especially if it affects treatment. Call 911 Call 911 if any of these happen: Trouble breathing Confused or difficulty arousing Fainting or loss of consciousness Rapid or very slow heart rate Seizure Difficulty with speech or vision, weakness of an arm or leg Difficulty walking or talking, loss of balance, numbness or weakness in one side of your body, or facial droop When to seek medical advice Call your healthcare provider right away if any of these happen: Repeated mechanical falls, or unexplained falls Dizziness Severe headache Blood in vomit, stools (black or red color) [id number] [email or web address]. [address] [place] [address]. All rights reserved. This information is not intended as a substitute for professional medical care. Always follow yourhealthcare professional's instructions. Follow Up Care 01/23/2024 09:50:10 With:CHRISTINA CONTE Address: [address] [facility], [place] [address] [facility] [place], [place] [phone]- Business (1) When:2-4 days Comments:Schedule appointment as soon as possibleReturn to ED if symptoms worsenFollow-up for recheck and possible walking cast placementElevate foot at rest and overnightUse crutches for nonweightbearing or partial weight support With:CHRISTINE TO Address: [address] [facility] [place] [address] [phone] Business (1) When:2-4 days Comments:Schedule appointment as soon as possibleReturn to ED if symptoms worsenFollow-[facility] Discharge Instructions Thank you for allowing [facility] to assist you with your healthcare needs. The following is importantdischarge information regarding your hospital visit. Diagnosis from Today's Visit Ankle injury - Minor Contusion, scalp Facial injury Fall Hypertension Red eye Subconjunctival hemorrhage What to Do Next Instructions from Your Care Team Discharge Home Equipment - Ordered -- Crutches, 99 month(s), 01/23/24 11:58:00 EDT Discharge Home Equipment - Ordered -- Walking Boot, 99 month(s), 01/23/24 11:58:00 EDT Post Acute Orders No qualifying data available. You Need to Schedule the Following Appointments Follow Up with CHRISTINA CONTE When Within 2-4 days Why: Schedule appointment as soon as possible Return to ED if symptoms worsen Follow-up for recheck and possible walking cast placement Elevate foot at rest and overnight Use crutches for nonweightbearing or partial weight support Where: [address] [facility] [facility] [place] [place] [address]- Business (1) Follow Up with CHRISTINE TO When Within 2-4 days Why: Schedule appointment as soon as possible Return to ED if symptoms worsen Follow-up for blood pressure recheck Where: [address] [facility] [place] [address] [phone] Business (1) Allergies No Known Medication Allergies Medications Please ask your primary doctor or pharmacist before taking any other medication not listed, including over the counter drugs, herbal medications, vitamins and or supplements as they may interact withyour home medications. What How Much When Instructions Last Dose Unchanged acetaminophen (Tylenol 325 mg oral capsule) 2 cap by mouth Every 4 hours as needed for as needed for pain Unchanged amLODIPine (amLODIPine 5 mg oral tablet) TAKE 1 TABLET BY MOUTH EVERY DAY Unchanged cinacalcet (cinacalcet 90 mg oral tablet) 1 tab(s) by mouth Once a day Unchanged famotidine (Pepcid 20 mg oral tablet) 1 tab(s) by mouth Once a day Unchanged labetalol (labetalol 100 mg oral tablet) 1 tab(s) by mouth Two (2) times a day Unchanged losartan (losartan 50 mg oral tablet) 1 tab(s) by mouth Two (2) times a day Unchanged melatonin (melatonin 5 mg oral tablet) 1 tab(s) by mouth Daily at bedtime as needed for as needed for insomnia Unchanged multivitamin (Nephro-Aurea oral tablet) 1 tab(s) by mouth Once a day Unchanged rOPINIRole (rOPINIRole 0.5 mg oral tablet) 1 tab(s) by mouth Two (2) times a day Unchanged sevelamer (sevelamer carbonate 800 mg oral tablet) 1 tab(s) by mouth Three (3) times a day Please take this list to your next doctor s visit. Bring all medications you take, including over the counter medications, herbals and other supplements with you to your doctor s visit. Patients and families are reminded to discard old lists and to update any records with all medication providers or retail pharmacies. Education [employer] Subconjunctival Hemorrhage A subconjunctival hemorrhage is a result of a broken blood vessel in the white part of the eye. It is usually painless and may be caused by coughing, sneezing, or vomiting. An injury to the eye can cause this. It can also be a sign of high blood pressure (hypertension) or a bleeding disorder. This can look frightening. But the presence of the blood is not serious. The blood will be reabsorbed without treatment within 2 to 3 weeks. Home care You may continue your usual activities. Follow-up care Follow up with your healthcare provider, or as advised. When to seek medical advice Contact your healthcare provider right away if any of these occur: Pain in the eye Change in vision The blood does not go away within 3 weeks Increasing redness or swelling of the eye Severe headache or dizziness Signs of bruising or bleeding from other parts of your body [id number] [employer]. [address] [place] [address]. All rights reserved. This information is not intended as a substitute for professional medical care. Always follow yourhealthcare professional's instructions. Established High Blood Pressure High blood pressure (hypertension) is a chronic disease. Often, healthcare providers don t know what causes it. But it can be caused by certain health conditions and medicines. If you have high blood pressure, you may not have any symptoms. If you do have symptoms, they may include headache, dizziness, changes in your vision, chest pain, and shortness of breath. But even without symptoms, high blood pressure that s not treated raises your risk for heart attack, heart failure, and stroke. High blood pressure is a serious health risk and shouldn t be ignored. Blood pressure measurements are given as 2 numbers. Systolic blood pressure is the upper number. This is the pressure when the heart contracts. Diastolic blood pressure is the lower number. This is the pressure when the heart relaxes between beats. You will see your blood pressure readings written together. For example, a person with a systolic pressure of 118 and a diastolic pressure of 78 will have 118/78 written in the medical record. Blood pressure is categorized as normal, elevated, or stage 1 or stage 2 high blood pressure: Normal blood pressure is systolic of less than 120 and diastolic of less than 80 (120/80) Elevated blood pressure is systolic of 120 to 129 and diastolic less than 80 Stage 1 high blood pressure is systolic is 130 to 139 or diastolic between 80 to 89 Stage 2 high blood pressure is when systolic is 140 or higher or the diastolic is 90 or higher Home care If you have high blood pressure, follow these home care guidelines to help lower your blood pressure. If you are taking medicines for high blood pressure, these methods may reduce or end your need for medicines in the future. Start a weight-loss program if you are overweight. Cut back on how much salt you get in your diet. Here s how to do this: oDon t eat foods that have a lot of salt. These include olives, pickles, smoked meats, and salted potato chips. oDon t add salt to your food at the table. oUse only small amounts of salt when cooking. Start an exercise program. Talk with your healthcare provider about the type of exercise program that would be best for you. It doesn't have to be hard. Even brisk walking for 20 minutes 3 times a week is a good form of exercise. Don t take medicines that stimulate the heart. This includes many tdue-atg-vjumfrj cold and sinus decongestant pills and sprays, as well as diet pills. Check the warnings about high blood pressure onthe label. Before buying any hbgz-lmi-nlqmedh medicines or supplements, always ask the pharmacist about the product's potential interaction with your high blood pressure and your high blood pressure medicines. Stimulants such as amphetamine or cocaine could be deadly for someone with high blood pressure. Never take these. Limit how much caffeine you get in your diet. Switch to caffeine-free products. Stop smoking. If you are a long-time smoker, this can be hard. Talk to your healthcare provider about medicines and nicotine replacement options to help you. Also, enroll in a stop-smoking program tomake it more likely that you will quit for good. Learn how to handle stress. This is an important part of any program to lower blood pressure. Learnabout relaxation methods like meditation, yoga, or biofeedback. If your provider prescribed medicines, take them exactly as directed. Missing doses may cause your blood pressure get out of control. If you miss a dose or doses, check with your healthcare provider or pharmacist about what to do. Consider buying an automatic blood pressure machine to check your blood pressure at home. Ask your provider for a recommendation. You can get one of these at most pharmacies. The [employer] recommends the following guidelines for home blood pressure monitoring: Don't smoke or drink coffee for 30 minutes before taking your blood pressure. Go to the bathroom before the test. Relax for 5 minutes before taking the measurement. Sit with your back supported (don't sit on a couch or soft chair); keep your feet on the floor uncrossed. Place your arm on a solid flat surface (like a table) with the upper part of the arm at heartlevel. Place the middle of the cuff directly above the bend of the elbow. Check the monitor's instruction manual for an illustration. Take multiple readings. When you measure, take 2 to 3 readings one minute apart and record all of the results. Take your blood pressure at the same time every day, or as your healthcare provider recommends. Record the date, time, and blood pressure reading. Take the record with you to your next medical appointment. If your blood pressure monitor has a built-in memory, simply take the monitor with you to your next appointment. Call your provider if you have several high readings. Don't be frightened by a single high blood pressure reading, but if you get several high readings, check in with your healthcare provider. Note: When blood pressure reaches a systolic (top number) of 180 or higher OR diastolic (bottom number) of 110 or higher, seek emergency medical treatment. Follow-up care You will need to see your healthcare provider regularly. This is to check your blood pressure and to make changes to your medicines. Make a follow-up appointment as directed. Bring the record of yourhome blood pressure readings to the appointment. When to seek medical advice Call your healthcare provider right away if any of these occur: Blood pressure reaches a systolic (upper number) of 180 or higher OR a diastolic (bottom number) of110 or higher Chest pain or shortness of breath Severe headache Throbbing or rushing sound in the ears Nosebleed Sudden severe pain in your belly (abdomen) Extreme drowsiness, confusion, or fainting Dizziness or spinning sensation (vertigo) Weakness of an arm or leg or one side of the face You have problems speaking or seeing [id number] [email or web address] [place] [address]. All rights reserved. This information is not intended as a substitute for professional medical care. Always follow yourhealthcare professional's instructions. Scalp Contusion A contusion is another word for bruise. It develops when small blood vessels break open and leak blood into the nearby area. A scalp contusion can result from a bump, hit, or fall. Symptoms can include changes in skin color (bruising). For instance, the skin may turn blue or black. Swelling and pain may also occur. The swelling from the contusion should go down in a few days. Bruising and pain may take longer to go away. Home care General care You may use acetaminophen to control pain, unless another pain medicine was prescribed. Don t take aspirin or NSAIDs (nonsteroidal anti-inflammatory drugs) or anticoagulants such as warfarin without talking to your provider first. These medicines increase the risk of bleeding. To help reduce swelling and pain, apply a cold source to the injured area for up to 20 minutes at atime. Do this as often as directed. Use a cold pack or bag of ice wrapped in a thin towel. Never put a cold source directly on your skin. If you have cuts or scrapes around the site of the contusion, be sure to care for them as directed. Note about concussion Because the injury was to your head, it is possible that you could have a concussion (mild brain injury). Symptoms of a concussion can show up later. For this reason, be alert for symptoms of concussion once you re home. Seek emergency medical care if you have any of the symptoms below over the next hours to days: Headache Nausea or vomiting Dizziness Sensitivity to light or noise Unusual sleepiness or grogginess Trouble falling asleep Personality changes Vision changes Memory loss Confusion Trouble walking or clumsiness Loss of consciousness (even for a short time) Inability to be awakened During the time period that you re watching for concussion symptoms: Don t drink alcohol or use sedatives or medicines that make you sleepy. Don t drive or operate machinery. Don t do anything strenuous, such as heavy lifting or straining. Limit tasks that require concentration. This includes reading, watching TV, using a smartphone or computer, and playing video games. Don t return to sports, exercise, or other activity that could result in another injury. Ask your healthcare provider when you can safely resume these activities. Follow-up care Follow up with your healthcare provider, or as directed. If imaging tests were done, they will be reviewed by a doctor. You will be told the results and any new findings that may affect your care. When to seek medical advice Call your healthcare provider right away if any of these occur: Pain that worsens or that can t be relieved with medicines New or increased swelling or bruising Fever of 100.4 F (38 C) or higher, or as directed by your healthcare provider Redness, warmth, or drainage from the injured area Any depression or bony abnormality in the injured area Fluid drainage or bleeding from the nose or ears Call 911 Call 911 right away if any of these occur: Stiff neck Weakness or numbness in any part of the body Seizures [id number] [employer]. [address] [place] [address]. All rights reserved. This information is not intended as a substitute for professional medical care. Always follow yourhealthcare professional's instructions. Head Injury (Adult) You have a head injury. It does not appear serious at this time. But symptoms of a more serious problem, such as a mild brain injury (concussion) or bruising or bleeding in the brain, may appear later. For this reason, you or someone caring for you will need to watch for the symptoms listed below. Once you re home, also be sure to follow any care instructions you re given. Home care Watch for the following symptoms Seek emergency medical care if you have any of these symptoms over the next hours to days: Headache Nausea or vomiting Dizziness Sensitivity to light or noise Unusual sleepiness or grogginess Trouble falling asleep Personality changes Vision changes Memory loss Confusion Trouble walking or clumsiness Loss of consciousness (even for a short time) Inability to be awakened Stiff neck Weakness or numbness in any part of the body Seizures General care If you were prescribed medicines for pain, use them as directed. Note: Don t take other medicines for pain without talking to your provider first. To help reduce swelling and pain, apply a cold source to the injured area for up to 20 minutes at atime. Do this as often as directed. Use a cold pack or bag of ice wrapped in a thin towel. Never apply a cold source directly to the skin. If you have cuts or scrapes as a result of your head injury, care for them as directed. For the next 24 hours (or longer, if instructed): oDon t drink alcohol or use sedatives or other medicines that make you sleepy. oDon t drive or operate machinery. oDon t do anything strenuous, such as heavy lifting or straining. oLimit tasks that require concentration. This includes reading, using a smartphone or computer, watching TV, and playing video games. oDon t return to sports or other activities that could result in another head injury. Follow-up care Follow up with your healthcare provider, or as directed. If imaging tests were done, they will be reviewed by a doctor. You will be told the results and any new findings that may affect your care. When to seek medical advice Call your healthcare provider right away if any of these occur: Pain doesn t get better or worsens New or increased swelling or bruising Fever of 100.4 F (38 C) or higher, or as directed by your provider Increased redness, warmth, drainage, or bleeding from the injured area Fluid drainage or bleeding from the nose or ears Any depression or bony abnormality in the injured area Persistent confusion or lethargy Bruising behind the ears or bruising around the eyes [id number] [employer]. [address] [place] [address]. All rights reserved. This information is not intended as a substitute for professional medical care. Always follow yourhealthcare professional's instructions. Facial Contusion A contusion is another word for a bruise. It happens when small blood vessels break open and leak blood into the nearby area. A facial contusion can result from a bump, hit, or fall. This may happen during sports or an accident. Symptoms of a contusion often include changes in skin color (bruising), swelling, and pain. The swelling from the contusion should decrease in a few days. Bruising and pain may take several weeks to go away. Home care If you have been prescribed medicines for pain, take them as directed. To help reduce swelling and pain, wrap a cold pack or bag of frozen peas in a thin towel. Put it onthe injured area for up to 20 minutes. Do this a few times a day until the swelling goes down. If you have scrapes or cuts on your face requiring stiches or other closures, care for them as directed. For the next 24 hours (or longer if instructed): oDon t drink alcohol, or use sedatives or medicines that make you sleepy. oDon t drive or operate machinery. oDon't do anything strenuous. Don t lift or strain. oDon't return to sports or other activity that could result in another head injury. Note about concussions Because the injury was to your head, it is possible that a concussion (mild brain injury) could result. Symptoms of a concussion can show up later. Be alert for signs and symptoms of a concussion. Seek emergency medical care if any of these develop over the next hours to days: Headache Nausea or vomiting Dizziness Sensitivity to light or noise Unusual sleepiness or grogginess Trouble falling asleep Personality changes Vision changes Memory loss Confusion Trouble walking or clumsiness Loss of consciousness (even for a short time) Inability to be awakened Feeling off or slow as if in a daze Follow-up care Follow up with your healthcare provider, or as directed. When to seek medical advice Call your healthcare provider right away if any of these occur: Swelling or pain that gets worse, not better New swelling or pain Warmth or drainage from the swollen area or from cuts or scrapes Fluid drainage or bleeding from the nose or ears Fever of 100.4 F (38 C) or higher, or as directed by your healthcare provider Call 911 Call 911 if any of the following occur: Repeated vomiting Unusual drowsiness or trouble awakening Fainting or loss of consciousness Seizure Worsening confusion, memory loss, dizziness, headache, behavior, speech, or vision [id number] [employer]. [address] [place] [address]. All rights reserved. This information is not intended as a substitute for professional medical care. Always follow yourhealthcare professional's instructions. Head Injury (Adult) You have a head injury. It does not appear serious at this time. But symptoms of a more serious problem, such as a mild brain injury (concussion) or bruising or bleeding in the brain, may appear later. For this reason, you or someone caring for you will need to watch for the symptoms listed below. Once you re home, also be sure to follow any care instructions you re given. Home care Watch for the following symptoms Seek emergency medical care if you have any of these symptoms over the next hours to days: Headache Nausea or vomiting Dizziness Sensitivity to light or noise Unusual sleepiness or grogginess Trouble falling asleep Personality changes Vision changes Memory loss Confusion Trouble walking or clumsiness Loss of consciousness (even for a short time) Inability to be awakened Stiff neck Weakness or numbness in any part of the body Seizures General care If you were prescribed medicines for pain, use them as directed. Note: Don t take other medicines for pain without talking to your provider first. To help reduce swelling and pain, apply a cold source to the injured area for up to 20 minutes at atime. Do this as often as directed. Use a cold pack or bag of ice wrapped in a thin towel. Never apply a cold source directly to the skin. If you have cuts or scrapes as a result of your head injury, care for them as directed. For the next 24 hours (or longer, if instructed): oDon t drink alcohol or use sedatives or other medicines that make you sleepy. oDon t drive or operate machinery. oDon t do anything strenuous, such as heavy lifting or straining. oLimit tasks that require concentration. This includes reading, using a smartphone or computer, watching TV, and playing video games. oDon t return to sports or other activities that could result in another head injury. Follow-up care Follow up with your healthcare provider, or as directed. If imaging tests were done, they will be reviewed by a doctor. You will be told the results and any new findings that may affect your care. When to seek medical advice Call your healthcare provider right away if any of these occur: Pain doesn t get better or worsens New or increased swelling or bruising Fever of 100.4 F (38 C) or higher, or as directed by your provider Increased redness, warmth, drainage, or bleeding from the injured area Fluid drainage or bleeding from the nose or ears Any depression or bony abnormality in the injured area Persistent confusion or lethargy Bruising behind the ears or bruising around the eyes [id number] [employer]. [address] [place] [address], [place] [address]. All rights reserved. This information is not intended as a substitute for professional medical care. Always follow yourhealthcare professional's instructions. Mechanical Fall You have had a fall today. It appears that the cause is what is called mechanical. That means that you slipped, tripped, or lost your balance. If your fall had been because of fainting or a seizure, you might need other tests. It is normal to feel sore and tight in your muscles and back the next day, and not just the musclesyou injured at first. Remember, all the parts of your body are connected, so while initially one area hurts, the next day another may hurt. Also, when you injure yourself, it causes inflammation, which then causes the muscles to tighten up and hurt more. After the initial worsening, it should gradually improve over the next few days. Do report more severe pain. Even without a definite head injury, you can still get a concussion from your head suddenly jerkingforward, backward, or sideways when falling. Concussions and even bleeding can still happen, especially if you have had a recent injury or take blood thinner medicine. It is not unusual to have a mild headache and feel tired and even nauseous or dizzy. Home care Rest today and go back to your normal activities when you are feeling back to normal. If you were injured during the fall, follow the advice from your healthcare provider regarding careof your injury. At first, do not try to stretch out the sore spots. If there is a strain, stretching may make it worse. Massage may help relax the muscles without stretching them. You can use an ice pack or cold compress on and off to the sore spots 10 to 20 minutes at a time, as often as you feel comfortable. This may help reduce the inflammation, swelling and pain. If you have any scrapes or abrasions, they usually heal within 10 days. It is important to keep theabrasions clean while they initially start to heal. However, an infection may happen even with proper care, so watch for early signs of infection (such as warmth, redness, or swelling). Medicines Talk to your healthcare provider before taking new medicines, especially if you have other medical problems or are taking other medicines. If you need anything for pain, you can take acetaminophen or ibuprofen, unless you were given a different pain medicine to use. Talk with your healthcare provider before using these medicines if you have chronic liver or kidney disease, or ever had a stomach ulcer or gastrointestinal bleeding, or are taking blood thinner medicines. Be careful if you are given prescription pain medicines, narcotics, or medicine for muscle spasm. They can make you sleepy and dizzy, and can affect your coordination, reflexes, and judgment. Do not drive or do work where you can injure yourself when taking them. Fall prevention Fix, remove, or replace anything that caused your fall. Make your home safe by keeping walkways clear of objects you may trip over. Use nonslip pads under rugs. Don't use small area rugs or throw rugs. Don't walk in poorly lit areas. Don't stand on chairs or wobbly ladders. Use caution when reaching overhead or looking upward. This position can cause a loss of balance. Be sure your shoes fit properly, have nonslip bottoms and are in good condition. Be cautious when going up and down curbs, and walking on uneven sidewalks. If your balance is poor, consider using a cane or walker. Stay as active as you can. Balance, flexibility, strength, and endurance all come from exercise. They all play a role in preventing falls. If you have pets, know where they are before you stand up or walk so you don't trip over them. Limit alcohol intake. Alcohol can cause balance problems and increase the risk of falls. Use night lights. Have your eyes tested to be sure you are seeing well, even if you already wear glasses. Follow-up Follow up with your healthcare provider, or as advised. If X-rays or CT scans were done, you will be notified if there is a change in the reading, especially if it affects treatment. Call 911 Call 911 if any of these happen: Trouble breathing Confused or difficulty arousing Fainting or loss of consciousness Rapid or very slow heart rate Seizure Difficulty with speech or vision, weakness of an arm or leg Difficulty walking or talking, loss of balance, numbness or weakness in one side of your body, or facial droop When to seek medical advice Call your healthcare provider right away if any of these happen: Repeated mechanical falls, or unexplained falls Dizziness Severe headache Blood in vomit, stools (black or red color) [id number] [employer]. [address] [place] [address], [place] [address]. All rights reserved. This information is not intended as a substitute for professional medical care. Always follow yourhealthcare professional's instructions. Additional Information VACCINATE! IT SAVES LIVES! Members of the community who have not yet received the COVID-19 vaccine and would like to receive it can visit one of [facility] vaccine clinics. There are many vaccine clinic locations within the [facility]. For locations and available times, please visit www.gettheshot.coronavirus.[place].gov/. It is important to note that some COVID mobile vaccine clinics are held outdoors and may be canceled in rainy or stormy conditions. To learn more about pediatric vaccinations (ages 5-11), we invite you to visit the [facility] webpage. [email or web address].[employer].org/pages/3991-Czccx-Pxqgpimersj-Jlpxtpsouw-Oznbk-Iaw [email or web address] learn more about the COVID-19 vaccine, we invite you to visit the CDC website for a list of frequently asked questions. https://www.cdc.gov/coronavirus/2019-ncov/vaccines/faq.html [facility] Patient Portal Access Instructions: Stay connected with your healthcare team and access your personal medical information anytime with the [facility] Patient Portal. If you would like a full copy of your medical records please contact the [facility] Medical Records Department Sunday through Sunday between 8a.m. and 4:30p.m. Please follow the directions below to access the portal: 1.Access the email account you provided upon registration to the hospital.2.Look for an invitation email from [facility].3.Open the email and access the invitation link: Accept Invitation to [facility]4.Fill in the required smith to create your account. Sign into [email or web address] with your username and password that you created in the above steps to stay up to date. You can then view a summary of results, a summary of your visits, and the ability to download your summaries to your computer or send the information securely to a physician. Remember that your healthcare information is confidential, so carefully consider who you will allow to register on the [facility] Patient Portal for access to your information. You can also access the [facility] Patient Portal on the [employer] edgar. Simply click on Health Records under [employer] and then click on the [employer] logo. HOW TO SAFELY DISPOSE OF PRESCRIPTION MEDICATIONS Please use one of the following methods to safely dispose of your unused medications. 1.Use a drug disposal kit: the drug disposal pouch allows you to safely discard your old and unuseddrugs. Ask your nurse to give you one when you are discharged.2.Visit a local take-back location: Many local pharmacies and police departments have programs that collect old and unwanted prescriptiondrugs. Call your local pharmacy or go to http://C4M.[employer]/5Z9Ww3v to find one close to you.3.Make use of household items: Use cat litter or old coffee grounds to dispose medications if other options arenot available. Mix your drugs with these household products, seal them in an airtight container andthrow it into the garbage. Call [facility]: [phone] to be sure your drugs can be disposed of in this way. Some medicines may require a different approach.4.Never flush your medications down the toilet. IF YOU HAVE BEEN PRESCRIBED AN OPIOIDS FOR PAIN If you have been prescribed an opioid (such as hydrocodone, oxycodone or morphine), it is critical to understand the possible side effects and risks of opioid pain medications. Even when taken as directed, opioids can have several side effects including: Tolerance, meaning you might need to take more of a medication for the same pain relief. Nausea, vomiting and/or constipation. Sleepiness, dizziness, dry mouth, confusion, depression or itching. Physical dependence, meaning you have withdrawal symptoms when a medication is stopped ? this can develop within a few days. KNOW YOUR RESPONSIBILITIES It is important to know exactly how much and how often to take the opioid pain medications you are prescribed. Never take opioids in higher amounts or more often than prescribed. Do not combine opioids with alcohol or other drugs that cause drowsiness, such as benzodiazepines, also known as benzos,including diazepam and alprazolam, muscle relaxants or sleep aids. Never sell or share prescriptionopioids. This is illegal. Store opioids in a secure place and out of reach of others (including children, family, friends and visitors). The last page(s) of this document has been signed and retained as a CHART COPY Signatures Patient Education Materials Subconjunctival Hemorrhage Hypertension, Established Scalp Contusion Head Injury (Adult) Facial Contusion Head Injury (Adult) Fall, Mechanical Medication Leaflets My discharge plan and instructions have been reviewed and explained to me and I,RENAE, JESSICA Andrewsd my current condition and have read and understand these discharge instructions. I have received a written copy of the plan/instructions. If I have questions, I am aware that I should contact my doctor. Patient/[employer] Ch[employer] Director Signature: Date/Time: Relationship to Patient: Witness Name/Signature: Date/Time: [facility]03-20-2024 Note ORIGINAL HISTORY: Fall 4 days previously COMPARISON: No FINDINGS: There is a mildly displaced fracture of the distal fibula. Alignment is within normal limits. There is calcaneal spurring. There is mild soft tissue swelling. IMPRESSION: Acute distal fibula fracture. Interpreted by: Guido tSevens MD Preliminary Report By: Guido Stevens MD Electronically signed By Guido Stevens MD Dictated Date: 01/23/2024 11:21:25 AM Prelim Date: 01/23/2024 11:22:15 AM Sign Date: 01/23/2024 11:22:15 AM Ordering Provider: [facility]03-20-2024 Note ORIGINAL HISTORY: Injury COMPARISON: No TECHNIQUE: Routine non-contrast head CT with sagittal and coronal reconstructions This exam was performed according to our departmental dose optimization program, and includes the following measures where applicable: automated exposure control, adjustment of the mAs and/or kVp according to patient size and/or exam, and an iterative reconstruction algorithm. FINDINGS: The ventricles and sulci are normal in size and configuration. There are no abnormal intra or extra-axial fluid collections. Urban-white matter differentiation is maintained. The calvaria and the bones of the base of the skull are intact. There is soft tissue swelling over the left frontal and parietal region. IMPRESSION: Superficial injury. Interpreted by: Guido Stevens MD Preliminary Report By: Guido Stevens MD Electronically signed By Guido Stevens MD Dictated Date: 01/23/2024 11:25:10 AM Prelim Date: 01/23/2024 11:26:24 AM Sign Date: 01/23/2024 11:26:24 AM Ordering Provider: [facility]03-13-2024 Note. MICRO - Microbiology PROCEDURE: Affirm Pathogens DNA Direct Probe [*1] SOURCE: Vaginal Fluid BODY SITE: Vagina COLLECTED DATE/TIME: 01/15/2024 12:00 EDT RECEIVED DATE/TIME: 01/15/2024 22:08 EDT START DATE/TIME: 01/15/2024 22:08 EDT FREE TEXT SOURCE: FINAL REPORTS Final Report [] Verified Date/Time/Personnel: 01/16/2024 10:45 EDT Trichomonas vaginalis DNA Probe Positive Gardnerella vaginalis DNA Probe Positive Candelaria species DNA Probe Negative Performing Locations *1: This test was performed at: [address], [facility] , [facility] ([place])12-24-2023 Note ORIGINAL HISTORY: Dysmenorrhea COMPARISON: No FINDINGS: The uterus measures 7.3 cm in length. There is a 14 mm endometrial stripe. There is fluid in the lower endometrial canal. There is a likely 2 cm fibroid. The right ovary measures 2.9 cm in length. There are a few prominent follicles; there is normal blood flow. The left ovary measures 4.7 cm in maximum diameter. There is normal blood flow. There is a cyst occupying the bulk of the ovary. There is no free fluid. IMPRESSION: Complex and thickened endometrial stripe, with fluid in the endometrial canal. Further evaluation is recommended; hysterosonography may be considered. Left ovarian cyst. Follow-up ultrasound in 6-12 weeks is recommended to ensure resolution. Interpreted by: Guido Stevens MD Preliminary Report By: Guido Stevens MD Electronically signed By Guido Stevens MD Dictated Date: 12/24/2023 3:15:19 PM Prelim Date: 12/24/2023 3:22:46 PM Sign Date: 12/24/2023 3:22:46 PM Ordering Provider: [facility]02-07-2024 Note. MICRO - Microbiology PROCEDURE: Affirm Pathogens DNA Direct Probe [*1] SOURCE: Vaginal Fluid BODY SITE: Vagina COLLECTED DATE/TIME: 12/11/2023 08:05 EST RECEIVED DATE/TIME: 12/12/2023 08:05 EST START DATE/TIME: 12/12/2023 08:05 EST FREE TEXT SOURCE: FINAL REPORTS Final Report [] Verified Date/Time/Personnel: 12/12/2023 10:29 EST Gardnerella vaginalis DNA Probe Negative Trichomonas vaginalis DNA Probe Negative Candelaria species DNA Probe Negative Performing Locations *1: This test was performed at: [facility], [address] [place] [address], [facility]- , [facility] ([place])04-25-2023 Miscellaneous Notes* Telephone Encounter - Alexus Sweeney RN - 04/25/2023 1:18 PM EDT Spoke to pt to verify she did not have transportation issues at this time and is able to be scheduled for an evaluation. She stated all is good now. I also mentioned she will need to name 2 support people to our . A new [employer] code was sent to her. She is aware if she doesn't activate by tomorrow am, Office education will be scheduled documented in this encounterUniversity Hospitals Health System06-21-2023 History of Present illness Narrative* Alexus Sweeney RN - 04/25/2023 1:07 PM EDT Hx: MJ use occasionally; 09-19-22 TTE/EF 65-70%; New Referral Referring Physician Arash Ramirez Organ Type kidney ESRD Yes. Cause: HTN Dialysis Dependant? Yes Name of Dialysis Facility: [facility] started 02-13-19 T,,[place] Diabetes no Smoking Quit 15 yrs ago 0.5ppd x 10 yrs 5 pack yrs Current BMI 35.6 Previous Transplant no Date of Last Transplant N/a Currently Listed? No Per pt: Did not follow thru with evaluation due to transportation issues ( Pt denies having any issues at this time) Willing to receive blood yes Potential Living Donor? No Full Transplant Evaluation? Yes Malnutrition Screening Tool (MST) 1. Have you lost weight without trying? No- 0 Weight loss score: 0 2. Have you been eating poorly in the last week because of a decreased appetite? No- 0 Appetite score: 0 Total MST score (weight loss + appetite scores): 0 Score of 2 or more = referral to registered dietitian for an individual appointment Alexus Sweeney RN Pre-Kidney & Pancreas [facility] documented in this encounterUniversity Hospitals Health System05-08-2023 Miscellaneous Notes* Telephone Encounter - Caterina Wood - 03/12/2023 11:51 AM EDT Called and spoke with patient regarding kidney transplant, intake completed, and to nurse coordinator for review. Caterina Israel Pre- transplant intake form Date: 03/12/2023 Spoke with: Patient EMAIL: [employer] M/F: F Work Status: Not Working Race: B Marital Status: Ht/Wt: BMI: 5'8 234 Lbs; BMI = 35.6 Weight loss without trying? No Decreased Appetite? No Nutrition = 0 Assistive devices? No Activity Level? Moderate Smoking? Yes Quit date? 15 yrs ago Years? 10 Packs? 1/2 pack per day O2? COPD/Emphysema? No to all Transfusions, Willing to accept? Yes Dialysis? [facility]? -- Start date? 2018 Referring doctor? ARASH RAMIREZ A Mammo? Pap? Yes- 2022 at [place], [place] Yes - 2 yrs ago - Patient to schedule Previous Transplant? No Nephrectomy? No Evaluation elsewhere? Listed? Yes - in [place], [place] No - Was having transportation problems anddid not follow through - evaluation closed Kidney Biopsy? Liver Biopsy? No No Cirrhosis? Hepatitis? HIV? Cancer? No No No No Diabetes 1 or 2? No Hypertension? CAD? MA? CABG/STENTS? Yes No No No Stress? Echo? Cath? Yes - 09/11/2022 at ([facility]) [facility] [place] Yes-09/15/[address]-Abd/Pelv = ([facility]) [place] DVT/PE? No CVA/TIA?No Lupus? No Sickle/Trait? No Blood thinner? No ETOH? Drug use? Psych disorder? No Yes-Marijuana occasionally No Prior Surgeries? Fistula Arm; Cath - Chest insert and removed-2x Living Donors? No documented in this encounterUniversity Hospitals Health System12-19-2022 Evaluation + Plan note Future Scheduled Tests Laboratory* Lipid Profile 10/23/22 Radiology* XR Knee 3 Views Right 08/09/22 [facility] 12-19-2022 Evaluation + Plan note Future Scheduled Tests Laboratory* Lipid Profile 10/23/22 [facility] 10-05-2022 Evaluation + Plan note Future Scheduled Tests Radiology* XR Knee 3 Views Right 08/09/22 [facility] 07-15-2022 NoteDiagnoses/Problems Pre-transplant evaluation for kidney transplant (V72.83) (Z01.818) Provider Impressions Impression: 1. ESRD. Patient appears to be a suitable candidate for kidney transplantation. We talked about general benefits of kidney transplant compared to dialysis. We also talked about superior outcomes of living kidney transplants compared to kidney transplants in general. She consented for DCD, hepatitis B core positive and HCV positive donors. I also discussed with her the need for antirejection medications post kidney transplant and the side effects of those medications with her, which include but are not limited to increase risk of infections, risk of post-transplant diabetes, increasedrisk of cancers including but not limited to skin cancers and posttransplant lymphoproliferative dis orders. The patient voiced understanding and wanted to proceed with further evaluation. Plan: 1. Complete work up and see social work, surgeon, and financial counsellor 2. After she finishes her work up, her candidacy will be discussed at our upcoming selection committee and a decision will be made at that time about his candidacy to receive a kidney transplant. Thepatient and referring physician will be informed of the outcome under separate cover. Thank you for the referral and if you have any questions, don't hesitate to contact us. History of Present Illness Today, I had the pleasure of seeing JESSICA TOVAR in the transplant institute at on May 19 2022 as a consultation to assess suitability to undergo a kidney transplant. She is a very pleasant 46year old woman with history of ESRD of HTN etiology. She was evaluated in 2019 for a kidney transplant here at [facility] and she defered completion of testing at the time. She started dialysis 2019. Today,she felt well overall without any major complaints. PM/PSHx: 1. 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 2. HTN Shx: Marital Status: single, has a boy friend, Tobacco status: past smoker, ETOH: occasional, once a month. Employment: Unemployed. 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 Uses Marijuana. Fhx: No kidney disease in family. Review of Systems Constitutional: feeling tired. Eyes: eyesight problems. Gastrointestinal: constipation. Musculoskeletal: back pain. Active Problems Diastolic hypertension (401.9) (I10) Pre-transplant evaluation for kidney transplant (V72.83) (Z01.818) Past Medical History History of chronic kidney disease (V13.09) (Z87.448) History of end stage renal disease (V13.09) (Z87.448) History of gastroesophageal reflux (GERD) (V12.79) (Z87.19) History of herpes zoster (V12.09) (Z86.19) History of hyperlipidemia (V12.29) (Z86.39) History of hypertension (V12.59) (Z86.79) History of iron deficiency anemia (V12.3) (Z86.2) History of secondary hyperparathyroidism (V12.29) (Z86.39) Surgical History History of Arteriovenous fistula creation procedure Family History Family history of chronic kidney disease (V18.69) (Z84.1) Family history of malignant neoplasm (V16.9) (Z80.9) Family history of cerebrovascular accident (CVA) (V17.1) (Z82.3) Social History Former smoker (V15.82) (Z87.891) History of crack cocaine use (305.63) (Z87.898) History of marijuana use (305.23) (Z87.898) Allergies No Known Allergies Recorded By: Sridhar Stubbs; 09/26/2019 12:21:54 PM Current Meds Medication NameInstruction amLODIPine Besylate 5 MG Oral Tablet Cinacalcet HCl - 30 MG Oral Tablet Famotidine 20 MG Oral Tablet Labetalol HCl - 100 MG Oral Tablet Losartan Potassium 50 MG Oral Tablet Yell Caps 1 MG Oral Capsule Vitals Vital Signs Recorded: [id number] 01:31PM Lpgtrrnxfpt20.1 F, Temporal Heart Rate90 Vfdzupmk892 Phuesjusq662 Height5 ft 7 in Mxgogo414 lb 4.8 oz BMI Rdtbxdnarh51.05 kg/m2 BSA Calculated2.22 Tobacco Useb) No Falls Screening (Age 18+)a) No falls within the last year O2 Flhsqfbvsp431, RA Pain Scale0 Physical Exam Constitutional: no acute distress, well appearing and well nourished. Psychiatric: orientation to person, place, and time. Appropriate mood and affect. Neurologic: normal examination of cranial nerves, normal examination of motor strength, normal examination of sensation and asterixis is not present. HEENT: examination of the head and face normal, EOMI, sclerae were anicteric and normal examinationof fundi, tympanic membranes were normal bilaterally and oral mucosa was moist. Neck: no thyromegaly, jugular venous distension or audible carotid bruits. Cardiovascular: auscultation of heart normal rate and rhythm, normal S1 and S2, no murmurs. There was no pericardial friction rub. Pulmonary: lungs are clear to auscultation. Abdomen: soft, non tender to palpation, normoactive bowel sounds. No organomegaly, masses or audible bruits and abdominal aorta normal. Kidneys: bilateral lower poles not palpable and non tender with percussion. Extremities: examination of extremities normal, no clubbing of the fingernails (more content not included)... [id number] NoteCONSULTATION NOTE Ordering Physician: Arash Ramirez MD 06/27/2021 1:55 PM The patient's indwelling temporary right internal jugular dialysis catheter was explanted by special procedures staff without difficulty. Hemostasis was achieved with manual compression. Dressing was applied. The patient was then discharged in good condition. ---- Electronic Signature on File ---- Signed By: Andrea Muñoz MD [email or web address] Dictated: 06/27/2021 4:55 PM Signed: 06/27/2021 4:55 PM Reported By: ANDREA MUÑOZ M.D. Signed By: ANDREA MUÑOZ M.D.[facility] note Author Andrew Espino [facility] Note Date/Time April 14, 2025 4:50 pm [facility] Medical Records Department [address] [place] [address] Anesthesia Postop Eval I 04/14/251649 MR#: [id number] Acct: [id number] Name: JESSICA TOVAR Rep #:[id number] : 1975 49 From: Andrew gonzalez CRNA PCP: DARREN Beltran Status:REG S DC Y Race: AA Location: [place] [address] Anesthesia: Postop Eval I Current Vital Signs Temperature: 97.6 F Pulse Rate: 86 Blood Pressure: 127/73 Respiratory Rate: 16 Pulse Ox: 100 Oxygen Delivery Method: Room Air Assessment Airway patent: Yes Spontaneous unlabored respirations: Yes Mental status: Awake and Calm nausea: No Vomiting: No Anesthesia Complication: No Fluid Hydration Crystalloid volume administer (ml): 1,000 Total IV fluid infused: 1,000 Progress Note Anesthesia document: Postop Eval 1 completed: Yes 04/14/251649 <Electronically signed by Andrew mack CRNA> Date _ Andrew Smithignkayla Signature: Date CC: ~ Signed [facility] Work Phone: Evaluation + Plan note Future Appointments Appointment Date:02/01/2024 02:00:00 PM Scheduled Provider: Location:RAD Appointment Type:US Pelvis Complete Future Scheduled Tests Radiology* US Pelvis Non-OB Complete 02/01/24 [facility] Evaluation + Plan note Future Appointments Appointment Date:07/21/2024 01:45:00 PM Scheduled Provider:ROXANNE BRAND DO Location:[place] Appointment Type:OSM OV Follow Up Diagnostic Tests Pending * Rapid Plasma Reagin Test 07/03/24 * Copper, Serum 07/03/24 * Vitamin B1 (Thiamine), Blood 07/03/24 [facility] Evaluation note* Diagnosis ESRD on dialysis (HCC)- Primary End stage renal disease Pre-transplant evaluation for ESRD (end stage renal disease) Other specified pre-operative examination Hypertension, unspecified type documented in this encounter [facility] note* Diagnosis Pre-transplant evaluation for kidney transplant- Primary Other specified pre-operative examination [facility] N[facility]ative No data available for this section [facility] Discharge instructions No data available for this section [facility] Progress note No data available for this section [facility] Reason for referral (narrative)No reason for referral information availableWCleveland Clinic [facility] Work Phone: Summary Purpose Family History No Family History Records FoundUnknown Family Member Name Dates Details Family history of malignant neoplasm: Mother(V16.9, Z80.9) Status:Active Family history of chronic ki dney disease: Mother(V18.69, Z84.1) Status:Active Family history of cerebrovas cular accident (CVA): Other(V17.1, Z82.3) Status:Active Unknown Family Member Name Dates Details Family history of malignant neoplasm: Mother(V16.9, Z80.9) Status:Active Family history of chronic ki dney disease: Mother(V18.69, Z84.1) Status:Active Family history of cerebrovas cular accident (CVA): Other(V17.1, Z82.3) Status:Active Unknown Family Member Name Dates Details Family history of malignant neoplasm: Mother(V16.9, Z80.9) Status:Active Family history of chronic ki dney disease: Mother(V18.69, Z84.1) Status:Active Family history of cerebrovas cular accident (CVA): Other(V17.1, Z82.3) Status:Active Unknown Family Member Name Dates Details Family history of malignant neoplasm: Mother(V16.9, Z80.9) Status:Active Family history of chronic ki dney disease: Mother(V18.69, Z84.1) Status:Active Family history of cerebrovas cular accident (CVA): Other(V17.1, Z82.3) Status:Active Unknown Family Member Name Dates Details Family history of malignant neoplasm: Mother(V16.9, Z80.9) Status:Active Family history of chronic ki dney disease: Mother(V18.69, Z84.1) Status:Active Family history of cerebrovas cular accident (CVA): Other(V17.1, Z82.3) Status:Active Unknown Family Member Name Dates Details Family history of malignant neoplasm: Mother(V16.9, Z80.9) Status:Active Family history of chronic ki dney disease: Mother(V18.69, Z84.1) Status:Active Family history of cerebrovas cular accident (CVA): Other(V17.1, Z82.3) Status:Active Unknown Family Member Name Dates Details Family history of chronic ki dney disease: Mother(V18.69, Z84.1) Status:Active Family history of malignant neoplasm: Mother(V16.9, Z80.9) Status:Active Family history of cerebrovas cular accident (CVA): Other(V17.1, Z82.3) Status:Active Advance Directives No Advanced Directives Records Found Advance Directive Response Recorded Date/ Time Do you have a Healthcare Power of [employer] Sales Representative? No April 13, 2025 8:49am Reason for Referral Specialty Diagnoses / Procedures Referred By Contac t Referred To Contact TRANSPLANT Diagnoses ESRD on dialysis (HCC) Pre-transplant evaluation for ESRD (end stage renal disease) Hypertension, unspecified type Procedures CONSULT TO TRANSPLANT CENTER OFFICE/OUTPATIENT NEW HIGH MDM 60-74 MINUTES CHEST X-RAY, FRONT&LAT ECG ROUTINE ECG W/LEAST 12 LDS TRCG ONLY W/O I&R CT ANGIOGRAPHY CHEST W/CONTRAST/NONCONTRAST CT ABDOMEN W & W/O CONTRAST Arash Ramirez MD [address] [place] [address] [place] [id number] Referral ID Status Reason Start Date Expiration Date Visits Requested Visits Authorized [id number] Outside PCP Financial Clearance Required - OON Payor 03/12/2023 03/11/2024 99 99 Chief Complaint and Reason for Visit Chief Complaint Admit Date CHRONIC GERD February 04, 2025 12:1 5pm Reason for Visit Admit Date Screening for colon cancer February 04 12:15pm Chronic GERD February 04, 2025 12:1 5pm Screening for colon cancer April 14 12:37pm Chronic GERD April 14, 2025 12:3 7pm Additional Source Comments INFORMATION SOURCE (unrecogn ized section and content) DATE CREATED AUTHOR 11/25/2020 [facility] DATE CREATED AUTHOR AUTHOR'S ORGANIZ ATION 01/14/2022 [employer] [facility] [place] DATE CREATED AUTHOR AUTHOR'S ORGANIZ ATION 05/25/2022 [employer] DATE CREATED AUTHOR AUTHOR'S ORGANIZ ATION 01/10/2023 [facility] DATE CREATED AUTHOR AUTHOR'S ORGANIZ ATION 07/09/2024 [facility] [place] [facility] DATE CREATED AUTHOR AUTHOR'S ORGANIZ ATION 03/18/2025 [facility] DATE CREATED AUTHOR AUTHOR'S ORGANIZ ATION 03/18/2025 [employer] DATE CREATED AUTHOR AUTHOR'S ORGANIZ ATION 04/11/2025 [facility] DATE CREATED AUTHOR AUTHOR'S ORGANIZ ATION 04/14/2025 [facility] DATE CREATED AUTHOR AUTHOR'S ORGANIZ ATION 04/15/2025 [facility] Care Team (unrecognized sect ion and content) Care Team Personnel Name: ARASH RAMIREZ MD Position: P3 Physician - Nephrology Med Service: Active Provider Member Role: Pharmacy Associate Address: Address: [address] [place] [address] [address] [facility] [place] [place] [address]- [place] Name: SALIMA HAGEN MD Position: Physician Med Service: Active Provider Member Role: Primary Care Physician Address: Address: [address] [place] [address] [place] Care Team Related Persons Name: GAVIN MOTT Name: ESSIE FRYE Care Team Personnel Name: ARASH RAMIREZ MD Position: P3 Physician - Nephrology Member Role: Pharmacy Associate Address: Address: [address] [place] [address] [address] [facility] [place] [place] [address]- [place] Name: CHRISTINE TO APRN-ROUNDHOUSE FIRER/FIREMAN Position: P4 Advanced Practice Nurse Member Role: Primary Care Physician Address: Address: [address] [place] [address]- Care Team Related Persons Name: GAVIN MOTT Name: ESSIE FRYE Care Team Personnel Name: ARASH RAMIREZ MD Position: P3 Physician - Nephrology Member Role: Pharmacy Associate Address: Address: [address] [place] [address] [address] [facility] [place] [phone]- [place] Name: CHRISTINE TO MANAGER FUND-ROUNDHOUSE FIRER/FIREMAN Position: P4 Advanced Practice Nurse Member Role: Primary Care Physician Address: Address: [address] [place] [address]- Care Team Related Persons Name: GAVIN MOTT Name: ESSIE FRYE Patient Care team informatio n (unrecognized section and content) Elevator Adjuster Relationship Specialty Start Date End Date Arash Ramirez MD [address] [address] Referring Nephrology 03/06/23 Elevator Adjuster Relationship Specialty Start Date End Date Arash Ramirez MD [address] [address] Referring Nephrology 03/06/23 Elevator Adjuster Relationship Specialty Start Date End Date Arash Ramirez MD [address] [place] [address] Referring Nephrology 03/06/23 Team Status: Active Member Role Status Dates DARREN Beltran NP Primary Care Provider Active Team Status: Inactive Member Role Status Dates DONNA Castillo Attending Provider Active Start: February 04, 2025 End: February 04, 2025 Team Status: Inactive Member Role Status Dates Dr. Alberto Strickland DO Attending Provider Active Start: April 14, 2025 End: April 14, 2025 DARREN Beltran NP Primary Care Provider Active Start: April 14, 2025 End: April 14, 2025 Christine To NP, NP-C Referring Provider Active Start: April 14, 2025 End: April 14, 2025 Team Status: Active Member Role Status Dates Dr. Alberto Strickland DO Attending Provider Active Start: April 14, 2025 Dr. Alberto Strickland DO Other Provider Active St art: April 14, 2025 Christine To NP, NP-Azam Primary Care Provider Active Start: April 14, 2025 Christine To NP, NP-Azam Referring Provider Active Start: April 14, 2025 Source Comments (unrecognize d section and content) In the event this informatio n is protected by the Federal Confidentiality of Alcohol and Drug Abuse Patient Records regulations: The Federal rules restrict any use of the information to criminally investigate or prosecute any alcohol or drug abuse patient.[facility] System[facility] the event this information is protected by the Federal Confidentiality of Alcohol and Drug Abuse Patient Records regulations: The Federal rules restrict any use of the information to criminally investigate or prosecute any alcohol or drug abuse patient.[facility] SystemIn the event this information is protected by the Federal Confidentiality of Alcohol and Drug Abuse Patient Records regulations: The Federal rules restrict any use of the information to criminally investigate or prosecute any alcohol or drug abuse patient.[facility] SystemIn the event this information is protected by the Federal Confidentiality of Alcohol and Drug Abuse Patient Records regulations: The Federal rules restrict any use of the information to criminally investigate or prosecute any alcohol or drug abuse patient.[facility] Reason for Visit (unrecogniz ed section and content) Reason Comments Referral - Kidney Txp Reason Comments Referral - Kidney Txp New MyChart code s ent FOR RECORDS PERTAINING TO PATIENTS WHO ARE OR HAVE BEEN ENROLLED IN A CHEMICAL DEPENDENCY/SUBSTANCEABUSE PROGRAM, SOME INFORMATION MAY BE OMITTED. This clinical summary was aggregated from multiple sources. Caution should be exercised in using it in the provision of clinical care. This summary normalizes information from multiple sources, and as a consequence, information in this document may materially change the coding, format and clinical context of patient data. In addition, data may be omitted in some cases. CLINICAL DECISIONS SHOULD BE BASED ON THE PRIMARY CLINICAL RECORDS. [employer] [facility]. provides no warranty or guarantee of the accuracy or completeness of information in this document.
[2025-04-17] MEDS: 0.9% Normal Saline (1000mL) 1,000 ML 1000 ML IV (06:04)
--- NOTE | 2025-04-17 06:55 | PCM.HP.STD ---
HPI - General General Date of Admission: 04/17/25 Date of Service: 04/17/25 Chief Complaint: Bright red blood per rectum HPI Narrative JESSICA MACDONALD, is a 49 F who presented to the emergency department at [facility] on 04/17/2025 with a chief complaint of bright red blood per rectum. Patient had a colonoscopy with Dr. Strickland on 04/15/2025. At which time she had polypectomy of three 1 to 2 mm polyps at the hepatic flexure in the cecum that were removed with hot snare. She stated she did fine for about 24 hours and then last evening developed bright red blood per rectum of several episodes. She states she is anemic at baseline but is unclear what her baseline hemoglobin runs. Vital signs on presentation showed temperature of 98.2, heart rate 84, blood pressure is 127/76 however orthostatics were markedly positive and her standing blood pressure was 86/45, pulse ox was 100% on room air. CBC showed anemia with a hemoglobin of 7.3 and thrombocytopenia with a platelet count of 143,000 again baseline is unknown for both. Chemistry panel showed normal electrolytes however she had an elevated BUN of 47 and serum creatinine of 8.12. She is on dialysis at baseline. She states she end up on dialysis related to uncontrolled hypertension. Lactic acid was 1.3. test was negative on 04/14/2025. She was ordered 2 units of packed red blood cells by the emergency department and request for admission was made. Given her significant orthostatics and the amount of bright red blood per rectum she has been having this even in the emergency department she will be admitted to the ICU. Dr. Strickland was made aware by the emergency department. [facility] Medical History Wears glasses Marijuana use Arthritis History of renal disease Anemia Restless legs Dietary restriction Heartburn Former smoker Home Medications ?Medication ?Instructions ?Recorded ?Last Taken ?Type amlodipine 5 mg tablet 5 mg PO QHS 01/29/25 04/13/25 History calcitriol 0.5 mcg capsule 0.5 mcg PO QDAY 01/29/25 04/10/25 History cinacalcet 90 mg tablet 90 mg PO QDAY 01/29/25 04/13/25 History labetalol 100 mg tablet 100 mg PO BID 01/29/25 04/14/25 10:00 History losartan 50 mg tablet 50 mg PO BID 01/29/25 04/14/25 10:00 History medroxyprogesterone 10 mg tablet 10 mg PO QDAY 01/29/25 Unknown History multivitamin 1 tab PO QDAY 01/29/25 04/10/25 History omeprazole 20 mg capsule,delayed 20 mg PO QDAY 01/29/25 04/13/25 History release ropinirole 0.5 mg tablet 1.5 mg PO BID 01/29/25 04/13/25 History sevelamer HCl 800 mg tablet 800 mg PO TID 01/29/25 04/11/25 History Allergy/AdvReac Type Severity Reaction Status Date / Time No Known Allergies Allergy Verified 04/17/25 05:02 Social History Smoking Status: Former smoker alcohol intake: current alcohol intake frequency: holidays/special occasions only substance use type: marijuana caffeine: Yes Type: coffee ROS Constitutional Constitutional: Denies anorexia, change in weight, chills, fatigue, fever(s), malaise, night sweats, weakness or other Eyes Eyes: Denies blurry vision, change in eye color, change in vision, discharge from eye(s), double vision, erythema, eye pain, loss of vision or other ENT HEENT: Denies abnormal hearing, dysphagia, ear pain, epistaxis, headache(s), hearing loss, nasal congestion, nasal discharge, post nasal drip, sinus pressure, sore throat or other Cardiovascular Cardiovascular: Denies chest pain, claudication, dyspnea on exertion, edema, lightheadedness, orthopnea, palpitations, paroxysmal nocturnal dyspnea, rapid heart rate, syncope or other Respiratory/Chest Respiratory/Chest: Denies cough, dyspnea, excessive phlegm production, hemoptysis, productive cough, shortness of breath at rest, shortness of breath with exertion, wheezing or other Gastrointestinal Gastrointestinal: Reports hematochezia and nausea; Denies abdominal pain, coffee ground emesis, constipation, diarrhea, dyspepsia, hematemesis, loose stools, melena, vomiting or other Genitourinary Genitourinary: Denies burning urination, difficulty urinating, dysuria, hematuria, nocturia, urinary frequency, urinary hesitancy, urinary incontinence, urinary urgency or other Musculoskeletal Musculoskeletal: Reports back pain; Denies arthralgias, joint pain, joint stiffness, joint swelling, myalgias, neck pain or other Neurologic Neurologic: Denies abnormal gait, abnormal speech, confusion, disequilibrium, dizziness, focal weakness, headache(s), numbness, paresthesias, seizure-like activity, seizures, syncope, tingling, tremor(s) or other Psychiatric Psychiatric: Denies anxiety, depression, homicidal ideation, suicidal ideation or other Endocrine Endocrinology: Denies change in body appearance, cold intolerance, excessive sweating, heat intolerance, polydipsia, polyuria or other Hematologic/Lymphatic Hematologic/Lymphatic: Denies anemia, easy bleeding, easy bruising, lymphadenopathy or other Allergic/Immunologic Allergic/Immunologic: Denies rhinitis, hives, eczemia, asthma or other Vital Signs Vital Signs Vital Signs: 04/17/25 05:04 04/17/25 05:23 Temperature 98.2 F Temperature Source Oral Pulse Rate 84 Pulse Rate [Lying] 87 Pulse Rate [Standing (for 1 minute prior to obtaining)] 90 Respiratory Rate 16 Blood Pressure 127/76 H Blood Pressure [Lying] 115/67 Blood Pressure [Sitting (for 1 minute prior to obtaining)] 115/74 Blood Pressure [Standing (for 1 minute prior to obtaining)] 86/45 L Blood Pressure Mean 93 Blood Pressure Mean [Lying] 83 Blood Pressure Mean [Sitting (for 1 minute prior to obtaining)] 87 Blood Pressure Mean [Standing (for 1 minute prior to obtaining)] 58 Pulse Ox 100 Oxygen Delivery Method Room Air Weight Weight: 102.2 kg Body Mass Index (BMI) 33.3 Physical Exam Const alert, oriented x3, no apparent distress and well nourished; Negative for average body habitus Constitutional Narrative: Obese, very pleasant -[place] female, sitting up in bed, appears comfortable, nontoxic General Appearance: cooperative HEENT normocephalic, head/scalp atraumatic, hearing grossly normal bilaterally and moist oral mucous membranes HEENT Narrative: Mallampati 3, no thrush Eyes EOMs intact bilaterally Eyes Narrative: Conjunctiva pallor bilaterally, no scleral icterus Resp normal respiratory effort, no retractions, no use of accessory muscles and clear to auscultation bilaterally Auscultation: Negative for rales, rhonchi or wheezes Cardio regular rate, regular rhythm, S1 normal heart sound, S2 normal heart sound, no murmurs, no rub, no gallops and no clicks GI normal to inspection, nondistended, normoactive bowel sounds, soft to palpation and non-tender Extremity no clubbing, cyanosis or edema Extremity Narrative: Pedal pulses are 2+, radial pulses are 2+, patient has left upper extremity fistula that has a positive bruit and thrill Neuro oriented x3, moves all extremities and no focal motor deficits Speech: speech normal Psych affect normal Psych Narrative: Very pleasant, interacts appropriately Results Lab / Micro Data 04/17/25 05:18 04/17/25 05:18 Labs: Laboratory Results - last 24 hr 04/17/25 05:18: WBC 8.6, RBC 2.23 L, Hgb 7.3 L, Hct 22.1 L, MCV 99.1 H, MCH 32.7 H, MCHC 33.0, RDW Std Deviation 60.2 H, RDW Coeff of Dayanna 16.7 H, Plt Count 143 L, MPV 10.8, Immature Gran % (Auto) 0.500, Neut % (Auto) 73.7 H, Lymph % (Auto) 17.6 L, Bulloch % (Auto) 7.1, Eos % (Auto) 1.0, Baso % (Auto) 0.1, Absolute Neuts (auto) 6.3, Absolute Lymphs (auto) 1.51, Nucleated RBC % 0, Sodium 139, Potassium 4.2, Chloride 102, Carbon Dioxide 25.0, Anion Gap 12, BUN 47 H, Creatinine 8.12 H*, Estim Creat Clear Calc 10.90 L, Est GFR (MDRD) Non-Af 6 L, BUN/Creatinine Ratio 5.8 L, Glucose 103 H, Lactic Acid 1.3, Calcium 8.9, Blood Type O POSITIVE, Antibody Screen NEGATIVE Assessment & Plan Assessment/Plan (1) Symptomatic anemia: (2) Orthostatic hypotension: (3) Status post colon polypectomy: (4) Acute lower GI bleeding: (5) Hematochezia: PLAN: Plan Hematochezia - Patient with recent colonoscopy on 04/15/2025 with polypectomy - Suspect one of the polypectomy sites is bleeding - N.p.o. - Transfuse 2 units packed red blood cells - Serial H&H's as ordered - Will give DDAVP 20 mcg x 1 dose as patient is end-stage renal disease on dialysis and likely has impaired platelet function - Consult gastroenterology--> Dr. Friend made aware by emergency department physician - Admit to ICU with the volume of bright red blood she is having emergency department and orthostatic positive vitals Acute on chronic anemia - Patient admits she has chronic anemia but is on clear what she typically runs - Patient with marked bright red blood per rectum so I suspect 7.4 is not her baseline - Transfused 2 units packed red blood cells - Serial H&H's ordered - Monitor for stability Essential hypertension - Blood pressures are borderline low - Will hold labetalol, losartan, and amlodipine - Monitor for ability to reinitiate End-stage renal disease on HD - Continue home calcitriol - Continue Cinacalcet - Continue sevelamer - Consult nephrology for assistance with dialysis - Per patient she gets dialysis on MWF Obesity - BMI 33.3 - Recommend weight loss - Complicates treatment, prognosis, outcomes Restless leg syndrome - Continue home ropinirole DVT prophylaxis - SCDs -chemoprophylaxis contraindicated due to GI bleed CODE STATUS - Full code Charges/Coding Visit Charges Inpatient E&M: 87301 Init Hosp L2
--- OUTSIDE RECORDS SUMMARY | 2025-04-17 07:15 | XMS RPT_ITS | CCD ---
Author Organization [facility] Care Team Providers Care [employer] Manager Name Role Phone None, No PCP Unavailable Unavailable HIEU MILES, SALIMA Primary Care Physician ZULEIKA DETAIL TECHNICIAN-HIRAM, CHRISTINE Primary Care Physician Dr. Hayden Villalba Attending Unavaila MD CANDELARIA Turner Attending Unavailable MD CANDELARIA GU Attending Unavailable Trevon, Dr. Hayden Lopez Attending Kelli Norris, Dr. Hayden Lopez Attending Kelli oNrris, Dr. Hayden Lopez Attending Kelli Norris, Dr. Hayden Lopez Attending Kelli Norris, Dr. Hayden Lopez Attending Kelli Norris, Dr. Hayden Lopez Attending MD CANDELARIA Robertson Attending Unavailable Arash Ramirez MD Unavailable TEMO CERVANTES MD Attending Unavailab le ZULEIKA DETAIL TECHNICIANMIQUEL, CHRISTINE Primary Care Unavail able ZULEIKA LAWRENCENCHRISTINE HUNTLEY Attending Unavail able LORSON DETAIL TECHNICIAN-HIRAM, [place] Primary Care Unavail able TEMO CERVANTES MD Attending Unavailab le LORSON DETAIL TECHNICIAN-HIRAM, [place] Primary Care Unavail able TEMO CERVANTES MD Attending Unavailab le LORSON DETAIL TECHNICIAN-NEON SIGN SERVICER, [place] Primary Care Unavail able LORSON DETAIL TECHNICIAN-NEON SIGN SERVICER, [place] Primary Care Unavail able LORSON DETAIL TECHNICIAN-NEON SIGN SERVICER, CHRISTINE Attending Unavail able CHRISTINA MORENO MD Attending Unavailable LORSON DETAIL TECHNICIAN-NEON SIGN SERVICER, [place] Primary Care Unavail able LORSON DETAIL TECHNICIAN-NEON SIGN SERVICER, [place] Primary Care Unavail able ALON BLANCA MD Attending Unavailable LORSON DETAIL TECHNICIAN-NEON SIGN SERVICER, [place] Primary Care Unavail able NANNAPANENI MD, TEMO Attending Unavailab nishant CERVANTES MD, TEMO Attending Unavailab le LORSON DETAIL TECHNICIAN-NEON SIGN SERVICER, [facility] Unavail able EDDI BLOUNT Admitting Unavailable EDDI BLOUNT Attending Unavailable LOREVELYN, [facility] Care Unavailable EDDI BLOUNT Admitting Unavailable EDDI BLOUNT Attending Unavailable LORSON, [facility] Care Unavailable BILLY MILES, TEMO Attending Unavailab le LORSON DETAIL TECHNICIAN-NEON SIGN SERVICER, [place] Primary Care Unavail able LORSON DETAIL TECHNICIAN-NEON SIGN SERVICER, [place] Primary Care Unavail able LORSON DETAIL TECHNICIAN-NEON SIGN SERVICER, CHRISTINE Attending Unavail able BILLY MILES, TEMO Attending Unavailab le LORSON DETAIL TECHNICIAN-NEON SIGN SERVICER, [facility] Care Unavail able JOSH MILES, CHRISTINA Attending Unavailable LORSON DETAIL TECHNICIAN-NEON SIGN SERVICER, [place] Primary Care Unavail able LORSON DETAIL TECHNICIAN-NEON SIGN SERVICER, [place] Primary Care Unavail able LORSON DETAIL TECHNICIAN-NEON SIGN SERVICER, CHRISTINE Attending Unavail able LORSON DETAIL TECHNICIAN-NEON SIGN SERVICER, [place] Primary Care Unavail able LORSON DETAIL TECHNICIAN-NEON SIGN SERVICER, CHRISTINE Attending Unavail able LORSON DETAIL TECHNICIAN-NEON SIGN SERVICER, [facility] Care Unavail able LORSON DETAIL TECHNICIAN-NEON SIGN SERVICER, [place] Attending Unavail able Christine Ibrahim Attending Provider [phone] Dr. Alberto Strickland DO Attending Provider Zuleika SPRING UPHOLSTERER-C, [facility] Provider [phone] Zuleika SPRING UPHOLSTERER-C, Christine Referring Provider [phone] Alberto Strickland DO Other Provider [phone] Christine Dickey Attending Unavailable Alberto Strickland Attending Unavailable Alberto Strickland Consulting Unavailable Zuleika SPRING UPHOLSTERER, Christine Referring Unavailable Genason SPRING UPHOLSTERER, [facility] Unavailable Alberto Strickland Attending Unavailable Genason SPRING UPHOLSTERER, Christine Referring Unavailable Genason SPRING UPHOLSTERER, [facility] Unavailable Medications Current Medications [...] 12:00am Start: 01-30-2024 take 1 capsule by [facility] three times weekly calcitriol 0.5 mcg oral [...] 12:00am Start: 06-26-2019 take 2 tablets by [facility] once daily Cinacalcet HCl - 30 MG Oral Tablet taking two tablets daily Quantity: 0 Refills: 0 Ordered: 26-Jun-2019 DO Start : 26-Jun-2019 Active Start: 06-26-2019 Cinacalcet HCl - 30 MG Oral Tablet Quantity: 30 Refills: 0 Ordered: 26-Jun-2019 DO Start : 26-Jun-2019 Active take 1 tablet by [facility] once daily Cinacalcet HCl (SENSIPAR) 60 mg tablet Take 60 mg by mouth once daily. 0 Active Comment on above: Take 60 mg by mouth once daily. famotidine 20 mg oral tablet (20 sources) Histamine-2 Receptor Antagonist Start: 01-30-2024 Pepcid 20 mg oral tablet Dose : 20 mg = 1 tab(s), Oral, qDay, # 30 tab(s), 11 Refill(s), Pharmacy: [facility]/pharmacy #[id number], 172.5, cm, 01/30/24 13:08:00 EDT, Height, [...] January 29, 2025 12:00am polyethylene glycol 3350 515862 mg / potassium chloride 2970 mg / sodium bicarbonate 6740 mg / sodium chloride 5860 mg / sodium sulfate 47317 mg powder for oral solution (1 source) [...] Range Facility Colonoscopy Reporton [address] [facility] Medical Records Department [address] [place] [address] Colonoscopy Report MR#: [id number] Acct: [id number] Name: JESSICA TOVAR Rep #: [id number] : 1975 49 From: Alberto Strickland DO PCP: DARREN Beltran Status:[facility] Patient Name: Jessica Tovar Procedure Date: 04/14/2025 [...] for surveillance. Procedure Code(s): --- Professional --- 95910, Colonoscopy, flexible; with removal of tumor(s), polyp(s), or other lesion(s) by snare technique CPT copyright 2021 [employer]. All rights reserved. The codes documented in this report are preliminary and upon pre coder review may be revised to meet current compliance requirements. Alberto Strickland DO 04/14/2025 4:57:08 PM This report has been signed electronically. Number of Addenda: 0 Note Initiated On: 04/14/2025 4:12 PM 04/14/25 1657 Date Alberto Strickland DO Cosigner Signature: Date (if indicated) CC: SPRING UPHOLSTERERRenea To; Alberto Strickland DO Date Dictated: 04/14/25 1612 Date Transcribed: Finishing Area Operator: RF Signed Normal [facility] EGD Reporton 04-14-[address] [facility] Medical Records Department [address] [place] [address] EGD Report MR#: [id number] Acct: [id number] Name: JESSICA TOVAR Rep #: [id number] : 1975 49 From: Alberto Strickland DO PCP: DARREN Beltran Status:[facility] Patient Name: Jessica Tovar Procedure Date: 04/14/2025 [...] pathology results. Procedure Code(s): --- Professional --- 29565, Small intestinal endoscopy, enteroscopy beyond second portion of duodenum, not including ileum; with biopsy, single or multiple CPT copyright 2021 [employer]. All rights reserved. The codes documented in this report are preliminary and upon pre coder review may be revised to meet current compliance requirements. Alberto Strickland DO 04/14/2025 4:50:55 PM This report has been signed electronically. Number of Addenda: 0 Note Initiated On: 04/14/2025 3:59 PM 04/14/251649 Date Alberto Strickland DO Cosigner Signature: Date (if indicated) CC: SPRING UPHOLSTERERMariselaC Christine To; Alberto Strickland DO Date Dictated: 04/14/25 1559 Date Transcribed: Finishing Area Operator: EDNA Signed [facility] MR/POSTOP.[facility] 04-14-2025 MR/POSTOP.[facility] Medical Records Department [address] [place] [address] Anesthesia Postop Eval I 04/14/251649 MR#: [id number] Acct: [id number] Name: JESSICA TOVAR Rep #: [id number] : 1975 49 From: Andrew Espino CRNA PCP: DARREN Beltran Status:[facility] Y Race: AA Location: [place] [address] Anesthesia: Postop Eval I Current Vital Signs [...] 1 completed: Yes 04/14/251649 Date Andrew Espino TICKET PULLER Cosigner Signature: Date CC: Signed Normal [facility] MR/[id number] 04-14-2025 MR/POSTOPAN2 [facility] Medical Records Department [address] [place] [address] Anesthesia Postop Eval II 04/14/251926 MR#: [id number] Acct: [id number] Name: JESSICA TOVAR Rep #: [id number] : 1975 49 From: Valentino Mallory MD PCP: DARREN Beltran Status:[facility] Y Race: AA Location: [place] Anesthesia Postop Eval I Sum Postop Eval Completion status Anesthesia document: Postop Eval 1 completed: Yes Anesthesia Postop Eval I Summary Anesthesia Postop Eval I Summary: Anesthesia Postop Eval I: Assessment Summary Airway patent Yes 04/14/25 16:50 TICKET PULLER.ACAR Spontaneous unlabored Yes 04/14/25 16:50 TICKET PULLER.ACAR respirations Mental status Awake,Calm 04/14/25 16:50 TICKET PULLER.ACAR nausea No 04/14/25 16:50 TICKET PULLER.ACAR Vomiting No 04/14/25 16:50 TICKET PULLER.ACAR Anesthesia Postop Eval I: Fluid Summary Crystalloid volume administer 1,000 04/14/25 16:50 TICKET PULLER.ACAR (ml) Colloids volume administered ( ml) Blood Product volume administered (ml) Total IV fluid infused 1,000 04/14/25 16:50 TICKET PULLER.ACAR Anesthesia Postop Eval I: Summary Notes Anesthesia Complication No 04/14/25 16:50 TICKET PULLER.ACAR Anesthesia Complication Comment: Post-operative progress note Anesthesia: Postop Eval II Evaluation Mental status: Awake Pain Level: 0 nausea: No Vomiting: No 04/14/251926 Valentino Goss Signature: Date CC: Signed Normal [facility] ,Urineon 04-14-2025 Beta HCG ( test) Ql (U) Negative Normal [facility] Comment on above: Result Comment: Very dilute urine specimens, as indicated by a low specific gravity, may not contain customer retention representative levels of hCG. If is still suspected, a first morning urine specimen should be collected 48 hours later and tested. Performed By: #### L 400.7600 #### [facility] [address] [place], [address] Urine testOrdered By: Valentino Mallory on 04-14-2025 HCG ( test) Ql (U) Negative [facility] Comment on above: Very dilute urine sp ecimens, as indicated by a low specificgravity, may not contain customer retention representative levels of hCG. If is still suspected, a first morning urinespecimen should be collected 48 hours later and tested. CTPCRon 04-02-[address]p See CT Interp N Normal See CT Interp N [facility] Comment on above: Result Comment: Clinical Interpretation: C. trachomatis DNA not detected. Specimen is presumptive negative for C. trachomatis. A negative result does not preclude C. trachomatis infection because results depend on adequate specimen collection, absence of inhibitors, and sufficient DNA to be detected. Performed By: #### N GPCR1, CTPCR #### [address] [address] C.trachomatis PCR Negative Normal Negative [facility] Comment on above: Result Comment: Kirit wahl (PCR) assay performed on the Nino Emir 4800 system. Performed By: #### N GPCR1, CTPCR #### [facility] [address] [place] [address] Chlam Source Cervix Normal [facility] Comment on above: Performed By: #### N GPCR1, CTPCR #### [address] [address] [id number] 04-02-2025 GC PCR Source Cervix Normal [facility] Comment on above: Performed By: #### N GPCR1, CTPCR #### [address] [address] N. gonorrhoeae (PCR) Negative Normal Negative [facility] Comment on above: Result Comment: Mole staciear (PCR) assay performed on the Nino Emir 4800 System. Performed By: #### N GPCR1, CTPCR #### [address] [address] N. gonorrhoeae Interp See NG Interp N Normal See NG Interp N [facility] Comment on above: Result Comment: Clinical Interpretation: N. gonorrhoeae DNA not detected. Specimen is presumptive negative for N. gonorrhoeae. A negative result does not preclude Neisseria gonorrhoeae infection because results depend on adequate specimen collection, absence of inhibitors, and sufficient DNA to be detected. Performed By: #### N GPCR1, CTPCR #### [address] [address] BVPCRon 04-01-2025 Bacterial Vaginosis Positive Abnormal Negative [facility] Comment on above: Result Comment: Kirit quinonesar methodology performed on the [employer] System. Performed By: #### B VPCR, CVTV #### [place] [id number] CVTVon 04-01-2025 Candelaria glabrata Negative Normal Negative [facility] Comment on above: Performed By: #### B VPCR, CVTV #### [address] [address] Candelaria Species Negative Normal Negative [facility] Comment on above: Result Comment: Mole cular methodology performed on the Apply[employer] System. Performed By: #### B VPCR, CVTV #### [address] [address] Trichomonas vaginalis Negative Normal Negative [facility] Comment on above: Performed By: #### B VPCR, CVTV #### [place] [address] Supplemental Reporton 2024 Supplemental Report . Pathology Reports Accession: Collected Date/Time: Received Date/Time: Pathologist: [id number] 03/02/2025 13:35 EDT 03/03/2025 11:18 EDT JOSE SALDAÑA MD Supplemental Report SUPPLEMENTAL: AFIRMA-Genomic Sequencing Subway Train Driver Results: Nodule: A, Thyroid, Upper Right, 1.3 cm Genomic Sequencing Subway Train Driver: Benign Risk of Malignancy: 4% MTC: Negative Parathyroid: Negative BRAF p. V600E c. 1799T>A: Negative RET/PTC1, RET/PTC3: Not Detected AFIRMA XPression [place]: N/A Nodule Result Summary: The result of this 1.3 cm Sheldon III nodule A is Afirma GSC Benign, which suggests a low risk of cancer at approximately 4%. Treatment like a cytologically benign nodule may be appropriate, including clinical correlation. Afirma XA is not performed on GSC Benign nodules. TERT promoter region analysis is not performed on GSC Benign nodules. Complete report scanned into chart. Verified by Diagnostic interpretation performed at [facility] JOSE SALDAÑA Sign out Date: 03/25/2025 11:46 Performing Lab: [facility], [address] [place] [address] Pathology Dept Non-Auto Body Technician Cytology Report CLINICAL INFORMATION: nodule DIAGNOSTIC CATEGORY: ATYPIA OF UNDETERMINED SIGNIFICANCE A few follicular cells with variation in nuclear size, membrane irregularity and nuclear crowding, along with oncocytic cells and colloid present. Per [facility] protocol, this specimen has been sent for Afirma Genomic Sequencing Subway Train Driver test. Results to follow in about 2 weeks. SPECIMEN: Thyroid FNA, RUL GROSS DESCRIPTION: # of Monolayers: 1 # of spray fixed Smears: 2 # of air dried smears :2 Volume (ml) 30 Color: fixed clear pink needle rinse in cytolyt afirma sample collected for reflex testing SUGGESTION/EDUCATIONAL NOTES: This specimen was evaluated using criteria described in The Sheldon System for Reporting Thyroid Cytopathology, Second Edition (2018). The following risk of malignancy rates are estimates based on published studies and includes data extrapolation. Individual institutions Pathology Reports Accession: Collected Date/Time: Received Date/Time: Pathologist: [id number] 03/02/2025 13:35 EDT 03/03/2025 11:18 EDT JOSE [...] lobectomy Verified by Pathology Report verified by [facility] Screened by: CHAO REED Electronically signed by JOSE SALDAÑA Sign-Out Date: 03/04/2025 10:20 Performing Lab: [facility], [address] [place] [address] Pathology Dept Disclaimer If ancillary studies were utilized, the following Laboratory Developed Test (LDT) disclaimer will apply: Under CLIA requirements, [facility] is qualified to perform high complexity testing. For all ancillary stains, positive and negative controls stain appropriately. Performance characteristics of immunohistochemical and chromogenic in-situ hybridization tests have been determined by [facility]. These tests are used for clinical purposes, They should not be regarded as investigational or for research. Normal [facility] Basic metabolic 2000 panelon 03-17-2025 Anion gap [Moles/Vol] 7 mmol/L Normal 5-16 [facility] Comment on above: Order Comment: Hannah yeung Type: BLOOD SPECIMENOrdering Facility: [facility] Address: [address] [place] [address] Performed By: #### 2 4321-2 ####[facility] LABORATORYCLIA [id number] [place] [address] [place] Calcium [Mass/Vol] 11.4 mg/dL High 8.5-10.5 [facility] Comment on above: Order Comment: Hannah yeung Type: BLOOD SPECIMENOrdering Facility: [facility] Address: [address] [place] [id number] Performed By: #### 2 4321-2 ####[facility] LABORATORYCLIA [id number] [place] [id number] [place] Chloride [Moles/Vol] 94 mmol/L Low 98-107 [facility] Comment on above: Order Comment: Speci men Type: BLOOD SPECIMENOrdering Facility: [facility] Address: [address] [place] [address] Performed By: #### 2 4321-2 ####[facility] LABORATORYCLIA [id number] [place] [address] [place] CO2 [Moles/Vol] 33 mmol/L High 21-32 [facility] Comment on above: Order Comment: Speci men Type: BLOOD SPECIMENOrdering Facility: [facility] Address: [address] [place] [address] Performed By: #### 2 4321-2 ####[facility] LABORATORYCLIA [id number] [place] [address] [place] Creatinine [Mass/Vol] 7.07 mg/dL High 0.51-0.95 [facility] Comment on above: Order Comment: Speci men Type: BLOOD SPECIMENOrdering Facility: [facility] Address: [address] [place] [address] Result Comment: Maryse ents receiving either N-Acetylcysteine (NAC) or Metamizole prior to venipuncture, may have falsely depressed results. Performed By: #### 2 4321-2 ####[facility] LABORATORYCLIA [id number] [place] [address] [place] Creatinine and Glomerular filtration rate.predicted panel (S/P/Bld) 7 mL/min/1.73m??? Low >=60 [facility] Comment on above: Order Comment: Speci men Type: BLOOD SPECIMENOrdering Facility: [facility] Address: [address] [place] [address] Result Comment: Irene mated Glomerular Filtration Rate [...] actual GFR. Performed By: #### 2 4321-2 ####[facility] LABORATORYCLIA [id number] [place] [id number] [place] Glucose [Mass/Vol] 81 mg/dL Normal 70-100 [facility] Comment on above: Order Comment: Hannah yeung Type: BLOOD SPECIMENOrdering Facility: [facility] Address: [address] [place] [id number] Result Comment: The [place] [employer] (ADA) provides guidance for cutoff [...] Standards of Medical Care in Diabetes 2016, [place] [employer]. Diabetes Care. 2016.39(Suppl 1). Results may be falsely elevated after the administration of Sulfapyridine. Results may be falsely depressed after the administration of Sulfasalazine. Performed By: #### 2 4321-2 ####[facility] LABORATORYCLIA [id number] [place] [address] [place] Potassium [Moles/Vol] 4.3 mmol/L Normal 3.5-5.1 [facility] Comment on above: Order Comment: Hannah yeung Type: BLOOD SPECIMENOrdering Facility: [facility] Address: [address] [place] [address] Performed By: #### 2 4321-2 ####[facility] LABORATORYCLIA [id number] [place] [id number] [place] Sodium [Moles/Vol] 134 mmol/L Low 136-145 [facility] Comment on above: Order Comment: Speci men Type: BLOOD SPECIMENOrdering Facility: [facility] Address: [address] [place] [address] Performed By: #### 2 4321-2 ####[facility] LABORATORYCLIA [id number] [place] [address] [place] Urea nitrogen [Mass/Vol] 35 mg/dL High 7- [facility] Comment on above: Order Comment: Speci men Type: BLOOD SPECIMENOrdering Facility: [facility] Address: [address] [place] [address] Performed By: #### 2 4321-2 ####[facility] LABORATORYCLIA [id number] [place] [address] [place] CBC W Auto Differential pane l (Bld)on 03-17-2025 Basophils (Bld) [#/Vol] 0.03 10*3/uL Normal <0.11 [facility] Comment on above: Order Comment: Speci men Type: BLOOD SPECIMENOrdering Facility: [facility] Address: [address] [place] [address] Performed By: #### 5 7021-8 ####[facility] LABORATORYCLIA [id number] [address] [place] Basophils/100 WBC (Bld) 0.6 % Normal [facility] Comment on above: Order Comment: Speci men Type: BLOOD SPECIMENOrdering Facility: [facility] Address: [address] [place] [address] Performed By: #### 5 7021-8 ####[facility] LABORATORYCLIA [id number] [address] [place] Differential cell count method Nom (Bld) Auto Normal [facility] Comment on above: Order Comment: Speci men Type: BLOOD SPECIMENOrdering Facility: [facility] Address: [address] [place] [address] Performed By: #### 5 7021-8 ####[facility] LABORATORYCLIA [id number] [place] [address] [place] Eosinophils (Bld) [#/Vol] 0.11 10*3/uL Normal <0.46 [facility] Comment on above: Order Comment: Speci men Type: BLOOD SPECIMENOrdering Facility: [facility] Address: [address] [place] [address] Performed By: #### 5 7021-8 ####[facility] LABORATORYCLIA [id number] [place] [address] [place] Eosinophils/100 WBC (Bld) 2.0 % Normal [facility] Comment on above: Order Comment: Speci men Type: BLOOD SPECIMENOrdering Facility: [facility] Address: [address] [place] [address] Performed By: #### 5 7021-8 ####[facility] LABORATORYCLIA [id number] [address] [place] Erythrocyte distribution width (RBC) [Ratio] 14.6 % Normal 11.5-15.0 [facility] Comment on above: Order Comment: Speci men Type: BLOOD SPECIMENOrdering Facility: [facility] Address: [address] [place] [address] Performed By: #### 5 7021-8 ####[facility] LABORATORYCLIA [id number] [place] [address] [place] Hematocrit (Bld) [Volume fraction] 27.8 % Low 36.0-46.0 [facility] Comment on above: Order Comment: Speci men Type: BLOOD SPECIMENOrdering Facility: [facility] Address: [address] [place] [address] Performed By: #### 5 7021-8 ####[facility] LABORATORYCLIA [id number] [place] [address] [place] Hemoglobin (Bld) [Mass/Vol] 9.2 g/dL Low 11.5-15.5 [facility] Comment on above: Order Comment: Speci men Type: BLOOD SPECIMENOrdering Facility: [facility] Address: [address] [place] [address] Performed By: #### 5 7021-8 ####[facility] LABORATORYCLIA [id number] [place] [id number] [place] Immature granulocytes (Bld) [#/Vol] 10*3/uL Normal <0.10 [facility] Comment on above: Order Comment: Speci men Type: BLOOD SPECIMENOrdering Facility: [facility] Address: [address] [place] [address] Performed By: #### 5 7021-8 ####[facility] LABORATORYCLIA [id number] [address] [place] Immature granulocytes/100 WBC (Bld) 0.4 % Normal [facility] Comment on above: Order Comment: Speci men Type: BLOOD SPECIMENOrdering Facility: [facility] Address: [address] [place] [address] Performed By: #### 5 7021-8 ####[facility] LABORATORYCLIA [id number] [place] [address] [place] Lymphocytes (Bld) [#/Vol] 1.68 10*3/uL Normal 1.00-4.00 [facility] Comment on above: Order Comment: Speci men Type: BLOOD SPECIMENOrdering Facility: [facility] Address: [address] [place] [address] Performed By: #### 5 7021-8 ####[facility] LABORATORYCLIA [id number] [place] [address] [place] Lymphocytes/100 WBC (Bld) 31.2 % Normal [facility] Comment on above: Order Comment: Speci men Type: BLOOD SPECIMENOrdering Facility: [facility] Address: [address] [place] [address] Performed By: #### 5 7021-8 ####[facility] LABORATORYCLIA [id number] [place] [address] [place] MCH (RBC) [Entitic mass] 32.2 pg Normal 26.0-34.0 [facility] Comment on above: Order Comment: Speci men Type: BLOOD SPECIMENOrdering Facility: [facility] Address: [address] [place] [address] Performed By: #### 5 7021-8 ####[facility] LABORATORYCLIA [id number] [address] [facility] MCHC (RBC) [Mass/Vol] 33.1 g/dL Normal 30.5-36.0 [facility] Comment on above: Order Comment: Speci men Type: BLOOD SPECIMENOrdering Facility: [facility] Address: [address] [place] [address] Performed By: #### 5 7021-8 ####[facility] LABORATORYCLIA [id number] [address] [place] MCV (RBC) [Entitic vol] 97.2 fL Normal 80.0-100.0 [facility] Comment on above: Order Comment: Speci men Type: BLOOD SPECIMENOrdering Facility: [facility] Address: [address] [place] [address] Performed By: #### 5 7021-8 ####[facility] LABORATORYCLIA [id number] [place] [address] [place] Monocytes (Bld) [#/Vol] 0.40 10*3/uL Normal <0.87 [facility] Comment on above: Order Comment: Speci men Type: BLOOD SPECIMENOrdering Facility: [facility] Address: [address] [place] [address] Performed By: #### 5 7021-8 ####[facility] LABORATORYCLIA [id number] [address] [place] Monocytes/100 WBC (Bld) 7.4 % Normal [facility] Comment on above: Order Comment: Speci men Type: BLOOD SPECIMENOrdering Facility: [facility] Address: [address] [place] [address] Performed By: #### 5 7021-8 ####[facility] LABORATORYCLIA [id number] [place] [address] [facility] [place] Neutrophils (Bld) [#/Vol] 3.14 10*3/uL Normal 1.45-7.50 [facility] Comment on above: Order Comment: Speci men Type: BLOOD SPECIMENOrdering Facility: [facility] Address: [address] [place] [address] Performed By: #### 5 7021-8 ####[facility] LABORATORYCLIA [id number] [place] [id number] [place] Neutrophils/100 WBC (Bld) 58.4 % Normal [facility] Comment on above: Order Comment: Speci men Type: BLOOD SPECIMENOrdering Facility: [facility] Address: [address] [place] [address] Performed By: #### 5 7021-8 ####[facility] LABORATORYCLIA [id number] [place] [address] [place] Nucleated RBC (Bld) [#/Vol] 10*3/uL Normal <0.01 [facility] Comment on above: Order Comment: Speci men Type: BLOOD SPECIMENOrdering Facility: [facility] Address: [address] [place] [address] Performed By: #### 5 7021-8 ####[facility] LABORATORYCLIA [id number] [place] [address] [place] Nucleated RBC/100 WBC (Bld) [Ratio] 0.0 /100 WBC Normal [facility] Comment on above: Order Comment: Speci men Type: BLOOD SPECIMENOrdering Facility: [facility] Address: [address] [place] [address] Performed By: #### 5 7021-8 ####[facility] LABORATORYCLIA [id number] [place] [id number] [place] Platelet mean volume (Bld) [Entitic vol] 10.2 fL Normal 9.0-12.7 [facility] Comment on above: Order Comment: Speci men Type: BLOOD SPECIMENOrdering Facility: [facility] Address: [address] [place] [address] Performed By: #### 5 7021-8 ####[facility] LABORATORYCLIA [id number] [place] [address] [facility] [place] Platelets (Bld) [#/Vol] 182 10*3/uL Normal 150-400 [facility] Comment on above: Order Comment: Speci men Type: BLOOD SPECIMENOrdering Facility: [facility] Address: [address] [place] [address] Performed By: #### 5 7021-8 ####[facility] LABORATORYCLIA [id number] [place] [address] [place] RBC (Bld) [#/Vol] 2.86 10*6/uL Low 3.90-5.20 [facility] Comment on above: Order Comment: Speci men Type: BLOOD SPECIMENOrdering Facility: [facility] Address: [address] [place] [address] Performed By: #### 5 7021-8 ####[facility] LABORATORYCLIA [id number] [address] [place] WBC (Bld) [#/Vol] 5.38 10*3/uL Normal 3.70-11.00 [facility] Comment on above: Order Comment: Speci men Type: BLOOD SPECIMENOrdering Facility: [facility] Address: [address] [place] [address] Performed By: #### 5 7021-8 ####[facility] LABORATORYCLIA [id number] [address] [place] HCG Preg Ur Qlon 03-17-2025 HCG ( test) Ql (U) Negative Normal Negative [facility] Comment on above: Order Comment: Speci men Type: URINE SPECIMENOrdering Facility: [facility] Address: [address] [place] [address] Result Comment: This test is intended to aid in the early detection of . Very dilute urine samples, as indicated by a low specific gravity, may not contain customer retention representative levels of hCG. This test detects [...] for . Performed By: #### 2 106-3 ####[facility] LABORATORYCLIA [id number] [place] [address] [place] HISTORY PHYSICALon HISTORY PHYSICAL HNO ID: [id number] Author: EDDI BLOUNT MD Service: ? Author Type: Physician Type: H&P Filed: 03/17/2025 08:05 Note Text: See HANDP, no change Plan left arm fistulogram Eddi Blount MD [facility] NURSING PROGon 03-17-2025 NURSING PROG HNO ID: [id number] Author: NURYS WILSON, JOHN Service: Nursing Author Type: Registered Nurse Type: Nursing Progress Note Filed: 03/17/2025 14:28 Note Text: Aletha Davis RN called an updated. She recommended removing dressing again now that 45min has past. Done at this time and no bleeding noted. Stitched pulled without issue and sterile dressing applied. Pt tolerated well. [facility] NURSING PROG HNO ID: [id number] Author: NURYS WILSON, JOHN Service: Nursing Author Type: Registered Nurse Type: Nursing Progress Note Filed: 03/17/2025 13:44 Note Text: Dressing removed to pull stitch; site began to ooze blood just with dressing removal. New sterile dressing re-applied and vascular nurse antelmo called. She will update dr blount and call us back. [facility] OPERATIVE NOon 03-17-2025 OPERATIVE NO HNO ID: [id number] Author: EDDI BLOUNT MD Service: Vascular Surgery Author Type: Physician Type: Operative Report Filed: 03/17/2025 12:31 Note Text: OPERATIVE/PROCEDURE REPORT LOG ID: [id number] SURGERY/PROCEDURE DATE: 03/17/2025 INCISION/PROCEDURE START TIME: INCISION CLOSE/PROCEDURE END TIME: SURGEON(S)/PROCEDURALIST (S) AND BLOCKLAYER(S): Surgeons and Role: * Eddi Blount MD - Primary No Additional Staff SURGERY/PROCEDURE(S): 1. Ultrasound-guided access retrograde left AV fistula. 2. Fistula from the brachial artery. 3. Balloon venoplasty of the AV fistula through the AV graft and then the outflow anastomosis with a 7 x 120 [place] with 2 different inflations. ANESTHESIA: Procedural Sedation SURGERY/PROCEDURE DETAILS: Patient brought to the operating room. Underwent appropriate to my consent. Underwent sedation. Was prepped and draped in a sterile fashion. We did ultrasound access retrograde left AV fistula. Put a Glidewire and then a 6 Japanese sheath. Give 3000 units of heparin. After [...] arm. We put a 7 x 120 [place] through this inflated for over 3 minutes. [...] SIGNATURE: Eddi Blount MD PATIENT NAME: Jessica Toavr DATE: March 17, 2025 TIME: 11:51 AM Normal [facility] XR FLUOROSCOPYon 03-17-2025 XR FLUOROSCOPY * * *Final Report* * * DATE OF EXAM: Mar 17 2025 3:08PM [facility] 5513 - XR FLUOROSCOPY / PROCEDURE REASON: [...] see the surgical report for complete information. Finishing Area Operator: PSCB Transcribe Date/Time: Mar 17 2025 8:04P Dictated by : EDILSON PATEL MD This examination was interpreted and the report reviewed and electronically signed by: EDILSON PATEL MD on Mar 18 2025 1:26AM EST [id number] [facility] NURSING PROGon 03-16-2025 NURSING PROG HNO ID: [id number] Author: SHAUN ZARATE RN Service: Nursing Author [...] directed. Bring copy of Living Will/Power of Traveling Passenger Agent. Do not smoke or chew. If you [...] the Surgery Center. UPON ARRIVAL: Access to [facility]) is located on [address] Supervisor Hardboard parking is available for your convenience from [...] are permitted in your preprocedure room. Normal [facility] Non-Auto Body Technician Cytology Reporton Non-Auto Body Technician Cytology Report . Pathology Reports Accession: Collected Date/Time: Received Date/Time: Pathologist: [id number] 03/02/2025 13:35 EDT 03/03/2025 11:18 EDT JOSE SALDAÑA MD Non-Auto Body Technician Cytology Report CLINICAL INFORMATION: nodule DIAGNOSTIC CATEGORY: ATYPIA OF UNDETERMINED SIGNIFICANCE A few follicular cells with variation in nuclear size, membrane irregularity and nuclear crowding, along with oncocytic cells and colloid present. Per [facility] protocol, this [facility] Sub[facility] Train Driver test. Results to follow in about 2 weeks. SPECIMEN: Thyroid FNA, RUL GROSS DESCRIPTION: # of Monolayers: 1 # of spray fixed Smears: 2 # of air dried smears :2 Volume (ml) 30 Color: fixed clear pink needle rinse in cytolyt afirma sample collected for reflex testing SUGGESTION/EDUCATIONAL NOTES: This specimen was evaluated using criteria described in The [employer] System for Reporting Thyroid Cytopathology, Second Edition [...] lobectomy Verified by Pathology Report verified by [facility] Screened by: CHAO REED Electronically signed by JOSE SALDAÑA Sign-Out Date: 03/04/2025 10:20 Performing Lab: [facility], [address] [place] [address] Pathology Dept Pathology Reports Accession: Collected Date/Time: Received Date/Time: Pathologist: [id number] 03/02/2025 13:35 EDT 03/03/2025 11:18 EDT JOSE SALDAÑA MD Disclaimer If ancillary studies were utilized, the following Laboratory Developed Test (LDT) disclaimer will apply: Under CLIA requirements, [facility] is qualified to perform high complexity testing. For all ancillary stains, positive and negative controls stain appropriately. Performance characteristics of immunohistochemical and chromogenic in-situ hybridization tests have been determined by [facility]. These tests are used for clinical purposes, They should not be regarded as investigational or for research. Normal [facility] MAIN IR THYROID BIOPSYon 03-02-20 25 [...] 03/02/2025 2:22:23 PM Ordering Provider: CHRISTINE TO [facility] MAIN US THYROIDon 02-05-2025 US THYROID [...] 02/05/2025 4:12:27 PM Ordering Provider: CHRISTINE TO [facility] Gastroenterology Visit Repor ton 02-04-2025 Gastroenterology Visit Report [facility] Gastroenterology [address] [place] [address] OFFICE VISIT Date of Service: 02/04/25 MR#: [id number] Acct: [id number] Name: JESSICA TOVAR Rep #: [id number] : 1975 Provider: DONNA Castillo Age/Sex: 49/F Location: [facility] Status: Signed Intake Intake Visit Reasons: CHRONIC [...] 02.04.25 Pt here to establish care with [facility]. Pt states she is feeling well. Pt has no hx of EGD and colonoscopy. ---- [facility] Social History (Updated 01/29/25 @ 13:41 by Jazmyn Euceda LPN) alcohol intake: current alcohol intake frequency: holidays/special occasions only substance use type: marijuana caffeine: Yes Type: coffee HPI HPI Chief Complaint: colonoscopy Details: JESSICA TOVAR, is a 49 F who presents to the office today for establishment with [facility]. Pt referred from her primary care provider [...] Appearance: average body habitus and well nourished [facility] Head: normal to inspection Ears: hearing grossly [...] a colonoscop (more content not included)... Normal [facility] .GFRon 01-24-2025 Estimated Glomerular Filtration Rate 6 ml/min/1.73sqm Normal [facility] Comment on above: Result Comment: Stages of [...] #### T SH, GFR, CMP, LIPID #### [place] [address] #### FT4 #### [place] [address] CMPon 01-24-2025 Albumin Level 3.4 G/dL Low 3.5-5.0 [facility] Comment on above: Performed By: #### T SH, GFR, CMP, LIPID #### [place] [address] #### FT4 #### [place] [id number] Albumin/Globulin [Mass ratio] 0.9 {ratio} Low 1.1-2.5 [facility] Comment on above: Performed By: #### T SH, GFR, CMP, LIPID #### [place] [address] #### FT4 #### [address] [address] ALP [Catalytic activity/Vol] 122 U/L Normal 40-135 [facility] Comment on above: Performed By: #### T SH, GFR, CMP, LIPID #### [place] [address] #### FT4 #### [address] [address] ALT [Catalytic activity/Vol] 20 U/L Normal 14-59 [facility] Comment on above: Performed By: #### T SH, GFR, CMP, LIPID #### [place] [address] #### FT4 #### [address] [address] AST [Catalytic activity/Vol] 15 U/L Normal 10-40 [facility] Comment on above: Performed By: #### T SH, GFR, CMP, LIPID #### [place] [address] #### FT4 #### [place] [address] Bili Total 0.5 mg/dL Normal 0.2-1.0 [facility] Comment on above: Result Comment: Use of this assay is not recommended for patients undergoing treatment with eltrombopag due to the potential for falsely elevated results. Performed By: #### T SH, GFR, CMP, LIPID #### [place] [address] #### FT4 #### [place] [address] BUN/Creatinine Ratio 6 ratio Low 7-27 [facility] Comment on above: Performed By: #### T SH, GFR, CMP, LIPID #### [place] [address] #### FT4 #### [place] [id number] Calcium [Mass/Vol] 9.7 mg/dL Normal 8.4-10.2 [facility] Comment on above: Performed By: #### T SH, GFR, CMP, LIPID #### [place] [address] #### FT4 #### [address] [address] Chloride [Moles/Vol] 101 mmol/L Normal 98-107 [facility] Comment on above: Performed By: #### T SH, GFR, CMP, LIPID #### [address] [address] #### FT4 #### [address] [address] CO2 [Moles/Vol] 33 mmol/L High 22-29 [facility] Comment on above: Performed By: #### T SH, GFR, CMP, LIPID #### [place] [address] #### FT4 #### [place] [address] Creatinine [Mass/Vol] 7.25 mg/dL High 0.55-1.02 [facility] Comment on above: Result Comment: Test ing performed on Siemens Dimension EXL analyzer using a modified kinetic Dylon technique. Performed By: #### T SH, GFR, CMP, LIPID #### [place] [address] #### FT4 #### [place] [address] Electrolyte Balance 5.0 mEq/L Normal 4.0-15.0 [facility] Comment on above: Performed By: #### T SH, GFR, CMP, LIPID #### [place] [address] #### FT4 #### [place] [address] Globulin 3.9 G/dL High 1.5-3.8 [facility] Comment on above: Performed By: #### T SH, GFR, CMP, LIPID #### [place] [address] #### FT4 #### [place] [id number] Glucose [Mass/Vol] 90 mg/dL Normal 70-105 [facility] Comment on above: Performed By: #### T SH, GFR, CMP, LIPID #### [address] [address] #### FT4 #### [address] [address] Potassium [Moles/Vol] 4.1 mmol/L Normal 3.5-5.1 [facility] Comment on above: Performed By: #### T SH, GFR, CMP, LIPID #### [place] [address] #### FT4 #### [address] [address] Sodium [Moles/Vol] 139 mmol/L Normal 136-145 [facility] Comment on above: Performed By: #### T SH, GFR, CMP, LIPID #### [place] [address] #### FT4 #### [address] [address] Total Protein 7.3 G/dL Normal 6.4-8.2 [facility] Comment on above: Performed By: #### T SH, GFR, CMP, LIPID #### [place] [address] #### FT4 #### [address] [address] Urea nitrogen [Mass/Vol] 41 mg/dL High 7-18 [facility] Comment on above: Performed By: #### T SH, GFR, CMP, LIPID #### [place] [address] #### FT4 #### [address] [address] FT4on 01-24-2025 Free T4 [Mass/Vol] 1.27 ng/dL Normal 0.89-1.76 [facility] Comment on above: Result Comment: No te - New Reference Range in effect 20 Performed By: #### T SH, GFR, CMP, LIPID #### [place] [address] #### FT4 #### [address] [address] LIPIDon 01-24-2025 Cholesterol [Mass/Vol] 174 mg/dL Normal 0-200 [facility] Comment on above: Result Comment: Chol esterol Reference Interval: Less than 200 Desirable 200-239 Borderline high risk 240 and above High risk Performed By: #### T SH, GFR, CMP, LIPID #### [place] [address] #### FT4 #### [address] [address] Cholesterol in HDL [Mass/Vol] 71 mg/dL High 40-60 [facility] Comment on above: Performed By: #### T SH, GFR, CMP, LIPID #### [place] [address] #### FT4 #### [place] [address] Cholesterol in LDL [Mass/Vol] 82 mg/dL Normal 0-130 [facility] Comment on above: Performed By: #### T SH, GFR, CMP, LIPID #### [place] [address] #### FT4 #### [address] [address] Triglyceride [Mass/Vol] 104 mg/dL Normal 0-150 [facility] Comment on above: Result Comment: Trig lyceride Reference Interval: Less than 150 Normal 150-199 Borderline high risk 200-499 High risk 500 or higher Very high risk Performed By: #### T SH, GFR, CMP, LIPID #### [place] [address] #### FT4 #### [place] [address] TSHon 01-24-2025 TSH Qn 3.32 m[IU]/L Normal 0.36-3.74 [facility] Comment on above: Performed By: #### T SH, GFR, CMP, LIPID #### [place] [address] #### FT4 #### [facility] [address] [place] [address] 01-06-2025 ALLIED HEALTH HNO ID: [id number] Author: LI HARPER Chaplain Service: Spiritual Care Author Type: Clasp Machine Operator Type: Allied Health Filed: 01/06/2025 08:06 Note [...] per her wish. Patient expressed gratitude for casing soaker's visit. Will See: As Needed Only Follow-up Notes: Informed patient of Clasp Machine Operator availability Clasp Machine Operator Signature: Chaplain Osiris To contact the Pastoral Care Department: Please call [phone] or Page the Assistant Infant Toddler Teacher Clasp Machine Operator at pager [phone]. Thank you for the opportunity to be of service. This is an electronically created document. IF PRINTED, PLEASE DO NOT REMOVE FROM THE CHART OR MODIFY PRINTED COPY. [facility] ANES POSTPROC EVALon 025 ANES POSTPROC EVAL HNO ID: [id number] Author: NASEEM MARTINEZ DO Service: Anesthesiology Author Type: Anesthesiologist Type: Anesthesia Postprocedure Evaluation Filed: 01/06/2025 11:56 Note Text: POST ANESTHESIA EVALUATION NOTE : 1975 Procedure Summary Date: 01/06/25 Room / Location: MR OR 05 / MR OR Anesthesia Start: 957 Anesthesia Stop: 1043 Procedure: INTRO NEEDLE/CATH FOR SAMPLE ROOM SUPERVISOR AV FISTULA UPPER EXTREMITY VENOUS SIDE W/ANGIO,FLUORO [...] January 06, 2025 TIME: 11:56 AM CSN: [id number] [facility] ANES PRE-OPon 01-06-2025 ANES PRE-OP HNO ID: [id number] Author: NASEEM MARTINEZ DO Service: Anesthesiology Author Type: Anesthesiologist Type: Anesthesia Preprocedure Evaluation Filed: 01/06/2025 09:43 Note Text: ANESTHESIOLOGY DAY OF SURGERY NOTE : 1975 Procedure Information Date/Time: 01/06/25924 Procedure: INTRO NEEDLE/CATH FOR SAMPLE ROOM SUPERVISOR AV FISTULA UPPER EXTREMITY VENOUS SIDE W/ANGIO,FLUORO [...] January 06, 2025 TIME: 9:40 AM CSN: [id number] Normal [facility] Basic metabolic 2000 panelon 01-06-2025 Anion gap [Moles/Vol] 9 mmol/L Normal 5-16 [facility] Comment on above: Order Comment: Speci men Type: BLOOD SPECIMEN [facility] Address: [address] [place] [address] Performed By: #### 2 4321-2 #### [facility] CLIA [id number] [address] [place] [address] [place] Calcium [Mass/Vol] 9.4 mg/dL Normal 8.5-10.5 [facility] Comment on above: Order Comment: Speci men Type: BLOOD SPECIMEN [facility] Address: [address] [place] [address] Performed By: #### 2 4321-2 #### [facility] CLIA [id number] [address] [place] [address] [place] Chloride [Moles/Vol] 101 mmol/L Normal 98-107 [facility] Comment on above: Order Comment: Speci men Type: BLOOD SPECIMEN [facility] Address: [address] [place] [address] Performed By: #### 2 4321-2 #### [facility] CLIA [id number] [address] [place] [address] [place] CO2 [Moles/Vol] 30 mmol/L Normal 21-32 [facility] Comment on above: Order Comment: Speci men Type: BLOOD SPECIMEN [facility] Address: [address] [place] [address] Performed By: #### 2 4321-2 #### [facility] CLIA [id number] [address] [place] [address] [place] Creatinine [Mass/Vol] 7.92 mg/dL High 0.51-0.95 [facility] Comment on above: Order Comment: Hannah yeung Type: BLOOD SPECIMEN [facility] Address: [address] [place] [address] Result Comment: Maryse ents receiving either N-Acetylcysteine (NAC) or Metamizole prior to venipuncture, may have falsely depressed results. Performed By: #### 2 4321-2 #### [facility] CLIA [id number] [address] [place] [address] [place] Creatinine and Glomerular filtration rate.predicted panel (S/P/Bld) 6 mL/min/1.73m??? Low >=60 [facility] Comment on above: Order Comment: Hannah yeung Type: BLOOD SPECIMEN [facility] Address: [address] [place] [address] Result Comment: Irene mated Glomerular Filtration Rate [...] GFR. Performed By: #### 2 4321-2 #### [facility] CLIA [id number] [address] [place] [address] [place] Glucose [Mass/Vol] 83 mg/dL Normal 70-100 [facility] Comment on above: Order Comment: Hannah gamal Type: BLOOD SPECIMEN [facility] Address: [address] [place] [address] Result Comment: The [place] [employer] Association (ADA) provides guidance for cutoff [...] Standards of Medical Care in Diabetes 2016, [place] [employer]. Diabetes Care. 2016.39(Suppl 1). Results may be falsely elevated after the administration of Sulfapyridine. Results may be falsely depressed after the administration of Sulfasalazine. Performed By: #### 2 4321-2 #### [facility] CLIA [id number] [address] [place] [address] [place] Potassium [Moles/Vol] 3.9 mmol/L Normal 3.5-5.1 [facility] Comment on above: Order Comment: Hannah yeung Type: BLOOD SPECIMEN Ordering Facility: [facility] Address: [address] [place] [address] Performed By: #### 2 4321-2 #### [facility] CLIA [id number] [address] [place] [address] [place] Sodium [Moles/Vol] 140 mmol/L Normal 136-145 [facility] Comment on above: Order Comment: Hannah yeung Type: BLOOD SPECIMEN Ordering Facility: [facility] Address: [address] [place] [address] Performed By: #### 2 4321-2 #### [facility] CLIA [id number] [address] [place] [address] [place] Urea nitrogen [Mass/Vol] 50 mg/dL High 7-26 [facility] Comment on above: Order Comment: Hannah yeung Type: BLOOD SPECIMEN Ordering Facility: [facility] Address: [address] [place] [address] Performed By: #### 2 4321-2 #### [facility] CLIA [id number] [address] [place] [address] [place] CBC W Auto Differential pane l (Bld)on 01-06-2025 Basophils (Bld) [#/Vol] 10*3/uL Normal <0.11 [facility] Comment on above: Order Comment: Speci men Type: BLOOD SPECIMEN Ordering Facility: [facility] Address: [address] [place] [address] Performed By: #### 5 7021-8 #### [facility] CLIA [id number] [address] [place] [address] [place] Basophils/100 WBC (Bld) 0.4 % Normal [facility] Comment on above: Order Comment: Speci men Type: BLOOD SPECIMEN Ordering Facility: [facility] Address: [address] [place] [address] Performed By: #### 5 7021-8 #### [facility] CLIA [id number] [address] [place] [address] Differential cell count method Nom (Bld) Auto Normal [facility] Comment on above: Order Comment: Speci men Type: BLOOD SPECIMEN Ordering Facility: [facility] Address: [address] [place] [address] Performed By: #### 5 7021-8 #### [facility] CLIA [id number] [address] [place] [address] [place] Eosinophils (Bld) [#/Vol] 0.12 10*3/uL Normal <0.46 [facility] Comment on above: Order Comment: Speci men Type: BLOOD SPECIMEN Ordering Facility: [facility] Address: [address] [place] [address] Performed By: #### 5 7021-8 #### [facility] CLIA [id number] [address] [place] [address] [place] Eosinophils/100 WBC (Bld) 2.4 % Normal [facility] Comment on above: Order Comment: Speci men Type: BLOOD SPECIMEN Ordering Facility: [facility] Address: [address] [place] [address] Performed By: #### 5 7021-8 #### [facility] CLIA [id number] [address] [place] [address] [place] Erythrocyte distribution width (RBC) [Ratio] 15.9 % High 11.5-15.0 [facility] Comment on above: Order Comment: Speci men Type: BLOOD SPECIMEN Ordering Facility: [facility] Address: [address] [place] [address] Performed By: #### 5 7021-8 #### [facility] CLIA [id number] [address] [place] [address] [place] Hematocrit (Bld) [Volume fraction] 35.3 % Low 36.0-46.0 [facility] Comment on above: Order Comment: Speci men Type: BLOOD SPECIMEN Ordering Facility: [facility] Address: [address] [place] [address] Performed By: #### 5 7021-8 #### [facility] CLIA [id number] [address] [place] [address] [place] Hemoglobin (Bld) [Mass/Vol] 11.4 g/dL Low 11.5-15.5 [facility] Comment on above: Order Comment: Speci men Type: BLOOD SPECIMEN Ordering Facility: [facility] Address: [address] [place] [address] Performed By: #### 5 7021-8 #### [facility] CLIA [id number] [address] [place] [address] [place] Immature granulocytes (Bld) [#/Vol] 10*3/uL Normal <0.10 [facility] Comment on above: Order Comment: Speci men Type: BLOOD SPECIMEN Ordering Facility: [facility] Address: [address] [place] [address] Performed By: #### 5 7021-8 #### [facility] CLIA [id number] [address] [place] [address] [place] Immature granulocytes/100 WBC (Bld) 0.2 % Normal [facility] Comment on above: Order Comment: Speci men Type: BLOOD SPECIMEN Ordering Facility: [facility] Address: [address] [place] [address] Performed By: #### 5 7021-8 #### [facility] CLIA [id number] [address] [place] [address] [place] Lymphocytes (Bld) [#/Vol] 1.51 10*3/uL Normal 1.00-4.00 [facility] Comment on above: Order Comment: Speci men Type: BLOOD SPECIMEN Ordering Facility: [facility] Address: [address] [place] [address] Performed By: #### 5 7021-8 #### [facility] CLIA [id number] [address] [place] [address] [place] Lymphocytes/100 WBC (Bld) 30.3 % Normal [facility] Comment on above: Order Comment: Speci men Type: BLOOD SPECIMEN Ordering Facility: [facility] Address: [address] [place] [address] Performed By: #### 5 7021-8 #### [facility] CLIA [id number] [address] [place] [address] [place] MCH (RBC) [Entitic mass] 31.8 pg Normal 26.0-34.0 [facility] Comment on above: Order Comment: Speci men Type: BLOOD SPECIMEN Ordering Facility: [facility] Address: [address] [place] [address] Performed By: #### 5 7021-8 #### [facility] CLIA [id number] [address] [place] [address] [place] MCHC (RBC) [Mass/Vol] 32.3 g/dL Normal 30.5-36.0 [facility] Comment on above: Order Comment: Speci men Type: BLOOD SPECIMEN Ordering Facility: [facility] Address: [address] [place] [address] Performed By: #### 5 7021-8 #### [facility] CLIA [id number] [address] [place] [address] [place] MCV (RBC) [Entitic vol] 98.3 fL Normal 80.0-100.0 [facility] Comment on above: Order Comment: Speci men Type: BLOOD SPECIMEN Ordering Facility: [facility] Address: [address] [place] [address] Performed By: #### 5 7021-8 #### [facility] CLIA [id number] [address] [place], [place] [id number] [place] Monocytes (Bld) [#/Vol] 0.36 10*3/uL Normal <0.87 [facility] Comment on above: Order Comment: Speci men Type: BLOOD SPECIMEN Ordering Facility: [facility] Address: [address] [place] [address] Performed By: #### 5 7021-8 #### [facility] CLIA [id number] [address] [place] [address] [place] Monocytes/100 WBC (Bld) 7.2 % Normal [facility] Comment on above: Order Comment: Speci men Type: BLOOD SPECIMEN Ordering Facility: [facility] Address: [address] [place] [address] Performed By: #### 5 7021-8 #### [facility] CLIA [id number] [address] [place] [address] [place] Neutrophils (Bld) [#/Vol] 2.97 10*3/uL Normal 1.45-7.50 [facility] Comment on above: Order Comment: Speci men Type: BLOOD SPECIMEN Ordering Facility: [facility] Address: [address] [place] [address] Performed By: #### 5 7021-8 #### [facility] CLIA [id number] [address] [place] [address] [place] Neutrophils/100 WBC (Bld) 59.5 % Normal [facility] Comment on above: Order Comment: Speci men Type: BLOOD SPECIMEN Ordering Facility: [facility] Address: [address] [place] [address] Performed By: #### 5 7021-8 #### [facility] CLIA [id number] [address] [place] [address] [place] Nucleated RBC (Bld) [#/Vol] 10*3/uL Normal <0.01 [facility] Comment on above: Order Comment: Speci men Type: BLOOD SPECIMEN Ordering Facility: [facility] Address: [address] [place] [address] Performed By: #### 5 7021-8 #### [facility] CLIA [id number] [address] [place] [address] [place] Nucleated RBC/100 WBC (Bld) [Ratio] 0.0 /100 WBC Normal [facility] Comment on above: Order Comment: Speci men Type: BLOOD SPECIMEN Ordering Facility: [facility] Address: [address] [place] [address] Performed By: #### 5 7021-8 #### [facility] CLIA [id number] [address] [place] [address] [place] Platelet mean volume (Bld) [Entitic vol] 9.6 fL Normal 9.0-12.7 [facility] Comment on above: Order Comment: Speci men Type: BLOOD SPECIMEN Ordering Facility: [facility] Address: [address] [place] [address] Performed By: #### 5 7021-8 #### [facility] CLIA [id number] [address] [place] [address] [place] Platelets (Bld) [#/Vol] 154 10*3/uL Normal 150-400 [facility] Comment on above: Order Comment: Speci men Type: BLOOD SPECIMEN Ordering Facility: [facility] Address: [address] [place] [address] Performed By: #### 5 7021-8 #### [facility] CLIA [id number] [address] [place] [address] [place] RBC (Bld) [#/Vol] 3.59 10*6/uL Low 3.90-5.20 [facility] Comment on above: Order Comment: Speci men Type: BLOOD SPECIMEN Ordering Facility: [facility] Address: [address] [place] [address] Performed By: #### 5 7021-8 #### [facility] CLIA [id number] [address] [place], [place] [id number] [facility] WBC (Bld) [#/Vol] 4.99 10*3/uL Normal 3.70-11.00 [facility] Comment on above: Order Comment: Speci men Type: BLOOD SPECIMEN Ordering Facility: [facility] Address: [address] [facility] [place] [address] Performed By: #### 5 7021-8 #### [facility] CLIA [id number] [address] [place], [place] [address] [facility] ECG COMPLETEon 01-06-2025 ECG COMPLETE Ventricular Rate : 7 6 BPM Atrial Rate : 76 BPM P-R Interval : 148 ms QRS Duration : 90 ms Q-T Interval : 388 ms QTC Calculation(Bazett) : 436 ms Calculated P [place]fl[place] : 20 degrees Calculated R [place] : 2 degrees Calculated T [place] : 29 degrees Normal sinus rhythm Normal ECG When compared with ECG of 12-Feb-2019 13:37, QRS voltage has decreased Criteria for Septal infarct are no longer Present Confirmed by ANTONIO PARRY MD ([id number]) on 01/07/2025 1:06:27 PM NAME : JESSICA TOVAR PID : [id number] : 1975 Gender : Female Race : ORD : [id number] Procedure Date : Jan 06 2025 07:19:43 Edit Date : Jan 07 2025 13:06:28 Diagnosis: Normal sinus rhythm Normal ECG When compared with ECG of 12-Feb-2019 13:37, QRS voltage has decreased Criteria for Septal infarct are no longer Present Confirmed by ANTONIO PARRY MD ([id number]) on 01/07/2025 1:06:27 PM Test Reason : STAT Location : 23 : SURG ORPL Overread By : ANTONIO PARRY MD Edited By : ANTONIO PARRY MD Referred By : , Acquired by : LAQUITA JIMENEZ Normal [facility] HCG Preg Ur Qlon 01-06-2025 HCG ( test) Ql (U) Negative Normal Negative [facility] Comment on above: Order Comment: Speci men Type: URINE SPECIMENOrdering Facility: [facility] Address: [address], [place] [address] Result Comment: This test is intended to aid in the early detection of . Very dilute urine samples, as indicated by a low specific gravity, may not contain customer retention representative levels of hCG. This test detects [...] for . Performed By: #### 2 106-3 ####[facility] [id number] [place] [address] [place] HISTORY PHYSICALon HISTORY PHYSICAL HNO ID: [id number] Author: EDDI BLOUNT MD Service: Vascular Surgery Author Type: Physician Type: H&P Filed: 01/06/2025 08:11 Note Text: See HANDP, no change Plan left arm fistulogram and intervention Eddi Blount MD [facility] OPERATIVE NOon 01-06-2025 OPERATIVE NO HNO ID: [id number] Author: EDDI BLOUNT MD Service: Vascular Surgery Author Type: Physician Type: Operative Report Filed: 01/06/2025 10:58 Note Text: OPERATIVE/PROCEDURE REPORT LOG ID: [id number] SURGERY/PROCEDURE DATE: 01/06/2025 INCISION/PROCEDURE START TIME: INCISION CLOSE/PROCEDURE END TIME: SURGEON(S)/PROCEDURALIST (S) AND BLOCKLAYER(S): Surgeons and Role: * Eddi Blount MD - Primary No Additional Staff SURGERY/PROCEDURE(S): 1. Ultrasound-guided access retrograde left AV fistula. 2. Fistulogram from the brachial artery. 3. Balloon venoplasty AV fistula through to the brachial artery with a 7 mm [place]. ANESTHESIA: Monitored Anesthesia Care SURGERY/PROCEDURE DETAILS: Patient brought to the operating room. Underwent appropriate MAC consent. Underwent MAC. Was prepped and draped in a sterile fashion. We did ultrasound-guided excess retrograde left AV fistula. Put a Glidewire and then a 6 Japanese sheath. Gave 3000 units of heparin. Did a 50 g in the brachial artery. Showed a severe stenosis just past the area of the anastomosis. We then replaced the wire. We ballooned through this with 7 mm [place] from the brachial artery through the entire [...] DATE: January 06, 2025 TIME: 10:08 AM [facility] XR FLUOROSCOPYon 01-06-2025 XR FLUOROSCOPY * * [...] see the surgical report for complete information. Finishing Area Operator: PSCB Transcribe Date/Time: Jan 08 2025 12:18A Dictated by : EDILSON PATEL MD This examination was interpreted and the report reviewed and electronically signed by: EDILSON PATEL MD on Jan 08 2025 12:19AM EST [id number] [facility] Auto Body Technician Cytology Reporton 2024 Auto Body Technician Cytology Report . Pathology Reports Accession: Collected Date/Time: Received Date/Time: Pathologist: [id number] 12/16/2024 10:21 EST 12/16/2024 18:00 EST Auto Body Technician Cytology Report SPECIMEN: Specimen Description: Liquid Prep [...] and evaluated with the assistance of the [employer] System. Verified by Pathology report verified by [facility] Screened by: FORTINO Electronically signed by Corine Jones Sign-Out Date: 12/19/2024 13:04 Performing Lab: [facility], [address] [place] [address] Pathology Dept Disclaimer The Pap test is a screening test for cervical cancer. As evidenced by published data, it is subject to both inherent false negative and false positive results. Your patient's results should be interpreted in context with pertinent clinical history including gynecological examination. [facility] MAIN NURSING PROGon 11-18-2024 NURSING PROG HNO ID: [id number] Author: RAJAN SAINZ RN Service: Nursing Author Type: Registered Nurse Type: Nursing Progress Note Filed: 11/18/2024 07:10 Note Text: I spoke to Aletha Corona (OR) who handles the vascular cases regarding this patient cancelling her surgery but we could not get a hold of the office. She stated she would take care of it. [facility] ANES PREOPon 11-17-2024 ANES PREOP HNO ID: [id number] Author: DENICE SAINZ PA-C Service: ? Author Type: Physician Nurse Clinical Type: Anesthesia PreOp Filed: 11/17/2024 09:47 Note Text: 49 yo obese female ex-smoker PMH: HTN, ESRD on dialysis, RLS [facility] NURSING PROGon 11-17-2024 NURSING PROG HNO ID: [id number] Author: RAJAN SAINZ RN Service: Nursing Author [...] and discussed during the hand off. Normal [facility] MRI BRAIN W/O CONTRASTon MRI BRAIN W/O [...] 07/31/2024 3:40:43 PM Ordering Provider: CHRISTINA Whyte [facility] B1WBon 07-08-2024 Vitamin B1 Whl Bld 189.5 nmol/L Normal 66.5-200.0 [facility] ([place]) Comment on above: Result Comment: This test was developed and its performance characteristics determined by [employer]. It has not been cleared or approved by the Food and Drug Administration. Performed At: [address] [id number] Gatito Macedo MD Ph:[phone] Performed By: #### C BC, CMP, 265829, GFR, ANEU, 919256, ADIFF ####[address] [place] [address]#### B12, FOL, RPR ####[place] [address] CUSon 07-05-2024 Copper Lvl 79 UG/DL Low 80-158 [facility] ([place]) Comment on above: Result Comment: This test was developed and its performance characteristics determined by [facility]. It has not been cleared or approved by the Food and Drug Administration. Detection Limit = 5 Performed At: [address] [id number] Gatito Macedo MD Ph:[phone] Performed By: #### C JOLLY, CMP, 342835, GFR, ANEU, 133456, ADIFF ####[address] [place] [address]#### B12, FOL, RPR ####[place] [address] RPRon 07-04-2024 Reagin Ab RPR Ql (S) Non-Reactive Normal Non-Reactive [facility] ([place]) Comment on above: Result Comment: The RPR [...] globulins. Performed By: #### C BC, CMP, 404370, GFR, ANEU, 364174, ADIFF ####[address] [place] [address]#### B12, FOL, RPR ####[place] [id number] .Auto Diffon 07-03-2024 Basophil, Absolute 0.0 10 3/mcL Normal 0.0-0.2 [facility] ([place]) Comment on above: Performed By: #### C BC, CMP, 467555, GFR, ANEU, 103833, ADIFF #### [address] [address] #### B12, FOL, RPR #### [address] [address] Basophils/100 WBC (Bld) 0.7 % Normal 0.0-2.5 [facility] ([place]) Comment on above: Performed By: #### C BC, CMP, 650562, GFR, ANEU, 146439, ADIFF #### [place] [address] #### B12, FOL, RPR #### [place] [address] Eosinophil, Absolute 0.1 10 3/mcL Normal 0.0-0.4 [facility] ([place]) Comment on above: Performed By: #### C BC, CMP, 736454, GFR, ANEU, 085307, ADIFF #### [place] [address] #### B12, FOL, RPR #### [address] [address] Eosinophils/100 WBC (Bld) 2.2 % Normal 0.0-7.0 [facility] ([place]) Comment on above: Performed By: #### C BC, CMP, 717427, GFR, ANEU, 244673, ADIFF #### [place] [address] #### B12, FOL, RPR #### [address] [address] Lymphocyte, Absolute 1.7 10 3/mcL Normal 0.8-3.9 [facility] ([place]) Comment on above: Performed By: #### C BC, CMP, 835294, GFR, ANEU, 189530, ADIFF #### [place] [address] #### B12, FOL, RPR #### [address] [address] Lymphocytes/100 WBC (Bld) 28.6 % Normal 10.0-50.0 [facility] ([place]) Comment on above: Performed By: #### C BC, CMP, 063695, GFR, ANEU, 798099, ADIFF #### [place] [address] #### B12, FOL, RPR #### [address] [address] Monocyte, Absolute 0.5 10 3/mcL Normal 0.2-1.0 [facility] ([place]) Comment on above: Performed By: #### C BC, CMP, 680397, GFR, ANEU, 833490, ADIFF #### [place] [address] #### B12, FOL, RPR #### [address] [address] Monocytes/100 WBC (Bld) 9.0 % Normal 1.7-13.0 [facility] ([place]) Comment on above: Performed By: #### C BC, CMP, 622138, GFR, ANEU, 756154, ADIFF #### [place] [address] #### B12, FOL, RPR #### [address] [address] Neutrophils/100 WBC (Bld) 59.5 % Normal 37.0-80.0 [facility] ([place]) Comment on above: Performed By: #### C BC, CMP, 411473, GFR, ANEU, 377505, ADIFF #### [place] [address] #### B12, FOL, RPR #### [address] [address] .GFRon 07-03-2024 GFR 6 ml/min/1.73sqm Normal [facility] ([place]) Comment on above: Result Comment: GFR [...] meters Performed By: #### C BC, CMP, 521420, GFR, ANEU, 091576, ADIFF ####[address] [place] [address]#### B12, FOL, RPR ####[place] [address] GFR Non- 5 ml/min/1.73sqm Normal [facility] ([place]) Comment on above: Result Comment: GFR Population [...] meters Performed By: #### C BC, CMP, 673283, GFR, ANEU, 948089, ADIFF ####[address] [place] [address]#### B12, FOL, RPR ####[address] [address] .NEUABSon 07-03-2024 Neutrophil, Absolute 3.6 10 3/mcL Normal 2.9-6.2 [facility] ([place]) Comment on above: Performed By: #### C BC, CMP, 898220, GFR, ANEU, 200296, ADIFF #### [place] [address] #### B12, FOL, RPR #### [address] [address] B12on 07-03-2024 Cobalamin (Vitamin B12) [Mass/Vol] 1600 pg/mL High 211-911 [facility] ([place]) Comment on above: Performed By: #### C BC, CMP, 809672, GFR, ANEU, 962037, ADIFF ####[place] [address]#### B12, FOL, RPR ####[place] [address] CBCon 07-03-2024 Erythrocyte distribution width (RBC) [Ratio] 17.9 % High 11.5-14.5 [facility] ([place]) Comment on above: Performed By: #### C BC, CMP, 696498, GFR, ANEU, 708227, ADIFF #### [place] [address] #### B12, FOL, RPR #### [place] [address] Hematocrit (Bld) [Volume fraction] 34.3 % Low 37.0-47.0 [facility] ([place]) Comment on above: Performed By: #### C BC, CMP, 999911, GFR, ANEU, 125438, ADIFF #### [place] [address] #### B12, FOL, RPR #### [place] [address] Hgb 11.1 G/dL Low 12.0-16.0 [facility] ([place]) Comment on above: Performed By: #### C BC, CMP, 261512, GFR, ANEU, 756814, ADIFF #### [place] [address] #### B12, FOL, RPR #### [place] [address] MCH (RBC) [Entitic mass] 32.4 pg High 27.0-31.2 [facility] ([place]) Comment on above: Performed By: #### C BC, CMP, 745663, GFR, ANEU, 174351, ADIFF #### [place] [address] #### B12, FOL, RPR #### [place] [address] MCHC 32.3 G/dL Low 33.0-37.0 [facility] ([place] Comment on above: Performed By: #### C BC, CMP, 262669, GFR, ANEU, 035133, ADIFF #### [place] [address] #### B12, FOL, RPR #### [place] [address] MCV (RBC) [Entitic vol] 100.3 fL High 80.0-94.0 [facility] ([place] Comment on above: Performed By: #### C BC, CMP, 998373, GFR, ANEU, 925336, ADIFF #### [place] [address] #### B12, FOL, RPR #### [place] [address] Platelet 173 10 3/mcL Normal 130-400 [facility] ([place] Comment on above: Performed By: #### C BC, CMP, 540099, GFR, ANEU, 912772, ADIFF #### [place] [address] #### B12, FOL, RPR #### [place] [address] Platelet mean volume (Bld) [Entitic vol] 8.8 fL Normal 7.4-10.4 [facility] ([place] Comment on above: Performed By: #### C BC, CMP, 884175, GFR, ANEU, 562612, ADIFF #### [place] [address] #### B12, FOL, RPR #### [address] [address] RBC 3.42 10 6/mcL Low 4.20-5.40 [facility] ([place]) Comment on above: Performed By: #### C BC, CMP, 752358, GFR, ANEU, 305923, ADIFF #### [place] [address] #### B12, FOL, RPR #### [place] [address] WBC 6.0 10 3/mcL Normal 4.6-10.8 [facility] ([place] Comment on above: Performed By: #### C BC, CMP, 975094, GFR, ANEU, 364560, ADIFF #### [place] [address] #### B12, FOL, RPR #### [place] [address] CMPon 07-03-2024 Albumin Level 3.1 G/dL Low 3.5-5.0 [facility] ([place]) Comment on above: Performed By: #### C BC, CMP, 435139, GFR, ANEU, 135538, ADIFF ####[place] [address]#### B12, FOL, RPR ####[place] [address] Albumin/Globulin [Mass ratio] 0.8 {ratio} Low 1.1-2.5 [facility] ([place]) Comment on above: Performed By: #### C BC, CMP, 450349, GFR, ANEU, 813694, ADIFF ####[place] [address]#### B12, FOL, RPR ####[place] [address] ALP [Catalytic activity/Vol] 57 U/L Normal 40-135 [facility] ([place]) Comment on above: Performed By: #### C BC, CMP, 453476, GFR, ANEU, 864407, ADIFF ####[facility] [address] [place] [address]#### B12, FOL, RPR ####[address] [address] ALT [Catalytic activity/Vol] 22 U/L Normal 14-59 [facility] ([place]) Comment on above: Performed By: #### C BC, CMP, 512268, GFR, ANEU, 083019, ADIFF ####[place] [address] [place] [address]#### B12, FOL, RPR ####[place] [address] AST [Catalytic activity/Vol] 12 U/L Normal 10-40 [facility] ([place] Comment on above: Performed By: #### C BC, CMP, 781963, GFR, ANEU, 230549, ADIFF ####[place] [address] [place] [address]#### B12, FOL, RPR ####[place] [address] Bili Total 0.4 mg/dL Normal 0.2-1.0 [facility] ([place] Comment on above: Result Comment: Use of this assay is not recommended for patients undergoing treatment with eltrombopag due to the potential for falsely elevated results. Performed By: #### C BC, CMP, 929227, GFR, ANEU, 736672, ADIFF ####[place] [address] [place] [address]#### B12, FOL, RPR ####[place] [address] BUN/Creatinine Ratio 6 ratio Low 7-27 [facility] ([place] Comment on above: Performed By: #### C BC, CMP, 433730, GFR, ANEU, 175923, ADIFF ####[place] Uwi[address] [place] [address]#### B12, FOL, RPR ####[address] [address] Calcium [Mass/Vol] 9.1 mg/dL Normal 8.4-10.2 [facility] ([place]) Comment on above: Performed By: #### C BC, CMP, 068387, GFR, ANEU, 733815, ADIFF ####[place] [address] [place] [address]#### B12, FOL, RPR ####[address] [address] Chloride [Moles/Vol] 107 mmol/L Normal 98-107 [facility] ([place] Comment on above: Performed By: #### C BC, CMP, 797749, GFR, ANEU, 725088, ADIFF ####[place] [address]#### B12, FOL, RPR ####[place] [address] CO2 [Moles/Vol] 31 mmol/L High 22-29 [facility] ([place] Comment on above: Performed By: #### C BC, CMP, 858988, GFR, ANEU, 539892, ADIFF ####[place] [address]#### B12, FOL, RPR ####[address] [address] Creatinine [Mass/Vol] 8.26 mg/dL High 0.55-1.02 [facility] ([place] Comment on above: Performed By: #### C BC, CMP, 669334, GFR, ANEU, 749466, ADIFF ####[place] [address] [place] [address]#### B12, FOL, RPR ####[address] [address] Electrolyte Balance 7.0 mEq/L Normal 4.0-15.0 [facility] ([place]) Comment on above: Performed By: #### C BC, CMP, 714339, GFR, ANEU, 758500, ADIFF ####[facility] [place] [address]#### B12, FOL, RPR ####[address] [address] Globulin 3.9 G/dL Normal [facility] ([place]) Comment on above: Performed By: #### C BC, CMP, 154432, GFR, ANEU, 304691, ADIFF ####[place] [address] [place] [address]#### B12, FOL, RPR ####[address] [address] Glucose [Mass/Vol] 81 mg/dL Normal 70-105 [facility] ([place]) Comment on above: Performed By: #### C BC, CMP, 840723, GFR, ANEU, 351088, ADIFF ####[place] [address] [place] [address]#### B12, FOL, RPR ####[place] [address] Potassium [Moles/Vol] 4.9 mmol/L Normal 3.5-5.1 [facility] ([place] Comment on above: Performed By: #### C BC, CMP, 759011, GFR, ANEU, 960112, ADIFF ####[place] [address]#### B12, FOL, RPR ####[address] [address] Sodium [Moles/Vol] 145 mmol/L Normal 136-145 [facility] ([place]) Comment on above: Performed By: #### C BC, CMP, 609449, GFR, ANEU, 327093, ADIFF ####[place] [address] [place] [address]#### B12, FOL, RPR ####[address] [address] Total Protein 7.0 G/dL Normal 6.4-8.2 [facility] ([place] Comment on above: Performed By: #### C BC, CMP, 735002, GFR, ANEU, 648075, ADIFF ####[place] B[address]fm[address] [place] [address]#### B12, FOL, RPR ####[facility] [place] [address] Urea nitrogen [Mass/Vol] 49 mg/dL High 7-18 [facility] ([place] Comment on above: Performed By: #### C BC, CMP, 596249, GFR, ANEU, 372599, ADIFF ####[place] [address] [place] [address]#### B12, FOL, RPR ####[place] [address] [place] [address] FOLon 07-03-2024 Folate 23.49 ng/mL Normal 5.38-24.00 [facility] ([place]) Comment on above: Performed By: #### C BC, CMP, 610433, GFR, ANEU, 022342, ADIFF ####[place] [place] [address]#### B12, FOL, RPR ####[facility] [place] [address] LABORATORYOrdered By: SYSTEM SYSTEM on 07-03-2024 Albumin [...] MAMMOGRAM SCREENING BILATERAL W/NOEL ORIGINAL FROM: [facility] [address] [address] PROCEDURE FOR: JESSICA TOVAR [address] [place] [address] Home: PID#: [id number] Exam#: [id number] : 1975 Age: 48 TO: CHRISTINE TO [facility] [address] [place], [place] [address] Fax: NO FAX EXAMINATION: SCREENING DIGITAL BILATERAL [...] addition to annual mammographic screening per the [employer]. I have personally reviewed the [...] 05/14/2024 2:50:45 PM Ordering Provider: CHRISTINE TO Investigative Writer: JASWINDER BORRERO RT(R)(M)(CT) letter sent: Normal BI-RADS 1 and 2 Mammogram BI-RADS: 1 Negative Normal [facility] ([place]) Final Surgical Pathology Rep [facility] 04-04-2024 Final Surgical Pathology Report . Pathology Reports Accession: Collected Date/Time: Received Date/Time: Pathologist: [id number] 04/02/2024 08:45 EDT 04/03/2024 08:46 EDT MD SIMI MEEKS Final Surgical Pathology Report DIAGNOSIS: ENDOMETRIUM: - FRAGMENTS OF PROLIFERATIVE ENDOMETRIUM WITH NO SPECIFIC PATHOLOGIC CHANGES - NEGATIVE FOR HYPERPLASIA OR MALIGNANCY CLINICAL INFORMATION: OTHER SPECIFIED IRREGULAR MENSTRUATION; ENDOMETRIAL HYPERPLASIA, UNSPECIFIED Procedure: ENDOMETRIAL BX SPECIMEN: A ENDOMETRIUM GROSS DESCRIPTION: All parts labelled with patient name and [id number] Received in formalin and consists of multiple pale-tim fragments of tissue measuring 1.5 x 0.8 x 0.2 cm. TS-1 Simi Meeks MD Dictated by SIMI MEEKS MD MICROSCOPIC DESCRIPTION: The microscopic examination is performed, except in the case of Gross Only. Electronically Signed by Pathology Report verified by [facility] SIMI MEEKS MD Sign out Date: 04/04/2024 13:24 Performing Lab: [facility], [facility] [address] [place] [address] Pathology Dept Disclaimer If ancillary studies were utilized, the following Laboratory Developed Test (LDT) disclaimer will apply: Under CLIA requirements, [facility] is qualified to perform high complexity testing. For all ancillary stains, positive and negative controls stain appropriately. Performance characteristics of immunohistochemical and chromogenic in-situ hybridization tests have been determined by [facility]. These tests are used for clinical purposes, They should not be regarded as investigational or for research. Normal [facility] ([place]) US PELVIS NON-OB COMPLETEon 02-16-2024 US PELVIS [...] 02/16/2024 12:56:42 AM Ordering Provider: TEMO CERVANTES [facility] ([place] CT HEAD OR BRAIN W/O CONTRAS Ton [...] no abnormal intra or extra-axial fluid collections. Ubran-white matter differentiation is maintained. The calvaria and [...] 01/23/2024 11:26:24 AM Ordering Provider: ALON BLANCA [facility] ([place]) XR ANKLE MINIMUM 3 VIEWS RIG HTon [...] 01/23/2024 11:22:15 AM Ordering Provider: ALON BLANCA [facility]) US PELVIS NON-OB W/TRANSVAGI NALon 12-24-2023 US [...] 12/24/2023 3:22:46 PM Ordering Provider: TEMO CERVANTES [facility]) Auto Body Technician Cytology Reporton 2023 Auto Body Technician Cytology Report . Pathology Reports Accession: Collected Date/Time: Received Date/Time: Pathologist: [id number] 12/11/2023 09:34 EST 12/11/2023 18:00 EST DENICE COPPOLA MD Auto Body Technician Cytology Report SPECIMEN: Specimen Description: Liquid Prep Reflex ASCUS Specimen: Cervical/Endocervical Screening or Diagnostic: Screening RELEVANT HISTORY: LMP: 10/23/23 SPECIMEN ADEQUACY: SATISFACTORY FOR EVALUATION Endocervical/Transformat ional zone component present INTERPRETATION/RESULTS: NEGATIVE FOR INTRAEPITHELIAL LESION OR MALIGNANCY OTHER NON-NEOPLASTIC FINDINGS: Reactive cellular changes present consistent with inflammation ORGANISMS: Trichomonas vaginalis COMMENT: This Pap Test was successfully processed and evaluated with the assistance of the [employer] ThinPrep Test Imaging System. Electronically Signed by Pathology report verified by [facility] Screened by: FORTINO DW Electronically signed by DENICE COPPOLA Sign-Out Date: 12/14/2023 17:26 Performing Lab: [facility], [address] [place] [id number] [place] [address] Pathology Dept Disclaimer The Pap test is a screening test for cervical cancer. As evidenced by published data, it is subject to both inherent false negative and false positive results. Your patient's results should be interpreted in context with pertinent clinical history including gynecological examination. Normal [facility] ([place]) MA MAMMOGRAM DIAGNOSTIC LEFT W/TOMOon 09-07-2023 MA MAMMOGRAM DIAGNOSTIC LEFT W/NOEL ORIGINAL FROM: [facility] [address] [place], [place] [address] PROCEDURE FOR: JESSICA CantuGomez RENAE [address] [place] [address] Home: PID#: [id number] Exam#: [id number] : 1975 Age: 47 TO: CHRISTINE TO [facility] [address] [place] [address] Fax: NO FAX EXAMINATION: DIAGNOSTIC DIGITAL LEFT [...] addition to annual mammographic screening per the [employer]. BIRADS: MAMMOGRAM BI-RADS: 2: Benign [...] 6 MONTHS FOLLOW-UP MAMMOGRAPHIC DENSITY LEFT BREAST. Investigative Writer: JEFFREY CASTILLO RT (R) (M) (CT) letter sent: Normal BI-RADS 1 and 2 Mammogram BI-RADS: 2 Benign Normal [facility] ([place] CHEST 2 VIEW PA AND LATon CHEST 2 VIEW PA AND LAT Patient Name: JESSICA TOVAR STUDY: TH CHEST 2 VIEW PA AND LAT; 09/15/2022 4:47 pm INDICATION: pre renal transplant recipient evaluation Z01.818: Pre-transplant evaluation for kidney transplant. COMPARISON: 09/26/2019 ACCESSION NUMBER(S): [id number] ORDERING CLINICIAN: HAYDEN NORRIS FINDINGS: CARDIOMEDIASTINAL SILHOUETTE: Cardiomediastinal silhouette is normal in size and configuration. LUNGS: There are no focal areas of consolidation or pleural effusions noted. ABDOMEN: No remarkable upper abdominal findings. BONES: No acute osseous changes. IMPRESSION: 1. No evidence of acute cardiopulmonary process. Electronically signed by: LARUA CARUSO MD Normal [facility] CT ABDOMEN AND PELVIS WO CON TRASTon 09-15-2022 CT ABDOMEN AND PELVIS WO CONTRAST Patient Name: JESSICA TOVAR STUDY: CT ABDOMEN AND PELVIS WO CONTRAST; 09/15/2022 4:41 pm INDICATION: pre renal transplant recipient evaluation . COMPARISON: None ACCESSION NUMBER(S): [id number] ORDERING CLINICIAN: HAYDEN NORRIS TECHNIQUE: CT of [...] external iliac mild to moderate, internal iliac pgvv-op-rupeachy; LEFT pelvic arteries: common iliac mild to moderate, external iliac lztt-tg-eoybxxig, internal iliac lsoa-ue-zvwqddzv. PERITONEUM/RETROPERITONE UM/LYMPH NODES: No ascites or free [...] as stated. This study was interpreted at [facility], [place], [place]. Electronically signed by: ADITI WYMAN MD Normal [facility] Echocardiogramon 09-15-2022 Echocardiography [facility], [address] [place] [address] and TRANSTHORACIC ECHOCARDIOGRAM REPORT Patient Name: [facility] Fede Physician: [id number] Americo TOVAR Study Date: 09/15/2022 Referring HAYDEN NORRIS Physician: MRN/PID: [id number] PCP: Accession/Order#: [id number] [facility] Echo Location: Lab Date of : 1975 Fellow: Gender: F Nurse: Donna Mendoza RN Admit Date: Airline Reservation Agent: Kelley Salvadorzoran [facility] Admission Status: Outpatient Additional Staff: Height: 172.72 cm CC Report to: Weight: 108.86 kg Study Type: Echocardiogram BSA: 2.21 m2 Blood Pressure: 179 /111 mmHg Diagnosis/ICD: Z01.818-Encounter for other preprocedural examination Indication: Pre-transplant evaluation for kidney transplant Procedure/CPT: Echo Complete w Full Doppler-[id number] Patient History: Pertinent History: HTN. ESRD of [...] LA Area A2C: 18.6 cm2 LA Major [place] A4C: 5.7 cm LA [place] A2C: 5.4 cm LA Vol A4C: 83.9 [...] Hu: 1.02 PulmV Sys Hu: 49.57 cm/s 37998 Americo Webber MD Electronically signed on 09/19/2022 at 9:22:18 AM Final Normal [facility] CARDIAC STRESS/REST INJECTIO Non 09-11-2022 CARDIAC STRESS/REST INJECTION Patient Name: JESSICA TOVAR STUDY: CARDIAC STRESS/REST INJECTION; 09/11/2022 9:15 am INDICATION: pre renal transplant recipient evaluation Z01.818: Pre-transplant evaluation for kidney transplant. 46-year-old female with ordered cardiac stress test to evaluate before renal transplant surgery. COMPARISON: None. ACCESSION NUMBER(S): [id number] ORDERING CLINICIAN: HAYDEN NORRIS TECHNIQUE: DIVISION OF [...] as stated. This study was interpreted at [place], [place]. Electronically signed by: SOHAM KEMP MD [facility] Syng[employer] Nuclear Orderon 2021 Sy[employer] Nuclear Order [facility] [place] [address] and Nuclear Pharmacologic Stress Test Patient Name: Jessica Tovar Ordering Physician: Study Date: 09/11/2022 Reading Physician: Sina Bloom MD MRN/PID: [id number] Supervising Physician: Sina Bloom MD Accession/Order#: [id number] Referring Physician: HAYDEN NORRIS Date of : 1975 PCP: Gender: F Fellow: Admit Date: 09/11/2022 Fellow: Admission Status: Outpatient Lead C Developer: Lorraine Corral CVT Height: 172.72 cm Nurse: Mami Landin RN Weight: 108.86 kg Airline Reservation Agent: N/A BSA: 2.21 m2 Technologist: BMI: 36.49 kg/m2 Additional Staff: Age: 46 years cc report to: Study Type: Nuclear Stress Test Pharmacological Diagnosis/ICD: Z01.818-Encounter for other preprocedural examination Indication: Pre-Op Evaluation Procedure/CPT: Stress Test Interpretation-31208; Stress Test Supervision-[id number] Falls Risk: Low: Patient has a low [...] The adequate level of stress was achieved. [id number] Brian Bloom MD Electronically signed on 09/11/2022 at 5:18:03 PM Final Normal [facility] AUTOCROSSMATCH, FLOWon 06-02 AUTOCROSSMATCH, FLOW SEE SEPARATE REPORT Normal [facility] Comment on above: Result Comment: Test performed at [facility] 6th [facility] [address] [place] [address] Performed By: #### F LAUC #### [facility] [address] [place] [address] HLA CLASS I SP AB ID, HDon 0 06-02-2022 HLA CLASS I SP AB ID,HD SEE COMMENT Normal [facility] Comment on above: Result Comment: HLA- CLASS I SP ANTIBODY IDENTIFICATION, HIGH DEFINITION SEE SEPARATE REPORT. Test performed at [facility], 6[facility] Floor [address] [place] [address] Performed By: #### H LHD1 #### [facility] [address] [place] [address] HLA CLASS II SP AB ID, HDon 06-02-2022 HLA CLASS II SP AB ID,HD SEE COMMENT Normal [facility] Comment on above: Result Comment: HLA- CLASS II SP ANTIBODY IDENTIFICATION, HIGH DEFINITION SEE SEPARATE REPORT. Test performed at [facility], 6th [address] [address] [place] [address] Performed By: #### H LHD2 #### [facility] [address] [place] [id number] CANNABINOID CONF,BLOODon CANNABINOID,BLOOD 32 ng/mL Normal [facility] Comment on above: Result Comment: 11-N IH-5-VPPZTQY-THC INTERPRETIVE INFORMATION: THC Metabolite, Serum or Plasma, Quantitative Methodology: Quantitative Liquid Chromatography-Tandem Mass Spectrometry. Positive cutoff: 5 ng/mL For medical purposes only; not valid for forensic use. The drug analyte detected in this assay, 9-carboxy THC, is a metabolite of quumw-2-jcktamtpvydgnxjarkhk (THC). Detection of 9-carboxy THC suggests use of, or exposure to, a product containing THC. This test cannot distinguish between prescribed or non-prescribed forms of THC, nor can it distinguish between active or passive use. The plasma half-life for 9-carboxy THC metabolite is estimated to range from 4-12 hours. This test was developed and its performance characteristics determined by [employer]. It has not been cleared or approved by the [place] Food and Drug Administration. This test was performed in a CLIA certified laboratory and is intended for clinical purposes. Performed By: [facility] [address] [place] [address] Heating Unit Mechanic: Jose Juan Carpenter MD, PhD Performed By: #### C ANCB #### [facility] [employer] [address] [place] [address] DRUG-PROFILE 9,BLOOD WITH RE FLEX TO CONFIRMATIONon 05-23-2022 AMPHETAMINES SCREEN Negative Normal Cutoff 20 [facility] Comment on above: Performed By: #### D QBHT #### [facility] [address] [place] [address] BARBITURATES SCREEN Negative Normal Cutoff 50 [facility] Comment on above: Performed By: #### D QBHT #### [facility] [address] [place] [id number] BENZODIAZEPINES SCREEN Negative Normal Cutoff [address] [facility] Comment on above: Performed By: #### D QBHT #### [facility] [address] [place] [id number] BUPRENORPHINE SCREEN Negative Normal Cutoff 1 [facility] Comment on above: Performed By: #### D QBHT #### [facility] [address] [place] [id number] CANNABINOID SCREEN Positive Normal Cutoff 20 [facility] Comment on above: Result Comment: If t he screen is positive, then confirmation by mass spectrometry will be added. Additional charges will apply. Unconfirmed positive may be useful for medical purposes, but does not meet forensic standards. Performed By: #### D QBHT #### [facility] [address] [place] [id number] COCAINE SCREEN Negative Normal Cutoff 20 [facility] [place] Comment on above: Performed By: #### D QBHT #### [facility] [address] [place] [id number] DRUG SCREEN COMMENT See Note Normal [facility] Comment on above: Result Comment: INTE RPRETIVE [...] developed and its performance characteristics determined by [employer]. It has not been cleared or approved by the US Food and Drug Administration. This test was performed in a CLIA certified laboratory and is intended for clinical purposes. Performed By: [facility] [address] [place] [address] Heating Unit Mechanic: Jose Juan Carpenter MD, PhD Performed By: #### D QBHT #### [facility] [address] [place] [address] METHADONE SCREEN Negative Normal Cutoff 25 [facility] Comment on above: Performed By: #### D QBHT #### [facility] [address] [place] [address] METHAMPHETAMINES SCREEN Negative Normal Cutoff 20 [facility] Comment on above: Performed By: #### D QBHT #### [facility] [address] [place] [address] OPIATE SCREEN Negative Normal Cutoff 20 [facility] Comment on above: Performed By: #### D QBHT #### [facility] [address] [place] [address] OXYCODONE SCREEN Negative Normal Cutoff 20 [facility] Comment on above: Performed By: #### D QBHT #### [facility] [address] [place] [id number] PCP SCREEN Negative Normal Cutoff 10 [facility] Comment on above: Performed By: #### D QBHT #### [facility] [address] [place], [place] NICOTINE+METABOLITES,Son 4-[id number]-KCNFCNVX <2 Normal [facility] Comment on above: Performed By: #### N I+ME ####[facility] [place] [address] COTININE <2 Normal [facility] Comment on above: Performed By: #### N I+ME ####[facility]500 Counts include [address] beds [place] [address] NICOTINE <2 Normal [facility] Comment on above: Result Comment: Cons istent [...] developed and its performance characteristics determined by [employer] [facility]. It has not been cleared or approved by the US Food and Drug Administration. This test was performed in a CLIA certified laboratory and is intended for clinical purposes. Performed By: [facility] [address] [place] [address] Heating Unit Mechanic: Jose Juan Carpenter MD, PhD Performed By: #### N I+ME ####[facility] Counts include 234 beds [place] [address] T-SPOT TBon 05-21-2022 NIL[NEG]CONTROL SPOT COUNT Passed Normal [facility] Comment on above: Performed By: #### D QBHT #### [facility] [address] [place], [place] PANEL A SPOT COUNT 0 Normal [facility] Comment on above: Performed By: #### D QBHT #### [facility] [address] [place] [address] PANEL B SPOT COUNT 0 Normal [facility] Comment on above: Performed By: #### D QBHT #### [facility] [address] [place] [address] POS CONTROL SPOT COUNT Passed Normal [facility] Comment on above: Performed By: #### D QBHT #### [facility] [address] [place], [place] T-SPOT.TB INTERP Negative Normal Normal Valu e: Negative [facility] Comment on above: Result Comment: A ne [...] test. Performed By: #### Kulwinder QBHT #### [facility] [address] [place] [address] ABO/RH GROUP TESTon 05-19-20 ABO TYPE O Normal [facility] Comment on above: Performed By: #### Darya WOODG ####[id number] [place] [address] RH TYPE Positive Normal [facility] Comment on above: Performed By: #### A JAMES ####[id number], [place] AUTOCROSSMATCH, FLOWon 05-19 AUTOCROSSMATCH, FLOW Canceled Normal [facility] Comment on above: Order Comment: TEST AUTOCROSSMATCH, FLOW WAS CANCELLED, 05/19/2022 14:57 Tests ordered underwrong visit. Lab will reorder under correct visit, please do not redraw.. Result Comment: Test performed at [facility], 6th Floor [address] [place] [address] Performed By: #### F LAUC ####[id number] [place] [address] Blood Typing (ABO + Rho D)on 05-19-2022 ABO group Nom (Bld) O [facility] Work Phone: Rh immune globulin screen (Bld) [Interp] Positive [facility] Work Phone: C PEPTIDEon 05-19-2022 C PEPTIDE 6.6 ng/mL High 0.7 - 3.9 [facility] Comment on above: Performed By: #### D QBHT #### [facility] [address] [place] [address] C Peptide, Serumon C peptide [Mass/Vol] 6.6 ng/mL above high threshold 0.7 - 3.9 [facility] Work Phone: CBCon 05-19-2022 Erythrocyte distribution width (RBC) [Ratio] 14.0 % Normal 11.5 - 14.5 [facility] Comment on above: Performed By: #### C BC ####[id number] [place] [address] Hematocrit (Bld) [Volume fraction] 36.8 % Normal 36.0 - 46.0 [facility] Comment on above: Performed By: #### C BC ####[id number] [place] [address] Hemoglobin (Bld) [Mass/Vol] 11.7 g/dL Low 12.0 - 16.0 [facility] Comment on above: Performed By: #### C BC ####[id number] [place] [address] MCHC (RBC) [Mass/Vol] 31.8 g/dL Low 32.0 - 36.0 [facility] Comment on above: Performed By: #### C BC ####[id number] [place] [address] MCV (RBC) [Entitic vol] 103 fL High 80 - 100 [facility] Comment on above: Performed By: #### C BC ####[id number] [place] [address] NUCLEATED RBC 0.0 /100 WBC Normal 0.0-0.0 [facility] Comment on above: Performed By: #### C BC ####[id number] [place] [address] Platelets (Bld) [#/Vol] 181 10*3/uL Normal 150 - 450 [facility] Comment on above: Performed By: #### C BC ####[id number] [place] [address] RBC 3.57 x10E12/L Low 4.00 - 5.20 [facility] [place] Comment on above: Performed By: #### C BC ####[id number] [place] [address] WBC (Bld) [#/Vol] 7.2 10*3/uL Normal 4.4 - 11.3 [facility] Comment on above: Performed By: #### C BC ####[id number] [place] [address] CMV IGGon 05-19-2022 CMV IGG AB Non-Reactive Normal NONREACTIVE [facility] Comment on above: Performed By: #### C MVG2 ####[id number] [place] [address] CMV IgGon 05-19-2022 CMV IgG Non-Reactive See Below [facility] Work Phone: Comment on above: SOURCE: [...] [Mass/Vol] 6.19 mg/dL High 0.50 - 1.05 [facility] Comment on above: Performed By: #### H LAS1 #### [facility] [address] [place] [address] GFR/1.73 sq M.predicted among non-blacks MDRD (S/P/Bld) [Vol rate/Area] 8 mL/min/{1.73_m2} Abnormal >90 [facility] Comment on above: Result Comment: CALC ULATIONS OF ESTIMATED GFR ARE PERFORMED USING THE 2020 CKD-EPI STUDY REFIT EQUATION WITHOUT THE RACE VARIABLE FOR THE IDMS-TRACEABLE CREATININE METHODS. https://jasn.asnjournals.org/content/early/ASN.88972398 88 Performed By: #### H LAS1 #### [facility] [address] [place] [address] Cannabinoid Confirmation, Bl oodon 05-19-2022 Cannabinoids [Mass/Vol] 32 ng/mL [facility] Work Phone: Comment on above: 27-AEH-7-CARBOXY-THC INTERPRETIVE INFORMATION: THC Metabolite, Serum or Plasma, QuantitativeMethodology: Quantitative Liquid Chromatography-Tandem Mass Spectrometry.Positive cutoff: 5 ng/mLFor medical purposes only; not valid for forensic use.The drug analyte detected in this assay, 9-carboxy THC, is a metabolite of jwlit-7-bdqayvgazacxuktpsknq (THC). Detection of 9-carboxy THC suggests use of, or exposure to, a product containing THC. This test cannot distinguish between prescribed or non-prescribed forms of THC, nor can it distinguish between active or passive use. The plasma half-life for 9-carboxy THC metabolite is estimated to range from 4-12 hours. This test was developed and its performance characteristics determined by [employer]. It has not been cleared or approved by the US Food and Drug Administration. This test was performed in a CLIA certified laboratory and is intended for clinical purposes.Performed By: [facility] [place] [address] [id number] Director: Jose Juan Carpenter MD, PhD Creatinine, Serumon 05-19-20 Creatinine [Mass/Vol] 6.19 mg/dL above high threshold See Below [facility] Work Phone: Comment on above: SOURCE: Reference Ra nge: 0.50 - 1.05 Creatinine, Serum 8 {mL/min/1.73m2} Abnormal >90 [facility] Work Phone: Comment on above: CALCULATIONS OF IRENE MATED GFR ARE PERFORMED USING THE 2020 CKD-EPI STUDY REFIT EQUATION WITHOUT THE RACE VARIABLE FOR THE IDMS-TRACEABLE CREATININE METHODS.https://jasn.asnjournals.org/content/early//ASN. 3467544502 EBV PANELon 05-19-2022 VCA IGM ANTIBODY Negative Normal NEGATIVE [facility] Comment on above: Performed By: #### E BVP1 #### [facility] [address] [place] [id number] EBV EA-D IGG ANTIBODY Negative Normal NEGATIVE [facility] Comment on above: Performed By: #### E BVP1 #### [facility] [address] [place] [address] EBV INTERPRETATION SEE BELOW Normal [facility] Comment on above: Result Comment: . EB V INTERPRETATION CHART . VCA-IGG VCA-IGM NA-IGG EA-IGG . PRIMARY ACUTE +/- +/- - +/- LATE ACUTE + +/- +/- +/- RECOVERING + - - + PREVIOUS INFECTION + - +/- - Performed By: #### E BVP1 #### [facility] [address] [place] [address] EBV NA-1 IGG ANTIBODY Positive Abnormal NEGATIVE [facility] Comment on above: Performed By: #### E BVP1 #### [facility] [address] [place] [address] VCA IGG ANTIBODY Positive Abnormal NEGATIVE [facility] Comment on above: Performed By: #### E BVP1 #### [facility] [address] [place], [place] Lab Specimen Source Normal [facility] Comment on above: Performed By: #### E BVP1 #### [facility] [address] [place], [place] Performed By: #### H EPFP ####[id number], [place] Performed By: #### P HOS ####[id number], [place] Performed By: #### C MVG2 ####[id number], [place] Performed By: #### H BAB3 ####[id number], [place] Performed By: #### D QBHT #### [facility] [address] [place], [place] Performed By: #### H LAS1 #### [facility] [address] [place], [place] Generalized Anxiety Disorder -7on 05-19-2022 Generalized Anxiety Disorder-7 2 1 [facility] Work Phone: Generalized Anxiety Disorder-7 0-Not at all [facility] Work Phone: Generalized Anxiety Disorder-7 1-Several days [facility] Work Phone: HEMOGLOBIN A1Con 05-19-2022 Glucose [Mass/Vol] 97 mg/dL Normal [facility] Comment on above: Performed By: #### H BA1E #### [facility] [address] [place], [place] HbA1c (Bld) [Mass fraction] 5.0 % Normal [facility] Comment on above: Result Comment: Diag nosis of Diabetes-Adults Non-Diabetic: < or = 5.6% Increased risk for developing diabetes: 5.7-6.4% Diagnostic of diabetes: > or = 6.5% . Monitoring of Diabetes Age (y) Therapeutic Goal (%) Adults: >18 <7.0 Pediatrics: 13-18 <7.5 7-12 <8.0 0- 6 7.5-8.5 [place] [employer]. Diabetes Care 33(S1), Nov 2009. Performed By: #### H BA1E #### [facility] [address] [place] [address] HEPATIC FUNCTION PANELon Albumin [Mass/Vol] 4.3 g/dL Normal 3.4 - 5.0 [facility] Comment on above: Performed By: #### H EPFP ####[id number] [place] [address] ALP [Catalytic activity/Vol] 60 U/L Normal 33 - 110 [facility] Comment on above: Performed By: #### H EPFP ####[id number] [place] [address] ALT [Catalytic activity/Vol] 13 U/L Normal 7 - 45 [facility] Comment on above: Result Comment: Maryse ents treated with Sulfasalazine may generate falsely decreased results for ALT. Performed By: #### H EPFP ####[id number] [place] [address] AST [Catalytic activity/Vol] 15 U/L Normal 9 - 39 [facility] Comment on above: Performed By: #### H EPFP ####[id number] [place] [address] Bilirubin [Mass/Vol] 0.4 mg/dL Normal 0.0 - 1.2 [facility] Comment on above: Performed By: #### H EPFP ####[id number] [place] [address] Bilirubin.indirect [Mass/Vol] 0.1 mg/dL Normal 0.0 - 0.3 [facility] Comment on above: Performed By: #### H EPFP ####[id number] [place] [address] Protein [Mass/Vol] 7.6 g/dL Normal 6.4 - 8.2 [facility] Comment on above: Performed By: #### H EPFP ####[id number] [place] [address] HEPATITIS B CORE AB-TOTALon 05-19-2022 HEP. B CORE AB-TOTAL Non-Reactive Normal NONREACTIVE [facility] Comment on above: Result Comment: Resu lts from patients taking biotin supplements or receiving high-dose biotin therapy should be interpreted with caution due to possible interference with this test. Providers may contact their local laboratory for further information. Performed By: #### D QBHT #### [facility] [address] [place] [address] HEPATITIS B SURF ABon 2021 HEP B SURF AB 26.1 mIU/mL Normal <10 [facility] [place] Comment on above: Result Comment: INTE RPRETIVE CRITERIA: <10 mIU/mL....NONREACTIVE >=10 mIU/mL...REACTIVE . Biotin interference may cause falsely decreased results. Patients taking a Biotin dose of up to 5 mg/day should refrain from taking Biotin for 24 hours before sample collection. Providers may contact their local laboratory for further information. Performed By: #### H BAB3 ####[id number] [place] [address] HEPATITIS B SURFACE AGon HEP.B SURFACE AG Non-Reactive Normal NONREACTIVE [facility] Comment on above: Result Comment: Biot in interference may cause falsely decreased results. Patients taking a Biotin dose of up to 5 mg/day should refrain from taking Biotin for 24 hours before sample collection. Providers may contact their local laboratory for further information. Performed By: #### H LAS1 #### [facility] [address] [place] [address] HEPATITIS C ABon 05-19-2022 HEPATITIS C AB Non-Reactive Normal NONREACTIVE [facility] Comment on above: Result Comment: Resu lts from patients taking biotin supplements or receiving high-dose biotin therapy should be interpreted with caution due to possible interference with this test. Providers may contact their local laboratory for further information. Performed By: #### D QBHT #### [facility] [address] [place] [address] HIV 1/2 ANTIGEN/ANTIBODY SCR EEN WITH REFLEX TO CONFIRMATIONon 05-19-2022 HIV 1/2 AG/AB SCREEN Non-Reactive Normal NONREACTIVE [facility] Comment on above: Result Comment: HIV Ag/Ab [...] load). Performed By: #### H LAS1 #### [facility] [address] [place] [address] HIV 1+2 Ab Qn (S) Non-Reactive See Below [facility] Work Phone: Comment on above: SOURCE: [...] HLA CLASS I AB SCREEN,FC Canceled Normal [facility] Comment on above: Order Comment: TEST HLA CLASS I AB SCREEN,FC WAS CANCELLED, 05/19/2022 14:57 Tests ordered under wrong visit. Lab will reorder under correct visit, please do not redraw.. Performed By: #### H LAS1 #### [facility] [address] [place] [address] HLA CLASS II AB SCREEN,FCon 05-19-2022 HLA CLASS II AB SCREEN,FC Canceled Normal [facility] Comment on above: Order Comment: TEST HLA-DQB1 HR TYPING WAS CANCELLED, 05/19/2022 14:57 Tests ordered under wrong visit. Lab will reorder under correct visit, please do not redraw.. Performed By: #### D QBHT #### [facility] [address] [place] [address] HLA-A,B,C LRon 05-19-2022 HLA-A LOCUS LR TYPE Canceled Normal [facility] Comment on above: Order Comment: TEST HLA-DQB1 HR TYPING WAS CANCELLED, 05/19/2022 14:57 Tests ordered under wrong visit. Lab will reorder under correct visit, please do not redraw.. Performed By: #### D QBHT #### [facility] [address] [place] [id number] HLA-B LOCUS LR TYPE Canceled Normal [facility] Comment on above: Order Comment: TEST HLA-DQB1 HR TYPING WAS CANCELLED, 05/19/2022 14:57 Tests ordered under wrong visit. Lab will reorder under correct visit, please do not redraw.. Performed By: #### D QBHT #### [facility] [address] [place] [id number] HLA-C LOCUS LR TYPE Canceled Normal [facility] Comment on above: Order Comment: TEST HLA-DQB1 HR TYPING WAS CANCELLED, 05/19/2022 14:57 Tests ordered under wrong visit. Lab will reorder under correct visit, please do not redraw.. Performed By: #### D QBHT #### [facility] [address] [place] [address] HLA-DPB1 HR TYPINGon 022 HLA-DPB1 HR TYPING Canceled Normal [facility] Comment on above: Order Comment: TEST HLA CLASS I AB SCREEN,FC WAS CANCELLED, 05/19/2022 14:57 Tests ordered under wrong visit. Lab will reorder under correct visit, please do not redraw.. Performed By: #### H LAS1 #### [facility] [address] [place] [address] HLA-DQB1 HR TYPINGon 022 HLA-DQB1 HR TYPING Canceled Normal [facility] Comment on above: Order Comment: TEST HLA-DQB1 HR TYPING WAS CANCELLED, 05/19/2022 14:57 Tests ordered under wrong visit. Lab will reorder under correct visit, please do not redraw.. Performed By: #### D QBHT #### [facility] [address] [place] [address] HLA-DRB1/3/4/5 AND DQB1 LR T YPINGon 05-19-2022 HLA-DRB1/3/4/5 & DQB1 LR TYPING Canceled Normal [facility] Comment on above: Order Comment: TEST HLA CLASS I AB SCREEN,FC WAS CANCELLED, 05/19/2022 14:57 Tests ordered under wrong visit. Lab will reorder under correct visit, please do not redraw.. Performed By: #### H LAS1 #### [facility] [address] [place] [address] Hemoglobin A1Con 05-19-2022 Glucose [Mass/Vol] 97 mg/dL [facility] Work Phone: HbA1c (Bld) [Mass fraction] 5.0 % [facility] Work Phone: Comment on above: Diagnosis of Diabete s-Adults Non-Diabetic: < or = 5.6% Increased risk for developing diabetes: 5.7-6.4% Diagnostic of diabetes: > or = 6.5%. Monitoring of Diabetes Age (y) Therapeutic Goal (%) Adults: >18 <7.0 Pediatrics: 13-18 <7.5 7-12 <8.0 0- 6 7.5-8.5 [place] [employer]. Diabetes Care 33(S1), Nov 2009. Hepatic Function Panelon Albumin BCP dye [Mass/Vol] 4.3 g/dL 3.4 - 5.0 [facility] Work Phone: Comment on above: SOURCE: ALP [Catalytic activity/Vol] 60 U/L 33 - 110 [facility] Work Phone: ALT With P-5'-P [Catalytic activity/Vol] 13 U/L 7 - 45 [facility] Work Phone: Comment on above: Patients treated wit h Sulfasalazine may generate falsely decreased results for ALT. AST With P-5'-P [Catalytic activity/Vol] 15 U/L 9 - 39 [facility] Work Phone: Bilirubin [Mass/Vol] 0.4 mg/dL 0.0 - 1.2 [facility] Work Phone: Bilirubin.direct [Mass/Vol] 0.1 mg/dL 0.0 - 0.3 [facility] Work Phone: Protein [Mass/Vol] 7.6 g/dL 6.4 - 8.2 [facility] Work Phone: Hepatitis B Surface Antibody on 05-19-2022 HBV surface Ag IA Ql 26.1 {mIU/mL} <10 [facility] Work Phone: Comment on above: SOURCE: INTERPRETIVE CRITERIA:<10 mIU/mL....NONREACTIVE >=10 mIU/mL...REACTIVE . Biotin interference may cause falsely decreased results. Patients taking a Biotin dose of up to 5 mg/day should refrain from taking Biotin for 24 hours before sample collection. Providers may contact their local laboratory for further information. Laboratory - Drug toxicology on 05-19-2022 Amphetamines Screen Ql Negative Cutoff 20 [facility] Work Phone: Barbiturates Screen Ql Negative Cutoff 50 [facility] Work Phone: Benzodiazepines Screen Ql Negative Cutoff 50 [facility] Work Phone: Cannabinoids Screen Ql Positive Cutoff 20 [facility] Work Phone: Comment on above: If the screen is pos itive, then confirmation by mass spectrometry will be added. Additional charges will apply. Unconfirmed positive may be useful for medical purposes, but does not meet forensic standards. Cocaine Screen Ql Negative Cutoff 20 [facility] Work Phone: Methadone Screen Ql Negative Cutoff 25 [facility] Work Phone: Methamphetamine Ql Negative Cutoff 20 [facility] Work Phone: Opiates Screen Ql Negative Cutoff 20 [facility] Work Phone: oxyCODONE Ql Negative Cutoff 20 [facility] Work Phone: Phencyclidine Screen Ql Negative Cutoff 10 [facility] Work Phone: Laboratory - HLA antigenson 05-19-2022 HLA-A+B+C (class I) Ab (S) SEE COMMENT [facility] Work Phone: [phone] Comment on above: HLA-CLASS I SP ANTIB OCTAVIA IDENTIFICATION, HIGH DEFINITION SEE SEPARATE REPORT.Test performed at [facility], 6th Floor [address] [place] [address] HLA-DP+DQ+DR (class II) Ab (S) SEE COMMENT [facility] Work Phone: [phone] Comment on above: HLA-CLASS II SP ANTI BODY IDENTIFICATION, HIGH DEFINITION SEE SEPARATE REPORT.Test performed at [facility], 6th Floor [address] [place] [address] HLA-A locus Nom (Bld/Tiss) Canceled [facility] Work Phone: [phone] HLA-B locus Nom (Bld/Tiss) Canceled [facility] Work Phone: [phone] HLA-C locus Nom (Bld/Tiss) Canceled [facility] Work Phone: [phone] HLA-DP2 Ql (Bld/Tiss) Canceled [facility] Work Phone: [phone] HLA-DQB1 High resolution Nom (Bld/Tiss) Canceled [facility] Work Phone: [phone] HLA-DR+DQ Nom (Bld/Tiss) Canceled [facility] Work Phone: [phone] Laboratory - Hematology and Cell countson 05-19-2022 Erythrocyte distribution width (RBC) [Ratio] 14.0 % See Below [facility] Work Phone: [phone] Comment on above: Reference Range: 11. 5 - 14.5 Hematocrit (Bld) [Volume fraction] 36.8 % See Below [facility] Work Phone: [phone] Comment on above: Reference Range: 36. 0 - 46.0 Hemoglobin (Bld) [Mass/Vol] 11.7 g/dL below low threshold See Below [facility] Work Phone: [phone] Comment on above: Reference Range: 12. 0 - 16.0 MCHC (RBC) [Mass/Vol] 31.8 g/dL below low threshold See Below [facility] Work Phone: [phone] Comment on above: Reference Range: 32. 0 - 36.0 MCV (RBC) [Entitic vol] 103 fL above high threshold 80 - 100 [facility] Work Phone: [phone] Platelets (Bld) [#/Vol] 181 10*3/uL 150 - 450 [facility] Work Phone: [phone] RBC (Bld) [#/Vol] 3.57 {x10E12/L} below low threshold See Below [facility] Work Phone: [phone] Comment on above: Reference Range: 4.0 0 - 5.20 WBC (Bld) [#/Vol] 7.2 10*3/uL 4.4 - 11.3 [facility] Work Phone: [phone] Laboratory - Microbiology an d Antimicrobial susceptibilityon 05-19-2022 EBV capsid IgG IA Qn (S) Positive Abnormal NEGATIVE [facility] Work Phone: [phone] Comment on above: SOURCE: EBV capsid IgM IA Qn (S) Negative NEGATIVE [facility] Work Phone: [phone] EBV early IgM IA Qn (S) Negative NEGATIVE [facility] Work Phone: [phone] EBV nuclear IgG IA Qn (S) Positive Abnormal NEGATIVE [facility] Work Phone: [phone] Nicotine+Metabolites, Serumo n 05-19-2022 Cotinine [Mass/Vol] <2 [facility] Work Phone: [phone] Nicotine [Mass/Vol] <2 [facility] Work Phone: [phone] Comment on above: Consistent with abst [...] developed and its performance characteristics determined by [employer]. It has not been cleared or approved by the US Food and Drug Administration. This test was performed in a CLIA certified laboratory and is intended for clinical purposes.Performed By: [facility] [place] [address] [id number] Director: Jose Juan Carpenter MD, PhD Ntdfd-5-Fkiweetvdid nine [Mass/Vol] <2 [facility] Work Phone: No Panel Informationon 05-19 SEE SEPARATE REPORT [facility] Work Phone: Comment on above: Test performed at [facility] Immunogen[facility], [address]th [address] [place] [address] Annotation comment [Interpretation] Narrative See Note [facility] Work Phone: Comment on above: INTERPRETIVE [...] developed and its performance characteristics determined by [employer]. It has not been cleared or approved by the US Food and Drug Administration. This test was performed in a CLIA certified laboratory and is intended for clinical purposes.Performed By: [facility] [address] [place], [place] [address]Nlnewpcwgt Director: Jose Juan Carpenter MD, PhD 0.0 {/100_WBC} 0.0-0.0 [facility] Work Phone: SEE BELOW [facility] Work Phone: Comment on above: . EBV INTERPRETATION CHART. VCA-IGG VCA-IGM NA-IGG EA-IGG. PRIMARY ACUTE +/- +/- - +/-LATE ACUTE + +/- +/- +/-RECOVERING + - - +PREVIOUS INFECTION + - +/- - Canceled [facility] Work Phone: Comment on above: Test performed at [facility]ogen[facility], [address]th [address] [place] [address] Office VIsit (Pre-Transplant Surgery)on 05-19-2022 Follow-up visit Patient Discussion/Summary Impression: Kidney Transplant: Patient Discussion: discussed with the patient. Surgical Summary: Will present to selection committee for discussion as a potential candidate for active listing at [facility]. I had a discussion with this patient regarding 1 year graft and patient survival statistics following renal transplantation for both living and donor allograft recipients. This data included [facility] data compared to National data readily [...] [Mass/Vol] 3.6 mg/dL Normal 2.5 - 4.9 [facility] Comment on above: Result Comment: The performance characteristics of phosphorus testing in heparinized plasma have been validated by the individual laboratory site where testing is performed. Testing on heparinized plasma is not approved by the FDA; however, such approval is not necessary. Performed By: #### P HOS ####[id number] [place] [address] PHQ-9on 05-19-2022 PHQ-9 0-Not at all [facility] Work Phone: PHQ-9 1-Several days [facility] Work Phone: PHQ-9 2-More than half the days [facility] Work Phone: PHQ-9 Not difficult at all [facility] Work Phone: Phosphorus, Serumon 05-19-20 22 Phosphate [Mass/Vol] 3.6 mg/dL 2.5 - 4.9 [facility] Work Phone: Comment on above: SOURCE: The performa nce characteristics of phosphorus testing in heparinized plasma have been validated by the individual laboratory site where testing is performed. Testing on heparinized plasma is not approved by the FDA; however, such approval is not necessary. SIPATon 05-19-2022 SIPAT 21-39 Minimally Acceptable Candidate [facility] Work Phone: [phone] SIPAT 2) Moderate Understanding [facility] Work Phone: [phone] SIPAT 1) Good [facility] Work Phone: [phone] SIPAT 2) Good [facility] Work Phone: [phone] SIPAT 1) Responsive [facility] Work Phone: [phone] SIPAT 0) None [facility] Work Phone: [phone] SIPAT 0) No Clinical Depression [facility] Work Phone: [phone] SIPAT 0) No [facility]: [phone] SIPAT 0) No [facility] Work Phone: [phone] SIPAT 0) No Clinical Psychosis [facility] Work Phone: [phone] SIPAT 2) Minor [facility] Work Phone: [phone] SIPAT 4) Hazardous Alcohol Use Pattern [facility] Work Phone: [phone] SIPAT 1) Low Risk [facility] Work Phone: [phone] SIPAT 6) Substantial Drug Use Disorder [facility] Work Phone: [phone] SIPAT 2) Moderate Risk [facility] Work Phone: [phone] SIPAT 1) Past Use [facility] Work Phone: [phone] SYPHILIS SCREENING WITH REFL EXon 05-19-2022 SYPHILIS TOTAL AB Non-Reactive Normal NONREACTIVE [facility] [place] Comment on above: Result Comment: No s ignificant level of Treponema pallidum antibody detected. Repeat testing in 2 to 4 weeks may be considered if early infection or incubating syphilis infection is suspected. Performed By: #### D QT #### [facility] [address] [place] [address] T. pallidum IgG+IgM IA Ql (S) Non-Reactive See Below [facility] Work Phone: Comment on above: SOURCE: Reference Ra nge: NONREACTIVENo significant level of Treponema pallidum antibody detected. Repeat testing in 2 to 4 weeks may be considered if early infection or incubating syphilis infection is suspected. T-SPOT. TBon 05-19-2022 T-SPOT. TB Negative See Below [facility] Work Phone: Comment on above: Reference [...] as a quantitative test. T-SPOT. TB Passed [facility] Work Phone: T-SPOT. TB 0 1 [facility] Work Phone: Tobacco Screening.on 022 Fall risk assessment a) No falls within the last year [facility] Work Phone: Tobacco use status CPHS b) No [facility] Work Phone: Transplant Recipient Asse ssmenton 05-19-2022 Transplant SW Recipient Assessment Assessment Visit Type: This is the initial visit for the patient. Location: [facility]. Accompanied by: Roger - Sig other. Organ [...] working disabled: 2020 - ESRD. Employment History:. [employer]. Will patient have paid status from employment during recovery? no. 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 no. Other Sources of Income: SSD $848/month Patient has financial concerns Patient is able to meet current monthly expenses Pt states she is able to meet monthly expenses but it is tight. Primary Insurance: Medicare Secondary Insurance: Medicaid Prescription Coverage: Copay cost per month: 0. HMO: [employer] [place] [employer] . In a Relationship: yes. How [...] trailer, # of stairs Ramp. Distance to [facility]: 45 minutes. Pets: No. Does Patient Feel [...] Touchworks URINALYSISon 05-19-2022 Appearance (U) Canceled Normal [facility], [place] Comment on above: Order Comment: TEST HLA-DQB1 HR TYPING WAS CANCELLED, 05/19/2022 14:57 Tests ordered under wrong visit. Lab will reorder under correct visit, please do not redraw.. Performed By: #### D QBHT #### [facility] [address] [place] [address] ASCORBIC ACID Canceled Normal [facility] [...] hours. Performed By: #### D QBHT #### [facility] [address] [place] [address] Bilirubin Ql (U) Canceled Normal [facility] Comment on above: Order Comment: TEST HLA-DQB1 HR TYPING WAS CANCELLED, 05/19/2022 14:57 Tests ordered under wrong visit. Lab will reorder under correct visit, please do not redraw.. Performed By: #### D QBHT #### [facility] [address] [place] [address] Color (U) Canceled Normal [facility] Comment on above: Order Comment: TEST HLA-DQB1 HR TYPING WAS CANCELLED, 05/19/2022 14:57 Tests ordered under wrong visit. Lab will reorder under correct visit, please do not redraw.. Performed By: #### D QBHT #### [facility] [address] [place] [address] Glucose Ql (U) Canceled Normal [facility] [place] Comment on above: Order Comment: TEST HLA-DQB1 HR TYPING WAS CANCELLED, 05/19/2022 14:57 Tests ordered under wrong visit. Lab will reorder under correct visit, please do not redraw.. Performed By: #### D QBHT #### [facility] [address] [place] [address] Hemoglobin Ql (U) Canceled Normal [facility] Comment on above: Order Comment: TEST HLA-DQB1 HR TYPING WAS CANCELLED, 05/19/2022 14:57 Tests ordered under wrong visit. Lab will reorder under correct visit, please do not redraw.. Performed By: #### D QBHT #### [facility] [address] [place] [address] Ketones Ql (U) Canceled Normal [facility] [place] Comment on above: Order Comment: TEST HLA-DQB1 HR TYPING WAS CANCELLED, 05/19/2022 14:57 Tests ordered under wrong visit. Lab will reorder under correct visit, please do not redraw.. Performed By: #### D QBHT #### [facility] [address] [place] [address] Leukocyte esterase Test strip Ql (U) Canceled Normal [facility] Comment on above: Order Comment: TEST HLA-DQB1 HR TYPING WAS CANCELLED, 05/19/2022 14:57 Tests ordered under wrong visit. Lab will reorder under correct visit, please do not redraw.. Performed By: #### D QBHT #### [facility] [address] [place] [address] Nitrite Ql (U) Canceled Normal [facility] [place] Comment on above: Order Comment: TEST HLA-DQB1 HR TYPING WAS CANCELLED, 05/19/2022 14:57 Tests ordered under wrong visit. Lab will reorder under correct visit, please do not redraw.. Performed By: #### D QBHT #### [facility] [address] [place] [address] pH Canceled Normal [facility] Comment on above: Order Comment: TEST HLA-DQB1 HR TYPING WAS CANCELLED, 05/19/2022 14:57 Tests ordered under wrong visit. Lab will reorder under correct visit, please do not redraw.. Performed By: #### D QBHT #### [facility] [address] [place] [address] Protein Ql (U) Canceled Normal [facility] [place] Comment on above: Order Comment: TEST HLA-DQB1 HR TYPING WAS CANCELLED, 05/19/2022 14:57 Tests ordered under wrong visit. Lab will reorder under correct visit, please do not redraw.. Performed By: #### D QBHT #### [facility] [address] [place] [address] Specific gravity (U) [Rel density] Canceled Normal [facility] Comment on above: Order Comment: TEST HLA-DQB1 HR TYPING WAS CANCELLED, 05/19/2022 14:57 Tests ordered under wrong visit. Lab will reorder under correct visit, please do not redraw.. Performed By: #### D QBHT #### [facility] [address] [place] [address] UROBILINOGEN Canceled Normal [facility] Comment on above: Order Comment: TEST HLA-DQB1 HR TYPING WAS CANCELLED, 05/19/2022 14:57 Tests ordered under wrong visit. Lab will reorder under correct visit, please do not redraw.. Performed By: #### D QBHT #### [facility] [address] [place] [id number] VARICELLA ZOSTER IGG ABon VARICELLA ZOSTER IGG AB Positive Normal NEGATIVE [facility] Comment on above: Result Comment: INTE RPRETATIVE [...] Performed By: #### D QBHT #### [facility] [address] [place] [address] Varicella Zoster IgG Antibod n 05-19-2022 VZV IgG IA Ql (S) Positive NEGATIVE [facility] Work Phone: Comment on above: SOURCE: INTERPRETATI [...] made to exam dated: 10/20/2020 mammogram - [facility]. There are scattered fibroglandular elements in both [...] clinical grounds. Rosanne Lakhani M.D. ear/penrad:01/04/2022 14:48:27 Investigative Writer: Li DIAMOND)(M), [facility] letter sent: Mammography Normal BI-RADS: 2 Benign Reported By: ROSANNE LAKHANI M.D. Signed By: ROSANNE LAKHANI M.D. Normal [facility] Two Dot URINE CULTUREon 09-15-2021 Bacteria identified Cx Nom (U) URINE RESULT 60-70,000 COL/ML MIXED KATTY-PLEASE REPEAT-POSSIBLE CONTAMIN Normal [facility] Comment on above: Performed By: #### M 100.51037 #### [facility] [address] [place] [address] UA COMPLETEon 09-13-2021 UA LK ESTERASE 75 Normal NEGATIVE [facility] Comment on above: Performed By: #### L 600.94914 #### [facility] [address] [place] [address] UA WBC 24 WBC/HPF High 0-5 [facility] Comment on above: Performed By: #### L 600.40849 #### [facility] [address] [place] [address] Color (U) Yellow Normal [facility] Comment on above: Performed By: #### L 600.58420 #### [facility] [address] [place] [address] Glucose (U) [Mass/Vol] Negative Normal NORMAL [facility] Comment on above: Performed By: #### L 600.19540 #### [facility] [address] [place] [address] HYALINE CAST 1 /LPF Normal 0-1 [facility] Comment on above: Performed By: #### L 600.18631 #### [facility] [address] [place] [address] Mucus Ql (Urine sed) TRACE Normal NEGATIVE [facility] Comment on above: Performed By: #### L 600.71919 #### [facility] [address] [place] [address] SQUAMOUS EPIS 3 EPI/HPF Normal 0-5 [facility] Comment on above: Performed By: #### L 600.70470 #### [facility] [address] [place], [place] [id number] UA APPEARANCE Clear Normal CLEAR [facility] Comment on above: Performed By: #### L 600.50419 #### [facility] [address] [place] [address] UA BACTERIA NONE Normal NONE [facility] Comment on above: Performed By: #### L 600.64034 #### [facility] [address] [place] [address] UA BILIRUBIN Negative Normal NEGATIVE [facility] Comment on above: Performed By: #### L 600.91757 #### [facility] [address] [place] [address] UA BLOOD MOD Normal NEGATIVE [facility] Comment on above: Performed By: #### L 600.98793 #### [facility] [address] [place], [place] [id number] UA KETONE Negative Normal NEGATIVE [facility] Comment on above: Performed By: #### L 600.07967 #### [facility] [address] [place], [place] [id number] UA NITRITE Negative Normal NEGATIVE [facility] Comment on above: Performed By: #### L 600.16460 #### [facility] [address] [place] [address] UA PH 9.0 Normal 5-6 [facility] Comment on above: Performed By: #### L 600.79243 #### [facility] [address] [place] [address] UA PROTEIN [address] [facility] Comment on above: Performed By: #### L 600.05020 #### [facility] [address] [place] [address] UA RBC 40 RBC/HPF High 0-3 [facility] Comment on above: Performed By: #### L 600.87052 #### [facility] [address] [place], [place] [address] UA SPEC GRAV 1.012 Normal 1.005-1.030 [facility] Comment on above: Performed By: #### L 600.50749 #### [facility] [address] [place] [address] UA UROBILINOGEN Negative Normal NORMAL [facility] Comment on above: Performed By: #### L 600.97108 #### [facility] [address] [place] [address] FLUORO GUIDANCE PLACEMENTon 04-27-2021 FLUORO GUIDANCE PLACEMENT [...] MUÑOZ M.D. Signed By: ANDREA MUÑOZ M.D. [facility] NONTUNNEL CENTRAL CATHon NONTUNNEL CENTRAL CATH NONTUNNEL [...] MUÑOZ M.D. Signed By: ANDREA MUÑOZ M.D. [facility] US GUIDE VASCULAR ACCESSon 0 04-27-2021 US [...] MUÑOZ M.D. Signed By: ANDREA MUÑOZ M.D. [facility] CBC (INCLUDES DIFF/PLT)on Basophils (Bld) [#/Vol] 0.027 10*3/uL Normal 0-200 [facility] Comment on above: Performed By: #### 1 0231, 7444, 6399, 29940, 7600 #### [facility]-[address], [address] [place] [address] Digital Media Manager: Junior Butcher MD Basophils/100 WBC (Bld) 0.4 % Normal [facility] Comment on above: Performed By: #### 1 0231, 7444, 6399, 90760, 7600 #### [facility] [address] [address] , [address] [place] [address] Digital Media Manager: Junior Butcher MD Eosinophils (Bld) [#/Vol] 0.211 10*3/uL Normal 15-500 [facility] Comment on above: Performed By: #### 1 0231, 7444, 6399, 28821, 7600 #### [facility]-[address] , [address] [place] [address] Digital Media Manager: Junior Butcher MD Eosinophils/100 WBC (Bld) 3.1 % Normal [facility] Comment on above: Performed By: #### 1 0231, 7444, 6399, 02714, 7600 #### [facility]-[address], [address] [place] [address] Digital Media Manager: Junior Butcher MD Erythrocyte distribution width (RBC) [Ratio] 14.1 % Normal 11.0-15.0 [facility] Comment on above: Performed By: #### 1 0231, 7444, 6399, 66049, 7600 #### [facility] [address] [address] , [address] [place] [address] Digital Media Manager: Junior Butcher MD Hematocrit (Bld) [Volume fraction] 31.8 % Low 35.0-45.0 [facility] Comment on above: Performed By: #### 1 0231, 7444, 6399, 76780, 7600 #### [facility] [address] [address] , [address] [place] [address] Digital Media Manager: Junior Butcher MD Hemoglobin (Bld) [Mass/Vol] 10.6 g/dL Low 11.7-15.5 [facility] Comment on above: Performed By: #### 1 0231, 7444, 6399, 02290, 7600 #### [facility]-[address], [address] [place] [address] Digital Media Manager: Junior Butcher MD Lymphocytes (Bld) [#/Vol] 2.298 10*3/uL Normal 850-3900 [facility] Comment on above: Performed By: #### 1 0231, 7444, 6399, 19817, 7600 #### [facility] [address], [address] [place] [address] Digital Media Manager: Junior Butcher MD Lymphocytes/100 WBC (Bld) 33.8 % Normal [facility] Comment on above: Performed By: #### 1 0231, 7444, 6399, 25755, 7600 #### [facility]-[address], [address] [place] [address] Digital Media Manager: Junior Butcher MD MCH (RBC) [Entitic mass] 32.4 pg Normal 27.0-33.0 [facility] Comment on above: Performed By: #### 1 0231, 7444, 6399, 86858, 7600 #### [facility] [address] Digital Media Manager: Junior Butcher MD MCHC (RBC) [Mass/Vol] 33.3 g/dL Normal 32.0-36.0 [facility] Comment on above: Performed By: #### 1 0231, 74, 6399, 23743, 7600 #### [facility] [address] [address] , [address] [place] [address] Digital Media Manager: Junior Butcher MD MCV (RBC) [Entitic vol] 97.2 fL Normal 80.0-100.0 [facility] Comment on above: Performed By: #### 1 0231, 7444, 6399, 76951, 7600 #### [facility] [address] [address] , [address] [place] [address] Digital Media Manager: Junior Butcher MD Monocytes (Bld) [#/Vol] 0.408 10*3/uL Normal 200-950 [facility] Comment on above: Performed By: #### 1 0231, 7444, 6399, 97046, 7600 #### [facility] [address] [address] , [address] [place] [address] Digital Media Manager: Junior Butcher MD Monocytes/100 WBC (Bld) 6.0 % Normal [facility] Comment on above: Performed By: #### 1 0231, 7444, 6399, 98809, 7600 #### [facility] [address], [address] [place] [address] Digital Media Manager: Junior Butcher MD Neutrophils (Bld) [#/Vol] 3.856 10*3/uL Normal 5873-1347 [facility] Comment on above: Performed By: #### 1 0231, 7444, 6399, 00515, 7600 #### [facility] [address] [address] , [address] [place] [address] Digital Media Manager: Junior Butcher MD Neutrophils/100 WBC (Bld) 56.7 % Normal [facility] Comment on above: Performed By: #### 1 0231, 7444, 6399, 16000, 7600 #### [facility] [address] [address] , [address] [place] [address] Digital Media Manager: Junior Butcher MD Platelet mean volume (Bld) [Entitic vol] 11.0 fL Normal 7.5-12.5 [facility] Comment on above: Performed By: #### 1 0231, 7444, 6399, 50548, 7600 #### [facility] [address] [address] , [address] [place] [address] Digital Media Manager: Junior Butcher MD Platelets (Bld) [#/Vol] 170 10*3/uL Normal 140-400 [facility] Comment on above: Performed By: #### 1 0231, 7444, 6399, 64224, 7600 #### [facility] [address], [address] [place] [address] Digital Media Manager: Junior Butcher MD RBC (Bld) [#/Vol] 3.27 10*6/uL Low 3.80-5.10 [facility] Comment on above: Performed By: #### 1 0231, 7444, 6399, 41660, 7600 #### [facility]-[address], [address] [place] [address] Digital Media Manager: Junior Butcher MD WBC (Bld) [#/Vol] 6.8 10*3/uL Normal 3.8-10.8 [facility] Comment on above: Performed By: #### 1 0231, 7444, 6399, 70737, 7600 #### [facility]-[address] , [address] [place] [address] Digital Media Manager: Junior Butcher MD [facility] 08-11-2020 Albumin [Mass/Vol] 3.9 g/dL Normal 3.6-5.1 [facility] Comment on above: Performed By: #### 1 0231, 7444, 6399, 36964, 7600 #### [facility] [address] [address] , [address] [place] [address] Digital Media Manager: Junior Butcher MD Albumin/Globulin [Mass ratio] 1.3 (calc) Normal 1.0-2.5 [facility] Comment on above: Performed By: #### 1 0231, 7444, 6399, 65859, 7600 #### [facility]-[address] , [address] [place] [address] Digital Media Manager: Junior Butcher MD ALP [Catalytic activity/Vol] 65 U/L Normal 31-125 [facility] Comment on above: Performed By: #### 1 0231, 7444, 6399, 11457, 7600 #### [facility] [address] [address] , [address] [place] [address] Digital Media Manager: Junior Butcher MD ALT [Catalytic activity/Vol] 11 U/L Normal 6-29 [facility] Comment on above: Performed By: #### 1 0231, 7444, 6399, 18440, 7600 #### [facility]-[address], [address] [place] [address] Digital Media Manager: Junior Butcher MD AST [Catalytic activity/Vol] 11 U/L Normal 10-30 [facility] Comment on above: Performed By: #### 1 0231, 7444, 6399, 23565, 7600 #### [facility] [address] Digital Media Manager: Junior Butcher MD Bilirubin [Mass/Vol] 0.4 mg/dL Normal 0.2-1.2 [facility] Comment on above: Performed By: #### 1 0231, 7444, 6399, 97118, 7600 #### [facility]-[address], [address] [place] [address] Digital Media Manager: Junoir Butcher MD Calcium [Mass/Vol] 8.9 mg/dL Normal 8.6-10.2 [facility] Comment on above: Performed By: #### 1 0231, 7444, 6399, 70907, 7600 #### [facility]-[address], [address] [place] [address] Digital Media Manager: Junior Butcher MD Chloride [Moles/Vol] 102 mmol/L Normal 98-110 [facility] Comment on above: Performed By: #### 1 0231, 7444, 6399, 46070, 7600 #### [facility] [address] Digital Media Manager: Junior Butcher MD CO2 [Moles/Vol] 26 mmol/L Normal 20-32 [facility] Comment on above: Performed By: #### 1 0231, 7444, 6399, 52560, 7600 #### [facility] [address] [place] [address] Digital Media Manager: Junior Butcher MD Creatinine [Mass/Vol] 7.03 mg/dL High 0.50-1.10 [facility] Comment on above: Performed By: #### 1 0231, 7444, 6399, 23943, 7600 #### [facility]-[address], [address] [place] [address] Digital Media Manager: Junior Butcher MD eGFR NON-AFR. IRANIAN 7 mL/min/1.73m2 Low > OR = 60 [facility] Comment on above: Performed By: #### 1 0231, 7444, 6399, 35859, 7600 #### [facility]-[address], [address] [place] [address] Digital Media Manager: Junior Butcher MD GFR/1.73 sq M predicted among blacks MDRD (S/P/Bld) [Vol rate/Area] 8 mL/min/{1.73_m2} Low > OR = 60 [facility] Comment on above: Performed By: #### 1 0231, 7444, 6399, 55594, 7600 #### [facility]-[address], [address] [place] [address] Digital Media Manager: Junior Butcher MD Globulin (S) [Mass/Vol] 3.0 g/dL (calc) Normal 1.9-3.7 [facility] Comment on above: Performed By: #### 1 0231, 7444, 6399, 55896, 7600 #### [facility]-[address], [address] [place] [address] Digital Media Manager: Junior Butcher MD Glucose [Mass/Vol] 81 mg/dL Normal 65-139 [facility] Comment on above: Result Comment: Non-fasting reference interval Performed By: #### 1 0231, 7444, 6399, 80707, 7600 #### [facility]-[address], [address] [place] [address] Digital Media Manager: Junior Butcher MD Potassium [Moles/Vol] 4.9 mmol/L Normal 3.5-5.3 [facility] Comment on above: Performed By: #### 1 0231, 7444, 6399, 91283, 7600 #### [facility] [address] Digital Media Manager: Junior Butcher MD Protein [Mass/Vol] 6.9 g/dL Normal 6.1-8.1 [facility] Comment on above: Performed By: #### 1 0231, 7444, 6399, 88839, 7600 #### [facility]-[address], [address] [place] [address] Digital Media Manager: Junior Butcher MD Sodium [Moles/Vol] 136 mmol/L Normal 135-146 [facility] Comment on above: Performed By: #### 1 0231, 7444, 6399, 37723, 7600 #### [facility]-[address], [address] [place] [address] Digital Media Manager: Junior Butcher MD Urea nitrogen [Mass/Vol] 43 mg/dL High 7-25 [facility] Comment on above: Performed By: #### 1 0231, 7444, 6399, 89476, 7600 #### [facility]-[address], [address] [place] [address] Digital Media Manager: Junior Butcher MD Urea nitrogen/Creatinine [Mass ratio] 6 mg/mg Normal 6-22 [facility] Comment on above: Performed By: #### 1 0231, 7444, 6399, 58048, 7600 #### [facility]-[address], [address] [place] [address] Digital Media Manager: Junior Butcher MD LIPID PANEL, STANDARD 10-0 Cholesterol [Mass/Vol] 206 mg/dL High <200 [facility] Comment on above: Order Comment: FASTI NG:NO COLLECTION KIT GIVEN TO PATIENT. PATIENT ADVISED TO RETURN. FASTING: NO Performed By: #### 1 0231, 7444, 6399, 90876, 7600 #### [facility]-[address], [address] [place] [address] Digital Media Manager: Junior Butcher MD Cholesterol in HDL [Mass/Vol] 51 mg/dL Normal > OR = 50 [facility] Comment on above: Order Comment: FASTI NG:NO COLLECTION KIT GIVEN TO PATIENT. PATIENT ADVISED TO RETURN. FASTING: NO Performed By: #### 1 0231, 7444, 6399, 04359, 7600 #### [facility]-[address], [address] [place] [address] Digital Media Manager: Junior Butcher MD Cholesterol in LDL [Mass/Vol] [...] LDL-C. Teo SS et al. TRESSA. 2013;310(19): 4588-5671 (http://education.[employer].LayerBoom/faq/ILY429) Performed By: #### 1 0231, 7444, 6399, 32709, 7600 #### [facility]-[address], [address] [place] [address] Digital Media Manager: Junior Butcher MD Cholesterol.total/C holesterol in HDL [Mass ratio] 4.0 (calc) Normal <5.0 [facility] Comment on above: Order Comment: FASTI NG:NO COLLECTION KIT GIVEN TO PATIENT. PATIENT ADVISED TO RETURN. FASTING: NO Performed By: #### 1 0231, 2306, 6399, 71693, 7600 #### [facility]-[address], [address] [place], [place] [address] Digital Media Manager: Junior Butcher MD NON HDL CHOLESTEROL 155 [...] therapeutic option. Performed By: #### 1 0231, 1276, 6399, 27900, 7600 #### [facility]-[address], [address] [place] [address] Digital Media Manager: Junior Butcher MD Triglyceride [Mass/Vol] 139 mg/dL Normal <150 [facility] Comment on above: Order Comment: FASTI NG:NO COLLECTION KIT GIVEN TO PATIENT. PATIENT ADVISED TO RETURN. FASTING: NO Performed By: #### 1 0231, 7444, 6399, 98818, 7600 #### [facility]-[address], [address] [place] [address] Digital Media Manager: Junior Butcher MD THYROID PANEL WITH TSHon FREE T4 INDEX (T7) 2.3 Normal 1.4-3.8 [facility] Comment on above: Performed By: #### 1 0231, 7444, 6399, 66228, 7600 #### [facility]-[address], [address] [place] [address] Digital Media Manager: Junior Butcher MD T3 UPTAKE 32 % Normal 22-35 [facility] Comment on above: Performed By: #### 1 0231, 7444, 6399, 52925, 7600 #### [facility]-[address], [address] [place] [address] Digital Media Manager: Junior Butcher MD T4 [Mass/Vol] 7.2 ug/dL Normal 5.1-11.9 [facility] Comment on above: Performed By: #### 1 0231, 7444, 6399, 57529, 7600 #### [facility]-[address], [address] [place] [address] Digital Media Manager: Junior Butcher MD TSH Qn 2.46 m[IU]/L Normal [facility] Comment on above: Result Comment: Refe rence Range > or = 20 Years 0.40-4.50 Ranges First trimester 0.26-2.66 Second trimester 0.55-2.73 Third trimester 0.43-2.91 Performed By: #### 1 0231, 7444, 6399, 78449, 7600 #### [facility]-[address], [address] [place] [address] Digital Media Manager: Junior Butcher MD VITAMIN D,25-[place],TOTAL,IAon 1 VITAMIN [...] D, (D2,D3), LC/MS/MS is recommended: order code 95056 (patients >2yrs). See Note 1 Note 1 For additional information, please refer to [email or web address] (This link is being provided for informational/ educational purposes only.) Performed By: #### 1 0231, 7444, 6399, [phone], 7600 #### [id number], [address] [place] [id number] Digital Media Manager: Junior Butcher MD Vital Signs Date Time Vital Sign Value Performing Clinician Facility 04-14-2025 17:00-0400 Body temperature 97.6 [degF] Christine To SPRING UPHOLSTERER-C Work Phone: [facility] 04-14-2025 17:00-0400 Diastolic blood pressure 68 mm[Hg] Christine To SPRING UPHOLSTERER-C Work Phone: [facility] 04-14-2025 17:00-0400 Heart rate 83 /min Christine To SPRING UPHOLSTERER-C Work Phone: [facility] 04-14-2025 17:00-0400 Respiratory rate 16 /min Christine To SPRING UPHOLSTERER-C Work Phone: [facility] 04-14-2025 17:00-0400 SaO2% (BldA) [Mass fraction] 100 % Christine To SPRING UPHOLSTERER-C Work Phone: [facility] 04-14-2025 17:00-0400 Systolic blood pressure 126 mm[Hg] Christine To SPRING UPHOLSTERER-C Work Phone: [facility] 04-14-2025 13:17-0400 Body height 175.26 cm Christine To SPRING UPHOLSTERER-C Work Phone: [facility] 04-14-2025 13:17-0400 Body mass index (BMI) [Ratio] 32.3 kg/m2 Christine To SPRING UPHOLSTERER-C Work Phone: [facility] 04-14-2025 13:17-0400 Body weight 99.33 kg Christine Zuleika SPRING UPHOLSTERER-C Work Phone: [facility] 03-02-2025 11:53-0400 Blood Pressure Cuff Size CHRISTINE ZULEIKA DETAIL TECHNICIAN-NEON SIGN SERVICER [facility] 03-02-2025 11:53-0400 Blood Pressure Location CHRISTINE CHOIEVELYN DETAIL TECHNICIAN-NEON SIGN SERVICER [facility] 03-02-2025 11:53-0400 Blood Pressure Method CHRISTINE ZULEIKA DETAIL TECHNICIAN-NEON SIGN SERVICER [facility] 03-02-2025 11:53-0400 Body height 171.5 cm CHRISTINE ZULEIKA DETAIL TECHNICIAN-NEON SIGN SERVICER [facility] 03-02-2025 11:53-0400 Body temperature 98.96 [degF] CHRISTINE TO DETAIL TECHNICIAN-NEON SIGN SERVICER [facility] 03-02-2025 11:53-0400 Body weight 99.5 kg CHRISTINE ZULEIKA DETAIL TECHNICIAN-NEON SIGN SERVICER [facility] 03-02-2025 11:53-0400 Body weight 33.83 kg/m2 CHRISTINE ZULEIKA DETAIL TECHNICIAN-NEON SIGN SERVICER [facility] 03-02-2025 11:53-0400 Diastolic Blood Pressure Non-Invasive 78 mm[Hg] CHRISTINE TO DETAIL TECHNICIAN-NEON SIGN SERVICER [facility] 03-02-2025 11:53-0400 Heart rate 90 /min CHRISTINE TO DETAIL TECHNICIAN-NEON SIGN SERVICER [facility] 03-02-2025 11:53-0400 Respiratory rate 18 /min CHRISTINE TO DETAIL TECHNICIAN-NEON SIGN SERVICER [facility] 03-02-2025 11:53-0400 Systolic Blood Pressure Non-Invasive 121 mm[Hg] CHRISTINE TO DETAIL TECHNICIAN-NEON SIGN SERVICER [facility] 01-23-2024 13:07-0400 Diastolic blood pressure 88 mm[Hg] ALON BLANCA MD [facility] 01-23-2024 13:07-0400 Heart rate 88 /min ALON BLANCA MD [facility] 01-23-2024 13:07-0400 Respiratory rate 18 /min ALON BLANCA MD [facility] 01-23-2024 13:07-0400 Systolic blood pressure 142 mm[Hg] ALON BLANCA MD [facility] 01-23-2024 09:50-0400 Body height 172.7 cm ALON BLANCA MD [facility] 01-23-2024 09:50-0400 Body temperature 97.88 [degF] ALON BLANCA MD [facility] 01-23-2024 09:50-0400 Body weight 105 kg ALON BLANCA MD [facility] 01-23-2024 09:50-0400 Diastolic Blood Pressure Non-Invasive 94 mm[Hg] ALON BLANCA MD [facility] 01-23-2024 09:50-0400 Heart rate 104 /min ALON BLANCA MD [facility] 01-23-2024 09:50-0400 Respiratory rate 18 /min ALON BLANCA MD [facility] 01-23-2024 09:50-0400 Systolic Blood Pressure Non-Invasive 147 mm[Hg] ALON BLANCA MD [facility] 05-19-2022 15:57-0400 3 1 No PCP [facility] Work Phone: Comment on above: PHQ-9 TS 05-19-2022 13:31-0400 Body height 170.18 cm No PCP [facility] Work Phone: 05-19-2022 13:31-0400 Body mass index (BMI) [Ratio] 39.05 kg/m2 No PCP [facility] Work Phone: 05-19-2022 13:31-0400 Body surface area Derived from formula 2.22 m2 No PCP [facility] Work Phone: 05-19-2022 13:31-0400 Body temperature 97.1 [degF] No PCP [facility] Work Phone: 05-19-2022 13:31-0400 Body weight 113.08 kg No PCP [facility] Work Phone: 05-19-2022 13:31-0400 Diastolic blood pressure 111 mm[Hg] No PCP [facility] Work Phone: 05-19-2022 13:31-0400 Heart rate 90 /min No PCP [facility] Work Phone: 05-19-2022 13:31-0400 SaO2% (BldA) [Mass fraction] 100 % No PCP [facility] Work Phone: 05-19-2022 13:31-0400 Systolic blood pressure 179 mm[Hg] No PCP [facility] Work Phone: 05-19-2022 13:31-0400 0 1 No PCP [facility] Work Phone: Comment on above: [employer] Encounters Encounter Date Encounter Type Care Provider Facility Start: 04-14-2025 Encounter for other preprocedural examination Alberto Strickland [facility] Start: 04-14-2025 ambulatory Alberto Strickland Facility :[facility] Start: 04-14-2025 Non-patient / Non-visit Alberto Hathaway nd DO -[facility] Start: 04-14-2025 End: 04-14-2025 Admission to same day surgery center Alberto Strickland DO -Endoscopy Work Phone: Start: 04-14-2025 End: 04-14-2025 ambulatory Christine To SPRING UPHOLSTERER-C Work Phone: [facility] Work Phone: Start: 04-13-2025 ambulatory CHRISTINE TO DETAIL TECHNICIAN-NEON SIGN SERVICER Facility:[facility] Start: 03-31-2025 End: 04-04-2025 ambulatory TEMO CERAVNTES MD Facility:A Start: 03-17-2025 End: 03-17-2025 ambulatory EDDI BLOUNT Facility:[id number] Start: 03-02-2025 End: 03-02-2025 ambulatory CHRISTINE TO DETAIL TECHNICIAN-NEON SIGN SERVICER Facility:A Start: 03-02-2025 End: 03-02-2025 Patient encounter procedure CHRISTINE TO DETAIL TECHNICIAN-NEON SIGN SERVICER [facility] Start: 02-04-2025 End: 02-04-2025 Patient encounter procedure Christine Dickey [facility] Work Phone: Start: 02-04-2025 End: 02-04-2025 ambulatory Christine Dickey Facility:[facility] Start: 02-03-2025 End: 02-03-2025 ambulatory CHRISTINE TO DETAIL TECHNICIAN-NEON SIGN SERVICER Facility:[facility] Start: 01-24-2025 End: 01-24-2025 ambulatory CHRISTINE TO DETAIL TECHNICIAN-NEON SIGN SERVICER Facility:[facility] Start: 01-06-2025 End: 01-06-2025 ambulatory EDDI BLOUNT Facility:[id number] Start: 12-16-2024 End: 12-20-2024 ambulatory TEMO CERVANTES MD Facility:A Start: 07-31-2024 End: 07-31-2024 ambulatory CHRISTINA MORENO MD Facility:[facility] Start: 07-31-2024 End: 07-31-2024 Patient encounter procedure CHRISTINA MORENO MD [facility] Start: 07-03-2024 End: 07-03-2024 ambulatory CHRISTINA MORENO MD Facility:B Start: 07-03-2024 End: 07-03-2024 Patient encounter procedure CHRISTINA MORENO MD [facility] Start: 05-13-2024 End: 05-13-2024 ambulatory CHRISTINE TO DETAIL TECHNICIAN-NEON SIGN SERVICER Facility:B Start: 05-13-2024 End: 05-13-2024 Patient encounter procedure CHRISTINE TO DETAIL TECHNICIAN-NEON SIGN SERVICER [facility] Start: 04-02-2024 End: 04-06-2024 ambulatory CHRISTINE TO DETAIL TECHNICIAN-NEON SIGN SERVICER Facility:A Start: 02-15-2024 End: 02-15-2024 ambulatory TEMO CERVANTES MD Facility:B Start: 02-15-2024 End: 02-15-2024 Patient encounter procedure TEMO CERVANTES MD [facility] Start: 01-23-2024 End: 01-23-2024 Emergency department patient visit ALON BLANCA MD [facility] Start: 01-15-2024 End: 01-19-2024 ambulatory TEMO CERVANTES MD Facility:A Start: 12-24-2023 End: 12-24-2023 ambulatory TEMO CERVANTES MD Facility:B Start: 12-24-2023 End: 12-24-2023 Patient encounter procedure TEMO CERVANTES MD [facility] Start: 12-11-2023 End: 12-15-2023 ambulatory TEMO CERVANTES MD Facility:A Start: 12-11-2023 End: 12-15-2023 Encounter for gynecological examination (general) (routine) without abnormal findings TEMO CERVANTES MD Facility:A Start: 09-05-2023 End: 09-05-2023 ambulatory CHRISTINE TO DETAIL TECHNICIAN-NEON SIGN SERVICER Facility:B Start: 09-05-2023 End: 09-05-2023 Patient encounter procedure CHRISTINE TO DETAIL TECHNICIAN-NEON SIGN SERVICER [facility] Start: 04-25-2023 Chart abstracting [facility] Comment on above: Pre-transplant evalu ation for kidney transplant (Primary Dx) Start: 04-25-2023 Patient encounter status Ronna Quiñones MD Work Phone: [facility] Start: 04-25-2023 Telephone encounter Alexus Sweeney RN [facility] Comment on above: Referral - Kidney Tx p (New MyChart code sent) Start: 03-12-2023 Patient encounter status Caterina [facility] Start: 03-12-2023 Telephone encounter [facility] Comment on above: Referral - Kidney Tx p Start: 02-08-2023 End: 02-08-2023 Patient encounter procedure CHRISTINE TO DETAIL TECHNICIAN-NEON SIGN SERVICER [facility] Start: 01-31-2023 End: 01-31-2023 Patient encounter procedure CHRISTINE TO DETAIL TECHNICIAN-NEON SIGN SERVICER [facility] Start: 01-08-[address] Hayden Cuevas Facility:[id number] Start: 01-08-2023 Encounter for other preprocedural examination Dr. Hayden Norris Facility:[id number] Start: 12-19-2022 AUDIT No PCP None -[facility] 2[facility] Work Phone: Start: 12-06-2022 End: 12-06-2022 Patient encounter procedure CHRISTINE TO DETAIL TECHNICIAN-NEON SIGN SERVICER [facility] Start: 11-17-2022 End: 11-17-2022 Patient encounter procedure CHRISTINE TO DETAIL TECHNICIAN-NEON SIGN SERVICER [facility] Start: 09-22-2022 AUDIT No PCP None [facility] Work Phone: Start: 09-15-[address] Hayden Cuevas Facility:[id number] Start: 09-15-[address] Hayden Cuevas Facility:[id number] Start: 09-15-2022 Encounter for other preprocedural examination Dr. Hayden Norris [facility] Start: 09-11-2022 Encounter for preprocedural cardiovascular examination Dr. Hayden Norris [facility] Start: 09-11-[address] Hayden Cuevas Facility:[id number] Start: 08-15-2022 End: 08-15-2022 Patient encounter procedure CHRISTINE TO DETAIL TECHNICIAN-NEON SIGN SERVICER [facility] Start: 07-12-[address] Hayden Cuevas Facility:[id number] Start: 06-05-2022 ambulatory MD CANDELARIA GU Fac ility:[facility] Start: 06-02-2022 Chart Update No PCP None [facility] Work Phone: Start: 05-26-2022 Chart Update No PCP None [facility] Work Phone: Start: 05-19-2022 AUDIT No PCP None [facility] Work Phone: Start: 05-19-2022 ambulatory MD CANDELARIA GU Fac ility:[facility] Start: 05-19-2022 Patient encounter procedure No PCP None BB-Mnvdzjmbaf-[facility] Work Phone: Start: 05-19-[address] Hayden Villalba Facility:[facility] Start: 04-15-2021 STEVE, Provider: Ronak Trent, Status: Pen, Time: 2:00 PM No PCP None SV-Dvnnubf-Znwbr[facility] 2100 Work Phone: Start: 04-15-2021 PATRICIA, Provider: Magnolia Manzano, Status: Reyes, Time: 12:30 PM No PCP None SL-Xxtzvwu-[facility]ox[facility] 2100 Work Phone: Start: 04-14-2021 AUDIT No PCP None [facility] Work Phone: Patient encounter status No PCP None XV-Wtiamzc-[facility] 2100 Work Phone: Procedures Date Procedure Procedure Detail Performing Clinician Start: 04-14-2025 Colonoscopy Christine calvert SPRING UPHOLSTERER-C Work Phone: Start: 01-04-2022 Mammography Caterina Na lepka Arteriovenous anastomosis No PCP None Arteriovenous fistul a (morphologic abnormality) CHRISTINE TO DETAIL TECHNICIAN-NEON SIGN SERVICER Comment on above: left arm Plan of Treatment Date Care Activity Detail Author Start: 04-14-2025 Patient discharge [facility] Start: 07-06-2023 Influenza vaccination [facility] Start: 01-04-2023 Mammography MAMMOGRAM [facility] Start: 11-05-2022 DEPRESSION ASSESSMENT DEPRESSION ASSESSMENT [facility] Start: 2022 COLOGUARD (FIT-DNA) COLOGUARD (FIT-DNA) [facility] Start: 2022 Colonoscopy COLONOSCOPY [facility] Start: 2022 COLORECTAL CANCER SCREENING COLORECTAL CANCER SCREENING [facility] Start: [address] COLONOGRAPHY [facility] Start: 2022 DIABETES SCREEN DIABETES SCREEN [facility] Start: 2022 FECAL OCCULT BLOOD FECAL OCCULT BLOOD [facility] Start: 2022 LIPID SCREEN LIPID SCREEN [facility] Start: 2022 SIGMOIDOSCOPY SIGMOIDOSCOPY [facility] Start: 07-12-2022 JADE, Provider: Melonie Gates, Status: Reyes, Time: 11:00 AM JADE, Provider: Melonie Gates, Status: Reyes, Time: 11:00 AM JN-Btkfzjy-Cuwrqzv 2100 Work Phone: Start: 06-05-2022 ESCOBAR, Provider: OCCUPATIONAL THERAPY AIDES TEACHER,[id number], Status: Pen, Time: 11:30 AM ESCOBAR, Provider: OCCUPATIONAL THERAPY AIDES TEACHER,[id number], Status: Pen, Time: 11:30 AM GI-Ntsshhxwno-Lfshra Work Phone: Start: 01-04-2022 COVID-19 VACCINE (4 - Booster for Moderna series) COVID-19 VACCINE (4 - Booster for Moderna series) [facility] Start: 2007 HPV TESTING HPV TESTING [facility] Start: 1998 PAP TESTING PAP TESTING [facility] Start: 1996 Urine microalbumin profile DTAP,TDAP,TD (1 - Tdap) [facility] Start: 1995 HEPATITIS C SCREENING HEPATITIS C SCREENING [facility] Start: 1995 HIV SCREENING HIV SCREENING [facility] Start: 04-29-1978 COVID-19 VACCINE (#1) COVID-19 VACCINE (#1) [facility] Start: 1977 HEPATITIS B (1 of 3 - 3-dose series) HEPATITIS B (1 of 3 - 3-dose series) [facility] Patient referral [facility] Work Phone: [facility] Immunizations Immunization Date Immunization Notes Care Provider Fa [facility] 10-23-2022 tetanus toxoid, reduced diphtheria toxoid, and acellular pertussis vaccine, adsorbed; Translations: [Boostrix (Tdap)] CHRISTINE BUTTS [facility] 08-30-2022 influenza virus vaccine, unspecified formulation TEMO CERVANTES MD [facility] 08-30-2022 influenza, injectabl e, quadrivalent, preservative free No PCP None BH-Ymsvuvuqzq-NXV [place] 1800 Work Phone: 08-30-2022 Moderna COVID-19 Biv al Booster 50 MCG/0.5ML Intramuscular Suspension No PCP None ZW-Igwxpdkrzu-KFK [place] 1800 Work Phone: 08-30-2022 SARS-CoV-2 (CV19)mRNA-6163 bivalent vac TEMO CERVANTES MD [facility] 11-09-2021 Moderna COVID-19 Vaccine 100 MCG/0.5ML Intramuscular Suspension No PCP None [facility] 02-10-2021 Moderna COVID-19 Vaccine 100 MCG/0.5ML Intramuscular Suspension No PCP None [facility] 01-13-2021 Moderna COVID-19 Vaccine 100 MCG/0.5ML Intramuscular Suspension No PCP None [facility] Payers Date Payer Category Payer Unknown 2025 Self-pay 2025 Unknown [id number] 2021 Medicaid [employer] [id number] 2021-Present [phone] [address] [place] [address] Medicaid [id number] 2021 Medicare [employer] [facility] [id number] 2021-Present [phone] [address] [place] [address] Medicare [id number]. [id number] 2021 Unknown [id number] 1977 Unknown [id number] .[id number] 1977 Unknown [id number] 840.1.235667.3.579.2.356 1977 Unknown [id number] 12.21.830.1.704275.3.579.2.356 1977 Unknown [id number] 12.21.830.1.069801.3.579.2.356 1977 Unknown [id number] 840.1.358203.3.579.2.356 1977 Unknown [id number] 2.16.840.1.825968.3.579.2.356 1977 Unknown [id number] 2.16.840.1.390317.3.579.2.356 1977 Unknown [id number] 2.16.840.1.218465.3.579.2.356 1977 Unknown [id number] 2.16.840.1.625908.3.579.2.356 1977 Unknown [id number] 2.16.840.1.766665.3.579.2.356 1977 Unknown [id number] 2.16840.1.017807.3.579.2 1977 Unknown [id number] 2.16.840.1.808359.3.579.2 1977 Unknown [id number] 2.840.1.582863.3.579.262 1977 Unknown [id number] 2.16840.1.443338.3.579.2 1977 Unknown [id number] 2.16840.1.076502.3.579.262 1977 Unknown [id number] 2.16.840.1.639195.3.579.262 1977 Unknown [id number] 2.16.840.1.449719.3.579.262 1977 Unknown [id number] 2.16.840.1.522798.3.579.262 1977 Unknown [id number] 2.16.840.1.565333.3.579.2 1977 Unknown [id number] 2.16.840.1.693169.3.579.262 1977 Unknown [id number] 2.16.840.1.601543.3.579.262 1977 Unknown [id number] 2.16.840.1.053801.3.579.2.627 1977 Unknown [id number] 2.16.840.1.339747.3.579.2.627 1977 Unknown [id number] 2.16.840.1.933882.3.579.2.627 1977 Unknown [id number] 2.16.840.1.971936.3.579.2.627 1977 Unknown [id number] 2.16.840.1.001246.3.579.2.627 Medicare MEDICARE PART A B [id number] Unknown [id number] Unknown [id number] Unknown [id number] 2.16.840.1.590778.3.579.2.462 Unknown [id number] 2.16.840.1.347704.3.579.2.462 Unknown [id number] 2.16.840.1.569162.3.579.2.462 Social History Date Type Detail Facility Former smoker Former smoker [facility] Work Phone: Start: 08-09-2022 End: 04-13-2025 Tobacco smoking status [facility] Start: 1975 Sex Assigned At Female A [facility] History of tobacco use Current smoker [facility] Start: 09-19-2019 Tobacco use and exposure Smokeless tobacco non-user [facility] Start: 09-19-2019 Alcohol intake Ex-drinker (finding) [facility] Start: 1975 Sex Assigned At Not on file [facility] Sexual O[facility] Start: 05-18-2021 Sex Female (finding) [facility] NEGATED: Highlighted row Not [facility] Goals Date Patient Goal Desired Activity /State Functional Status Date Assessment Result Facility 03-02-2025 Functional Status ID band on, Safety level maintained [facility] 01-23-2024 Functional Status Up ad rc [facility] 01-23-2024 Functional Status Standard Safet y ID band on, Call device within reach, Bed in low position, Wheels locked, Visitor at bedside [facility] 05-19-2022 PHQ-9 [id number] In Re mission (0-4) [facility] Work Phone: Mental Status Date Assessment Result Facility 04-14-2025 Cognitive function Voice/Name;Touch/Shaki ng [facility] Work Phone: 03-02-2025 Mental Status Orientation Orie nted x 4, Follows simple commands [facility] 01-23-2024 Mental Status Orientation Oriented x 4 [facility] 01-23-2024 Mental Status [facility] Clinical Notes 06-27-2021 to 04-14-2025 Note Date & Type Note Facility 04-14-2025 History and physi vicky note Note Date/Time April 14, 2025 3:20pm [facility] Medical Records Department [address] [place] [address] History & Physical Exam 04/14/25 1518 MR#: [id number] Acct: [id number] Name: JESSICA TOVAR Rep #:[id number] : 1975 49 From: Alberto Friend DO PCP: DARREN Beltran Status:REG S DC Location: [place] [address] HPI - General General Date of Admission: [...] CC: DARREN To; Alberto Strickland DO~ Signed [facility] Work Phone: 1(379) 208-768806-10-[address] [facility] Medical Records Department [address] [place] [address] Operative Report - CC Letter MR#: [id number] Acct: [id number] Name: JESSICA TOVAR Rep #:[id number] : 1975 49 From: Alberto Strickland DO [...] DO Cosigner Signature: Date (if indicated) CC: SPRING UPHOLSTERER-C Christine To; Alberto Strickland DO ~ Date Dictated: 04/14/25 1612 Date Transcribed: Finishing Area Operator: RF Signed [facility]06-10-[address] [facility] Medical Records Department [address] [place] [address] Colonoscopy Report MR#: [id number] Acct: [id number] Name: JESSICA TOVAR Rep #:[id number] : 1975 49 From: Alberto Strickland DO [...] for surveillance. Procedure Code(s): --- Professional --- 11938, Colonoscopy, flexible; with removal of tumor(s), polyp(s), or other lesion(s) by snare technique CPT copyright 2021 [employer]. All rights reserved. The codes documented in this report are preliminary and upon pre coder review may be revised to meet current compliance requirements. Alberto Strickland DO 04/14/2025 4:57:08 PM This report has been signed electronically. Number of Addenda: 0 Note Initiated On: 04/14/2025 4:12 PM 04/14/25 1657 Date _ Alberto Strickland DO Cosigner Signature: Date (if indicated) CC: SPRING UPHOLSTERER-C Christine To; Alberto Strickland DO ~ Date Dictated: 04/14/25 1612 Date Transcribed: Finishing Area Operator: RF Signed [facility]06-10-[address] [facility] Medical Records Department [address] [facility] [place] [address] EGD Report MR#: [id number] Acct: [id number] Name: JESSICA TOVAR Rep #:[id number] : 1975 49 From: Alberto Strickland DO [...] pathology results. Procedure Code(s): --- Professional --- 67595, Small intestinal endoscopy, enteroscopy beyond second portion of duodenum, not including ileum; with biopsy, single or multiple CPT copyright 2021 [employer]. All rights reserved. The codes documented in this report are preliminary and upon pre coder review may be revised to meet current compliance requirements. Alberto Strickland DO 04/14/2025 4:50:55 PM This report has been signed electronically. Number of Addenda: 0 Note Initiated On: 04/14/2025 3:59 PM 04/14/25 1650 Date _ Alberto Strickland DO Cosigner Signature: Date (if indicated) CC: DARREN To; Alberto Strickland DO ~ Date Dictated: 04/14/25 1559 Date Transcribed: Finishing Area Operator: RF Signed [facility]06-10-[address] [facility] Medical Records Department [address] [place] [address] Operative Report - CC Letter MR#: [id number] Acct: [id number] Name: JESSICA TOVAR Rep #:[id number] : 1975 49 From: Alberto Strickland DO [...] DO Cosigner Signature: Date (if indicated) CC: SPRING UPHOLSTERER-C Christine To; Alberto Strickland DO ~ Date Dictated: 04/14/25 1559 Date Transcribed: Finishing Area Operator: RF Signed [facility]06-10-[address] [facility] Medical Records Department [address] [facility] [place] [address] Anesthesia Postop Eval I 04/14/251649 MR#: [id number] Acct: [id number] Name: JESSICA TOVAR Rep #:[id number] : 1975 49 From: Andrew gonzalez CRNA [...] Eval 1 completed: Yes 04/14/25 1650 ero TICKET PULLER> Date _ Andrew Carriero TICKET PULLER Cosigner Signature: Date CC: ~ Signed [facility]06-10-2025 Consult note Author Valentino Mallory [facility] Note Date/Time April 14, 2025 1:[address] [facility] Medical Records Department [address] [place] [address] Pre-Anesthesia Evaluation 04/14/25 1330 MR#: [id number] Acct: [id number] Name: JESSICA TOVAR Rep #:[id number] : 1975 49 From: Valentino Mallory MD PCP: DARREN Beltran Status:REG S DC Y Race: AA Location: [address] ASA Classification* ASA Classification ASA Classification: [...] Procedure(s): Colonoscopy,EGD Anesthesia History Anesthesia History - loan broker: Anesthesia History - loan broker Hx Hospitalization No 04/13/25 08:49 Any Problems [...] take am of surgery PONV PONV - loan broker: PONV - loan broker Female Yes 04/13/25 08:49 HX of Motion [...] 04/14/25 13:17 Respiratory Assessment Respiratory Assessment - loan broker: Respiratory Tract Infection Hx - loan broker Hx Respiratory Tract Infection No 04/13/25 08:49 STOP Sleep Apnea STOP Sleep Apnea - loan broker: STOP Sleep Apnea - loan broker Hx Hypertension Yes: ON MEDICATION 04/13/25 08:49 [...] Tobacco Use History Tobacco Use History - loan broker: Tobacco Use History - loan broker Tobacco Use Smoking Status Former smoker 04/13/25 08:49 Hx Tobacco Use No 04/13/25 08:49 Years Smoking 10 04/13/25 08:49 Packs Smoked per Day 1 04/13/25 08:49 Smoking Cessation Date was No - quit smoking greater 04/13/25 08:49 within the last 15 years than 15 years ago Hx Smoking Cessation Date Hx Smoking Cessation No 04/13/25 08:49 Counseling Hematologic Medial History Hematologic Hx - loan broker: Hematologic Medical Hx - documentation specialist Hx of Blood Transfusion No 04/13/25 08:49 [...] confused, unrespo /Reproduction History /Reproductive History - loan broker: /Reproductive Hx- loan broker Hx Now No 04/13/25 08:49 Gestational Age [...] MD Cosigner Signature: Date CC: ~ Signed [facility] Work Phone: 1(780) 180-108806-10-2025 History and physical note [facility] Medical Records Department [address] [place] [address] History & Physical Exam 04/14/25 1518 MR#: [id number] Acct: [id number] Name: JESSICA TOVAR Rep #:[id number] : 1975 49 From: Alberto Friend DO PCP: DARREN Beltran Status:REG S DC Location: [place] [address] HPI - General General Date of Admission: [...] weeks and has not had any heartburn. [facility] Medical History Wears glasses Marijuana use Arthritis [...] CC: DARREN To; Alberto Strickland, ~ Signed [facility]06-10-2025 [facility] Medical Records Department [address] [place] [address] History Physical Exam 04/14/25 1518 MR#: [id number] Acct: [id number] Name: JESSICA TOVAR Rep #: [id number] : 1975 49 From: Alberto Strickland DO PCP: DARREN Beltran Status:REG [facility] Location: [place] [address] HPI - General General Date of Admission: [...] weeks and has not had any heartburn. [facility] Medical History Wears glasses Marijuana use Arthritis [...] 04/14/25 1520 Cosigner Signature (if applicable): CC: SPRING UPHOLSTERER-C Christine To; Alberto Strickland, [facility]06-10-[address] [facility] Medical Records Department [address] [place] [address] Pre-Anesthesia Evaluation 04/14/25 1330 MR#: [id number] Acct: [id number] Name: JESSICA TOVAR Rep #:[id number] : 1975 49 From: Valentino Mallory MD [...] Procedure(s): Colonoscopy,EGD Anesthesia History Anesthesia History - loan broker: Anesthesia History - loan broker Hx Hospitalization No 04/13/25 08:49 Any Problems [...] take am of surgery PONV PONV - loan broker: PONV - loan broker Female Yes 04/13/25 08:49 HX of Motion [...] 04/14/25 13:17 Respiratory Assessment Respiratory Assessment - loan broker: Respiratory Tract Infection Hx - loan broker Hx Respiratory Tract Infection No 04/13/25 08:49 STOP Sleep Apnea STOP Sleep Apnea - loan broker: STOP Sleep Apnea - loan broker Hx Hypertension Yes: ON MEDICATION 04/13/25 08:49 [...] Tobacco Use History Tobacco Use History - loan broker: Tobacco Use History - loan broker Tobacco Use Smoking Status Former smoker 04/13/25 08:49 Hx Tobacco Use No 04/13/25 08:49 Years Smoking 10 04/13/25 08:49 Packs Smoked per Day 1 04/13/25 08:49 Smoking Cessation Date was No - quit smoking greater 04/13/25 08:49 within the last 15 years than 15 years ago Hx Smoking Cessation Date Hx Smoking Cessation No 04/13/25 08:49 Counseling Hematologic Medial History Hematologic Hx - loan broker: Hematologic Medical Hx - documentation specialist Hx of Blood Transfusion No 04/13/25 08:49 [...] confused, unrespo /Reproduction History /Reproductive History - loan broker: /Reproductive Hx- loan broker Hx Now No 04/13/25 08:49 Gestational Age [...] Valentino Goss Signature: Date CC: ~ Signed [facility]04-28-2025 Note* [place]: SIGN, AUTHOR, PERFORM Event Display: IR Procedure Record Authored Date: [id number] IR Procedure Record Summary Primary Physician: PRIYANKA PUIR MD Finalized Date/Time: 03/02/25 14:06:46 Pt. Name: JESSICA TOVAR Pepe /Sex: 1975 Female Med Rec #: [id number] Physician: Financial #: [id number] Pt. Type: O Room/Bed: / Admit/Disch: 03/02/25 11:47:00 - Institution: Allergies identified in patient's electronic medical record at time of printing on 03/02/25 Entry 1 Substance No Known Medication Allergies Reaction Type Allergy Last Modified By: JOHN Rubio 06/02/21 21:57:56 Case Attendance- IR Entry 1 Entry 2 Case Attendee PRIYANKA PURI MD, Lillian Y Role Performed Primary Surgeon Glass Blower Details Time In 03/02/25 13:25:00 03/02/25 13:15:00 [...] instrumentation, sponges, or sharps). Outcomes Met? 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 Follow these instructions at home: Take wrog-gwy-ozfwtpe and prescription medicines only as told by [...] 05/19/2015 Document Revised: 10/04/2018 Document Reviewed: 08/05/2018 [employer] Patient Education 2020 250ok. Follow Up Care 02/11/2025 14:08:40 With:Follow up with primary care provider Address:Unknown When: Unknown [facility] 04-28-2025 Note IR Procedure Record Summary Primary Physician: PRIYANKA PURI MD Finalized Date/Time: 03/02/25 14:06:46 Pt. Name: JESSICA TOVAR Pepe Carmona/Sex: 1975 Female Med Rec #: [id number] Physician: Financial #: [id number] Pt. Type: O Room/Bed: / Admit/Disch: 03/02/25 11:47:00 - Institution: Allergies identified in patient's electronic medical record at time of printing on 03/02/25 Entry 1 Substance No Known Medication Allergies Reaction Type Allergy Last Modified By: JOHN Rubio 06/02/21 21:57:56 Case Attendance- IR Entry 1 Entry 2 Case Attendee PRIYANKA PURI MD, Lillian Y Role Performed Primary Surgeon Glass Blower Details Time In 03/02/25 13:25:00 03/02/25 13:15:00 [...] Pressure Points Yes Checked Last Modified By: aDlia Lake 03/02/25 13:23:12 Radiology Procedure Plan - [...] instrumentation, sponges, or sharps). Outcomes Met? Yes [employer] Manager PRIYANKA PURI MD, Completing [place] Procedure [...] Signatures Signed By: [place] 03/02/25 14:06 [id number] Note* Exam Date Time Procedure Performing Provider Status 03/02/25 2:06 PM IR Thyroid Biopsy PRIYANKA PURI MD; Aut h (Verified) [id number] ORIGINAL HISTORY: ORDERING SYSTEM PROVIDED HISTORY: Reason [...] 2:22:23 PM Ordering [id number] Evaluation + Plan noteExtracted from: Title:IR Pre-procedure [...] with someone who smokes. Physical Exam Vitals: Apfnlzgxtvx00.2 (11:53) Systolic Blood Ioecrozf120 (11:53) Diastolic Blood Gwfqipik94 (11:53) Pulse90 (11:53) DuT138 (11:53) Respiratory RateNo result General: Alert, cooperative. The remainder of the physical exam is noncontributory. Labs Anticoagulation Labs No qualifying data available. No qualifying data available. Assessment/Treatment Plan Image guided RIGHT thyroid nodule biopsy Post Procedure Discharge Plan Patient to be discharged home. Marlen Heredia PA-C Interventional Radiology Pager: [phone] dept: [phone] Available on BranchOut Scheduled Tests Radiology* MA Mammo Screening Bilateral w/ Noel 01/20/25 [facility] 04-28-2025 Summary of episode note Discharge Instructions Thank you for allowing [facility] to assist you with your healthcare needs. [...] site). Follow these instructions at home: Take guyj-pmm-dexmban and prescription medicines only as told by [...] 05/19/2015 Document Revised: 10/04/2018 Document Reviewed: 08/05/2018 [employer] Patient Education 2020 [employer] Additional Information VACCINATE! IT SAVES LIVES! Members of the community who have not yet received the COVID-19 vaccine and would like to receive it can visit one of [facility] vaccine clinics. There are many vaccine clinic locations within the [facility]. For locations and available times, please visit [email or web address]/. It is important to note that some COVID mobile vaccine clinics are held outdoors and may be canceled in rainy or stormy conditions. To learn more about pediatric vaccinations (ages 5-11), we invite you to visit the [facility] webpage. https://www.[facility].org/pages/5989-Bukxi-Ugkjhzrkasw-Cykucitdom-Nttfr-Uit stions.htmlTo learn more about the COVID-19 vaccine, we invite you to visit the CDC website for a list of frequently asked questions.https://www.cdc.gov/coronavirus/2019-ncov/vaccines/faq.html [facility] Patient Portal Access Instructions: Stay connected with your healthcare team and access your personal medical information anytime with the [facility] Patient Portal. Please follow the directions below to create your Hafsa[employer]Kave account: 1.Access the email account you provided upon registration to the hospital/physician office.2.Look for an invitation email from [facility].3.Open the email and access the invitation link: AcceptInvitation to [facility]@.4.Fill in the required smith to create your account. To access your account, visit [email or web address]. Click the blue button labeled Access Patient [...] who you will allowto register on the [email or web address]@ Patient Portal for access to your information. You can also access the [email or web address] Patient Portal on the [facility] Nuevorawhere edgar. Simply click on Patient Portal and then log into your account. If you would like to receive a full copy of your medical records, please contact the [facility] Medical Records Department by calling [phone], Sunday through Sunday between 8 a.m. and [...] Call your local pharmacy or go to http://bit.ly/5I7Rb7u to find one close to you.3.Make use of household items: Use cat litter or old coffee grounds to dispose medications if other options arenot available. Mix your drugs with these household products, seal them in an airtight container andthrow it into the garbage. Call [facility]: [phone] to be sure your drugs can be [...] aware that I should contact my doctor. Patient/Director Quality Assurance Signature: Date/Time: Relationship to Patient: Witness Name/Signature: Date/Time: [facility] [id number] History and physical note Interventional Radiology Focused [...] with someone who smokes. Physical Exam Vitals: Knfrdmjlcgh24.2 (11:53) Systolic Blood Yyuhcgin124 (11:53) Diastolic Blood Mhcdvtgl05 (11:53) Pulse90 (11:53) IoX505 (11:53) Respiratory RateNo result General: Alert, cooperative. The remainder of the physical exam is noncontributory. Labs Anticoagulation Labs No qualifying data available. No qualifying data available. Assessment/Treatment Plan Image guided RIGHT thyroid nodule biopsy Post Procedure Discharge Plan Patient to be discharged home. Marlen Heredia PA-C Interventional Radiology Pager: [phone] dept: x [phone] Available on Shout[employer] Digitally Signed by MARLEN HEREDIA PA-C on 03/02/2025 12:17 PM Digitally Signed by PRIYANKA PURI MD on 03/02/2025 04:27 PM [facility] [id number] Evaluation note* Diagnosis Onset Date Resolution Status Admit Date Screening for colon cancer acute February 04, 2025 12:15pm Chronic GERD chronic February 04, 025 12:15pm Screening for colon cancer acute April 14, 2025 12:37pm Chronic GERD chronic April 14 025 12:37pm [facility] Work Phone: 1(319) 220-754203-04-2025 NoteHNO ID: [id number] Author: NURYS YOUNG RN Service: Nursing Author Type: Registered Nurse Type: Nursing Progress Note Filed: 01/06/2025 11:44 Note Text: Stitch to L upper arm fistula removed and no bleeding noted; postive thrill and bruit [facility]03-04-2025 NoteHNO ID: [id number] Author: IGOR MEADE APRN.TICKET PULLER Service: Anesthesiology Author Type: Nurse Edge Banding Machine Offbearer Type: Anesthesia Procedure Notes Filed: 01/06/2025 10:22 Note Text: ANESTHESIOLOGY PROCEDURE NOTE PIV General Information Procedure Start Time/Medication Administration: 01/06/2025 10:09 AM Procedure End Time: 01/06/2025 10:11 AM Patient Location: OR Staffing TICKET PULLER: Igor Meade APRN.TICKET PULLER Performed by: TICKET PULLER Preparation Sterility Preparation: hand hygiene performed prior to procedure, surgical cap used, mask used, skin prep agent completely dried prior to procedure Site Prep: alcohol Procedure Details Indication: need for IV access Needle Size/Type: 22 gauge angiocath Orientation: Right Location: Forearm Imaging Guidance Used: No SIGNATURE: Igor Meade APRN.CRNA PATIENT NAME: Jessica Tovar DATE: January 06, 2025 TIME: 10:20 AM CS[facility]: [id number]03-[facility]-2025 NoteHNO ID: [id number] Author: RAJAN SAINZ RN Service: Nursing Author [...] directed. Bring copy of Living Will/Power of Traveling Passenger Agent. Do not smoke or chew. If you [...] the Surgery Center. UPON ARRIVAL: Access to [facility] is located on [address] Be Here parking is available for your convenience from [...] updated instructions for the morning of your procedure.[facility]03-03-2025 NoteHNO ID: [id number] Author: DENICE SAINZ PA-C Service: ? Author Type: Physician Nurse Clinical Type: Progress Notes Filed: 01/05/2025 07:35 Note Text: 49 yo obese female ex-smoker, +MJ PMH: HTN, GERD, ESRD on dialysis MWF ([facility]), hyperparathyroidism 2/2 renal disease, [facility] 01-05-2025 NoteHNO ID: [id number] Author: DENICE SAINZ PA-C Service: ? Author Type: Physician Nurse Clinical Type: Progress Notes Filed: 01/05/2025 07:31 Note [...] updated instructions for the morning of your procedure.[facility]02-12-2025 Note. MICRO - Microbiology PROCEDURE: Affirm Pathogens [...] Locations *1: This test was performed at: [address], [facility] , [facility] [id number] NoteHNO ID: [id number] Author: DENICE SAINZ PA-C Service: ? Author Type: Physician Nurse Clinical Type: Progress Notes Filed: 11/17/2024 08:46 Note [...] updated instructions for the morning of your procedure.[facility]09-26-2024 Note ORIGINAL HISTORY: Optic atrophy COMPARISON: No [...] Sign Date: 07/31/2024 3:40:43 PM Ordering Provider: [facility]05-30-2024 Note. MICRO - Microbiology PROCEDURE: Affirm Pathogens [...] Locations *1: This test was performed at: [facility], [address] [place] [address], [facility] , [facility] ([place])02-15-2024 Note ORIGINAL EXAMINATION: PELVIC ULTRASOUND 02/15/2024 TECHNIQUE: [...] Sign Date: 02/16/2024 12:56:42 AM Ordering Provider: [facility]03-20-2024 Hospital Discharge instructions Patient Education [...] bleeding from other parts of your body 6170-4372 [employer]. [address] [place] [address], [place] [address]. All rights reserved. This information is not intended as a substitute for professional medical care. Always follow yourohiohealth van wert hospitalcare professional's instructions. 01/23/2024 12:16:52 Hypertension, Established [...] that stimulate the heart. This includes many qgjq-bep-zrcczyj cold and sinus decongestant pills and sprays, as well as diet pills. Check the warnings about high blood pressure onthe label. Before buying any dnmy-fcp-juyabjy medicines or supplements, always ask the pharmacist [...] one of these at most pharmacies. The [place] [employer] recommends the following guidelines for [...] face You have problems speaking or seeing 2003-3379 [employer]. [address] [place] [address]. All rights reserved. This information is not [...] in any part of the body Seizures 8482-4228 [employer]. [address] [place] [address], [place] [address]. All rights reserved. This information is not intended as a substitute for professional medical care. Always follow yourohiohealth van wert hospitalcare professional's instructions. 01/23/2024 12:16:48 Head Injury [...] the ears or bruising around the eyes 3554-2299 [employer]. [address] [place] [address]. All rights reserved. This information is not [...] loss, dizziness, headache, behavior, speech, or vision 3821-80[address] [employer]. [address] [place] [address]. All rights reserved. This information is not [...] the ears or bruising around the eyes 7301-5517 [employer]. [address] [place] [address]. All rights reserved. This information is not [...] in vomit, stools (black or red color) 9890-1369 [employer]. [address] [place] [address]. All rights reserved. This information is not intended as a substitute for professional medical care. Always follow yourhealthcare professional's instructions. Follow Up Care 01/23/2024 09:50:10 With:CHRISTINA CONTE Address: [address] [facility], [place] [address] [facility] [place], [place] [id number]- Business (1) When:2-4 days Comments:Schedule appointment as soon as possibleReturn to ED if symptoms worsenFollow-up for recheck and possible walking cast placementElevate foot at rest and overnightUse crutches for nonweightbearing or partial weight support With:CHRISTINE TO Address: [address] [facility] [place] [phone] Business (1) When:2-4 days Comments:Schedule appointment as soon as possibleReturn to ED if symptoms worsenFollow-up for blood pressureNew [facility] 03-20-2024 Note Discharge Instructions Thank you for [...] [address] [facility] [place] [address]- Business (1) Follow Up with CHRISTINE TO When Within 2-4 days Why: Schedule appointment as soon as possible Return to ED if symptoms worsen Follow-up for blood pressure recheck Where: [address] [facility] [place] [address]- [phone] Business (1) Allergies No Known Medication Allergies [...] bleeding from other parts of your body 8952-2879 [employer]. [address] [place] [address]. All rights reserved. This information is not [...] that stimulate the heart. This includes many qmtk-oqg-uxgaxvo cold and sinus decongestant pills and sprays, as well as diet pills. Check the warnings about high blood pressure onthe label. Before buying any rozg-qcz-cxuadpt medicines or supplements, always ask the pharmacist [...] one of these at most pharmacies. The [place] [employer] recommends the following guidelines for [...] face You have problems speaking or seeing 8553-1836 [employer]. [address] [place] [address]. All rights reserved. This information is not [...] in any part of the body Seizures 5041-9272 [employer]. [address] [place] [address]. All rights reserved. This information is not [...] the ears or bruising around the eyes 7462-0988 [employer]. [address] [place] [address]. All rights reserved. This information is not [...] loss, dizziness, headache, behavior, speech, or vision 8105-5[address] [employer] [place] [address]. All rights reserved. This information is not [...] the ears or bruising around the eyes 2516-5203 [employer]. [address] [place] [address], [place] [address]. All rights reserved. This information is not [...] in vomit, stools (black or red color) 7086-5139 [employer]. [address] [place] [address], [place] [address]. All rights reserved. This information is not intended as a substitute for professional medical care. Always follow yourhealthcare professional's instructions. Additional Information VACCINATE! IT SAVES LIVES! Members of the community who have not yet received the COVID-19 vaccine and would like to receive it can visit one of [facility] vaccine clinics. There are many vaccine clinic locations within the [facility]. For locations and available times, please visit www.gettheshot.coronavirus.[place].gov/. It is important to note that some COVID mobile vaccine clinics are held outdoors and may be canceled in rainy or stormy conditions. To learn more about pediatric vaccinations (ages 5-11), we invite you to visit the [facility] webpage. https://www.[facility].org/pages/2071-Nbtxy-Njeeqwwdrbb-Etsbpwadhb-Zxlyi-Ffm stions.htmlTo learn more about the COVID-19 vaccine, we invite you to visit the CDC website for a list of frequently asked questions. https://www.cdc.gov/coronavirus/2019-ncov/vaccines/faq.html [email or web address] Patient Portal Access Instructions: Stay connected with your healthcare team and access your personal medical information anytime with the [email or web address]@ Patient Portal. If you would like a full copy of your medical records please contact the [facility] Medical Records Department Sunday through Sunday between 8a.m. and 4:30p.m. Please follow the directions below to access the portal: 1.Access the email account you provided upon registration to the hospital.2.Look for an invitation email from [facility].3.Open the email and access the invitation link: Accept Invitation to [email or web address]@4.Fill in the required smith to create your account. Sign into www.[email or web address] with your username and password that you [...] you will allow to register on the [facility] Patient Portal for access to your information. You can also access the [facility] Patient Portal on the [employer] edgar. Simply click on Health Records under [employer] and then click on the MOGL logo. HOW TO SAFELY DISPOSE OF PRESCRIPTION [...] Call your local pharmacy or go to http://Pinger.IgnitionOne/0E5Ws4k to find one close to you.3.Make use of household items: Use cat litter or old coffee grounds to dispose medications if other options arenot available. Mix your drugs with these household products, seal them in an airtight container andthrow it into the garbage. Call [facility]: [phone] to be sure your drugs can be [...] aware that I should contact my doctor. Patient/Director Quality Assurance Signature: Date/Time: Relationship to Patient: Witness Name/Signature: Date/Time: [facility]03-20-2024 Note ORIGINAL HISTORY: Fall 4 days previously [...] Sign Date: 01/23/2024 11:22:15 AM Ordering Provider: [facility]03-20-2024 Note ORIGINAL HISTORY: Injury COMPARISON: No TECHNIQUE: [...] Sign Date: 01/23/2024 11:26:24 AM Ordering Provider: [facility]03-13-2024 Note. MICRO - Microbiology PROCEDURE: Affirm Pathogens [...] Locations *1: This test was performed at: [address], [facility] , [facility] ([place])12-24-2023 Note ORIGINAL HISTORY: Dysmenorrhea COMPARISON: No FINDINGS: [...] Sign Date: 12/24/2023 3:22:46 PM Ordering Provider: [facility]02-07-2024 Note. MICRO - Microbiology PROCEDURE: [...] Locations *1: This test was performed at: [facility], [address] [place] [address], [facility]- , [facility] ([place])04-25-2023 Miscellaneous Notes* Telephone Encounter - Alexus Sweeney RN - 04/25/2023 1:18 PM EDT Spoke to pt to verify she did not have transportation issues at this time and is able to be scheduled for an evaluation. She stated all is good now. I also mentioned she will need to name 2 support people to our . A new [employer] code was sent to her. She is aware if she doesn't activate by tomorrow am, Office education will be scheduled documented in [facility] encounterBrown [facility]06-21-2023 History of Present illness Narrative* Alexus Sweeney RN - 04/25/2023 1:07 PM EDT Hx: MJ use occasionally; 09-19-22 TTE/EF 65-70%; New Referral Referring Physician Arash Ramirez Organ Type kidney ESRD Yes. Cause: HTN Dialysis Dependant? Yes Name of Dialysis Facility: [facility] started 02-13-19 T,,Sa Diabetes no Smoking [...] appointment Alexus Sweeney RN Pre-Kidney & Pancreas Academic Coach [facility] Miscellaneous Notes* Telephone Encounter - Caterina Wood - 03/12/2023 11:51 AM EDT Called and spoke with patient regarding kidney transplant, intake completed, and to nurse coordinator for review. Caterina Israel Pre- transplant intake form Date: 03/12/2023 Spoke with: Patient EMAIL: [employer] M/F: F Work Status: Not Working Race: B Marital Status: Ht/Wt: BMI: 5'8 234 Lbs; BMI = 35.6 Weight loss without trying? No Decreased Appetite? No Nutrition = 0 Assistive devices? No Activity Level? Moderate Smoking? Yes Quit date? 15 yrs ago Years? 10 Packs? 1/2 pack per day O2? COPD/Emphysema? No to all Transfusions, Willing to accept? Yes Dialysis? [facility]? -- Start date? 2018 Referring doctor? ARASH RAMIREZ A Mammo? Pap? Yes- 2022 at [place], [place] Yes - 2 yrs ago - Patient to schedule Previous Transplant? No Nephrectomy? No Evaluation elsewhere? Listed? Yes - in [place], [place] No - Was having transportation problems anddid not follow through - evaluation closed Kidney Biopsy? Liver Biopsy? No No Cirrhosis? Hepatitis? HIV? Cancer? No No No No Diabetes 1 or 2? No Hypertension? CAD? ND? CABG/STENTS? Yes No No No Stress? Echo? [facility]? [facility] - [facility] Yes-09/15/[address]el[facility] DVT/PE? No CVA/TIA?No Lupus? No Sickle/Trait? No Blood thinner? No ETOH? Drug use? Psych disorder? No Yes-Marijuana occasionally No Prior Surgeries? Fistula Arm; Cath - Chest insert and removed-2x Living Donors? No documented in this encounterBrown [facility]12-19-2022 Evaluation + Plan note Future Scheduled Tests Laboratory* Lipid Profile 10/23/22 Radiology* XR Knee 3 Views Right 08/09/22 [facility] 12-19-2022 Evaluation + Plan note Future Scheduled Tests Laboratory* Lipid Profile 10/23/22 [facility] 10-05-2022 Evaluation + Plan note Future Scheduled Tests Radiology* XR Knee 3 Views Right 08/09/22 [facility] 07-15-2022 NoteDiagnoses/Problems Pre-transplant evaluation for kidney transplant [...] 2019 for a [place] transplant [place] [facility] [place] she defered completion of testing at the time. She started dialysis 2019. Today,she felt well overall without any major complaints. PM/PSHx: 1. 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 2. HTN Shx: Marital Status: single, has a boy friend, Tobacco status: past smoker, ETOH: occasional, once a month. Employment: Unemployed. 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 Uses Marijuana. Fhx: No [...] Tablet Losartan Potassium 50 MG Oral Tablet [place] Caps 1 MG Oral Capsule Vitals Vital Signs Recorded: [id number] 01:31PM Btudbsuvjtv26.1 F, Temporal Heart Rate90 Jjjsfrdt444 Yothljtko247 Height5 ft 7 in Rlxdya986 lb 4.8 oz BMI Zzpezhcdkb76.05 kg/m2 BSA Calculated2.22 Tobacco Useb) No Falls Screening (Age 18+)a) No falls within the last year O2 Euhmepogar926, RA Pain Scale0 Physical Exam Constitutional: no [...] of the fingernails (more content not included)... [id number] NoteCONSULTATION NOTE Ordering Physician: Arash Ramirez MD [...] ANDREA MUÑOZ M.D. Signed By: ANDREA MUÑOZ M.D.[facility] note Author Andrew Espino [facility] Note Date/Time April 14, 2025 4:[address] [facility] Medical Records Department [address] [place] [address] Anesthesia Postop Eval I 04/14/251649 MR#: [id number] Acct: [id number] Name: JESSICA TOVAR Rep #:[id number] : 1975 49 From: Andrew gonzalez CRNA PCP: DARREN Beltran Status:REG S DC Y Race: AA Location: [place] [address] Anesthesia: Postop Eval I Current Vital Signs [...] Andrew Smithignkayla Signature: Date CC: ~ Signed [facility] Work Phone: Evaluation + Plan note Future Appointments Appointment Date:02/01/2024 02:00:00 PM Scheduled Provider: Location:[facility] Appointment Type:US Pelvis Complete Future Scheduled Tests Radiology* US Pelvis Non-OB Complete 02/01/24 [facility] Evaluation + Plan note Future Appointments Appointment Date:07/21/2024 01:45:00 PM Scheduled Provider:ROXANNE BRAND DO Location:[place] Appointment Type:OSM OV Follow Up Diagnostic Tests Pending * Rapid Plasma Reagin Test 07/03/24 * Copper, Serum 07/03/24 * Vitamin B1 (Thiamine), Blood 07/03/24 [facility] Evaluation note* Diagnosis ESRD on dialysis (HCC)- Primary End stage renal disease Pre-transplant evaluation for ESRD (end stage renal disease) Other specified pre-operative examination Hypertension, unspecified type documented in this encounter [facility] note* Diagnosis Pre-transplant evaluation for kidney transplant- Primary Other specified pre-operative examination [facility] N[facility]ative No data available for this section [facility] Hospital Discharge instructions No data available for this section [facility] Progress note No data available for this section [facility] Reason for referral (narrative)No reason for referral information availableWAdena [facility] Work Phone: Summary Purpose Family History No [...] Do you have a Healthcare Power of Traveling Passenger Agent? No April 13, 2025 8:49am Reason for [...] & W/O CONTRAST Arash Ramirez MD [address] [place] [address] [place] [id number] Referral ID Status Reason Start Date Expiration Date Visits Requested Visits Authorized [id number] Outside PCP Financial Clearance Required - OON [...] section and content) DATE CREATED AUTHOR 11/25/2020 [employer] [facility] DATE CREATED AUTHOR AUTHOR'S ORGANIZ ATION 01/14/2022 [employer] [facility] [place] DATE CREATED AUTHOR AUTHOR'S ORGANIZ ATION 05/25/2022 [facility] DATE CREATED AUTHOR AUTHOR'S ORGANIZ ATION 01/10/2023 [facility] DATE CREATED AUTHOR AUTHOR'S ORGANIZ ATION 07/09/2024 [facility] DATE CREATED AUTHOR AUTHOR'S ORGANIZ ATION 03/18/2025 [facility] DATE CREATED AUTHOR AUTHOR'S ORGANIZ ATION 03/18/2025 [employer] [facility] DATE CREATED AUTHOR AUTHOR'S ORGANIZ ATION 04/11/2025 [facility] DATE CREATED AUTHOR AUTHOR'S ORGANIZ ATION 04/14/2025 [facility] DATE CREATED AUTHOR AUTHOR'S ORGANIZ ATION 04/15/2025 [facility] Care Team (unrecognized sect ion and content) Care Team Personnel Name: ARASH RAMIERZ MD Position: P3 Physician - Nephrology Med Service: Active Provider Member Role: Clinical Sociologist Address: Address: [address] [place] [address] [address] [facility] [place] [address]- [place] Name: SALIMA HAGEN MD Position: Physician Med Service: Active Provider Member Role: Primary Care Physician Address: Address: [address] [place] [address] [place] Care Team Related Persons Name: GAVIN MOTT Name: ESSIE FRYE Care Team Personnel Name: ARASH RAMIREZ MD Position: P3 Physician - Nephrology Member Role: Clinical Sociologist Address: Address: [address] [place] [address] [address] [facility] [place] [address]- [place] Name: CHRISTINE TO APRN-NEON SIGN SERVICER Position: P4 Advanced Practice Nurse Member Role: Primary Care Physician Address: Address: [address] [place] [address]- Care Team Related Persons Name: GAVIN MOTT Name: ESSIE FRYE Care Team Personnel Name: ARASH RAMIREZ MD Position: P3 Physician - Nephrology Member Role: Clinical Sociologist Address: Address: [address] [place] [address] [address] [facility] [place] [id number] [place] Name: CHRISTINE TO DETAIL TECHNICIAN-NEON SIGN SERVICER Position: P4 Advanced Practice Nurse Member Role: Primary Care Physician Address: Address: [address] [place] [address]- Care Team Related Persons Name: GAVIN MOTT Name: ESSIE FRYE Patient Care team informatio n (unrecognized section and content) [employer] Relationship Specialty Start Date End Date Arash Ramirez MD [address] [address] Referring Nephrology 03/06/23 [employer] Relationship Specialty Start Date End Date Arash Ramirez MD [address] [place] [address] Referring Nephrology 03/06/23 [employer] Manager Relationship Specialty Start Date End Date Arash Ramirez MD [address] [place] [address] Referring Nephrology 03/06/23 Team Status: Active Member [...] or prosecute any alcohol or drug abuse patient.[facility] HospitalIn the event this information is protected by the Federal Confidentiality of Alcohol and Drug Abuse Patient Records regulations: The Federal rules restrict any use of the information to criminally investigate or prosecute any alcohol or drug abuse patient.[facility] HospitalIn the event this information is protected by the Federal Confidentiality of Alcohol and Drug Abuse Patient Records regulations: The Federal rules restrict any use of the information to criminally investigate or prosecute any alcohol or drug abuse patient.[facility] HospitalIn the event this information is protected by the Federal Confidentiality of Alcohol and Drug Abuse Patient Records regulations: The Federal rules restrict any use of the information to criminally investigate or prosecute any alcohol or drug abuse patient.[facility] Reason for Visit (unrecogniz ed section and [...] BE BASED ON THE PRIMARY CLINICAL RECORDS. [employer] [facility] provides no warranty or guarantee of the accuracy or completeness of information in this document.
--- NOTE | 2025-04-17 10:22 | PRE.ANES_ITS ---
ASA Classification* ASA Classification ASA Classification: 2 and E Assessment & Plan Anesthesia* Anesthesia Assessment Anesthesia Assessment: Discussed sedation and/or anesthesia options, risks, benefits, and alternatives with patient/parents/legal guardian/POA. Questions invited. The patient/parents/legal guardian/POA seems to understand and agrees to proceed with anesthesia plan. Reviewed the physical assessment, medical history, allergy history and patient home medications list prior to surgery/procedure/anesthetic and documented any changes. Performed airway and anesthesia risk assessments. Anesthesia Type Anesthesia Type: MAC Anesthesia Focused Assessment* Temperature: 97.0 F Pulse Rate: 81 Blood Pressure: 123/70 Respiratory Rate: 18 Pulse Ox: 100 Vital signs additional comments: Acute lower GI bleed. Patient came in through emergency department this morning. Receiving packed red blood cells. Airway Assessment Mouth opens: >3 cm Mallampati Score: II Labs Anesthesia Preop lab: CBC WBC 8.6 K/mm3 (4.4-11.0) 04/17/25 05:18 04/17/25 RBC 2.23 M/mm3 (4.2-5.4) L 04/17/25 05:18 04/17/25 Hgb 7.3 g/dL (12.0-15.0) L 04/17/25 05:18 04/17/25 Hct 22.1 % (37-47) L 04/17/25 05:18 04/17/25 Plt Count 143 K/mm3 (150-450) L 04/17/25 05:18 04/17/25 CHEMISTRY Potassium 4.2 mmol/L (3.3-5.1) 04/17/25 05:18 04/17/25 Sodium 139 mmol/L (133-145) 04/17/25 05:18 04/17/25 BUN 47 mg/dL (4-19) H 04/17/25 05:18 04/17/25 Creatinine 8.12 mg/dL (0.70-1.20) H* 04/17/25 05:18 04/17 Glucose 103 mg/dL (70-99) H 04/17/25 05:18 04/17/25 COAG Urine Test Negative Negative 04/14/25 12:54 04/14/25 Pre-Assessment Diagnosis/Proposed Procedure Planned Operative Procedure(s): Colonoscopy. 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 When Was Last Pacemaker Check QUESTION #4 FULL TEXT: You/Your Family Experience fever (hyperthermia) with Anesthesia Last Oral Intake Last Oral intake: Last Oral Intake NPO since Meds taken in AM with sips of water? Meds patient instructed to take am of surgery PONV PONV - power transformer assembler: PONV - power transformer assembler Female HX of Motion Sickness HX of N/V After Surgery Non-Smoker Duration of Surgery greater than 60 minutes Number of Risk Factors PONV Score Height & Weight Height & Weight: Anesthesia: Height & Weight Height 5 ft 9 in 04/17/25 10:19 Weight: 102.2 kg 04/17/25 10:19 Body Mass Index (BMI) 33.3 04/17/25 10:19 Respiratory Assessment Respiratory Assessment - power transformer assembler: Respiratory Tract Infection Hx - power transformer assembler Hx Respiratory Tract Infection No 04/13/25 08:49 STOP Sleep Apnea STOP Sleep Apnea - power transformer assembler: STOP Sleep Apnea - power transformer assembler Hx Hypertension Yes: ON MEDICATION 04/13/25 08:49 Hx Sleep Apnea No 04/14/25 17:00 CPAP BIPAP Do you snore loudly (louder than talking or can be heard Do you often feel tired/ fatigued/ sleepy during daytime? Has anyone observed you stop breathing during sleep? STOP Results QUESTION #5 FULL TEXT : Do you snore loudly (louder than talking or can be heard through closed doors)? 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 Specify any problems Hx of Preganancy in last 3 Months Nurse Filling Out Transfusion & Questions: Date: Time: Patient unable to answer at this time (ie. confused, unrespo /Reproduction History /Reproductive History - power transformer assembler: /Reproductive Hx- power transformer assembler Hx Now Gestational Age (in weeks): EDC: Hx Hx Para Hx Section SAB No 04/17/25 05:04 PFSH Medical History Wears glasses Marijuana use Arthritis History of renal disease Anemia Restless legs Dietary restriction Heartburn Former smoker Home Medications ?Medication ?Instructions ?Recorded ?Last Taken ?Type amlodipine 5 mg tablet 5 mg PO QHS 01/29/25 5 History calcitriol 0.5 mcg capsule 0.5 mcg PO QDAY 01/29/25 History cinacalcet 90 mg tablet 90 mg PO QDAY 01/29/2504/13 History labetalol 100 mg tablet 100 mg PO BID 01/29/2504/14 10:00 History losartan 50 mg tablet 50 mg PO BID 01/29/25 10:00 History medroxyprogesterone 10 mg tablet 10 mg PO QDAY 5 Unknown History multivitamin 1 tab PO QDAY 01/29/2504/10 History omeprazole 20 mg capsule,delayed 20 mg PO QDAY 5 04/13/25 History release ropinirole 0.5 mg tablet 1.5 mg PO BID 01/29/2504/13 History sevelamer HCl 800 mg tablet 800 mg PO TID 01/29/2505/29 History Allergy/AdvReac Type Severity Reaction Status Date / Time No Known Allergies Allergy Verified 04/17/25 05:02 Social History Smoking Status: Former smoker alcohol intake: current alcohol intake frequency: holidays/special occasions only substance use type: marijuana caffeine: Yes Type: coffee Review of Systems (Anesthesia) ROS Narrative System reviewed and no additional complaints, except as documented.
--- NOTE | 2025-04-17 11:03 | EX.PCM.CON.G ---
HPI Consult Data Date of Consult: 04/17/25 HPI Narrative Reason for Consultation: GI bleeding HPI Narrative: JESSICA MACDONALD, is a 49 F who presents with a lower GI bleeding. She underwent colonoscopy on 14 April and had multiple very large polyps removed. She comes in with lower GI bleeding. Hemoglobin 7.3. Patient denies abdominal pain. She denies nausea or vomiting. She denies cardiac respiratory symptoms. Patient does appear pale. [facility] Medical History Wears glasses Marijuana use Arthritis History of renal disease Anemia Restless legs Dietary restriction Heartburn Former smoker Home Medications ?Medication ?Instructions ?Recorded ?Last Taken ?Type amlodipine 5 mg tablet 5 mg PO QHS 01/29/25 04/13/25 History calcitriol 0.5 mcg capsule 0.5 mcg PO QDAY 01/29/25 04/10/25 History cinacalcet 90 mg tablet 90 mg PO QDAY 01/29/25 04/13/25 History labetalol 100 mg tablet 100 mg PO BID 01/29/25 04/14/25 10:00 History losartan 50 mg tablet 50 mg PO BID 01/29/25 04/14/25 10:00 History medroxyprogesterone 10 mg tablet 10 mg PO QDAY 01/29/25 Unknown History multivitamin 1 tab PO QDAY 01/29/25 04/10/25 History omeprazole 20 mg capsule,delayed 20 mg PO QDAY 01/29/25 04/13/25 History release ropinirole 0.5 mg tablet 1.5 mg PO BID 01/29/25 04/13/25 History sevelamer HCl 800 mg tablet 800 mg PO TID 01/29/25 04/11/25 History Allergy/AdvReac Type Severity Reaction Status Date / Time No Known Allergies Allergy Verified 04/17/25 05:02 Social History Smoking Status: Former smoker alcohol intake: current alcohol intake frequency: holidays/special occasions only substance use type: marijuana caffeine: Yes Type: coffee ROS Constitutional Constitutional: Denies fatigue, fever(s), poor appetite, weight gain or weight loss Eyes Eyes: Denies blurry vision, change in eye color, change in vision, discharge from eye(s), double vision, erythema, eye pain, loss of vision or other ENT HEENT: Denies abnormal hearing, dysphagia, ear pain, epistaxis, headache(s), hearing loss, nasal congestion, nasal discharge, post nasal drip, sinus pressure, sore throat or other Cardiovascular Cardiovascular: Denies chest pain, claudication, dyspnea on exertion, edema, lightheadedness, orthopnea, palpitations, paroxysmal nocturnal dyspnea, rapid heart rate, syncope or other Respiratory/Chest Respiratory/Chest: Denies cough, dyspnea, excessive phlegm production, hemoptysis, productive cough, shortness of breath at rest, shortness of breath with exertion, wheezing or other Gastrointestinal Gastrointestinal: Denies belching, bloating, change in bowel habits, change in stool character, chewing difficulty, coffee ground emesis, constipation, cramping, diarrhea, dyspepsia, dysphagia, early satiety, excessive flatus, fecal incontinence, heartburn, hematemesis, hematochezia, hemorrhoids, loose stools, melena, nausea, odynophagia, rectal bleeding, tenesmus, vomiting or weight changes Genitourinary Genitourinary: Denies burning urination, difficulty urinating, dysuria, hematuria, nocturia, urinary frequency, urinary hesitancy, urinary incontinence, urinary urgency or other Musculoskeletal Musculoskeletal: Reports back pain; Denies arthralgias, joint pain, joint stiffness, joint swelling, myalgias, neck pain or other Neurologic Neurologic: Denies abnormal gait, abnormal speech, confusion, disequilibrium, dizziness, focal weakness, headache(s), numbness, paresthesias, seizure-like activity, seizures, syncope, tingling, tremor(s) or other Psychiatric Psychiatric: Denies anxiety, depression, homicidal ideation, suicidal ideation or other Endocrine Endocrinology: Denies change in body appearance, cold intolerance, excessive sweating, heat intolerance, polydipsia, polyuria or other Hematologic/Lymphatic Hematologic/Lymphatic: Denies anemia, easy bleeding, easy bruising, lymphadenopathy or other Allergic/Immunologic Allergic/Immunologic: Denies rhinitis, hives, eczemia, asthma or other Physical Exam Const alert, oriented x3, no apparent distress and well nourished; Negative for average body habitus General Appearance: cooperative HEENT normocephalic, head/scalp atraumatic, hearing grossly normal bilaterally and moist oral mucous membranes HEENT Narrative: Mallampati 3, no thrush Eyes EOMs intact bilaterally Eyes Narrative: Conjunctiva pallor bilaterally, no scleral icterus Resp normal respiratory effort, no retractions, no use of accessory muscles and clear to auscultation bilaterally Auscultation: Negative for rales, rhonchi or wheezes Cardio regular rate, regular rhythm, S1 normal heart sound, S2 normal heart sound, no murmurs, no rub, no gallops and no clicks GI normal to inspection, nondistended, normoactive bowel sounds, soft to palpation and non-tender Extremity no clubbing, cyanosis or edema Extremity Narrative: Pedal pulses are 2+, radial pulses are 2+, patient has left upper extremity fistula that has a positive bruit and thrill Neuro oriented x3, moves all extremities and no focal motor deficits Speech: speech normal Psych affect normal Psych Narrative: Very pleasant, interacts appropriately Lab / Micro Data 04/17/25 05:18 04/17/25 05:18 Labs: Laboratory Results - last 24 hr 04/17/25 05:18: WBC 8.6, RBC 2.23 L, Hgb 7.3 L, Hct 22.1 L, MCV 99.1 H, MCH 32.7 H, MCHC 33.0, RDW Std Deviation 60.2 H, RDW Coeff of Dayanna 16.7 H, Plt Count 143 L, MPV 10.8, Immature Gran % (Auto) 0.500, Neut % (Auto) 73.7 H, Lymph % (Auto) 17.6 L, Boundary % (Auto) 7.1, Eos % (Auto) 1.0, Baso % (Auto) 0.1, Absolute Neuts (auto) 6.3, Absolute Lymphs (auto) 1.51, Nucleated RBC % 0, Sodium 139, Potassium 4.2, Chloride 102, Carbon Dioxide 25.0, Anion Gap 12, BUN 47 H, Creatinine 8.12 H*, Estim Creat Clear Calc 10.90 L, Est GFR (MDRD) Non-Af 6 L, BUN/Creatinine Ratio 5.8 L, Glucose 103 H, Lactic Acid 1.3, Calcium 8.9, Blood Type O POSITIVE, Antibody Screen NEGATIVE, Crossmatch See Detail Assessment & Plan Assessment/Plan (1) Symptomatic anemia: (2) Acute lower GI bleeding: (3) Hematochezia: PLAN: 49-year-old presents with lower GI bleeding likely secondary to post polypectomy bleeding. She will undergo colonoscopy to evaluate lower GI tract. She was explained alternatives, risk and benefits include not withstanding bleeding, infection, subsequent perforation, need for urgent . She will have an ASA 3. Charges/Coding Visit Charges Inpatient E&M: 19965 Init Hosp L3
--- NOTE | 2025-04-17 12:15 | PCM.POST.ANE ---
Anesthesia: Postop Eval I Current Vital Signs Temperature: 97 F Pulse Rate: 80 Blood Pressure: 110/56 Respiratory Rate: 18 Pulse Ox: 97 Oxygen Delivery Method: Room Air Assessment Airway patent: Yes Spontaneous unlabored respirations: Yes Mental status: Awake nausea: No Vomiting: No Anesthesia Complication: No Fluid Hydration Crystalloid volume administer (ml): 300 Total IV fluid infused: 300 Progress Note Anesthesia document: Postop Eval 1 completed: Yes
--- NOTE | 2025-04-17 12:21 | OP.CCLET_ITS ---
04/17/2025 Christine To Re : Colonoscopy procedure for Nisha Tovar Dear Zuleika This procedure was performed on Thursday, April 17, 2025. My impressions and recommendations are as follows: Impressions : - Blood in the entire examined colon. - A few ulcers at the hepatic flexure and in the ascending colon. Clips were placed. Clip mooner: coin4ce. Treated with a heater probe. - The examination was otherwise normal on direct and retroflexion views. - No specimens collected. Recommendations : - Discharge patient to home. - Resume previous diet. - Continue present medications. - Repeat colonoscopy in 1 year for surveillance. My findings are described in the full procedure note, which is enclosed. If I can be of further assistance, please feel free to contact me at . Sincerely, Alberto Friend, 04/17/2025 12:20:46 PM This report has been signed electronically.
--- NOTE | 2025-04-17 12:21 | OP.COLON_ITS ---
Patient Name: Nisha Tovar Procedure Date: 04/17/2025 10:32 AM Date of : 1975 Age: 49 Procedure: Colonoscopy Indications: Treatment of bleeding from polypectomy site Providers: Alberto Strickland DO Medicines: Monitored Anesthesia Care Patient Profile: This is a 49 year old female. Refer to note in patient chart for documentation of history and physical. Last Colonoscopy: 1 week ago. Complications: No immediate complications. Procedure: Pre-Anesthesia Assessment: - Prior to the procedure, a History and Physical was performed, and patient medications and allergies were reviewed. The patient is competent. The risks and benefits of the procedure and the sedation options and risks were discussed with the patient. All questions were answered and informed consent was obtained. Patient identification and proposed procedure were verified by the physician in the pre-procedure area. Mental Status Examination: alert and oriented. Airway Examination: normal oropharyngeal airway and neck mobility. Respiratory Examination: clear to auscultation. CV Examination: normal. Prophylactic Antibiotics: The patient does not require prophylactic antibiotics. Prior Anticoagulants: The patient has taken no anticoagulant or antiplatelet agents except for NSAID medication. ASA Grade Assessment: II - A patient with mild systemic disease. After reviewing the risks and benefits, the patient was deemed in satisfactory condition to undergo the procedure. The anesthesia plan was to use monitored anesthesia care (MAC). Immediately prior to administration of medications, the patient was re-assessed for adequacy to receive sedatives. The heart rate, respiratory rate, oxygen saturations, blood pressure, adequacy of pulmonary ventilation, and response to care were monitored throughout the procedure. The physical status of the patient was re-assessed after the procedure. After I obtained informed consent, the scope was passed under direct vision. Throughout the procedure, the patient's blood pressure, pulse, and oxygen saturations were monitored continuously. The adult colonoscope was introduced through the anus and advanced to the cecum, identified by appendiceal orifice and ileocecal valve. The colonoscopy was performed without difficulty. The patient tolerated the procedure well. The ileocecal valve, appendiceal orifice, and rectum were photographed. Scope In: 11:20:37 AM Scope Out: 11:59:29 AM Total Procedure Duration Time 0 hours 38 minutes 52 seconds Findings: The perianal and digital rectal examinations were normal. Red blood was found in the entire colon. A few six mm ulcers were found at the hepatic flexure and in the ascending colon. Oozing was present. Stigmata of recent bleeding were present. To prevent bleeding after the polypectomy, two hemostatic clips were successfully placed. 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 There was no bleeding at the end of the procedure. Coagulation for hemostasis using heater probe was successful. Estimated blood loss was minimal. The exam was otherwise without abnormality on direct and retroflexion views. Impression: - Blood in the entire examined colon. - A few ulcers at the hepatic flexure and in the ascending colon. Clips were placed. 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 Treated with a heater probe. - The examination was otherwise normal on direct and retroflexion views. - No specimens collected. Recommendation: - Discharge patient to home. - Resume previous diet. - Continue present medications. - Repeat colonoscopy in 1 year for surveillance. Procedure Code(s): --- Professional --- 32122, 78, Colonoscopy, flexible; with control of bleeding, any method CPT copyright 2021 [employer]. All rights reserved. The codes documented in this report are preliminary and upon labor economist review may be revised to meet current compliance requirements. Alberto Strickland DO 04/17/2025 12:20:46 PM This report has been signed electronically. Number of Addenda: 0 Note Initiated On: 04/17/2025 10:32 AM
--- NOTE | 2025-04-17 12:55 | PCM.POSTANE2 ---
Anesthesia Postop Eval I Sum Postop Eval Completion status Anesthesia document: Postop Eval 1 completed: Yes Anesthesia Postop Eval I Summary Anesthesia Postop Eval I Summary: Anesthesia Postop Eval I: Assessment Summary Airway patent Yes 04/17/25 12:16 [email or web address] Spontaneous unlabored Yes 04/17/25 12:16 [email or web address] respirations Mental status Awake 04/17/25 12:16 [email or web address] nausea No 04/17/25 12:16 [email or web address] Vomiting No 04/17/25 12:16 [email or web address] Anesthesia Postop Eval I: Fluid Summary Crystalloid volume administer 300 04/17/25 12:16 [email or web address] (ml) Colloids volume administered ( ml) Blood Product volume administered (ml) Total IV fluid infused 300 04/17/25 12:16 [email or web address] Anesthesia Postop Eval I: Summary Notes Anesthesia Complication No 04/17/25 12:16 [email or web address] Anesthesia Complication Comment: Post-operative progress note Anesthesia: Postop Eval II Evaluation Mental status: Awake Pain Level: 0 nausea: No Vomiting: No
[2025-04-17] MEDS: 0.9% Normal Saline 1,000 ML IV.SOLN. 1000 ML OPERA.SITE (13:51)
[2025-04-17] MEDS: PureFlow B 2K Dialysis Soln 1 BAG 6 BAG PF (13:52)
[2025-04-17] MEDS: Pantoprazole Sodium 40 MG in 0.9% Normal Saline (100mL MB+) 100 ML 330 MG IV ×2 (14:34→20:38)
[2025-04-17 14:35] LABS: Hemoglobin 7.7 g/dL (12.0-15.0); POSITIVE COUNT YES
--- NOTE | 2025-04-17 14:57 | CASEMGMT ---
JOHN CRONIN Assessment Face to Face with patient for initial transition planning/care coordination assessment. JOHN CRONIN introduced self and role at [facility], pt voices understanding. Pt is A&Ox4 and is resting comfortably in bed and is calm. Pt is currently being dialyzed. Pt's SO at bedside. Care providers, pharmacy, and demographics verified. Admitting dx: LGIB/ABLA LACE Strata: 1 PCP: Christine To Specialists: James (Nephrology), [facility] Preferred Pharmacy: [facility] Insurance: [employer], [place]/[employer]. Pt states that she believes she has a CM through the insurance but isn't quite sure. SW notified. Prescription Benefit: Yes LNOK: Gavin Caro (Mother), Roger Pardo (SO) Living Arrangements: Pt lives with her SO in a trailer with a ramp to enter ADLs/IADLs: Pt states that she is indep. 6-Click score is 24. No therapy ordered. pt denies concerns Transportation: Pt does not drive. Pt states that her SO and [employer] provides her with transportation DME: [employer]. Denies further uses or needs HHC/SNF: Reports hx @ a SNF in [place]. Denies HH History HD: Pt reports that she attends [facility] q MWF @ 4400. Pt states that [employer] provides her transportation to and from this Pt?s goal: Home Plan: Home with the continuation of HD, anticipate no additional needs at this time. Pt states that she feels safe returning home with her SO at the time of DC and denies the need for further resources now. Follow GI and Nephrology consult. Al Landin RN, CM
--- NOTE | 2025-04-17 16:52 | PCM.HOSP.N ---
Hospitalist Note Saw patient at bedside this afternoon, significant other present. Patient was sitting back comfortably in bed, no acute distress. She just completed dialysis. Denied any bowel movement since coming out of endoscopy. Was feeling well otherwise, no other acute concerns currently. Plan is to repeat CBC tomorrow morning and if hemoglobin remained stable, will plan on discharge home. Patient is agreeable with this plan. Full progress note to follow tomorrow.
[2025-04-17] MEDS: SEVELAMER CARBONATE 800 MG TABLET PO ×2 (17:10→20:34)
[2025-04-17 19:16] LABS: Hematocrit 22.1 % (37-47); Hemoglobin 7.4 g/dL (12.0-15.0)
[2025-04-17] MEDS: Pramipexole Di-HCl 0.25 MG Tablet 0.75 MG PO (20:34)
[2025-04-17] MEDS: 0.9% Saline Lock 10 ML Syringe IV (20:39)
[2025-04-18] VITALS (10 sets, daily range): BP systolic 128–148; BP diastolic 73–99; PULSE 81–98; RESP 16–18; TEMP 36.6–37.2; O2SAT 99–100; BMI 33.2
[2025-04-18 01:08] LABS: Hematocrit 19.6 % (37-47); Hemoglobin 6.6 g/dL (12.0-15.0)
--- NOTE | 2025-04-18 02:34 | PCM.HOSP.N ---
Hospitalist Note Patient admitted for GI bleed. Colonoscopy done on 04/17/2024 and noted ulceration in the colon. Area was cauterized however her hemoglobin was cycled and continues to drop. Initial hemoglobin 7.3 and she was given blood with hemoglobin up to 7.7 then 7.4 and her most recent is 6.6. Will give 2 units of packed red blood cells now and repeat CBC after.
[2025-04-18] MEDS: Cinacalcet HCl 30 MG Tablet 90 MG PO (08:40)
[2025-04-18] MEDS: Calcitriol 0.25 MCG Capsule 0.5 MCG PO (08:40)
[2025-04-18] MEDS: Pramipexole Di-HCl 0.25 MG Tablet 0.75 MG PO (08:41)
[2025-04-18] MEDS: SEVELAMER CARBONATE 800 MG TABLET PO (08:41)
[2025-04-18] MEDS: 0.9% Saline Lock 10 ML Syringe IV (08:41)
[2025-04-18 09:22] LABS: Absolute Lymphocyte Count 1.61 X10^3/uL (0.83-4.51); Absolute Neutrophil Count 5.7 X10^3/uL (2.0-7.7); Basophil# 0.02 X10^3/uL; Basophil% 0.3 % (0-1); Eosinophil# 0.09 X10^3/uL; Eosinophils% 1.1 % (0-5); Hematocrit 25.5 % (37-47); Hemoglobin 8.5 g/dL (12.0-15.0); Lymphocyte # 1.61 X10^3/ul (0.83-4.51); Lymphocyte % 20.4 % (19-41); Mean Corp Hgb Conc 33.3 g/dL (32-36); Mean Corpuscular Volume 93.1 fL (81-99); Mean Platelet Vol. 10.3 fl (6.2-12.0); Monocyte# 0.46 X10^3/uL; Monocyte% 5.8 % (0-10); NRBC Flagged by Analyzer 0 % (0-5); Platelet Count 104 K/mm3 (150-450); RBC Distribution Width CV 17.1 % (11.6-14.6); Red Blood Count 2.74 M/mm3 (4.2-5.4); White Blood Count 7.9 K/mm3 (4.4-11.0)
--- NOTE | 2025-04-18 09:35 | PCM.DC ---
Discharge Instructions Diet Discharge Diet: No restrictions DC O2, CPAP, BIPAP needs Home O2 Discharge instructions: No Dressing / Incision Discharge Activity: No Restrictions Follow Up Care Test Results: Test results from this visit will be discussed in further detail at your follow-up appointment, if applicable. Discharge Plan Admission Admit Date/Time: 04/17/25 06:49 Primary Reason for Your Visit: GI bleed Attending Provider: Bridger Mann Primary Care Provider: Christine To NP Consulting Providers: Erendira Daley Discharge Orders/Prescriptions Prescriptions: Continued omeprazole 20 mg capsule,delayed release(DR/EC) 20 mg PO QDAY amlodipine 5 mg tablet 5 mg PO QHS calcitriol 0.5 mcg capsule 0.5 mcg PO QDAY cinacalcet 90 mg tablet 90 mg PO QDAY labetalol 100 mg tablet 100 mg PO BID losartan 50 mg tablet 50 mg PO BID medroxyprogesterone 10 mg tablet 10 mg PO QDAY multivitamin Tablet 1 tab PO QDAY ropinirole 0.5 mg tablet 1.5 mg PO BID sevelamer HCl 800 mg tablet 800 mg PO TID Rx Instructions: must administer with a meal/food Referrals / Follow Up: Christine To NP, STAFF NURSE ICU RESOURCE TEAM-C [Primary Care Provider] - Disposition Disposition (needs filled in before D/C Order can be placed): Home, Self Care
--- NOTE | 2025-04-18 09:35 | PCM.DC.SUM ---
Providers Date of Admission: 04/17/25 Date of Discharge: 04/18/25 Primary Care Physician: DARREN Beltran Consultations 04/17/25 12:58 Consult: Gastroenterology Routine Consulting Provider: [facility] Reason for Consult: GI bleed EMERGENT Consult: No Notified: Yes Date Notified: 04/17/25 Time Notified: 06:51 Method of Notification: ED Physician Initiated Consult: Nephrology Routine Consulting Provider: Jarett Moon Reason for Consult: ESRD EMERGENT Consult: No Notified: No Date Notified: 04/17/25 Time Notified: 06:55 Reason For Visit: LGIB/ACUTE BLOOD LOSS ANEMIA Diagnosis Discharge Diagnosis (1) Symptomatic anemia: Status: Acute Code(s): D64.9 - Anemia, unspecified (2) Acute lower GI bleeding: Status: Acute Code(s): K92.2 - Gastrointestinal hemorrhage, unspecified (3) Hematochezia: Status: Acute Code(s): K92.1 - Melena Medications at Discharge Home Medications amlodipine 5 mg tablet 5 mg PO QHS 01/29/25 calcitriol 0.5 mcg capsule 0.5 mcg PO QDAY 01/29/25 cinacalcet 90 mg tablet 90 mg PO QDAY 01/29/25 labetalol 100 mg tablet 100 mg PO BID 01/29/25 losartan 50 mg tablet 50 mg PO BID 01/29/25 medroxyprogesterone 10 mg tablet 10 mg PO QDAY 01/29/25 multivitamin 1 tab PO QDAY 01/29/25 omeprazole 20 mg capsule,delayed release 20 mg PO QDAY 01/29/25 ropinirole 0.5 mg tablet 1.5 mg PO BID 01/29/25 sevelamer HCl 800 mg tablet 800 mg PO TID 01/29/25 Hospital Course Operations None Procedures Colonoscopy and EKG Summary of Care Provided Minutes Spent on Discharge: 35 Hospital Course: Patient is a 49-year-old female who presented [facility] ED on 04/17/2025 with recurrent lower GI bleed. Short hospital course as noted below. Patient discharged home in stable condition on 04/18. 1. Hematochezia with acute on chronic anemia secondary to bleed from recent polypectomy site, history of GERD ? GI followed. No recent colonoscopy on 04/14 with large polyps removed. Hemoglobin 7.3 on admit, baseline was unclear. Taken urgently to colonoscopy on admission and found to have a few ulcers at the hepatic flexure in the ascending colon that were clipped and treated with heater probe. Given 2 units of blood on day of admission but hemoglobin only slightly improved and dropped again to 6.6 on morning of 04/18. Given another 2 units of blood with hemoglobin 8.5 on recheck. Patient with no further episodes of bright red blood or dark stools. Okay for discharge home on 04/18. Continue home PPI daily. 2. ESRD on HD ? Nephrology followed. On HD Sunday. Had HD session done here on 04/17, tolerated without issue. Continue home dialysis schedule on discharge. Continue home calcitriol, Cinacalcet and sevelamer. 3. Essential hypertension ? Held home BP medications while inpatient due to GI bleed. Okay to resume home amlodipine, labetalol and losartan on discharge. 4. Restless leg syndrome ? Continue home ropinirole. 5. Obesity ? BMI 33 on admit. Complicated hospital course, care and prognosis. *Notably patient was admitted under inpatient status but recovered more quickly than anticipated and was able to be discharged home on hospital day 2. Total clinical time spent by myself addressing the patient's medical issues, reviewing all the data, and collaborating with patient's care team: 35 minutes. Physical Exam Const alert, oriented x3 and no apparent distress Constitutional Narrative: Pleasant middle-age female, class I obesity, sitting up comfortably in bed, conversing normally, in no acute distress. General Appearance: cooperative and comfortable HEENT normocephalic, head/scalp atraumatic, hearing grossly normal bilaterally, nasal mucous membranes and turbinates normal and moist oral mucous membranes Eyes PERRL, EOMs intact bilaterally and conjunctivae normal Neck full ROM Chest inspection of chest normal Resp normal respiratory effort, normal air movement, no use of accessory muscles and clear to auscultation bilaterally Cardio regular rate, regular rhythm, no murmurs and peripheral pulses 2+ throughout GI normal to inspection, nondistended, normoactive bowel sounds, soft to palpation, non-tender and non-distended Back/Spine normal ROM Extremity normal to inspection, full ROM and no pedal edema Skin no rashes or lesions noted Psych mental status grossly normal Weight / BMI Weight Weight: 101.7 kg Body Mass Index (BMI) 33.2 ABG / Lab / Microbiology Data 04/18/25 09:15 04/18/25 09:15 Laboratory: Laboratory Results - last 24 hr 04/17/25 05:18: Crossmatch See Detail 04/17/25 05:18: Crossmatch See Detail 04/17/25 14:15: Hgb 7.7 L, Hct 23.0 L 04/17/25 18:50: Hgb 7.4 L, Hct 22.1 L 04/18/25 01:00: Hgb 6.6 L, Hct 19.6 L 04/18/25 09:15: WBC 7.9, RBC 2.74 L, Hgb 8.5 L, Hct 25.5 L, MCV 93.1 D, MCH 31.0, MCHC 33.3, RDW Std Deviation 57.0 H, RDW Coeff of Dayanna 17.1 H, Plt Count 104 L, MPV 10.3, Immature Gran % (Auto) 0.400, Neut % (Auto) 72.0 H, Lymph % (Auto) 20.4, Morrison % (Auto) 5.8, Eos % (Auto) 1.1, Baso % (Auto) 0.3, Absolute Neuts (auto) 5.7, Absolute Lymphs (auto) 1.61, Nucleated RBC % 0, Sodium 141, Potassium 3.5, Chloride 109 H, Carbon Dioxide 21.9, Anion Gap 10, BUN 33 H, Creatinine 6.13 H, Estim Creat Clear Calc 14.40 L, Est GFR (MDRD) Non-Af 8 L, BUN/Creatinine Ratio 5.4 L, Glucose 97, Calcium 8.1, Phosphorus 3.7, Magnesium 1.8, Total Bilirubin 0.37, AST 12, ALT 14, Alkaline Phosphatase 61, Total Protein 5.1 L, Albumin 2.8 L, Globulin 2.4, Albumin/Globulin Ratio 1.2 D/C Instructions DC O2, CPAP, BIPAP Needs Home O2 Discharge instructions: No Meaningful Use Info Meaningful Use Meaningful Use Diagnoses (Choose all that apply): None applicable Ischemic Stroke Statin Dosing Therapy Reference: STATIN DOSE THERAPY REFERENCE: * Patients > 75 years receive moderate or high dose statin therapy. * Patients 75 years or YOUNGER should receive HIGH intensity statin dose unless contraindicated. You will be required to document reason for non-treatment if statin daily dose does not meet guidelines. HIGH DOSE STATIN THERAPY DAILY Atorvastatin > than or = to 40 mg Rosuvastatin > than or = to 20 mg Amlodipine + Atorvastatin > than or = to 2.5/40 mg Ezetimibe + Simvastatin 10/80 mg Simvastatin 80mg Discharge Plan Admission Admit Date/Time: 04/17/25 06:49 Primary Reason for Your Visit: GI bleed Attending Provider: Bridger Mann Primary Care Provider: Christine To NP Consulting Providers: Erendira Daley Discharge Orders/Prescriptions Prescriptions: Continued omeprazole 20 mg capsule,delayed release(DR/EC) 20 mg PO QDAY amlodipine 5 mg tablet 5 mg PO QHS calcitriol 0.5 mcg capsule 0.5 mcg PO QDAY cinacalcet 90 mg tablet 90 mg PO QDAY labetalol 100 mg tablet 100 mg PO BID losartan 50 mg tablet 50 mg PO BID medroxyprogesterone 10 mg tablet 10 mg PO QDAY multivitamin Tablet 1 tab PO QDAY ropinirole 0.5 mg tablet 1.5 mg PO BID sevelamer HCl 800 mg tablet 800 mg PO TID Rx Instructions: must administer with a meal/food Referrals / Follow Up: Christine To NP, POWER SCREWDRIVER OPERATOR-C [Primary Care Provider] - Disposition Disposition (needs filled in before D/C Order can be placed): Home, Self Care Charges/Coding Visit Charges Inpatient E&M: 90595 Disch Hosp >30min
[2025-04-18 10:10] LABS: Magnesium 1.8 mg/dL (1.5-2.2); Phosphorus 3.7 mg/dL (2.7-4.5)
[2025-04-18 10:27] LABS: ALB/GLOB Ratio 1.2 RATIO (0.9-2.4); AST(SGOT) 12 U/L (<=31); Alanine Aminotransfer ALT/SGPT 14 U/L (<=34); Albumin, Serum 2.8 g/dL (3.5-5.0); Alkaline Phosphatase 61 U/L (35-104); Anion Gap 10 (5-15); BUN 33 mg/dL (4-19); BUN/Creat Ratio 5.4 RATIO (10-20); Calcium,Total 8.1 mg/dL (7.6-11.0); Carbon Dioxide 21.9 mmol/L (21.0-32.0); Chloride 109 mmol/L (98-108); Creatinine, Serum 6.13 mg/dL (0.70-1.20); EST Glomerular Filtration Rate 8 (>60); Globulin 2.4 g/dL (2.2-4.2); Potassium 3.5 mmol/L (3.3-5.1); Protein, Total 5.1 g/dL (5.9-8.4); Sodium Level 141 mmol/L (133-145); Total Bilirubin 0.37 mg/dL (0.00-1.30)
[2025-04-18 10:35] LABS: Glucose 97 mg/dL (70-99)
== END 2025-04-18 10:25 | disposition home or self-care (01) | DRG 919 ==
LOC: ED 06:05 → PCU 07:02 → ICU 07:34 → MS2 12:33
PROVIDERS: Internal Medicine Gastroenterology; Admitting Provider Internal Medicine; Emergency Provider Emergency Medicine; PCP Nurse Practitioner Family; Visit Provider Hospitalist
PROC: 0DJD8ZZ Inspection of Lower Intestinal Tract, Via Natural or Artificial Opening Endoscopic (ICD-10-PCS; CPT 45378; principal; 2025-04-17 10:55)
DX: K91.840 Postprocedural hemorrhage of a digestive system organ or structure following a digestive system procedure (principal); N18.6 End stage renal disease; I12.0 Hypertensive chronic kidney disease with stage 5 chronic kidney disease or end stage renal disease; K63.3 Ulcer of intestine; Z99.2 Dependence on renal dialysis; D64.9 Anemia, unspecified; E04.9 Nontoxic goiter, unspecified; G25.81 Restless legs syndrome; E66.9 Obesity, unspecified; K21.9 Gastro-esophageal reflux disease without esophagitis; I95.1 Orthostatic hypotension; F12.90 Cannabis use, unspecified, uncomplicated; Z87.891 Personal history of nicotine dependence; Z68.33 Body mass index [BMI] 33.0-33.9, adult
CPT/HCPCS: 36415; 80048; 80053; 81025; 83605; 83735; 84100; 85014; 85018; 85025; 86850; 86900; 86901; 86920; 88305; 90937; 93005; 94668; 99285; C1889; P9016; A4216; G0257; J2405